=== PATIENT | female | born 1935 | race Caucasian/White ===

== ENCOUNTER 2018-11-08 09:21 | Inpatient (IN) | payer MEDICARE, OTHER, SELFPAY ==
[2018-11-08] VITALS (23 sets, daily range): BP systolic 81–149; BP diastolic 41–109; PULSE 73–115; RESP 11–33; TEMP 36.1–37.3; O2SAT 91–100; BMI 24.5; BMI 24.2
--- NOTE | 2018-11-08 09:40 | ED.DCSUM_ITS ---
History of Present Illness Chief Complaint: Female C/O Informant: Patient Onset: Days - This vaginal area noted a couple days ago, Weeks - Left buttocks pain 2 weeks ago Context: Sudden Onset Timing: Continuous Quality: Pain Location: Left buttocks Current Severity: Mild Maximum Severity: Severe Worsened by: Sitting Relieved by: Nothing Associated Symptoms: Denies fever or chills Narrative: Patient is an elderly woman with history of hypertension hypothyroidism who presents because of left buttocks pain noted a couple weeks ago. She presents now because she believes she has a pelvic infection because of redness noted. She states the redness spread from her backside. She denies fever or chills. She is on no immunosuppressive meds. She denies a history of rheumatic fever, murmur, SBE, or being immune suppressed. She denies dysuria, frequency, urgency or hematuria. She denies vaginal discharge. She denies history of yeast infection. She denies paresthesia, anesthesia motor weakness lower extremity. She denies history of abscess. Prior similar symptoms: No Recent Illness/Hospitalization: No - Past Medical History (1) History of hypertension Status: Acute (2) History of hypothyroidism Status: Acute Past Medical History - Allergies and Home Meds Allergies/Adverse Reactions: Allergies No Known Allergies Allergy (Verified 11/08/18 09:21) Primary Care Physician: Yudy Brennan MD [Primary Care Provider] - Prior records reviewed: Yes Surgical History: noncontributory Lives: Alone Smoking Status: Never smoker Alcohol: None Drugs: None Review of Systems General: Denies: Chills, Fever, Malaise, Subjective, Sweats, Weight loss, - Eyes: Denies: Visual changes - bilaterally, Blurred Vision - bilaterally ENT: Denies: Rhinorrhea, Sore throat Cardiovascular: Denies: Chest pain, Palpitations Respiratory: Denies: Dyspnea, Cough, Dyspnea on exertion Gastrointestinal: Denies: Abdominal pain, Nausea, Vomiting, Diarrhea, Constipation, Melena, Hematochezia Genitourinary: Denies: Dysuria, Hematuria, Frequency Musculoskeletal: Denies: Myalgias, Arthralgias, Neck pain, Back pain, Swelling, Extremity Pain Skin: Reports: Rash Neurological: Denies: Headache, Weakness, Parasthesia, Numbness Endocrine: Denies: Polyuria, Polydipsia Hematologic: Denies: Easy bruising, Easy bleeding Allergy: Denies: Uticaria, Swelling of the mouth Physical Exam Vital Signs/Narrative: Vital Signs Temp Pulse Resp BP Pulse Ox 11/08/18 09:25 96.9 F L 11/08/18 09:22 96.9 F L 115 H 16 149/67 H 97 Diagnostic/Tx/Re-eval Laboratory Results 11/08/18 11/08/18 11/08/18 10:00 10:00 10:00 WBC 12.0 H RBC 3.73 L Hgb 11.5 L Hct 35.4 L MCV 94.9 MCH 30.8 MCHC 32.5 RDW Std Deviation 47.3 H RDW Coeff of Anderson 13.5 Plt Count 248 MPV 9.5 Immature Gran % (Auto) 0.700 Neut % (Auto) 81.2 H Lymph % (Auto) 6.5 L [place] % (Auto) 11.4 H Eos % (Auto) 0.0 Baso % (Auto) 0.2 Absolute Neuts (auto) 9.8 H Absolute Lymphs (auto) 0.78 L Nucleated RBC % 0 Sodium 137 Potassium 3.8 Chloride 104 Carbon Dioxide 25.0 Anion Gap 8 BUN 16 Creatinine 0.90 Estim Creat Clear Calc 45.89 Est GFR (MDRD) Af Amer 78 Est GFR (MDRD) Non-Af 64 BUN/Creatinine Ratio 17.9 Glucose 105 Lactic Acid 1.6 Calcium 9.1 Total Bilirubin 0.90 AST 17 ALT 23 Alkaline Phosphatase 104 Total Protein 7.4 Albumin 3.2 Globulin 4.2 Albumin/Globulin Ratio 0.8 L Patient does not have severe sepsis or septic shock. Lactate is normal at 1.6. White count is elevated. She is tachycardic. She does have sepsis secondary to left buttocks abscess and cellulitis. Since lactate is normal blood cultures are not indicated. She was treated with 4.5 g of Zosyn and 50 mg/kg of vancomycin. - Medical Decision Making Patient presents with left buttocks abscess and cellulitis. The area involvement is extensive. She will require admission. She is tachycardic. Sepsis work-up was undertaken. Lactate was obtained. If lactate is elevated blood cultures will be obtained prior to starting antibiotics. She did receive fluid bolus. The abscess was incised and drained. Very large cavity with multiple areas of loculation. Patient complained of pain after procedure and was medicated with IV morphine and Zofran. Since she has no allergies and location of abscess she was treated with Zosyn and vancomycin. Patient was reassessed at 1055. Blood pressure is 85/61. Since she is hypotensive she will receive a 30 cc/kg bolus. She did receive bolus during procedure. She received 500 cc. Patient require admission. Since she has 2 sirs criteria with a source and systolic pressure less than 90 she has severe sepsis even though her lactate is normal. Page hospitalist for admission. - Critical Care Time Critical care time (excluding procedures): 30-74 minutes, Discussing w/Patient &/or Family/Cage Tender, Discussing w/Consultants, Arranging Admission or Transfer - CC time 33 minutes Procedures Procedure(s): Patient was consented for deep sedation using propofol and I&D of left buttocks abscess. Patient reports no allergy to soy products or egg products. She was given opportunity ask questions. She had none. She was informed of risk benefits of using propofol versus local. Large complex left buttocks abscess with cellulitis. Patient received total of 100 mg of propofol. The area was anesthetized by field block using 1% lidocaine. The area was prepped draped sterile manner. Incision was made. There is minimal purulent material noted. Blunt dissection was undertaken. There is a large cavity and numerous loculated areas were noted. The cavity was irrigated. Was placed using 1 inch iodoform gauze. Culture was obtained. Total time of procedure 10 minutes and 25 seconds. ED Disposition - Plan for ED Patient: Disposition: Acute Care Hospital [facility] Diagnosis: Abscess and cellulitis of gluteal region, Sepsis, Sinus tachycardia by electrocardiogram, Hypotension, Severe sepsis Referrals: Yudy Brennan MD [Primary Care Provider] -
[2018-11-08 10:11] LABS: Absolute Lymphocyte Count 0.78 X10^3/uL (0.83-4.51); Absolute Neutrophil Count 9.8 X10^3/uL (2.0-7.7); Basophil# 0.02 X10^3/uL; Basophil% 0.2 % (0-1); Hematocrit 35.4 % (37-47); Hemoglobin 11.5 g/dL (12.0-15.0); Lymphocyte # 0.78 X10^3/ul (4.0); Lymphocyte % 6.5 % (19-41); Mean Corp Hgb Conc 32.5 g/dL (32-36); Mean Corpuscular Hgb 30.8 pg (27.0-32.0); Mean Corpuscular Volume 94.9 fL (81-99); Mean Platelet Vol. 9.5 fl (6.2-12.0); Monocyte# 1.37 X10^3/uL; Monocyte% 11.4 % (0-10); NRBC Flagged by Analyzer 0 % (0-5); Neutrophil # 9.76 X10^3/uL (2.7-7.7); Neutrophil % 81.2 % (47-70); POSITIVE MORPHOLOGY YES; Platelet Count 248 K/mm3 (150-450); RBC Distribution Width CV 13.5 % (11.6-14.6); RBC Distribution Width SD 47.3 fl (35.1-43.9); Red Blood Count 3.73 M/mm3 (4.2-5.4)
[2018-11-08 10:12] LABS: Differential Indicated SCAN CRITERIA MET
[2018-11-08] MEDS: Propofol 200 MG/20 ML Vial IV BOLUS (10:15)
[2018-11-08 10:26] LABS: ALB/GLOB Ratio 0.8 RATIO (0.9-2.4); AST(SGOT) 17 U/L (15-37); Alanine Aminotransfer ALT/SGPT 23 U/L (13-56); Albumin, Serum 3.2 g/dL (3.2-5.0); Alkaline Phosphatase 104 U/L (45-117); Anion Gap 8 (5-15); BUN 16 mg/dL (7-18); BUN/Creat Ratio 17.9 RATIO (10-20); Calcium,Total 9.1 mg/dL (8.5-10.1); Chloride 104 mmol/L (98-107); EST Glomerular Filtration Rate 64 mL/min (>60); Est Glom Filt Rate - Afr Amer 78 mL/min (>60); Estimated Creatinine Clearance 45.89 ml/min; Globulin 4.2 g/dL (2.2-4.2); Glucose 105 mg/dL (74-106); Potassium 3.8 mmol/L (3.5-5.1); Protein, Total 7.4 g/dL (6.4-8.2); Sodium Level 137 mmol/L (136-145)
[2018-11-08 10:37] LABS: Lactic Acid 1.6 mmol/L (0.4-2.0)
[2018-11-08] MEDS: 0.9% Normal Saline 1,000 ML 150 ML IV (10:38)
[2018-11-08] MEDS: Morphine 4 MG/ML Syringe IV ×2 (10:39→11:31)
[2018-11-08] MEDS: Ondansetron 4 MG/2 ML Vial IV (10:45)
[2018-11-08] MEDS: 0.9% Normal Saline 1,000 ML 1000 ML IV (11:31)
--- NOTE | 2018-11-08 11:37 | CM.ED ---
Social Work Consult: dependent on patient's care. At home, amputee unilateral. Informant: Dr. Cortez Met with patient in room. This social security specialist introduced self as well as social security specialist role. Patient agreeable to speaking with this social security specialist. Patient confirming that patient spouse is home alone and is wheelchair bound. Patient aware that patient is going to be admitted to the hospital. This social security specialist inquiring about support for patient spouse within the home as patient will be in the hospital. Patient stating to have neighbors and friends that are able to check in with patient. Patient also stating that there is plenty of food within the home. Patient is requesting for this social security specialist to contact patient spouse to update patient spouse about patient status. Patient spouse, Lisandro cell phone [phone]. Telephone call to Lisandro Mcmahon updated on patient status. Lisandro voicing understanding and confirming to be able to care for self. Lisandro stating to have a home health nurse coming at 4p today. Lisandro requesting for patient to contact Lisandro after things have calmed down. This social security specialist passing message along to patient. All questions answered. Eloisa CHAPA, MAURICE
--- NOTE | 2018-11-08 13:10 | PCM.CONS.B ---
- Consult Date of Consult: 11/08/18 - Reason for Consult Asked to evaluate patient by Dr. Evans Selene Michael is a 83 year old female who presents with left buttock abscess. Noted this for about two months. Tried to self-treat. But presented to her primary physician's clinic due to increasing size of the area of infection. She was then referred to ED [facility]. She denies trauma to the area. Is taking care of her disabled who has chronic leg infections and has been hospitalized multiple times for this. Does not know if any MRSA infections. ? PAST?MEDICAL?HISTORY ? Allergic rhinitis, cause unspecified 09/28/2007 ? Diverticulosis of colon (without mention of hemorrhage) ? ? Hemorrhage of gastrointestinal tract, unspecified ? ? Internal hemorrhoids without mention of complication ? ? Other chronic allergic conjunctivitis ? ? ALLERGIC CONJUNCTIVITIS ? Personal history of colonic polyps ? ? PMH - PAST MEDICAL HISTORY OF ? ? ganglian left foot ? Pure hypercholesterolemia ? ? Sjogren's disease (HCC) 2009 ? Unspecified essential hypertension ? ? Unspecified hypothyroidism PAST SURGICAL HISTORY: ? BX BREAST PERC VACUUM/ROTN ? 03/28/2008 ? Left Breast ? COLONOSCOP W/ OR W/O [facility] SPEC ? 02/17/05 ? Colonoscopy ? D&C, DIAG AND/OR THERAPEUTIC ? 1989 ? Dilation & curettage ? LIGATE FALLOPIAN TUBE ? ? ? Tubal ligation ? PAST SURGICAL HISTORY OF ? 1996 ? FIBROID REMOVED ? CURRENT?MEDICATIONS losartan (COZAAR) 100 mg tablet Take 1 tablet by mouth once daily. (instead of irbesartan due to irbesartan not being available). Give namebrand amLODIPine (NORVASC) 2.5 mg tablet Take 1 tablet by mouth once daily. atorvastatin (LIPITOR) 10 mg tablet Take 0.5 tablets by mouth once daily. clobetasol (TEMOVATE) 0.05 % ointment Apply pea sized amount to affected area only - 1-2 times weekly levothyroxine (SYNTHROID) 75 mcg tablet Take 1 tablet by mouth once daily. Take on empty stomach. For Thyroid ASPIRIN 81 MG TAB Take one (1) tablet daily . AFLURIA QUAD 4581-3022, PF, 60 mcg/0.5 mL syrg To be injected by Pharmacis ALLERGIES ? Anesthesia [Other] GI Upset? ? VOMITING ? Codeine GI Upset? ? NAUSEA ? Irbesartan Intolerance? ? reports mouth sores with generic irbesartan ? Levothroid [Levothy* ? ? Choking sensation,inability to swallow--only occurred with generic med ? Pravastatin Intolerance? ? Dry mouth lots of dental work ?? PERSONAL HISTORY: She lives with her who is disabled. She reports that she has never smoked. She has never used smokeless tobacco. She reports that she does not drink alcohol or use drugs. ? Review of Systems Constitutional: denies fevers/chills. Respiratory: denies shortness of breath Cardiovascular: denies chest pain, denies history of cardiac problems Hematological: denies spontaneous/prolonged bleeding, is on aspirin Genitourinary: denies burning with urination, concern that infection was spreading to vagina and she therefore sought medical evaluation Musculoskeletal: no myalgias, pain with above Psychological: denies major mood changes ? PHYSICAL EXAMINATION BP 124/68 (BP Site: Right Arm, BP Position: Sitting, BP Cuff Size: Regular Adult) Pulse 72 Resp 16 Wt 67.1 kg (148 lb) BMI 23.53 kg/m? Physical Exam Constitutional: She appears well-developed and well-nourished. No distress. HENT: no infections or trauma noted Head: Normocephalic and atraumatic. Cardiovascular: Normal rate, regular rhythm, normal heart sounds and intact distal pulses. Exam reveals no gallop and no friction rub. No murmur heard. Pulmonary/Chest: Effort normal and breath sounds normal. No stridor. No respiratory distress. She has no wheezes. Neurological: She is alert. Back/buttocks - left buttock about 60% involved with erythema/increased skin temperature/induration/tenderness with central opening a few centimeters - the area of inflammation extending to perineum Vaginal wall palpated - no inflammation involvement with vaginal wall. Rectal examination - stool in vault, no involvement of inflammation with rectal wall. Skin: Skin is warm and dry. She is not diaphoretic. Assessment and Plan ?? Abscess and cellulitis of left buttock. Plan - to OR for exploration - determine if deeper site to infection/etc. May require surgical debridement of devitalized tissue as patient has had this for two months. Antibiotics per hospitalists service. I strongly suspect MRSA infection.
[2018-11-08] MEDS: Lactated Ringers 1,000 ML 100 ML IV (13:37)
--- NOTE | 2018-11-08 14:28 | PCM.OPRPT ---
Report of Operation Date of Procedure: 11/08/18 Pre-Operative Diagnosis: abscess and cellulitis of left buttock Post-Operative Diagnosis: abscess and cellulitis and hematoma of left buttock Surgery/Procedure Performed:: incision and drainage of abscessed cavity of left buttock Description of Surgical Findings:: 16 x 13 cm with depth of 3 cm, cruciate incision made Type of Anesthesia:: General Anesthesiologist: Kal Rose Specimen's removed: cultures of wound obtained Drains: none Estimated Blood Loss (mL): 50 ml, lar Fluids Replaced: 600 ml RL Description of Procedure: After informed consent was given, the patient was brought to the Operating Room. Appropriate time out protocol was followed. She was then intubated in the supine position by the anesthesia provider. She was then placed in the prone position with appropriate padding to all areas. The patient?s lower back/buttock on the left side was then prepped with a surgical skin preparation and sterile surgical drapes were placed. The skin and subcutaneous tissues in and around the lesion were then infiltrated with 1% xylocaine with epinephrine. A skin incision was then made with a 15 blade scalpel at the previous opening. However, it was noted that the cavity extended greatly beyond the previous opening that was made. Therefore a cruciate incision was made to completely open the entire cavity, this was 16 x 15 cm. Also, the cavity had a large amount of clotted blood within it - at least 300 ml was noted. No purulent fluid was noted. The wound was debrided with all clotted blood removed. Also devitalized tissue was debrided. Hemostasis was achieved by electrocautery. The cavity was vigorously irrigated with hydrogen peroxide. The cavity was then packed with diluted betadyne soaked gauze. Sterile dressing was placed over this. Patient was then extubated and brought to the Recovery Room in stable condition. - Complications none noted - Admit VTE Documentation VTE Present on Admission: Yes VTE Mechan Device Prophylaxis: SCD's
[2018-11-08 15:20] LABS: M R Staph aureus DNA By PCR POSITIVE (Negative); Probe Check PASS; Staph aureus DNA By PCR POSITIVE (Negative)
[2018-11-08] MEDS: Vancomycin IV 1,000 MG/200 ML BAG 200 MG IV (18:19)
--- NOTE | 2018-11-08 18:37 | HP.PCM_ITS ---
Problem List (1) Left buttock pain Status: Acute History of Present Illness Date of Admission: 11/08/18 Chief Complaint: Left buttocks pain The patient is a 83 year old F was seen in the emergency room at [facility] with chief complaint of left buttocks pain. Patient told this examiner that she saw her PCP yesterday who then referred her to another physician-she is not sure who that was-and that physician told her that she was to continue on the treatment that her PCP had given her but go to the emergency room today for reevaluation. Patient told this examiner she has had pain in her left buttocks area for approximately a month. Patient denied any fevers, chills, or drainage from her left buttocks. Patient also denied any vaginal drainage. Work-up in the emergency room included labs which revealed a elevated white blood cell count at 12.0, patient's chemistry profile was unremarkable. On examination by the emergency room physician, there is an indurated red area over the patient's mid left buttocks area, the area was incised and small amount of purulent drainage was removed, this was cultured and a PCR for MRSA was obtained. The wound was further probed and the emergency room physician felt that it extended down into the buttocks and he put packing into the wound and call the hospitalist service for admission. I saw the patient after she had been admitted to PCU and I felt that she had extreme redness of the left buttocks extending into the left perivaginal area, I was concerned of a severe infection that was deep in the tissue and had general surgery see the patient who took the patient to surgery and drained a large hematoma from the area. Patient's PCR for MRSA was positive and she will be kept on IV vancomycin and I will continue Zosyn for now. Past Medical History Allergies No Known Allergies Allergy (Verified 11/08/18 09:21) Home Medications: Ambulatory Orders Medication Instructions Recorded Amlodipine Besylate 2.5 mg PO DAILY 11/08/18 Aspirin [Aspirin, Baby] 81 mg PO DAILY@0800 11/08/18 Atorvastatin Calcium 0.5 tab PO DAILY 11/08/18 Irbesartan [Avapro] 150 mg PO DAILY 11/08/18 Levothyroxine Sodium [Synthroid] 75 mcg PO DAILY 11/08/18 Surgical History: noncontributory Psychiatric History: No pertinent psych hx [employer] History: No pertinent [employer] history Lives: Spouse/ Significant Other Smoking Status: Never smoker Tobacco Use: Non-smoker Alcohol: None Drugs: None - *Family History Maternal History Items: No pertinent history Paternal History Items: No pertinent history Review of Systems Constitutional: Denies: Anorexia, Chills, Fever, Night Sweats, Malaise, Weakness, Weight Change, Fatigue Eyes: Denies: Cataracts, Conjunctivae Inflammation, Double vision, Drainage HEENT: Denies: Difficulty Swallowing, Dysphasia, Ear Pain, Eye Pain, Hearing Changes, Nasal bleeding, Nasal Congestion Cardiovascular: Denies: Chest Pain, Claudication, Chest Pressure, Chest Tightness, Edema, Palpitations Respiratory: Denies: Cough, Hemoptysis, Pleuritic Pain, Shortness of Breath, Shortness of breath at rest, Shortness of breath upon exertion Gastrointestinal: Denies: Abdominal Pain, Constipation, Diarrhea, Hematemesis, Hematochezia, Nausea, Melena, Vomiting Genitourinary: Denies: Dysuria, Frequency, Hematuria, Hesitancy, Nocturia, Retention, Urgency Gynecological: Denies: Breast symptoms Musculoskeletal: Denies: Foot Pain, Hand Pain, Joint Pain, Joint stiffness, Joint swelling Skin: Reports: - - c/o pain over left mid buttocks. Denies: Dryness, Pruritis Neurological: Denies: Blurred vision, Double vision, Slurred speech, Difficulty swallowing, Focal weakness, Headaches, Numbness, Tingling Psychiatric: Denies: Anxiety, Depression, Homicidal Ideations, Suicidal Ideations Endocrine: Denies: Change in Body Habitus, Heat/ Cold Intolerance, Polydipsia, Polyuria Hematologic/ Lymphatic: Denies: Adenopathy, Anemia, Easy Bruising, Easy Bleeding, Petechiae, Purpura VTE Information - Inpt Only VTE Present on Admission: No VTE Mechan Device Prophylaxis: None VTE Pharm Prophylaxis ordered?: Yes Patient Problems: Active and Suspected Problems Abscess and cellulitis of gluteal region (Acute) Sepsis (Acute) Sinus tachycardia by electrocardiogram (Acute) Hypotension (Acute) Severe sepsis (Acute) Left buttock pain (Acute) - Physical Exam General: Alert, Oriented x3, Cooperative, No apparent distress, Well developed, Well nourished HEENT: Atraumatic, PERRLA, EOMI, Normocephalic Oral: Moist Mucosa Neck: Supple, No JVD, Trachea Midline, Thyroid Normal Size and Texture Lungs: Clear to auscultation, Normal air movement Cardiovascular: Regular rate, No murmurs Abdomen: Bowel Sounds Present, Soft, Non Tender Extremities: No edema, Capillary Refill Less than 3 Seconds Skin: - - There is an indurated warm area over most of the patient's left buttocks area extending into the perivaginal area on the left side. Neurological: Cranial nerves II-XII grossly intact, Neuro grossly intact, Sensory exam intact to light touch and pain, Coordination normal Psych/Mental Status: Normal Affect, Appropriate, Alert and oriented to time, place, person, mood and affect Vital Signs Temp Pulse Resp BP Pulse Ox 98.9 F 73 16 117/52 L 95 11/08/18 18:05 11/08/18 18:05 11/08/18 18:05 11/08/18 18:05 11/08/18 18:05 Oxygen Flow Rate (L/min) [4] 5 Oxygen Flow Rate (L/min) [2] 2 Oxygen Flow Rate (L/min) [1 ( 2 Initial Baseline)] Oxygen Flow Rate (L/min) 2 Oxygen Delivery Method [4] Nasal Cannula Oxygen Delivery Method [2] Nasal Cannula Oxygen Delivery Method [1 ( Nasal Cannula Initial Baseline)] Oxygen Delivery Method Room Air Weight: 68 kg Body Mass Index (BMI) 24.2 Intake and Output for Last 24 Hours 11/06/18 11/07/18 11/08/18 23:59 23:59 23:59 Intake Total 2492.5 / 2492.5 Balance 2492.5 / 2492.5 Microbiology Past 72 Hours 11/08/18 10:15 Gram Stain - Final Wound Abcess - Buttock Laboratory Tests Past 24 Hrs 11/08/18 11/08/18 11/08/18 10:00 10:00 10:00 WBC 12.0 H RBC 3.73 L Hgb 11.5 L Hct 35.4 L MCV 94.9 MCH 30.8 MCHC 32.5 RDW Std Deviation 47.3 H RDW Coeff of [place] 13.5 Plt Count 248 MPV 9.5 Immature Gran % (Auto) 0.700 Neut % (Auto) 81.2 H Lymph % (Auto) 6.5 L [place] % (Auto) 11.4 H Eos % (Auto) 0.0 Baso % (Auto) 0.2 Absolute Neuts (auto) 9.8 H Absolute Lymphs (auto) 0.78 L Nucleated RBC % 0 Sodium 137 Potassium 3.8 Chloride 104 Carbon Dioxide 25.0 Anion Gap 8 BUN 16 Creatinine 0.90 Estim Creat Clear Calc 45.89 Est GFR (MDRD) Af Amer 78 Est GFR (MDRD) Non-Af 64 BUN/Creatinine Ratio 17.9 Glucose 105 Lactic Acid 1.6 Calcium 9.1 Total Bilirubin 0.90 AST 17 ALT 23 Alkaline Phosphatase 104 Total Protein 7.4 Albumin 3.2 Globulin 4.2 Albumin/Globulin Ratio 0.8 L S.aureus Protein A PCR MRSA (PCR) 11/08/18 13:05 WBC RBC Hgb Hct MCV MCH MCHC RDW Std Deviation RDW Coeff of Anderson Plt Count MPV Immature Gran % (Auto) Neut % (Auto) Lymph % (Auto) [place] % (Auto) Eos % (Auto) Baso % (Auto) Absolute Neuts (auto) Absolute Lymphs (auto) Nucleated RBC % Sodium Potassium Chloride Carbon Dioxide Anion Gap BUN Creatinine Estim Creat Clear Calc Est GFR (MDRD) Af Amer Est GFR (MDRD) Non-Af BUN/Creatinine Ratio Glucose Lactic Acid Calcium Total Bilirubin AST ALT Alkaline Phosphatase Total Protein Albumin Globulin Albumin/Globulin Ratio S.aureus Protein A PCR POSITIVE H MRSA (PCR) POSITIVE H Assessment/Plan All Active Problems History of hypertension (Acute) History of hypothyroidism (Acute) Abscess and cellulitis of gluteal region (Acute) Sepsis (Acute) Sinus tachycardia by electrocardiogram (Acute) Hypotension (Acute) Severe sepsis (Acute) Left buttock pain (Acute) #1 left buttocks cellulitis from MRSA with abscess pocket in left buttocks- again, patient was admitted to PCU and she will be taken to surgery for further treatment by Dr. Berry. Patient will remain on Zosyn and vancomycin. #2 large hematoma of the left buttocks-etiology appears to be her use of aspirin, patient denies any trauma or fall #3 hypertension-patient will remain on her present blood pressure medications #4 sepsis secondary to #1-no evidence of severe sepsis at this time #5 hypothyroidism #6 hyperlipidemia Code Visit Inpatient E&M: 00243 Init Hosp L3
[2018-11-08] MEDS: 0.9% Normal Saline 1,000 ML 75 ML IV (18:47)
[2018-11-08] MEDS: oxyCODONE 5 MG Tablet 10 MG PO (20:23)
--- NOTE | 2018-11-08 20:49 | PCM.RX.CS ---
Consult Pharmacy has been consulted to manage selected antiobiotic: Vancomycin Type of Consult: New start Suspected Infection: Skin/Soft tissue Prior Doses of Antibiotics Received/Current Regimen: None Labs: Sodium 137 mmol/L (136-145) 11/08/18 10:00 Potassium 3.8 mmol/L (3.5-5.1) 11/08/18 10:00 Chloride 104 mmol/L (98-107) 11/08/18 10:00 Carbon Dioxide 25.0 mmol/L (21.0-32.0) 11/08/18 10:00 8 (5-15) 11/08/18 10:00 BUN 16 mg/dL (7-18) 11/08/18 10:00 0.90 mg/dL (0.55-1.02) 11/08/18 10:00 Est GFR (MDRD) Af Amer 78 mL/min (>60) 11/08/18 10:00 Est GFR (MDRD) Non-Af 64 mL/min (>60) 11/08/18 10:00 17.9 RATIO (10-20) 11/08/18 10:00 Glucose 105 mg/dL (74-106) 11/08/18 10:00 Microbiology: Microbiology 11/08/18 10:15 Wound Abcess - Buttock Gram Stain - Final Weight used for dosin kg Estimated Creatinine Clearance: 46ml/min Goal Trough: 15-20 mcg/mL Pharmacy Plan for Drug Dosing: Pt received a 15mg/kg initial loading dose (Vancomycin 1000mg IV x1) on 11/08/18 at 1819. Ordered trough for the pt is high or 15-20. Recommend Vancomycin 750mg IV q24h starting 24 hours after the initial dose or 11/09/18 at 1800. Trough level will be checked on 11/10/18 at 1730. Pharmacy Service will continue to monitor and adjust dosing as required. Follow-Up Labs: Trough Vancomycin - 11/10/18 at 1730
[2018-11-08] MEDS: Atorvastatin Calcium 10 MG Tablet 5 MG PO (22:49)
[2018-11-08] MEDS: 0.9% NaCl IVPB Med Flush (250 mL) 15 ML IV (22:54)
[2018-11-09] VITALS (13 sets, daily range): BP systolic 114–148; BP diastolic 48–68; PULSE 66–97; RESP 16–18; TEMP 36.2–37.3; O2SAT 93–100; BMI 24.5
[2018-11-09] MEDS: Levothyroxine 75 MCG Tablet PO (05:13)
--- NOTE | 2018-11-09 08:22 | NURSING ---
Called and talked with Dr Berry to see of this nurse should change the dressing to the left buttock. Dr Berry would like the dressing left in place. Feels wound will bleed and wants to be present for dressing change. BERNARDO Busch aware.
[2018-11-09] MEDS: 0.9% Normal Saline 1,000 ML 75 ML IV (08:24)
[2018-11-09 08:36] LABS: Absolute Lymphocyte Count 0.82 X10^3/uL (0.83-4.51); Absolute Neutrophil Count 10.7 X10^3/uL (2.0-7.7); Basophil# 0.01 X10^3/uL; Basophil% 0.1 % (0-1); Hematocrit 25.6 % (37-47); Hemoglobin 8.2 g/dL (12.0-15.0); Lymphocyte # 0.82 X10^3/ul (4.0); Lymphocyte % 6.3 % (19-41); Mean Corpuscular Hgb 30.9 pg (27.0-32.0); Mean Corpuscular Volume 96.6 fL (81-99); Mean Platelet Vol. 9.7 fl (6.2-12.0); Monocyte% 10.8 % (0-10); NRBC Flagged by Analyzer 0 % (0-5); Neutrophil # 10.67 X10^3/uL (2.7-7.7); Neutrophil % 82.2 % (47-70); POSITIVE MORPHOLOGY YES; Platelet Count 192 K/mm3 (150-450); RBC Distribution Width CV 13.4 % (11.6-14.6); RBC Distribution Width SD 47.7 fl (35.1-43.9); Red Blood Count 2.65 M/mm3 (4.2-5.4)
[2018-11-09 08:39] LABS: Differential Indicated SCAN CRITERIA MET
[2018-11-09 09:12] LABS: ALB/GLOB Ratio 0.7 RATIO (0.9-2.4); AST(SGOT) 14 U/L (15-37); Alanine Aminotransfer ALT/SGPT 18 U/L (13-56); Albumin, Serum 2.5 g/dL (3.2-5.0); Alkaline Phosphatase 75 U/L (45-117); Anion Gap 7 (5-15); BUN 16 mg/dL (7-18); BUN/Creat Ratio 20.8 RATIO (10-20); Calcium,Total 8.2 mg/dL (8.5-10.1); Chloride 107 mmol/L (98-107); Creatinine, Serum 0.77 mg/dL (0.55-1.02); EST Glomerular Filtration Rate 76 mL/min (>60); Est Glom Filt Rate - Afr Amer 92 mL/min (>60); Globulin 3.6 g/dL (2.2-4.2); Glucose 127 mg/dL (74-106); Potassium 4.1 mmol/L (3.5-5.1); Protein, Total 6.1 g/dL (6.4-8.2); Sodium Level 140 mmol/L (136-145)
[2018-11-09 11:31] LABS: Hematocrit 26.7 % (37-47); Hemoglobin 8.7 g/dL (12.0-15.0)
--- NOTE | 2018-11-09 11:40 | NURSING ---
Dr Berry came and tore down wound drsg but did not take out packing. Re-inforced w/4x4 gauze & abd's. Ordered to leave dressing on until tomorrow when her and Yahaira, wound RN, assess wound.
--- NOTE | 2018-11-09 11:45 | CASEMGMT ---
As per admitting RN, pt has LW but is unable to bring in the document. Pt does not have POA document, declined additional information at this time. SELMA Ledbetter
--- NOTE | 2018-11-09 13:54 | CASEMGMT ---
Addendum entered by Pasquale Mcdonough 11/09/18 14:55: Call received from [facility]-they are able to accept pt for wound vac or dressing change care. Tom GATICA Addendum entered by Pasquale Mcdonough 11/09/18 14:25: List of area Home Health agencies given to patient. Pt would like agency her has which is [facility]. Message left with [facility] to update re: possible referral. Original Note: RN CM Assessment Presentation: abcess on buttock, I/D. Intro role of CM and purpose of RN CM assessment to patient. Demographics, PCP and Pharmacy verified.Pt able to participate in assessment. Pt states she does not remember injuring herself, and denied any falls. 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 Prior to admission pt was independent and no care needs prior to admission. -Per physician, anticipate pt will need wound vac on dc, but oral antibiotics. PCP: Dr. Brennan Specialists: Dr. Berry [facility]: [employer] Prescription Benefit: yes LNOK: Lisandro Michael Living Arrangements: Lives in [facility], one story, no stairs. Was independent prior to admission. using walker to ambulate with PT/OT. Transportation: drives. If pt is unable to drive, may need transportation assistance as does not drive. [facility] Transportation brochure given and explained. Per [facility] Transp. Serv- they will transport to Dr. Brennan' office. DME: shower chair HHC: Would need Home Health if wound vac is needed, or dressing changes are ordered. List of area agencies given to patient. Patient DC goals: home. 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 DC PLAN: undetermined. Anticipate Home with HHS/wound vac. Tom REDDYM
--- NOTE | 2018-11-09 14:45 | PCM.PROGNOTE ---
Patient Problems: Active and Suspected Problems Abscess and cellulitis of gluteal region (Acute) Sepsis (Acute) Sinus tachycardia by electrocardiogram (Acute) Hypotension (Acute) Severe sepsis (Acute) Left buttock pain (Acute) Subjective: Resting comfortably in bed. Ongoing pain in buttocks. No fever/chills. No cough/SOB. C/o sinus congestion and drainage into her throat. - Physical Exam General: Alert, Oriented x3, Cooperative HEENT: Atraumatic, PERRLA, EOMI, Normocephalic Neck: Supple, No JVD, Negative Carotid Bruits Lungs: Clear to auscultation, Normal air movement Cardiovascular: Regular rate, No murmurs Abdomen: Bowel Sounds Present, Soft, Non Tender Extremities: No edema, Capillary Refill Less than 3 Seconds Skin: No rashes, No breakdown Musculoskeletal: No Tenderness to Palpation of Joints or Extremities Neurological: Cranial nerves II-XII grossly intact Psych/Mental Status: Normal Affect, Appropriate, Alert and oriented to time, place, person, mood and affect Vital Signs Temp Pulse Resp BP Pulse Ox 97.3 F L 73 18 125/62 H 99 11/09/18 13:24 11/09/18 13:24 11/09/18 13:24 11/09/18 13:24 11/09/18 13:24 Oxygen Flow Rate (L/min) [4] 5 Oxygen Flow Rate (L/min) [2] 2 Oxygen Flow Rate (L/min) [1 ( 2 Initial Baseline)] Oxygen Flow Rate (L/min) 2 Oxygen Delivery Method [4] Nasal Cannula Oxygen Delivery Method [2] Nasal Cannula Oxygen Delivery Method [1 ( Nasal Cannula Initial Baseline)] Oxygen Delivery Method Room Air Weight: 149 lb 14.629 oz Body Mass Index (BMI) 24.2 Orthostatic Vital Signs Start: 11/09/18 11:02 Freq: q24h Status: Active Protocol: Activity Type Activity Date Activity User E-Sign Co-Sign Detail Recorded Client Recorded Date Recorded By Document 11/09/18 11:02 STEPHANIE [id number] 11/09/18 11:09 STEPHANIE 11/09/18 11:02 Orthostatic Vitals Standing -Blood Pressure (90/60-120/80) 131/68 H -Extremity Use Left Arm -Pulse Rate (60-100) 97 Sitting -Blood Pressure (90/60-120/80) 143/60 H -Extremity Use Left Arm -Pulse Rate (60-100) 93 Lying -Blood Pressure (90/60-120/80) 125/55 H -Extremity Use Left Arm -Pulse Rate (60-100) 83 Intake and Output for Last 24 Hours 11/07/18 11/08/18 11/09/18 23:59 23:59 23:59 Intake Total 2947.54 / 2947.54 2154.46 / 2154.46 Balance 2947.54 / 2947.54 2154.46 / 2154.46 Microbiology Past 72 Hours 11/08/18 Unknown Gram Stain - Final Biopsy - Other Wound Culture - Preliminary Staphylococcus aureus 11/08/18 10:15 Gram Stain - Final Wound Abcess - Buttock Wound Culture - Preliminary Staphylococcus aureus Laboratory Tests Past 24 Hrs 11/08/18 11/09/18 11/09/18 13:05 08:24 08:24 WBC 13.0 H RBC 2.65 L Hgb 8.2 L Hct 25.6 L MCV 96.6 MCH 30.9 MCHC 32.0 RDW Std Deviation 47.7 H RDW Coeff of Anderson 13.4 Plt Count 192 MPV 9.7 Immature Gran % (Auto) 0.600 Neut % (Auto) 82.2 H Lymph % (Auto) 6.3 L [place] % (Auto) 10.8 H Eos % (Auto) 0.0 Baso % (Auto) 0.1 Absolute Neuts (auto) 10.7 H Absolute Lymphs (auto) 0.82 L Nucleated RBC % 0 Sodium 140 Potassium 4.1 Chloride 107 Carbon Dioxide 26.0 Anion Gap 7 BUN 16 Creatinine 0.77 Estim Creat Clear Calc 41.30 Est GFR (MDRD) Af Amer 92 Est GFR (MDRD) Non-Af 76 BUN/Creatinine Ratio 20.8 H Glucose 127 H Calcium 8.2 L Total Bilirubin 0.70 AST 14 L ALT 18 Alkaline Phosphatase 75 Total Protein 6.1 L Albumin 2.5 L Globulin 3.6 Albumin/Globulin Ratio 0.7 L S.aureus Protein A PCR POSITIVE H MRSA (PCR) POSITIVE H Blood Type Antibody Screen 11/09/18 11/09/18 11:20 11:20 WBC RBC Hgb 8.7 L Hct 26.7 L MCV MCH MCHC RDW Std Deviation RDW Coeff of Anderson Plt Count MPV Immature Gran % (Auto) Neut % (Auto) Lymph % (Auto) [place] % (Auto) Eos % (Auto) Baso % (Auto) Absolute Neuts (auto) Absolute Lymphs (auto) Nucleated RBC % Sodium Potassium Chloride Carbon Dioxide Anion Gap BUN Creatinine Estim Creat Clear Calc Est GFR (MDRD) Af Amer Est GFR (MDRD) Non-Af BUN/Creatinine Ratio Glucose Calcium Total Bilirubin AST ALT Alkaline Phosphatase Total Protein Albumin Globulin Albumin/Globulin Ratio S.aureus Protein A PCR MRSA (PCR) Blood Type A POSITIVE Antibody Screen NEGATIVE Medical Necessity - Tobacco Use Smoking Status: Never smoker Assessment/Plan All Active Problems History of hypertension (Acute) History of hypothyroidism (Acute) Abscess and cellulitis of gluteal region (Acute) Sepsis (Acute) Sinus tachycardia by electrocardiogram (Acute) Hypotension (Acute) Severe sepsis (Acute) Left buttock pain (Acute) 1. Acute sepsis 2/2 Infected hematoma of the left buttocks - POD#[address] I[address] Berry. Pt is unsure how she initially developed this wound. PCR + For MRSA. ID following. Continue IV Vanc. Wound cx 2+ Staph aureus. Blood culture pending. WBC not improved. Afebrile. Sepsis on admission as evidenced by infected wound, leukcytosis, tachycardia, no lactic acidosis. Wound care consulted. 2. Normocytic anemia - likely 2/2 hematoma, IV fluids, and some blood loss in surgery - Hgb 11.5-->8.2 overnight Repeat improved to 8.7. Check iron / TIBC / ferritin. 3. HTN - stable 4. Hyopthyroidism - synthroid DVT ppx: heparin DC planning: PTOT. This patient was seen by Robbin Finch PA-C under the supervision of Dr. Evans.
--- NOTE | 2018-11-09 14:46 | CON.PCM_ITS ---
Problem List (1) Abscess and cellulitis of gluteal region Status: Acute Reason for Consult: abscess Consulted by: Dr. Evans History of Present Illness: The patient is a 83 year old F who presented last night with 1-2 weeks of L buttock pain, swelling, discoloration. Does not recall any trauma. Denies any past h/o MRSA infection. No fever or chills. No drainage. Pain was worsening, became severe, spread to L labia. Saw PCP, sent to ED, I&D done, admitted on vanc/zosyn. Taken to OR by Dr. Berry and cruciate incision done. Now feeling better, no n/v/d. Per nursing, wound was clean this AM. Full ROS performed and neg except as noted above. - Medical History Surgical History: reviewed. Poor historian. Allergies/Adverse Reactions: Allergies No Known Allergies Allergy (Verified 11/08/18 09:21) Home Medications: Ambulatory Orders Medication Instructions Recorded Amlodipine Besylate 2.5 mg PO DAILY 11/08/18 Aspirin [Aspirin, Baby] 81 mg PO DAILY@0800 11/08/18 Atorvastatin Calcium 0.5 tab PO DAILY 11/08/18 Irbesartan [Avapro] 150 mg PO DAILY 11/08/18 Levothyroxine Sodium [Synthroid] 75 mcg PO DAILY 11/08/18 - Social History Tobacco Use: non-smoker Vital Signs Temp Pulse Resp BP Pulse Ox 97.3 F L 73 18 125/62 H 99 11/09/18 13:24 11/09/18 13:24 11/09/18 13:24 11/09/18 13:24 11/09/18 13:24 Oxygen Flow Rate (L/min) [4] 5 Oxygen Flow Rate (L/min) [2] 2 Oxygen Flow Rate (L/min) [1 ( 2 Initial Baseline)] Oxygen Flow Rate (L/min) 2 Oxygen Delivery Method [4] Nasal Cannula Oxygen Delivery Method [2] Nasal Cannula Oxygen Delivery Method [1 ( Nasal Cannula Initial Baseline)] Oxygen Delivery Method Room Air Weight: 68 kg Body Mass Index (BMI) 24.2 Orthostatic Vital Signs Start: 11/09/18 11:02 Freq: q24h Status: Active Protocol: Activity Type Activity Date Activity User E-Sign Co-Sign Detail Recorded Client Recorded Date Recorded By Document 11/09/18 11:02 [facility] [id number] 11/09/18 11:09 [facility] 11/09/18 11:02 Orthostatic Vitals Standing -Blood Pressure (90/60-120/80) 131/68 H -Extremity Use Left Arm -Pulse Rate (60-100) 97 Sitting -Blood Pressure (90/60-120/80) 143/60 H -Extremity Use Left Arm -Pulse Rate (60-100) 93 Lying -Blood Pressure (90/60-120/80) 125/55 H -Extremity Use Left Arm -Pulse Rate (60-100) 83 Microbiology Past 72 Hours 11/08/18 Unknown Gram Stain - Final Biopsy - Other Wound Culture - Preliminary Staphylococcus aureus 11/08/18 10:15 Gram Stain - Final Wound Abcess - Buttock Wound Culture - Preliminary Staphylococcus aureus Laboratory Tests Past 24 Hrs 11/08/18 11/09/18 11/09/18 13:05 08:24 08:24 WBC 13.0 H RBC 2.65 L Hgb 8.2 L Hct 25.6 L MCV 96.6 MCH 30.9 MCHC 32.0 RDW Std Deviation 47.7 H RDW Coeff of Anderson 13.4 Plt Count 192 MPV 9.7 Immature Gran % (Auto) 0.600 Neut % (Auto) 82.2 H Lymph % (Auto) 6.3 L [place] % (Auto) 10.8 H Eos % (Auto) 0.0 Baso % (Auto) 0.1 Absolute Neuts (auto) 10.7 H Absolute Lymphs (auto) 0.82 L Nucleated RBC % 0 Sodium 140 Potassium 4.1 Chloride 107 Carbon Dioxide 26.0 Anion Gap 7 BUN 16 Creatinine 0.77 Estim Creat Clear Calc 41.30 Est GFR (MDRD) Af Amer 92 Est GFR (MDRD) Non-Af 76 BUN/Creatinine Ratio 20.8 H Glucose 127 H Calcium 8.2 L Total Bilirubin 0.70 AST 14 L ALT 18 Alkaline Phosphatase 75 Total Protein 6.1 L Albumin 2.5 L Globulin 3.6 Albumin/Globulin Ratio 0.7 L S.aureus Protein A PCR POSITIVE H MRSA (PCR) POSITIVE H Blood Type Antibody Screen 11/09/18 11/09/18 11:20 11:20 WBC RBC Hgb 8.7 L Hct 26.7 L MCV MCH MCHC RDW Std Deviation RDW Coeff of Anderson Plt Count MPV Immature Gran % (Auto) Neut % (Auto) Lymph % (Auto) [place] % (Auto) Eos % (Auto) Baso % (Auto) Absolute Neuts (auto) Absolute Lymphs (auto) Nucleated RBC % Sodium Potassium Chloride Carbon Dioxide Anion Gap BUN Creatinine Estim Creat Clear Calc Est GFR (MDRD) Af Amer Est GFR (MDRD) Non-Af BUN/Creatinine Ratio Glucose Calcium Total Bilirubin AST ALT Alkaline Phosphatase Total Protein Albumin Globulin Albumin/Globulin Ratio S.aureus Protein A PCR MRSA (PCR) Blood Type A POSITIVE Antibody Screen NEGATIVE - Other Studies Radiology: [] reviewed Other Studies: [] Route of nutrition/ use of supplements: [] Nutritional Intake: [] IV Site: [] Kidd Catheter: [] - Physical Exam General: Alert, Cooperative, No apparent distress HEENT: Atraumatic, PERRLA, EOMI Neck: Supple, No Nodes Lungs: Clear to auscultation, Normal air movement Cardiovascular: Regular rate, Regular Rhythm Abdomen: Soft, Non Tender, Non-Distended Extremities: No edema Skin: Ulcer/ Wound - bandaged IV Site: Peripheral, without redness Musculoskeletal: No Tenderness to Palpation of Joints or Extremities Neurological: Cranial nerves II-XII grossly intact - Assessment/Plan Antibiotics: [] Assessment/Plan: [] Active and Suspected Problems Abscess and cellulitis of gluteal region (Acute) Sepsis (Acute) Sinus tachycardia by electrocardiogram (Acute) Hypotension (Acute) Severe sepsis (Acute) Left buttock pain (Acute) MRSA L buttock abscess - s/p I&D by Dr. Berry. Cont vanc/zosyn for now. Check Bcx. Will follow, thank you, d/w primary team.
[2018-11-09] MEDS: oxyCODONE 5 MG Tablet 10 MG PO (15:30)
[2018-11-09] MEDS: Heparin Injection (Vial) 5,000 UNIT/ML VIAL 5000 UNIT SC ×2 (15:31→21:09)
[2018-11-09] MEDS: 0.9% NaCl Peripheral Flush Adult/Peds IV (15:31)
[2018-11-09] MEDS: guaiFENesin Dm 10 ML UDC 5 ML PO (15:32)
[2018-11-09 15:38] LABS: Ferritin 172 ng/mL (8-252); Iron 10 ug/dL (50-170); Iron Binding Capacity,Total 177 ug/dL (250-450); PERCENT IRON SATURATION 5.6 % (15.0-55.0)
--- NOTE | 2018-11-09 19:24 | NURSING ---
Pt very confused this evening, thinks she is having surgery tomorrow. does not remember having surgery last night. explained again to pt that she had surgery last evening and that is why she is having pain in her buttocks. pt stated she called all of her family to pray for her for her surgery tomorrow. she cannot believe she does not remember surgery happening or any doctors coming in today to assess her.
--- NOTE | 2018-11-09 20:19 | PN.SURG_ITS ---
Patient Problems: Active and Suspected Problems Abscess and cellulitis of gluteal region (Acute) Sepsis (Acute) Sinus tachycardia by electrocardiogram (Acute) Hypotension (Acute) Severe sepsis (Acute) Left buttock pain (Acute) Subjective: Patient reports pain in the area. Dressing reinforced due to seepage - Physical Exam General: Alert, Oriented x3 Oral: Moist Mucosa Extremities: - - left buttock wound - surrounding skin to the wound is much less erythematous and indurated, no oozing noted Vital Signs Temp Pulse Resp BP Pulse Ox 99.2 F H 89 18 148/48 H 100 11/09/18 19:59 11/09/18 19:59 11/09/18 19:59 11/09/18 19:59 11/09/18 19:59 Oxygen Flow Rate (L/min) [4] 5 Oxygen Flow Rate (L/min) [2] 2 Oxygen Flow Rate (L/min) [1 ( 2 Initial Baseline)] Oxygen Flow Rate (L/min) 2 Oxygen Delivery Method [4] Nasal Cannula Oxygen Delivery Method [2] Nasal Cannula Oxygen Delivery Method [1 ( Nasal Cannula Initial Baseline)] Oxygen Delivery Method Room Air Weight: 68 kg Body Mass Index (BMI) 24.2 Orthostatic Vital Signs Start: 11/09/18 11:02 Freq: q24h Status: Active Protocol: Activity Type Activity Date Activity User E-Sign Co-Sign Detail Recorded Client Recorded Date Recorded By Document 11/09/18 11:02 [facility] [id number] 11/09/18 11:09 [facility] 11/09/18 11:02 Orthostatic Vitals Standing -Blood Pressure (90/60-120/80) 131/68 H -Extremity Use Left Arm -Pulse Rate (60-100) 97 Sitting -Blood Pressure (90/60-120/80) 143/60 H -Extremity Use Left Arm -Pulse Rate (60-100) 93 Lying -Blood Pressure (90/60-120/80) 125/55 H -Extremity Use Left Arm -Pulse Rate (60-100) 83 Intake and Output for Last 24 Hours 11/07/18 11/08/18 11/09/18 23:59 23:59 23:59 Intake Total 2947.54 / 2947.54 3187.46 / 3187.46 Balance 2947.54 / 2947.54 3187.46 / 3187.46 Microbiology Past 72 Hours 11/08/18 Unknown Gram Stain - Final Biopsy - Other Wound Culture - Preliminary Staphylococcus aureus 11/08/18 10:15 Gram Stain - Final Wound Abcess - Buttock Wound Culture - Preliminary Staphylococcus aureus Laboratory Tests Past 24 Hrs 11/09/18 11/09/18 11/09/18 08:24 08:24 08:24 WBC 13.0 H RBC 2.65 L Hgb 8.2 L Hct 25.6 L MCV 96.6 MCH 30.9 MCHC 32.0 RDW Std Deviation 47.7 H RDW Coeff of Anderson 13.4 Plt Count 192 MPV 9.7 Immature Gran % (Auto) 0.600 Neut % (Auto) 82.2 H Lymph % (Auto) 6.3 L [place] % (Auto) 10.8 H Eos % (Auto) 0.0 Baso % (Auto) 0.1 Absolute Neuts (auto) 10.7 H Absolute Lymphs (auto) 0.82 L Nucleated RBC % 0 Sodium 140 Potassium 4.1 Chloride 107 Carbon Dioxide 26.0 Anion Gap 7 BUN 16 Creatinine 0.77 Estim Creat Clear Calc 41.30 Est GFR (MDRD) Af Amer 92 Est GFR (MDRD) Non-Af 76 BUN/Creatinine Ratio 20.8 H Glucose 127 H Calcium 8.2 L Iron 10 L TIBC 177 L Iron Saturation 5.6 L Ferritin 172 Total Bilirubin 0.70 AST 14 L ALT 18 Alkaline Phosphatase 75 Total Protein 6.1 L Albumin 2.5 L Globulin 3.6 Albumin/Globulin Ratio 0.7 L Blood Type Antibody Screen 11/09/18 11/09/18 11:20 11:20 WBC RBC Hgb 8.7 L Hct 26.7 L MCV MCH MCHC RDW Std Deviation RDW Coeff of Anderson Plt Count MPV Immature Gran % (Auto) Neut % (Auto) Lymph % (Auto) [place] % (Auto) Eos % (Auto) Baso % (Auto) Absolute Neuts (auto) Absolute Lymphs (auto) Nucleated RBC % Sodium Potassium Chloride Carbon Dioxide Anion Gap BUN Creatinine Estim Creat Clear Calc Est GFR (MDRD) Af Amer Est GFR (MDRD) Non-Af BUN/Creatinine Ratio Glucose Calcium Iron TIBC Iron Saturation Ferritin Total Bilirubin AST ALT Alkaline Phosphatase Total Protein Albumin Globulin Albumin/Globulin Ratio Blood Type A POSITIVE Antibody Screen NEGATIVE Medical Necessity - Tobacco Use Smoking Status: Never smoker Tobacco Use: Non-smoker Assessment/Plan All Active Problems History of hypertension (Acute) History of hypothyroidism (Acute) Abscess and cellulitis of gluteal region (Acute) Sepsis (Acute) Sinus tachycardia by electrocardiogram (Acute) Hypotension (Acute) Severe sepsis (Acute) Left buttock pain (Acute) Impresion: status post incision and drainage of left buttock - probable infected hematoma Plan: will do formal dressing change tomorrow, possible wound vac to be placed
[2018-11-09] MEDS: Atorvastatin Calcium 10 MG Tablet 5 MG PO (21:09)
[2018-11-09] MEDS: Ondansetron 4 MG/2 ML Vial IV (21:10)
--- NOTE | 2018-11-09 23:17 | NURSING ---
Time for NS IVF is incorrect d/t dayshift RN not pausing IVF while IV Zosyn infusing
[2018-11-10] VITALS (10 sets, daily range): BP systolic 124–150; BP diastolic 50–58; PULSE 72–97; RESP 16–18; TEMP 36.8–37.2; O2SAT 94–96
[2018-11-10] MEDS: 0.9% Normal Saline 1,000 ML 75 ML IV ×2 (01:03→14:28)
[2018-11-10] MEDS: Levothyroxine 75 MCG Tablet PO (05:42)
[2018-11-10] MEDS: Heparin Injection (Vial) 5,000 UNIT/ML VIAL 5000 UNIT SC ×3 (05:42→22:31)
[2018-11-10 07:13] LABS: Absolute Lymphocyte Count 1.35 X10^3/uL (0.83-4.51); Absolute Neutrophil Count 8.4 X10^3/uL (2.0-7.7); Basophil# 0.02 X10^3/uL; Basophil% 0.2 % (0-1); Eosinophil# 0.01 X10^3/uL; Eosinophils% 0.1 % (0-5); Hematocrit 25.7 % (37-47); Hemoglobin 8.3 g/dL (12.0-15.0); Lymphocyte # 1.35 X10^3/ul (4.0); Lymphocyte % 12.3 % (19-41); Mean Corp Hgb Conc 32.3 g/dL (32-36); Mean Corpuscular Hgb 31.1 pg (27.0-32.0); Mean Corpuscular Volume 96.3 fL (81-99); Mean Platelet Vol. 9.8 fl (6.2-12.0); NRBC Flagged by Analyzer 0 % (0-5); Neutrophil # 8.44 X10^3/uL (2.7-7.7); Neutrophil % 76.6 % (47-70); Platelet Count 209 K/mm3 (150-450); RBC Distribution Width CV 13.2 % (11.6-14.6); Red Blood Count 2.67 M/mm3 (4.2-5.4)
[2018-11-10 07:33] LABS: Anion Gap 6 (5-15); BUN 12 mg/dL (7-18); BUN/Creat Ratio 15.4 RATIO (10-20); Calcium,Total 8.1 mg/dL (8.5-10.1); Chloride 111 mmol/L (98-107); Creatinine, Serum 0.78 mg/dL (0.55-1.02); EST Glomerular Filtration Rate 75 mL/min (>60); Est Glom Filt Rate - Afr Amer 91 mL/min (>60); Glucose 105 mg/dL (74-106); Potassium 3.6 mmol/L (3.5-5.1); Sodium Level 142 mmol/L (136-145)
[2018-11-10] MEDS: oxyCODONE 5 MG Tablet PO ×3 (07:46→18:06)
[2018-11-10] MEDS: Iron Polysaccharide Complex 150 MG CAPSULE PO (07:47)
--- NOTE | 2018-11-10 10:36 | PN.ID_ITS ---
Patient Problems: Active and Suspected Problems Abscess and cellulitis of gluteal region (Acute) Sepsis (Acute) Sinus tachycardia by electrocardiogram (Acute) Hypotension (Acute) Severe sepsis (Acute) Left buttock pain (Acute) Subjective: Pain improved, no fever - Physical Exam General: Cooperative, No apparent distress Lungs: Clear to auscultation, Normal air movement Cardiovascular: Regular rate, Regular Rhythm Abdomen: Soft, Non Tender, Non-Distended Skin: Ulcer/ Wound - bandaged Vital Signs Temp Pulse Resp BP Pulse Ox 98.2 F 97 16 149/51 H 94 11/10/18 05:49 11/10/18 08:00 11/10/18 05:49 11/10/18 05:49 11/10/18 05:49 Oxygen Flow Rate (L/min) [4] 5 Oxygen Flow Rate (L/min) [2] 2 Oxygen Flow Rate (L/min) [1 ( 2 Initial Baseline)] Oxygen Flow Rate (L/min) 2 Oxygen Delivery Method [4] Nasal Cannula Oxygen Delivery Method [2] Nasal Cannula Oxygen Delivery Method [1 ( Nasal Cannula Initial Baseline)] Oxygen Delivery Method Room Air Weight: 68 kg Body Mass Index (BMI) 24.2 Orthostatic Vital Signs Start: 11/09/18 11:02 Freq: q24h Status: Active Protocol: Activity Type Activity Date Activity User E-Sign Co-Sign Detail Recorded Client Recorded Date Recorded By Document 11/09/18 11:02 [facility] [id number] 11/09/18 11:09 STEPHANIE 11/09/18 11:02 Orthostatic Vitals Standing -Blood Pressure (90/60-120/80) 131/68 H -Extremity Use Left Arm -Pulse Rate (60-100) 97 Sitting -Blood Pressure (90/60-120/80) 143/60 H -Extremity Use Left Arm -Pulse Rate (60-100) 93 Lying -Blood Pressure (90/60-120/80) 125/55 H -Extremity Use Left Arm -Pulse Rate (60-100) 83 Intake and Output for Last 24 Hours 11/08/18 11/09/18 11/10/18 23:59 23:59 23:59 Intake Total 2947.54 / 2947.54 3819.34 / 3819.34 135.87 / 135.87 Balance 2947.54 / 2947.54 3819.34 / 3819.34 135.87 / 135.87 Microbiology Past 72 Hours 11/08/18 Unknown Gram Stain - Final Biopsy - Other Wound Culture - Final Meth. resistant Staph. aureus 11/08/18 10:15 Gram Stain - Final Wound Abcess - Buttock Wound Culture - Final Meth. resistant Staph. aureus Laboratory Tests Past 24 Hrs 11/09/18 11/09/18 11/09/18 08:24 11:20 11:20 WBC RBC Hgb 8.7 L Hct 26.7 L MCV MCH MCHC RDW Std Deviation RDW Coeff of Anderson Plt Count MPV Immature Gran % (Auto) Neut % (Auto) Lymph % (Auto) [place] % (Auto) Eos % (Auto) Baso % (Auto) Absolute Neuts (auto) Absolute Lymphs (auto) Nucleated RBC % Sodium Potassium Chloride Carbon Dioxide Anion Gap BUN Creatinine Estim Creat Clear Calc Est GFR (MDRD) Af Amer Est GFR (MDRD) Non-Af BUN/Creatinine Ratio Glucose Calcium Iron 10 L TIBC 177 L Iron Saturation 5.6 L Ferritin 172 Blood Type A POSITIVE Antibody Screen NEGATIVE 11/10/18 11/10/18 07:00 07:00 WBC 11.0 RBC 2.67 L Hgb 8.3 L Hct 25.7 L MCV 96.3 MCH 31.1 MCHC 32.3 RDW Std Deviation 47.0 H RDW Coeff of [place] 13.2 Plt Count 209 MPV 9.8 Immature Gran % (Auto) 0.800 Neut % (Auto) 76.6 H Lymph % (Auto) 12.3 L [place] % (Auto) 10.0 Eos % (Auto) 0.1 Baso % (Auto) 0.2 Absolute Neuts (auto) 8.4 H Absolute Lymphs (auto) 1.35 Nucleated RBC % 0 Sodium 142 Potassium 3.6 Chloride 111 H Carbon Dioxide 25.0 Anion Gap 6 BUN 12 Creatinine 0.78 Estim Creat Clear Calc 41.30 Est GFR (MDRD) Af Amer 91 Est GFR (MDRD) Non-Af 75 BUN/Creatinine Ratio 15.4 Glucose 105 Calcium 8.1 L Iron TIBC Iron Saturation Ferritin Blood Type Antibody Screen Medical Necessity - Tobacco Use Smoking Status: Never smoker Tobacco Use: Non-smoker Route of nutrition/ use of supplements: [] Nutritional Intake: [] IV Site: [] Kidd Catheter: [] - Assessment/Plan Antibiotics: [] Assessment/Plan: [] Active and Suspected Problems Abscess and cellulitis of gluteal region (Acute) Sepsis (Acute) Sinus tachycardia by electrocardiogram (Acute) Hypotension (Acute) Severe sepsis (Acute) Left buttock pain (Acute) MRSA L buttock abscess - s/p I&D by Dr. Berry. Stop juliansyn, continue vanc. Plan on po abx at d/c. Will follow
--- NOTE | 2018-11-10 11:10 | NURSING ---
wound photo: left buttock
--- NOTE | 2018-11-10 11:16 | PN_ITS ---
Patient Problems: Active and Suspected Problems Abscess and cellulitis of gluteal region (Acute) Sepsis (Acute) Sinus tachycardia by electrocardiogram (Acute) Hypotension (Acute) Severe sepsis (Acute) Left buttock pain (Acute) Subjective: Lying in bed. repeats questions frequently. 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 C/O pain but states that it is controlled with the medication. Denies any BM since admission. Vitals/I&O's: Vital Signs Temp Pulse Resp BP Pulse Ox 98.9 F 75 18 124/50 H 96 11/10/18 10:47 11/10/18 10:47 11/10/18 10:47 11/10/18 10:47 11/10/18 10:47 Oxygen Flow Rate (L/min) [4] 5 Oxygen Flow Rate (L/min) [2] 2 Oxygen Flow Rate (L/min) [1 ( 2 Initial Baseline)] Oxygen Flow Rate (L/min) 2 Oxygen Delivery Method [4] Nasal Cannula Oxygen Delivery Method [2] Nasal Cannula Oxygen Delivery Method [1 ( Nasal Cannula Initial Baseline)] Oxygen Delivery Method Room Air Weight: 68 kg Body Mass Index (BMI) 24.2 Orthostatic Vital Signs Start: 11/09/18 11:02 Freq: q24h Status: Active Protocol: Activity Type Activity Date Activity User E-Sign Co-Sign Detail Recorded Client Recorded Date Recorded By Document 11/09/18 11:02 STEPHANIE [id number] 11/09/18 11:09 STEPHANIE 11/09/18 11:02 Orthostatic Vitals Standing -Blood Pressure (90/60-120/80) 131/68 H -Extremity Use Left Arm -Pulse Rate (60-100) 97 Sitting -Blood Pressure (90/60-120/80) 143/60 H -Extremity Use Left Arm -Pulse Rate (60-100) 93 Lying -Blood Pressure (90/60-120/80) 125/55 H -Extremity Use Left Arm -Pulse Rate (60-100) 83 Intake and Output for Last 24 Hours 11/08/18 11/09/18 11/10/18 23:59 23:59 23:59 Intake Total 2947.54 / 2947.54 3819.34 / 3819.34 151.37 / 151.37 Balance 2947.54 / 2947.54 3819.34 / 3819.34 151.37 / 151.37 General: Alert, Oriented x3, Cooperative, No apparent distress, - - repeats herself frequently, asks questions repeatedly Oral: Moist Mucosa, No Gingival or Mucosal Lesions/ Ulcerations, - - no thrush Lungs: Clear to auscultation, Normal air movement, No rhonchi, No wheeze, No rales Cardiovascular: Regular rate, Regular Rhythm, Normal S1, Normal S2, No murmurs, No Ectopic Activity Abdomen: Bowel Sounds Present, Soft, Non Tender, Non-Distended Extremities: No clubbing, No cyanosis Skin: - - wound on buttock dressed Musculoskeletal: No Tenderness to Palpation of Joints or Extremities, No Muscle Wasting Microbiology Past 72 Hours 11/08/18 Unknown Biopsy - Other Gram Stain - Final 11/08/18 Unknown Biopsy - Other Wound Culture - Final Meth. resistant Staph. aureus 11/08/18 10:15 Wound Abcess - Buttock Gram Stain - Final 11/08/18 10:15 Wound Abcess - Buttock Wound Culture - Final Meth. resistant Staph. aureus Laboratory Results 11/09/18 08:24: Iron 10 L, TIBC 177 L, Iron Saturation 5.6 L, Ferritin 172 11/09/18 11:20: Blood Type A POSITIVE, Antibody Screen NEGATIVE 11/09/18 11:20: Hgb 8.7 L, Hct 26.7 L 11/10/18 07:00: WBC 11.0, RBC 2.67 L, Hgb 8.3 L, Hct 25.7 L, MCV 96.3, MCH 31.1, MCHC 32.3, RDW Std Deviation 47.0 H, RDW Coeff of Anderson 13.2, Plt Count 209, MPV 9.8, Immature Gran % (Auto) 0.800, Neut % (Auto) 76.6 H, Lymph % (Auto) 12.3 L, [place] % (Auto) 10.0, Eos % (Auto) 0.1, Baso % (Auto) 0.2, Absolute Neuts (auto) 8.4 H, Absolute Lymphs (auto) 1.35, Nucleated RBC % 0 11/10/18 07:00: Sodium 142, Potassium 3.6, Chloride 111 H, Carbon Dioxide 25.0, Anion Gap 6, BUN 12, Creatinine 0.78, Estim Creat Clear Calc 41.30, Est GFR (MDRD) Af Amer 91, Est GFR (MDRD) Non-Af 75, BUN/Creatinine Ratio 15.4, Glucose 105, Calcium 8.1 L Current Medications Atorvastatin Calcium (Lipitor) 5 mg PO DAILY@2200 [facility] Last Admin: 11/09/18 21:09 Dose: 5 mg Documented by: Guaifenesin (Robitussin Dm) 5 ml PO Q6H PRN PRN PRN Reason: COUGH Last Admin: 11/09/18 15:32 Dose: 5 ml Documented by: Haloperidol Lactate (Haldol) 0.5 mg IV Q4H PRN PRN PRN Reason: SEVERE AGITATION Heparin Sodium (Porcine) (Heparin Na) 5,000 unit SC Q8 [facility] Last Admin: 11/10/18 05:42 Dose: 5,000 unit Documented by: Sodium Chloride () 250 mls @ 15 mls/hr IV .[id number] PRN PRN Reason: SALINE FLUSH Last Infusion: 11/10/18 10:45 Dose: 0 mls/hr Documented by: Vancomycin IV Pharmacy to Dose (1 ea/ Sodium Chloride) 500 mls @ 250 mls/hr IV X1 PRN; Protocol PRN Reason: Rx to Dose Sodium Chloride () 1,000 mls @ 75 mls/hr IV .[id number] [facility] Last Admin: 11/10/18 01:03 Dose: 75 mls/hr Documented by: Vancomycin HCl 750 mg/ Sodium (Chloride) 265 mls @ 250 mls/hr IV Q24H [facility] Last Infusion: 11/09/18 20:45 Dose: Infused Documented by: Iron Sucrose 200 mg/ Sodium (Chloride) 110 mls @ 220 mls/hr IV X1 ONE Stop: 11/10/18 11:29 Last Admin: 11/10/18 10:45 Dose: 220 mls/hr Documented by: Levothyroxine Sodium (Synthroid) 75 mcg PO DAILY@0600 [facility] Last Admin: 11/10/18 05:42 Dose: 75 mcg Documented by: Morphine Sulfate () 4 mg IV Q3H PRN PRN PRN Reason: Severe Pain (7-10/10) Nutritional Formula (Lactose Free) (Ensure Enlive) 120 ml PO 4X/DAY [facility] Last Admin: 11/10/18 10:45 Dose: 120 ml Documented by: Ondansetron HCl (Zofran) 4 mg IV Q8H PRN PRN PRN Reason: NAUSEA/VOMITING Last Admin: 11/09/18 21:10 Dose: 4 mg Documented by: Oxycodone HCl (Oxyir) 5 mg PO Q4H PRN PRN PRN Reason: Moderate Pain (4-6/10) Last Admin: 11/10/18 07:46 Dose: 5 mg Documented by: Polysaccharide Iron Complex (Ferrex 150) 150 mg PO DAILYCM SHREYA Last Admin: 11/10/18 07:47 Dose: 150 mg Documented by: Sodium Chloride () 10 - 40 ml IV UD PRN PRN Reason: SALINE FLUSH Last Admin: 11/09/18 15:31 Dose: 10 ml Documented by: Medical Necessity - Tobacco Use Smoking Status: Never smoker Tobacco Use: Non-smoker Assessment/Plan All Active Problems History of hypertension (Acute) History of hypothyroidism (Acute) Abscess and cellulitis of gluteal region (Acute) Sepsis (Acute) Sinus tachycardia by electrocardiogram (Acute) Hypotension (Acute) Severe sepsis (Acute) Left buttock pain (Acute) Sepsis 2/2 Infected hematoma L Buttocks s/p I&D -MRSA -ID following and on Vanc but planning PO ABX at D/C as long as blood cx neg -Blood cx pending -Vac placement possible but dressing changed this am by surgery -WBC ct resolved Chronic anemia -counts appear stable -no s/o acute blood loss -will trend HTN/HPL -continue statin -restart low dose Amlodipine 2.5 mg as BP is creeping up some -hold avapro for now -restart asa at d/c Hypothyroidism -continue levothyroxine DVT prophylaxis -continue Sub q heparin Plan -?D/C in next 24-48 hrs depending on input from consultants -d/w SW--> may need placement if pt agreeable
--- NOTE | 2018-11-10 11:22 | NURSING ---
Pt very confused about how she got the wound to the left buttock. pt asked this nurse the same questions 10-15 times while changing the VAC. Pt states I probably got the wound because I am a blonde and have thin skin. Discussed plans for discharge with patient and pt states she needs to be home because of her . states she does not remember falling except for one time when she was really young. pt could have issues keeping a seal at home d/t location and patient moving all over in the bed. would recommend NH placement, but at this time patient wants to go home. Home VAC form initiated and is on the chart for Dr Berry to sign. BERNARDO Kirby aware.
--- NOTE | 2018-11-10 11:44 | CASEMGMT ---
FIOR spoke with patient as she is not doing very well with therapy. She is weaker than normal and it is painful to move with her wound on her backside. SW spoke with her about going somewhere for wound care and therapy. She is not sure she could leave her for long. She said she cares for him. FIOR told her that right now she would not be able to care for him. She agreed with this. FIOR asked if SW could call her to see what he thought about the situation. She gave SW permission. FIOR called patient's . Introduced self and role at [facility]. FIOR explained that patient would benefit from going to a SNF at d/c for wound care. SW also told him it took 2 people to help her up today. SW told him she is not going to be able to help him in her current condition. He asked about home health as he knows his is not going to like the idea of going to a group home. FIOR told him SW understands this and that most people don't go to nursing homes because they want to, but it is what is best for them at the time. He said he understands this. He said he will just order out for his food as she is the one that cooks. SW asked him to talk with patient about this and he said he would. His home health nurse arrived at his home to care for his wound. FIOR then went back into patient's room and told her about the conversation with her . SW asked her to call him and talk with him about this plan. Nancy CHAPA
--- NOTE | 2018-11-10 14:11 | CASEMGMT ---
SW checked in with patient to see if she spoke with her about going to a SNF short term. She said they decided to sleep on it. FIOR told her that SW will need an answer tomorrow as it is Wednesday and SW will have to make a referral and get things lined up. She said she understands. SW will check back with patient tomorrow regarding placement. Nancy RICHARDS MSW
--- NOTE | 2018-11-10 16:00 | PCM.PN.SRG ---
Patient Problems: Active and Suspected Problems Abscess and cellulitis of gluteal region (Acute) Sepsis (Acute) Sinus tachycardia by electrocardiogram (Acute) Hypotension (Acute) Severe sepsis (Acute) Left buttock pain (Acute) Subjective: patient very tender in the area - Physical Exam General: Alert, Oriented x3 Oral: Moist Mucosa Skin: - - Wound dressing removed, wound vac placed much decreased surrounding erythema and induration - on residual infection noted Vital Signs Temp Pulse Resp BP Pulse Ox 98.8 F 72 18 131/55 H 96 11/10/18 15:36 11/10/18 15:36 11/10/18 15:36 11/10/18 15:36 11/10/18 15:36 Oxygen Flow Rate (L/min) [4] 5 Oxygen Flow Rate (L/min) [2] 2 Oxygen Flow Rate (L/min) [1 ( 2 Initial Baseline)] Oxygen Flow Rate (L/min) 2 Oxygen Delivery Method [4] Nasal Cannula Oxygen Delivery Method [2] Nasal Cannula Oxygen Delivery Method [1 ( Nasal Cannula Initial Baseline)] Oxygen Delivery Method Room Air Weight: 68 kg Body Mass Index (BMI) 24.2 Orthostatic Vital Signs Start: 11/09/18 11:02 Freq: q24h Status: Active Protocol: Activity Type Activity Date Activity User E-Sign Co-Sign Detail Recorded Client Recorded Date Recorded By Document 11/09/18 11:02 [facility] [id number] 11/09/18 11:09 [facility] 11/09/18 11:02 Orthostatic Vitals Standing -Blood Pressure (90/60-120/80) 131/68 H -Extremity Use Left Arm -Pulse Rate (60-100) 97 Sitting -Blood Pressure (90/60-120/80) 143/60 H -Extremity Use Left Arm -Pulse Rate (60-100) 93 Lying -Blood Pressure (90/60-120/80) 125/55 H -Extremity Use Left Arm -Pulse Rate (60-100) 83 Intake and Output for Last 24 Hours 11/08/18 11/09/18 11/10/18 23:59 23:59 23:59 Intake Total 2947.54 / 2947.54 3819.34 / 3819.34 2061.37 / 2061.37 Balance 2947.54 / 2947.54 3819.34 / 3819.34 2061.37 / 2061.37 Microbiology Past 72 Hours 11/08/18 Unknown Gram Stain - Final Biopsy - Other Wound Culture - Final Meth. resistant Staph. aureus Anaerobic Culture - Preliminary No growth in 48 hours. 11/08/18 10:15 Gram Stain - Final Wound Abcess - Buttock Wound Culture - Final Meth. resistant Staph. aureus Laboratory Tests Past 24 Hrs 11/10/18 11/10/18 07:00 07:00 WBC 11.0 RBC 2.67 L Hgb 8.3 L Hct 25.7 L MCV 96.3 MCH 31.1 MCHC 32.3 RDW Std Deviation 47.0 H RDW Coeff of Anderson 13.2 Plt Count 209 MPV 9.8 Immature Gran % (Auto) 0.800 Neut % (Auto) 76.6 H Lymph % (Auto) 12.3 L [place] % (Auto) 10.0 Eos % (Auto) 0.1 Baso % (Auto) 0.2 Absolute Neuts (auto) 8.4 H Absolute Lymphs (auto) 1.35 Nucleated RBC % 0 Sodium 142 Potassium 3.6 Chloride 111 H Carbon Dioxide 25.0 Anion Gap 6 BUN 12 Creatinine 0.78 Estim Creat Clear Calc 41.30 Est GFR (MDRD) Af Amer 91 Est GFR (MDRD) Non-Af 75 BUN/Creatinine Ratio 15.4 Glucose 105 Calcium 8.1 L Medical Necessity - Tobacco Use Smoking Status: Never smoker Tobacco Use: Non-smoker Assessment/Plan All Active Problems History of hypertension (Acute) History of hypothyroidism (Acute) Abscess and cellulitis of gluteal region (Acute) Sepsis (Acute) Sinus tachycardia by electrocardiogram (Acute) Hypotension (Acute) Severe sepsis (Acute) Left buttock pain (Acute) Impression: s/p incision and drainage of buttock wound Plan: wound vac placed patient can be followed by wound healing clinic or home health nurse From surgical standpoint, patient can be discharged when above care is set up
[2018-11-10] MEDS: Ondansetron 4 MG/2 ML Vial IV (16:58)
[2018-11-10] MEDS: 0.9% NaCl Peripheral Flush Adult/Peds IV (16:58)
[2018-11-10 18:12] LABS: Vancomycin, Trough Level 4.4 ug/mL (5.0-15.0)
--- NOTE | 2018-11-10 19:09 | PCM.RX.CS ---
Consult Pharmacy has been consulted to manage selected antiobiotic: Vancomycin Type of Consult: Follow-up Suspected Infection: Skin/Soft tissue Prior Doses of Antibiotics Received/Current Regimen: Has been on 750mg iv q24h. Labs: Sodium 142 mmol/L (136-145) 11/10/18 07:00 Potassium 3.6 mmol/L (3.5-5.1) 11/10/18 07:00 Chloride 111 mmol/L (98-107) H 11/10/18 07:00 Carbon Dioxide 25.0 mmol/L (21.0-32.0) 11/10/18 07:00 6 (5-15) 11/10/18 07:00 BUN 12 mg/dL (7-18) 11/10/18 07:00 0.78 mg/dL (0.55-1.02) 11/10/18 07:00 Est GFR (MDRD) Af Amer 91 mL/min (>60) 11/10/18 07:00 Est GFR (MDRD) Non-Af 75 mL/min (>60) 11/10/18 07:00 15.4 RATIO (10-20) 11/10/18 07:00 Glucose 105 mg/dL (74-106) 11/10/18 07:00 Vancomycin Trough 4.4 ug/mL (5.0-15.0) L 11/10/18 17:32 Microbiology: Microbiology 11/08/18 Unknown Biopsy - Other Gram Stain - Final 11/08/18 Unknown Biopsy - Other Wound Culture - Final Meth. resistant Staph. aureus 11/08/18 Unknown Biopsy - Other Anaerobic Culture - Preliminary No growth in 48 hours. 11/08/18 10:15 Wound Abcess - Buttock Gram Stain - Final 11/08/18 10:15 Wound Abcess - Buttock Wound Culture - Final Meth. resistant Staph. aureus Weight used for dosin kg Estimated Creatinine Clearance: ~41 ml/hr Goal Trough: 15-20 mcg/mL Pharmacy Plan for Drug Dosing: Trough level 11.10.18 @1732 was 4.4 (goal 15-20 mcg/ml). Will give additional 500mg iv x 1 today to total 1250mg. Dose will be increased to 1250mg iv daily beginning 11.11.18 and new trough level ordered for 11.12.18. Pharmacy Service will continue to monitor and adjust dosing as required. Follow-Up Labs: Trough Vancomycin - 8.31.19 @1730 before 1800 dose
[2018-11-10] MEDS: Vancomycin IV 500 MG/100 ML BAG 100 MG IV (20:06)
[2018-11-10] MEDS: Atorvastatin Calcium 10 MG Tablet 5 MG PO (22:31)
[2018-11-11] VITALS (10 sets, daily range): BP systolic 134–163; BP diastolic 61–79; PULSE 64–93; RESP 16–20; TEMP 36.7–37.3; O2SAT 95–98
[2018-11-11] MEDS: Levothyroxine 75 MCG Tablet PO (05:37)
[2018-11-11] MEDS: Heparin Injection (Vial) 5,000 UNIT/ML VIAL 5000 UNIT SC ×2 (05:37→13:04)
[2018-11-11] MEDS: 0.9% Normal Saline 1,000 ML 75 ML IV (05:37)
[2018-11-11 06:01] LABS: Absolute Lymphocyte Count 1.72 X10^3/uL (0.83-4.51); Absolute Neutrophil Count 5.2 X10^3/uL (2.0-7.7); Basophil# 0.03 X10^3/uL; Basophil% 0.4 % (0-1); Eosinophil# 0.07 X10^3/uL; Eosinophils% 0.9 % (0-5); Hematocrit 22.8 % (37-47); Hemoglobin 7.1 g/dL (12.0-15.0); Lymphocyte # 1.72 X10^3/ul (4.0); Lymphocyte % 21.8 % (19-41); Mean Corp Hgb Conc 31.1 g/dL (32-36); Mean Corpuscular Volume 96.2 fL (81-99); Mean Platelet Vol. 10.4 fl (6.2-12.0); Monocyte# 0.78 X10^3/uL; Monocyte% 9.9 % (0-10); NRBC Flagged by Analyzer 0 % (0-5); Neutrophil # 5.23 X10^3/uL (2.7-7.7); Neutrophil % 66.4 % (47-70); Platelet Count 233 K/mm3 (150-450); RBC Distribution Width CV 13.4 % (11.6-14.6); RBC Distribution Width SD 47.8 fl (35.1-43.9); Red Blood Count 2.37 M/mm3 (4.2-5.4); White Blood Count 7.9 K/mm3 (4.4-11.0)
[2018-11-11 06:27] LABS: Anion Gap 6 (5-15); BUN 7 mg/dL (7-18); BUN/Creat Ratio 11.2 RATIO (10-20); Calcium,Total 8.1 mg/dL (8.5-10.1); Chloride 114 mmol/L (98-107); Creatinine, Serum 0.63 mg/dL (0.55-1.02); EST Glomerular Filtration Rate 97 mL/min (>60); Est Glom Filt Rate - Afr Amer 117 mL/min (>60); Glucose 88 mg/dL (74-106); Potassium 3.5 mmol/L (3.5-5.1); Sodium Level 144 mmol/L (136-145)
[2018-11-11] MEDS: amLODIPine 2.5 MG Tablet PO (08:55)
[2018-11-11] MEDS: Iron Polysaccharide Complex 150 MG CAPSULE PO (08:55)
[2018-11-11] MEDS: Polyethylene Glycol 3350 17 GM PACKET PO (08:55)
--- NOTE | 2018-11-11 10:07 | NURSING ---
Pt is still quite confused this am. repeats the same questions as yesterday. discussed what her plan was at discharge. pt states I have to go home. Lisandro needs my help. stated concern that it took 2 people to get patient up yesterday. pt states Oh, I'm much better today. I went to the bathroom by myself this morning. this is very unlikely since the side rail was up and patient has the wound VAC and IV. when talking about going to a senior living, patient keeps talking like it is a counseling place rather than a senior living and states she feels she is ok right now. very concerned about patient going home with wound VAC. pt will have home health for VAC changes 3 times a week. dressing intact at this time with minimal drainage noted in the canister. pt is currently getting PRBC'c.
--- NOTE | 2018-11-11 10:13 | CASEMGMT ---
FIOR spoke with patient this am and asked if she and her decided on going to a fpc. She said they will think about it and talk more when she gets home. FIOR told her if she goes to a fpc she will go right from the hospital. She then said she couldn't do that she has to go home to care for her . FIOR told her that in her current condition she is not going to be able to take care of him, her home, and/or herself. She asked what this place is like. She was referring to the fpc. FIOR told her that she would get daily therapy to help build her strength back up. They would care for her wound. She that was nice and thanked FIOR for talking with her about it. She said when her was in the hospital they wanted him to go to [facility] and he didn't want to go so he went home with home health. FIOR told her we will see how she does with therapy today and SW will check back. FIOR will also call patient's again as patient is not alert and oriented. Nancy RICHARDS MSW
--- NOTE | 2018-11-11 11:10 | PCM.TXEXTCAR ---
- Diet 11/08/18 14:57 Diet: Regular Diet Is pt able to select menu?: No - Wound(s) LT BUTTOCK Wound Type: open surgical wound s/p I&D infected hematoma Dressing Change: applied KCI wound VAC rt inner buttocks Wound Type: Surgical Incision - Therapies Physical Therapy: Eval and Treat Occupational Therapy: Eval and Treat - Allergies/Procedures Done in Hospital Allergies/Adverse Reactions: Allergies No Known Allergies Allergy (Verified 11/08/18 09:21) - Type of Care/Length of Stay Estimated LOS: Convalescent Care Less Than 30 days Type of Care Needed: Skilled Rehab Potential: Good Prognosis: Good - Additional Orders/Day of Discharge Day of Discharge: 11/11/18 - Dietary and Speech Recommendations Dietitian Recommendations/Changes: Recommend continue regular diet. Will add Ensure Enlive 120 mL 4x/day per pt request and d/t decreased appetite. May benefit from 1 packet Henri BID for wound healing. - Follow Up Care Primary Care Physician: Yudy Brennan MD [Primary Care Provider] - Please follow up with your Primary Care Physician in: in 1-2 weeks Please Follow Up With: Анна Berry MD When: in 1-2 weeks
--- NOTE | 2018-11-11 11:12 | PCM.DC.SUM ---
Discharge Date and Diagnosis - Problem List Patient Problems: Active and Suspected Problems Abscess and cellulitis of gluteal region (Acute) Sepsis (Acute) Sinus tachycardia by electrocardiogram (Acute) Hypotension (Acute) Severe sepsis (Acute) Left buttock pain (Acute) Date of Admission: 11/08/18 Date of Discharge: 11/11/18 - Primary Discharge Diagnosis Active and Suspected Problems Abscess and cellulitis of gluteal region (Acute) Sepsis (Acute) Sinus tachycardia by electrocardiogram (Acute) Hypotension (Acute) Severe sepsis (Acute) Left buttock pain (Acute) Hospital Course and Treatment Consultations 11/09/18 07:29 Consult: Onc/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 Sepsis secondary to an infected left buttock hematoma patient underwent incision and drainage. Cultures sent came back positive for MRSA. Patient was managed with broad-spectrum antibiotic therapy discharged on doxycycline. Patient was seen in consultation by both Dr. Talavera with infectious disease as well as Dr. Ann with general surgery who did perform the procedure. 2. Anemia secondary to anemia of chronic disorder monitoring H&H 3. Dyslipidemia-patient is on statin therapy, continued at home dose 4. Hypertension-blood pressure controlled, home medications continued with dose adjustment as needed 5. Hypothyroidism-patient is on levothyroxine home dose continued Patient Problems: Active and Suspected Problems Abscess and cellulitis of gluteal region (Acute) Sepsis (Acute) Sinus tachycardia by electrocardiogram (Acute) Hypotension (Acute) Severe sepsis (Acute) Left buttock pain (Acute) - Physical Exam General: Well developed HEENT: Atraumatic Neck: Supple Lungs: Normal air movement Extremities: No clubbing Neurological: Neuro grossly intact Psych/Mental Status: Flat Affect Vital Signs Temp Pulse Resp BP Pulse Ox 98.2 F 84 18 134/67 H 97 11/11/18 10:45 11/11/18 10:45 11/11/18 10:45 11/11/18 10:45 11/11/18 10:45 Oxygen Flow Rate (L/min) [4] 5 Oxygen Flow Rate (L/min) [2] 2 Oxygen Flow Rate (L/min) [1 ( 2 Initial Baseline)] Oxygen Flow Rate (L/min) 2 Oxygen Delivery Method [4] Nasal Cannula Oxygen Delivery Method [2] Nasal Cannula Oxygen Delivery Method [1 ( Nasal Cannula Initial Baseline)] Oxygen Delivery Method Room Air Weight: 68 kg Body Mass Index (BMI) 24.2 Orthostatic Vital Signs Start: 11/09/18 11:02 Freq: q24h Status: Active Protocol: Activity Type Activity Date Activity User E-Sign Co-Sign Detail Recorded Client Recorded Date Recorded By Document 11/09/18 11:02 [facility] [id number] 11/09/18 11:09 [facility] 11/09/18 11:02 Orthostatic Vitals Standing -Blood Pressure (90/60-120/80) 131/68 H -Extremity Use Left Arm -Pulse Rate (60-100) 97 Sitting -Blood Pressure (90/60-120/80) 143/60 H -Extremity Use Left Arm -Pulse Rate (60-100) 93 Lying -Blood Pressure (90/60-120/80) 125/55 H -Extremity Use Left Arm -Pulse Rate (60-100) 83 Intake and Output for Last 24 Hours 11/09/18 11/10/18 11/11/18 23:59 23:59 23:59 Intake Total 3819.34 / 3819.34 3186.37 / 3186.37 1017.50 / 1017.50 Output Total 50 / 50 Balance 3819.34 / 3819.34 3186.37 / 3186.37 967.50 / 967.50 Microbiology Past 72 Hours 11/09/18 13:10 Blood Culture - Preliminary Blood Culture (Wb) - Anticubital Right No growth in 48 hours. 11/09/18 13:05 Blood Culture - Preliminary Blood Culture (Wb) - Anticubital Left No growth in 48 hours. 11/08/18 Unknown Gram Stain - Final Biopsy - Other Wound Culture - Final Meth. resistant Staph. aureus Anaerobic Culture - Final No anaerobic bacteria isolated. 11/08/18 10:15 Gram Stain - Final Wound Abcess - Buttock Wound Culture - Final Meth. resistant Staph. aureus Laboratory Tests Past 24 Hrs 11/09/18 11/10/18 11/11/18 11:20 17:32 05:00 WBC 7.9 RBC 2.37 L Hgb 7.1 L Hct 22.8 L MCV 96.2 MCH 30.0 MCHC 31.1 L RDW Std Deviation 47.8 H RDW Coeff of Anderson 13.4 Plt Count 233 MPV 10.4 Immature Gran % (Auto) 0.600 Neut % (Auto) 66.4 Lymph % (Auto) 21.8 [place] % (Auto) 9.9 Eos % (Auto) 0.9 Baso % (Auto) 0.4 Absolute Neuts (auto) 5.2 Absolute Lymphs (auto) 1.72 Nucleated RBC % 0 Sodium Potassium Chloride Carbon Dioxide Anion Gap BUN Creatinine Estim Creat Clear Calc Est GFR (MDRD) Af Amer Est GFR (MDRD) Non-Af BUN/Creatinine Ratio Glucose Calcium Vancomycin Trough 4.4 L Crossmatch See Detail 11/11/18 05:00 WBC RBC Hgb Hct MCV MCH MCHC RDW Std Deviation RDW Coeff of Anderson Plt Count MPV Immature Gran % (Auto) Neut % (Auto) Lymph % (Auto) [place] % (Auto) Eos % (Auto) Baso % (Auto) Absolute Neuts (auto) Absolute Lymphs (auto) Nucleated RBC % Sodium 144 Potassium 3.5 Chloride 114 H Carbon Dioxide 24.0 Anion Gap 6 BUN 7 Creatinine 0.63 Estim Creat Clear Calc 41.30 Est GFR (MDRD) Af Amer 117 Est GFR (MDRD) Non-Af 97 BUN/Creatinine Ratio 11.2 Glucose 88 Calcium 8.1 L Vancomycin Trough Crossmatch Discharge Diet: No Restrictions Home Medications: Medications to take at Discharge Amlodipine Besylate 2.5 mg PO DAILY 11/08/18 Aspirin [Aspirin, Baby] 81 mg PO DAILY@0800 11/08/18 Atorvastatin Calcium 0.5 tab PO DAILY 11/08/18 Irbesartan [Avapro] 150 mg PO DAILY 11/08/18 Levothyroxine Sodium [Synthroid] 75 mcg PO DAILY 11/08/18 Doxycycline 100 mg PO BID #14 cap 11/11/18 Ensure Enlive 120 ml PO 4X/DAY liquid 11/11/18 Iron Polysaccharide Complex [Ferrex 150] 150 mg PO DAILYCM cap 11/11/18 Polyethylene Glycol 3350 [Miralax] 17 gm PO DAILY packet 11/11/18 Following Prescrptions Were Given to Patient: Doxycycline 100 mg PO BID #14 cap Prescription Printed Primary Care Physician: Yudy Brennan MD [Primary Care Provider] - Please follow up with your Primary Care Physician in: in 1-2 weeks Please Follow Up With: Анна Berry MD When: in 1-2 weeks Minutes spent on discharge:: 40 Patient Condition:: Stable Medical Necessity - Tobacco Use Smoking Status: Never smoker Tobacco Use: Non-smoker Meaningful Use Info Meaningful Use Diagnoses (Choose all that apply): None applicable Code Visit Inpatient E&M: 68607 Disch Hosp
--- NOTE | 2018-11-11 11:15 | CASEMGMT ---
SW called patient's and spoke with him letting him know patient is refusing to go to a SNF, however physician does not feel like she is competent to make her own decisions. He said he is afraid for her to come home as she took two people to get her up the other day. He said if she falls he cannot help her. SW went over the nursing homes for the list with him and he would like [facility]. SW did not give patient a list as she is not alert and oriented and her will not be visiting as he is [place] bound and does not drive. SW asked him to call patient and let her know this is what he wants for her. He said he would do this. SW called [facility] and spoke with Sharri regarding referral and also faxed referral. Await response from [facility]. Nancy RICHARDS MSW
--- NOTE | 2018-11-11 12:31 | PCM.PN.ID ---
Patient Problems: Active and Suspected Problems Abscess and cellulitis of gluteal region (Acute) Sepsis (Acute) Sinus tachycardia by electrocardiogram (Acute) Hypotension (Acute) Severe sepsis (Acute) Left buttock pain (Acute) Subjective: Feeling ok, no fever, no nausea - Physical Exam General: Cooperative, No apparent distress, Confused Lungs: Clear to auscultation, Normal air movement Cardiovascular: Regular rate, Regular Rhythm Abdomen: Soft, Non Tender, Non-Distended Skin: Ulcer/ Wound - reviewed photo Vital Signs Temp Pulse Resp BP Pulse Ox 98.1 F 89 18 147/79 H 97 11/11/18 11:00 11/11/18 11:00 11/11/18 11:00 11/11/18 11:00 11/11/18 11:00 Oxygen Flow Rate (L/min) [4] 5 Oxygen Flow Rate (L/min) [2] 2 Oxygen Flow Rate (L/min) [1 ( 2 Initial Baseline)] Oxygen Flow Rate (L/min) 2 Oxygen Delivery Method [4] Nasal Cannula Oxygen Delivery Method [2] Nasal Cannula Oxygen Delivery Method [1 ( Nasal Cannula Initial Baseline)] Oxygen Delivery Method Nasal Cannula Weight: 68 kg Body Mass Index (BMI) 24.2 Orthostatic Vital Signs Start: 11/09/18 11:02 Freq: q24h Status: Active Protocol: Activity Type Activity Date Activity User E-Sign Co-Sign Detail Recorded Client Recorded Date Recorded By Document 11/09/18 11:02 [facility] [id number] 11/09/18 11:09 [facility] 11/09/18 11:02 Orthostatic Vitals Standing -Blood Pressure (90/60-120/80) 131/68 H -Extremity Use Left Arm -Pulse Rate (60-100) 97 Sitting -Blood Pressure (90/60-120/80) 143/60 H -Extremity Use Left Arm -Pulse Rate (60-100) 93 Lying -Blood Pressure (90/60-120/80) 125/55 H -Extremity Use Left Arm -Pulse Rate (60-100) 83 Intake and Output for Last 24 Hours 11/09/18 11/10/18 11/11/18 23:59 23:59 23:59 Intake Total 3819.34 / 3819.34 3186.37 / 3186.37 1017.50 / 1017.50 Output Total 50 / 50 Balance 3819.34 / 3819.34 3186.37 / 3186.37 967.50 / 967.50 Microbiology Past 72 Hours 11/09/18 13:10 Blood Culture - Preliminary Blood Culture (Wb) - Anticubital Right No growth in 48 hours. 11/09/18 13:05 Blood Culture - Preliminary Blood Culture (Wb) - Anticubital Left No growth in 48 hours. 11/08/18 Unknown Gram Stain - Final Biopsy - Other Wound Culture - Final Meth. resistant Staph. aureus Anaerobic Culture - Final No anaerobic bacteria isolated. 11/08/18 10:15 Gram Stain - Final Wound Abcess - Buttock Wound Culture - Final Meth. resistant Staph. aureus Laboratory Tests Past 24 Hrs 11/09/18 11/10/18 11/11/18 11:20 17:32 05:00 WBC 7.9 RBC 2.37 L Hgb 7.1 L Hct 22.8 L MCV 96.2 MCH 30.0 MCHC 31.1 L RDW Std Deviation 47.8 H RDW Coeff of Anderson 13.4 Plt Count 233 MPV 10.4 Immature Gran % (Auto) 0.600 Neut % (Auto) 66.4 Lymph % (Auto) 21.8 [place] % (Auto) 9.9 Eos % (Auto) 0.9 Baso % (Auto) 0.4 Absolute Neuts (auto) 5.2 Absolute Lymphs (auto) 1.72 Nucleated RBC % 0 Sodium Potassium Chloride Carbon Dioxide Anion Gap BUN Creatinine Estim Creat Clear Calc Est GFR (MDRD) Af Amer Est GFR (MDRD) Non-Af BUN/Creatinine Ratio Glucose Calcium Vancomycin Trough 4.4 L Crossmatch See Detail 11/11/18 05:00 WBC RBC Hgb Hct MCV MCH MCHC RDW Std Deviation RDW Coeff of Anderson Plt Count MPV Immature Gran % (Auto) Neut % (Auto) Lymph % (Auto) [place] % (Auto) Eos % (Auto) Baso % (Auto) Absolute Neuts (auto) Absolute Lymphs (auto) Nucleated RBC % Sodium 144 Potassium 3.5 Chloride 114 H Carbon Dioxide 24.0 Anion Gap 6 BUN 7 Creatinine 0.63 Estim Creat Clear Calc 41.30 Est GFR (MDRD) Af Amer 117 Est GFR (MDRD) Non-Af 97 BUN/Creatinine Ratio 11.2 Glucose 88 Calcium 8.1 L Vancomycin Trough Crossmatch Medical Necessity - Tobacco Use Smoking Status: Never smoker Tobacco Use: Non-smoker Route of nutrition/ use of supplements: [] Nutritional Intake: [] IV Site: [] Kidd Catheter: [] - Assessment/Plan Antibiotics: [] Assessment/Plan: [] Active and Suspected Problems Abscess and cellulitis of gluteal region (Acute) Sepsis (Acute) Sinus tachycardia by electrocardiogram (Acute) Hypotension (Acute) Severe sepsis (Acute) Left buttock pain (Acute) MRSA L buttock abscess - s/p I&D by Dr. Berry. Ok for d/c on 7 days of po doxy. Will follow
[2018-11-11] MEDS: Doxycycline 100 MG CAPSULE PO (13:02)
--- NOTE | 2018-11-11 13:09 | CASEMGMT ---
Addendum entered by Nancy Oneal 11/11/18 14:14: Sharri called SW back and said they assumed since it was on the orders patient would come with a wound vac. FIOR told her that [facility] never sends patient's with a wound vac. The care home gets a wound vac for the patient. She said she will let her infection control practitioner know and get back with FIOR. FIOR hasn't heard back from Sharri for awhile so FIOR called and left her a voice mail. Nancy CHAPA Original Note: FIOR received a call from Sharri at [facility] and they can accept patient. FIOR asked if they have a wound vac or if they will need to order one. She will find out and call FIOR back. FIOR faxed orders to [facility]. Completed convalescent on HENS. Nancy CHAPA
--- NOTE | 2018-11-11 15:23 | CASEMGMT ---
FIOR called [facility] and she said they will have patient's wound vac this afternoon. FIOR called [facility] and arranged for patient to get picked up at 5p via cot. FIOR completed convalescent on HENS. Orders were already faxed. FIOR notified patient, her , RN, corporate secretary, and Sharri at [facility]. Plan: d/c to [facility] under skilled level of care on a convalescent stay. [facility] transported her via cot due to her confusion. Nancy RICHARDS TEMPORARY DATA ENTRY CLERK
== END 2018-11-11 17:40 | disposition skilled nursing facility (03) | DRG 872 ==
LOC: ED 10:54 → PCU 11:47
PROVIDERS: Internal Medicine; Physician Assistant; Surgery; Admitting Provider Internal Medicine; Emergency Provider Emergency Medicine; Family Provider Internal Medicine; PCP Internal Medicine; Referring Provider Internal Medicine; Visit Provider Internal Medicine
DX: A41.9 Sepsis, unspecified organism (principal); L02.31 Cutaneous abscess of buttock; L03.317 Cellulitis of buttock; S30.0XXA Contusion of lower back and pelvis, initial encounter; R65.20 Severe sepsis without septic shock; B95.62 Methicillin resistant Staphylococcus aureus infection as the cause of diseases classified elsewhere; E78.5 Hyperlipidemia, unspecified; I10 Essential (primary) hypertension; E03.9 Hypothyroidism, unspecified; D63.8 Anemia in other chronic diseases classified elsewhere; D50.9 Iron deficiency anemia, unspecified
CPT/HCPCS: 10060; 36415; 80048; 80053; 80202; 82728; 83540; 83550; 83605; 85014; 85018; 85025; 86850; 86900; 86901; 86920; 87040; 87070; 87075; 87077; 87186; 87205; 87640; 97162; 97166; 97530; 99285; J1756; J7030; J7050; J7120; P9016; A4216; J2405

== ENCOUNTER 2021-03-14 16:55 | Emergency (ER) | payer MEDICARE, OTHER, SELFPAY ==
[2021-03-14 16:55] VITALS: BP 125/61; PULSE 72; RESP 20; TEMP 36; O2SAT 98
[2021-03-14 16:56] VITALS: BP 125/61; PULSE 72; RESP 20; TEMP 36; O2SAT 98; BMI 24.9
[2021-03-14 17:00] VITALS: BP 125/61; PULSE 72; RESP 20; TEMP 36; O2SAT 98
--- NOTE | 2021-03-14 18:20 | RAD_ITS ---
STUDY: X-RAY CHEST REASON FOR EXAM: Female, 86 years old. CHEST PAIN chest pain TECHNIQUE: XR Chest 1 View COMPARISON: None FINDINGS: There is no demonstrated pleural abnormality. Normal size heart. Normal mediastinum and jamila. Normal visualized pulmonary arteries. There is atherosclerotic calcification of the aortic arch with tortuosity. There are diffuse degenerative changes of the visualized thoracic spine. There is degenerative osteoarthritis of the bilateral shoulders. There is no demonstrated abnormality of the visualized soft tissue structures of the upper abdomen. RAD/Chest 1 View (Portable) IMPRESSION: There are no acute findings. Electronically Signed: Carlos Patrick MD at 19:12 EST , Service support ,
--- NOTE | 2021-03-14 18:20 | EKG12_ITS ---
Test Reason : SYNCOPE Blood Pressure : / mmHG Vent. Rate : 086 BPM Atrial Rate : 086 BPM P-R Int : 156 ms QRS Dur : 072 ms QT Int : 392 ms P-R-T Axes : 057 031 029 degrees QTc Int : 469 ms NORMAL SINUS RHYTHM Confirmed by RAGINI HASKINS, DEISY ([id number]), medical editor MARY MAYO ([id number]) on 03/19/2021 9:56:12 AM Referred By: JOSH Confirmed By:DEISY EID MD
[2021-03-14 18:22] VITALS: BP 186/108; PULSE 80; RESP 11; TEMP 36.2; O2SAT 97
--- NOTE | 2021-03-14 18:22 | EDS_ITS ---
HPI History of Present Illness Chief Complaint: Nausea/Vomiting/Diarrhea Informant: patient Narrative Narrative: Patient comes in with a syncopal episode and nausea. She states she is felt fine all day today. However she really did not eat much. She had a little bite of something for breakfast. She had part of a peanut butter sandwich for lunch. But she was feeling fine. She had gotten up and walked in to talk to her . She was standing in the door when she got the onset of nausea. She had no chest pain pressure palpitations. No headache. No back or abdominal pain. She states she just did not feel well so she laid herself down. She did not fall and did not have an impact. Her called 911. They came and brought her here. She feels back to normal now. This is not something that happens routinely. However she does state that sometimes she does not eat enough and will get mildly lightheaded or nausea but never been to this point. She is back to normal. [facility] Medical History High cholesterol Hypertension Hypothyroid Home Medications amlodipine 2.5 mg PO DAILY 11/08/18 [History Last Taken Unknown] aspirin 81 mg PO DAILY@0800 11/08/18 [History Last Taken Unknown] atorvastatin 0.5 tab PO DAILY 11/08/18 [History Last Taken Unknown] irbesartan 150 mg PO DAILY 11/08/18 [History Last Taken Unknown] levothyroxine 75 mcg PO DAILY 11/08/18 [History Last Taken Unknown] doxycycline monohydrate 100 mg PO BID #14 cap 11/11/18 [Rx Last Taken Unknown] food supplemt, lactose-reduced 120 ml PO 4X/DAY liquid 11/11/18 [Rx Last Taken Unknown] polyethylene glycol 3350 17 gm PO DAILY packet 11/11/18 [Rx Last Taken Unknown] polysaccharide iron complex 150 mg PO DAILYCM cap 11/11/18 [Rx Last Taken Unknown] Allergy/AdvReac Type Severity Reaction Status Date / Time No Known Allergies Allergy Verified 03/14/21 17:00 Social History Smoking Status: Never smoker ROS ROS ED Constitutional Constitutional ED: Denies chills or fever(s) Eyes Eyes: Denies blurry vision, change in vision or diplopia ENT ENT ED: Denies rhinorrhea or sore throat Cardiovascular Cardiovascular: Denies chest pain, palpitations or racing heartbeat Respiratory/Chest Respiratory/Chest: Denies cough, dyspnea or sputum Gastrointestinal Gastrointestinal: Reports nausea; Denies abdominal pain, constipation, diarrhea, melena or vomiting Genitourinary Genitourinary ED: Reports urinary frequency; Denies dysuria or hematuria Musculoskeletal Musculoskeletal: Denies myalgias Integumentary Denies rash Neurologic Neurologic: Denies headache(s), paresthesias or weakness Psychiatric Psychiatric: Denies anxiety or depression Endocrine Endocrinology: Denies polydipsia or polyuria Allergic/Immunologic Allergic/Immunologic ED: Denies mouth swelling or urticaria EXAM Physical Exam Const Vital Signs: 03/14/21 16:55 03/14/21 16:56 03/14/21 17:00 Temperature 96.8 F L 96.8 F L 96.8 F L Temperature Source Temporal Temporal Temporal Pulse Rate 72 72 72 Respiratory Rate 20 H 20 H 20 H Blood Pressure 125/61 H 125/61 H 125/61 H Blood Pressure Mean 82 82 82 Pulse Ox 98 98 98 Oxygen Delivery Method Room Air Room Air Room Air 03/14/21 18:22 03/14/21 19:11 Temperature 97.1 F L 98 F Temperature Source Temporal Temporal Pulse Rate 80 89 Respiratory Rate 11 L 13 Blood Pressure 186/108 H 168/80 H Blood Pressure Mean 134 109 Pulse Ox 97 96 Oxygen Delivery Method Room Air Room Air Positive well nourished and well developed General Appearance ED: well developed and NAD; Negative for cyanotic or diaphoretic HEENT Reports dry mucous membranes HEENT Narrative: Mildly dry mucous membranes. Negative for trauma or tenderness Mouth ED: Yes dry mucous membranes Mouth: dry mucous membranes Eyes General Eye ED: Negative for pale conjunctiva or scleral icterus Neck No no JVD Chest Wall inspection of chest normal Resp normal respiratory effort and clear to auscultation bilaterally Effort and Inspection: Negative for pain with movement Auscultation: Negative for rales, rhonchi or wheezes Cardio regular rate, regular rhythm and no murmurs GI normal to inspection, nondistended, normoactive bowel sounds and non-tender GI Narrative: No mass or bruit. Palpation: soft Back/Spine no CVA tenderness Extremity normal to inspection Extremity Narrative: No pain with range of motion or palpation General Extremety ED: Negative for edema or tenderness General Extremity: Negative for edema Neuro oriented x3 Sensorium / Orientation: alert Psych mental status grossly normal Skin no rashes or lesions noted and no wounds MDM MDM MDM Narrative Medical decision making narrative: Patient's blood work showed no acute process. CBC was normal. Electrolytes showed no marked abnormalities. Troponin was negative. We did recheck a troponin. It was negative. We also checked magnesium initially it was normal. Chest x-ray was negative. EKG showed no acute process. Patient's remained asymptomatic here. She is gotten up to the bathroom. Plan will be to get her home. Lab Data Attestation: I reviewed the patient's lab results. Labs: Laboratory Results - last 24 hr 03/14/21 03/14/21 03/14/21 17:10 17:10 21:36 WBC 8.6 RBC 4.31 Hgb 12.9 Hct 39.8 MCV 92.3 MCH 29.9 MCHC 32.4 RDW Std Deviation 45.9 H RDW Coeff of Anderson 13.5 Plt Count 343 MPV 9.5 Immature Gran % (Auto) 0.400 Neut % (Auto) 82.6 H Lymph % (Auto) 12.6 L [place] % (Auto) 3.9 Eos % (Auto) 0.1 Baso % (Auto) 0.4 Absolute Neuts (auto) 7.1 Absolute Lymphs (auto) 1.08 Nucleated RBC % 0 Sodium 139 Potassium 3.6 Chloride 108 H Carbon Dioxide 23.0 Anion Gap 8 BUN 15 Creatinine 0.83 Estim Creat Clear Calc 47.23 Est GFR (MDRD) Af Amer 84 Est GFR (MDRD) Non-Af 70 BUN/Creatinine Ratio 18.1 Glucose 113 H Calcium 10.1 Magnesium 2.5 Troponin I High Sens 4 5 Radiography Diagnostic Testing: Clinical Impression(s) from Imaging Studies Chest X-Ray 03/14/21 18:20 IMPRESSION: There are no acute findings. Electronically Signed: Carlos Patrick MD at 19:12 EST , Service support , EKG Initial EKG: Comments: EKG done for near syncope read by me shows sinus rhythm with ashish e baseline variation and motion artifact. Overall rate of 86. No ventricular ectopy. No acute ST elevation or depression. OR interval, QRS duration and QTc are normal. Discharge Plan Triage Chief Complaint: Nausea/Vomiting/Diarrhea ED Provider: Dwain Angeles Dx/Rx/DC Orders Clinical Impression: Near syncope, Nausea alone Instructions: ED Near-Fainting, Uncertain Cause Prescriptions: No Action atorvastatin 10 MG tablet 0.5 tab PO DAILY RF: 0 amlodipine 2.5 MG tablet 2.5 mg PO DAILY RF: 0 levothyroxine 75 MCG tablet 75 mcg PO DAILY RF: 0 aspirin 81 MG tablet,chewable 81 mg PO DAILY@0800 RF: 0 irbesartan 300 MG tablet 150 mg PO DAILY RF: 0 polyethylene glycol 3350 17 GM packet 17 gm PO DAILY RF: 0 polysaccharide iron complex 150 MG capsule 150 mg PO DAILYCM RF: 0 doxycycline monohydrate 100 MG capsule 100 mg PO BID Qty: 14 RF: 0 food supplemt, lactose-reduced 120 ML liquid 120 ml PO 4X/DAY RF: 0 Primary Care Provider: Yudy Brennan Referrals: Yudy Brennan MD [Primary Care Provider] - 3-5 Days Disposition Disposition: Home, Self Care
[2021-03-14 18:31] LABS: Absolute Lymphocyte Count 1.08 X10^3/uL (0.83-4.51); Absolute Neutrophil Count 7.1 X10^3/uL (2.0-7.7); Basophil# 0.03 X10^3/uL; Basophil% 0.4 % (0-1); Eosinophil# 0.01 X10^3/uL; Eosinophils% 0.1 % (0-5); Hematocrit 39.8 % (37-47); Hemoglobin 12.9 g/dL (12.0-15.0); Lymphocyte # 1.08 X10^3/ul (0.83-4.51); Lymphocyte % 12.6 % (19-41); Mean Corp Hgb Conc 32.4 g/dL (32-36); Mean Corpuscular Hgb 29.9 pg (27.0-32.0); Mean Corpuscular Volume 92.3 fL (81-99); Mean Platelet Vol. 9.5 fl (6.2-12.0); Monocyte# 0.33 X10^3/uL; Monocyte% 3.9 % (0-10); NRBC Flagged by Analyzer 0 % (0-5); Neutrophil # 7.07 X10^3/uL (2.7-7.7); Neutrophil % 82.6 % (47-70); Platelet Count 343 K/mm3 (150-450); RBC Distribution Width CV 13.5 % (11.6-14.6); RBC Distribution Width SD 45.9 fl (35.1-43.9); Red Blood Count 4.31 M/mm3 (4.2-5.4); White Blood Count 8.6 K/mm3 (4.4-11.0)
--- NOTE | 2021-03-14 18:32 | ED.RN ---
Patients came to nurses station requesting that uses the bathroom. While placing bedpan, patients legs began to cramp and pulled bedpan out. Patient states she no longer has to go. Patient wants to get up and walk around. RN stated patient needs to stay in bed since she had passed out at home [employer]. patient given warm blanket under legs for leg cramps.
[2021-03-14 18:47] LABS: Anion Gap 8 (5-15); BUN 15 mg/dL (7-18); BUN/Creat Ratio 18.1 RATIO (10-20); Calcium,Total 10.1 mg/dL (8.5-10.1); Chloride 108 mmol/L (98-107); Creatinine, Serum 0.83 mg/dL (0.55-1.02); EST Glomerular Filtration Rate 70 mL/min (>60); Est Glom Filt Rate - Afr Amer 84 mL/min (>60); Estimated Creatinine Clearance 47.23 ml/min; Glucose 113 mg/dL (74-106); Magnesium 2.5 mg/dL (1.6-2.6); Potassium 3.6 mmol/L (3.5-5.1); Sodium Level 139 mmol/L (136-145); Troponin-I HS 4 pg/mL (3.0-54.0)
[2021-03-14 19:11] VITALS: BP 168/80; PULSE 89; RESP 13; TEMP 36.6; O2SAT 96
--- NOTE | 2021-03-14 19:51 | ED.RN ---
Patient and patient upset with this RN bc the doctor has not been in to reevaluate and update patient on plan of care. RN has explained her chart is up for reevaluation and doctor will be in when he does. Patients upset even more and asking for RN to give him a time frame on how long this will take. RN states she cannot give a time frame and he will be in as soon as he can.
[2021-03-14 22:05] LABS: Troponin-I HS 5 pg/mL (3.0-54.0)
--- NOTE | 2021-03-14 22:41 | ED.RN ---
Patient has been given paper scrubs and socks. patient states her purse and shoes are missing. Patients room has been checked by this RN and BERNARDO Westfall for patients belongings and none of her belongings were found in her room. Patient pulled out IV. Patient is sitting in waiting room waiting for ride because she refusing to sit in room. BERNARDO Escoto on the phone with patients informing him that she is ready to be picked up. patients refusing to come pick her up. BERNARDO Escoto on phone with 12 minutes
== END 2021-03-14 23:02 | disposition home or self-care (01) ==
PROVIDERS: Emergency Provider Emergency Medicine; PCP Internal Medicine
DX: R55 Syncope and collapse (principal); R11.0 Nausea; I10 Essential (primary) hypertension; E03.9 Hypothyroidism, unspecified; E78.00 Pure hypercholesterolemia, unspecified; Z79.82 Long term (current) use of aspirin; Z79.899 Other long term (current) drug therapy
CPT/HCPCS: 71045; 80048; 83735; 84484; 85025; 93005; 96360; 99285; J7040; A4216

== ENCOUNTER → 2021-07-18 | Outpatient (CLI) | payer MEDICARE, OTHER, SELFPAY ==
[2021-07-18 12:30] LABS: Absolute Lymphocyte Count 1.13 X10^3/uL (0.83-4.51); Absolute Neutrophil Count 3.3 X10^3/uL (2.0-7.7); Basophil# 0.02 X10^3/uL; Basophil% 0.4 % (0-1); Eosinophil# 0.05 X10^3/uL; Hematocrit 39.7 % (37-47); Hemoglobin 12.6 g/dL (12.0-15.0); Lymphocyte # 1.13 X10^3/ul (0.83-4.51); Lymphocyte % 22.8 % (19-41); Mean Corp Hgb Conc 31.7 g/dL (32-36); Mean Corpuscular Hgb 30.7 pg (27.0-32.0); Mean Corpuscular Volume 96.8 fL (81-99); Mean Platelet Vol. 9.8 fl (6.2-12.0); Monocyte# 0.42 X10^3/uL; Monocyte% 8.5 % (0-10); NRBC Flagged by Analyzer 0 % (0-5); Neutrophil # 3.31 X10^3/uL (2.7-7.7); Neutrophil % 66.9 % (47-70); Platelet Count 308 K/mm3 (150-450); RBC Distribution Width CV 13.1 % (11.6-14.6); RBC Distribution Width SD 46.7 fl (35.1-43.9)
[2021-07-18 12:37] LABS: Vitamin D,25 Hydroxy 29.2 ng/mL
[2021-07-18 12:58] LABS: ALB/GLOB Ratio 0.9 RATIO (0.9-2.4); AST(SGOT) 17 U/L (15-37); Alanine Aminotransfer ALT/SGPT 23 U/L (13-56); Albumin, Serum 3.7 g/dL (3.2-5.0); Alkaline Phosphatase 109 U/L (45-117); Anion Gap 5 (5-15); BUN 15 mg/dL (7-18); BUN/Creat Ratio 16.7 RATIO (10-20); Calcium,Total 9.6 mg/dL (8.5-10.1); Chloride 107 mmol/L (98-107); Cholesterol 221 mg/dL (200); EST Glomerular Filtration Rate 63 mL/min (>60); Est Glom Filt Rate - Afr Amer 77 mL/min (>60); Free T3 2.5 pg/mL (2.18-3.98); Glucose 95 mg/dL (74-106); High Density Lipoprotein 82 mg/dL; Potassium 3.9 mmol/L (3.5-5.1); Protein, Total 7.7 g/dL (6.4-8.2); Sodium Level 139 mmol/L (136-145); T4 Free Direct 1.33 ng/dL (0.76-1.46); Thyroid Stim Hormone (TSH) 0.72 uIU/mL (0.358-3.74); Triglycerides 66 mg/dL; Very Low Density Lipoprotein 13 mg/dL (5-40)
== END | disposition home or self-care (01) ==
PROVIDERS: PCP Internal Medicine; Referring Provider Internal Medicine; Visit Provider Internal Medicine
DX: E78.5 Hyperlipidemia, unspecified (principal); E55.9 Vitamin D deficiency, unspecified; Z86.79 Personal history of other diseases of the circulatory system; Z86.39 Personal history of other endocrine, nutritional and metabolic disease
CPT/HCPCS: 36415; 80053; 80061; 82306; 84439; 84443; 84481; 85025

== ENCOUNTER → 2021-12-22 | Outpatient (REF) | payer MEDICARE, OTHER, SELFPAY ==
[2021-12-22 09:13] LABS: Hematocrit 38.5 % (37-47); Hemoglobin 12.4 g/dL (12.0-15.0); Mean Corp Hgb Conc 32.2 g/dL (32-36); Mean Corpuscular Hgb 30.4 pg (27.0-32.0); Mean Corpuscular Volume 94.4 fL (81-99); Mean Platelet Vol. 10.1 fl (6.2-12.0); Platelet Count 279 K/mm3 (150-450); RBC Distribution Width SD 45.1 fl (35.1-43.9); Red Blood Count 4.08 M/mm3 (4.2-5.4); White Blood Count 3.9 K/mm3 (4.4-11.0)
[2021-12-22 09:31] LABS: ALB/GLOB Ratio 0.9 RATIO (0.9-2.4); AST(SGOT) 16 U/L (15-37); Alanine Aminotransfer ALT/SGPT 20 U/L (13-56); Albumin, Serum 3.4 g/dL (3.2-5.0); Alkaline Phosphatase 109 U/L (45-117); Anion Gap 7 (5-15); BUN 12 mg/dL (7-18); BUN/Creat Ratio 13.9 RATIO (10-20); Calcium,Total 9.3 mg/dL (8.5-10.1); Chloride 108 mmol/L (98-107); Creatinine, Serum 0.86 mg/dL (0.55-1.02); EST Glomerular Filtration Rate 66 mL/min (>60); Est Glom Filt Rate - Afr Amer 80 mL/min (>60); Globulin 3.9 g/dL (2.2-4.2); Glucose 111 mg/dL (74-106); Potassium 4.1 mmol/L (3.5-5.1); Protein, Total 7.3 g/dL (6.4-8.2); Sodium Level 141 mmol/L (136-145)
== END ==
PROVIDERS: PCP Internal Medicine
DX: E78.00 Pure hypercholesterolemia, unspecified (principal); D64.9 Anemia, unspecified; I10 Essential (primary) hypertension; E03.9 Hypothyroidism, unspecified
CPT/HCPCS: 36415; 80053; 85027

== ENCOUNTER → 2023-02-24 | Outpatient (CLI) | payer MEDICARE, OTHER, SELFPAY ==
[2023-02-24 12:00] LABS: Absolute Lymphocyte Count 1.38 X10^3/uL (0.83-4.51); Absolute Neutrophil Count 3.9 X10^3/uL (2.0-7.7); Basophil# 0.06 X10^3/uL; Eosinophil# 0.08 X10^3/uL; Eosinophils% 1.3 % (0-5); Hematocrit 37.6 % (37-47); Hemoglobin 11.7 g/dL (12.0-15.0); Lymphocyte # 1.38 X10^3/ul (0.83-4.51); Lymphocyte % 23.1 % (19-41); Mean Corp Hgb Conc 31.1 g/dL (32-36); Mean Corpuscular Hgb 30.4 pg (27.0-32.0); Mean Corpuscular Volume 97.7 fL (81-99); Mean Platelet Vol. 9.3 fl (6.2-12.0); Monocyte# 0.53 X10^3/uL; Monocyte% 8.9 % (0-10); NRBC Flagged by Analyzer 0 % (0-5); Neutrophil # 3.91 X10^3/uL (2.7-7.7); Neutrophil % 65.4 % (47-70); Platelet Count 291 K/mm3 (150-450); RBC Distribution Width CV 13.7 % (11.6-14.6); RBC Distribution Width SD 49.5 fl (35.1-43.9); Red Blood Count 3.85 M/mm3 (4.2-5.4)
[2023-02-24 13:40] LABS: AST(SGOT) 16 U/L (15-37); Alanine Aminotransfer ALT/SGPT 17 U/L (13-56); Albumin, Serum 3.7 g/dL (3.2-5.0); Alkaline Phosphatase 95 U/L (45-117); Anion Gap 5 (5-15); BUN 11 mg/dL (7-18); BUN/Creat Ratio 11.9 RATIO (10-20); Calcium,Total 9.1 mg/dL (8.5-10.1); Chloride 110 mmol/L (98-107); Cholesterol 208 mg/dL (200); Creatinine, Serum 0.92 mg/dL (0.55-1.02); EST Glomerular Filtration Rate 61 mL/min (>60); Est Glom Filt Rate - Afr Amer 74 mL/min (>60); Globulin 3.8 g/dL (2.2-4.2); Glucose 90 mg/dL (74-106); High Density Lipoprotein 76 mg/dL; Potassium 3.8 mmol/L (3.5-5.1); Protein, Total 7.5 g/dL (6.4-8.2); Sodium Level 140 mmol/L (136-145); T4 Free Direct 1.21 ng/dL (0.76-1.46); Thyroid Stim Hormone (TSH) 3.37 uIU/mL (0.358-3.74); Triglycerides 93 mg/dL; Very Low Density Lipoprotein 19 mg/dL (5-40)
== END | disposition home or self-care (01) ==
LOC: LAB 11:33
PROVIDERS: PCP Internal Medicine; Referring Provider Internal Medicine; Visit Provider Internal Medicine
DX: E78.00 Pure hypercholesterolemia, unspecified (principal); Z86.79 Personal history of other diseases of the circulatory system; Z86.39 Personal history of other endocrine, nutritional and metabolic disease
CPT/HCPCS: 36415; 80053; 80061; 84439; 84443; 84481; 85025

== ENCOUNTER → 2023-04-01 | Outpatient (CLI) | payer MEDICARE, SELFPAY ==
[2023-04-01 13:36] LABS: Mucous, Urine 0 SEEN /hpf (<or=2+); Red Blood Cells-Urine 0 SEEN /hpf (0-5)
--- OUTSIDE RECORDS SUMMARY | 2023-04-01 13:58 | XMS RPT_ITS | CCD ---
Author Name Unknown Address [address] [place] [address] Organization [facility] Care Team Providers Care Special Library Librarian Name Role Phone Bozena HASKINS, Trupti Nelson Primary Care Provider [phone] Allergies Allergy Classification Reported Allergen(s) Allergy Type Date of Onset Reaction(s) Facility (2 sources) atorvastatin Drug Allergy 0 Intolerance [facility] Work Phone: (2 sources) Codeine Drug Allergy 5 GI Upset [facility] Work Phone: (2 sources) irbesartan Drug Allergy 9 Intolerance [facility] Work Phone: (2 sources) levothyroxine Drug Allergy 7 [facility] Work Phone: (2 sources) Pravastatin Drug Allergy 8 Intolerance [facility] (2 sources) ANESTHESIA [Other] Propensity to adverse reactions 5 GI Upset [facility] Work Phone: Medications Completed/Discontinued Medications Medication Drug Class(es) Dates Sig (Normalized) Sig (Original) aspirin 81 mg oral tablet (2 sources) Platelet Aggregation Inhibitor, Nonsteroidal Anti-inflammatory Drug Start: 12-29-2004 ASPIRIN 81 MG TAB Take one (1) tablet daily . 0 12/29/2004 Active Problems Active Problems Problem Classification Problem Date Documented Da te Episodic/Chronic Disorders of lipid metabolism (2 sources) Pure hypercholesterolemia; Translations: [Pure hypercholesterolemia, unspecified] 01-22-2005 Chronic Diverticulosis and diverticulitis (2 sources) Diverticulosis of colon; Translations: [Diverticulosis of large intestine without perforation or abscess without bleeding] 02-17-2005 Chronic Esophageal disorders (2 sources) Gastroesophageal reflux disease; Translations: [Gastro-esophageal reflux disease without esophagitis] Onset: 9 10-25-2008 Chronic Essential hypertension (2 sources) Essential hypertension; Translations: [Essential (primary) hypertension] 05-10-2015 Chronic Gastrointestinal hemorrhage (2 sources) Gastrointestinal hemorrhage; Translations: [Gastrointestinal hemorrhage, unspecified] 02-17-2005 Episodic Genitourinary symptoms and ill-defined conditions (2 sources) Urge incontinence of urine; Translations: [Urge incontinence] Onset: 8 03-13-2008 Chronic Hemorrhoids (2 sources) Internal hemorrhoids; Translations: [Other hemorrhoids] 02-17-2005 Episodic Menopausal disorders (2 sources) Atrophic vaginitis; Translations: [Postmenopausal atrophic vaginitis] Onset: 8 03-13-2008 Chronic Other and unspecified benign neoplasm (2 sources) History of polyp of colon; Translations: [Personal history of colonic polyps] 02-17-2005 Episodic Other inflammatory condition of skin (2 sources) Psoriasis; Translations: [Other psoriasis] Onset: 0 01-16-2010 Chronic Other upper respiratory disease (2 sources) Allergic rhinitis; Translations: [Allergic rhinitis, unspecified] Onset: 8 09-28-2007 Chronic Systemic lupus erythematosus and connective tissue disorders (2 sources) Sjogren's syndrome; Translations: [Sicca syndrome, unspecified] Onset: 8 10-18-2017 Chronic Thyroid disorders (2 sources) Hypothyroidism; Translations: [Hypothyroidism, unspecified] 05-10-2015 Chronic Past or Other Problems Problem Classification Problem Date Documented Date Episodic/Chronic Allergic reactions (2 sources) Contact dermatitis; Translations: [Unspecified contact dermatitis, unspecified cause] Onset: 0 01-16-2010 Episodic Diseases of mouth; excluding dental (4 sources) Xerostomia; Translations: [Disturbances of salivary secretion] Onset: 0 01-16-2010 Episodic Genitourinary symptoms and ill-defined conditions (2 sources) Urgent desire to urinate; Translations: [Urgency of urination] Onset: 8 03-13-2008 Episodic Nonmalignant breast conditions (2 sources) Microcalcifications of the breast; Translations: [Mammographic microcalcification found on diagnostic imaging of breast] Onset: 4 08-21-2013 Episodic Other and unspecified benign neoplasm (2 sources) Benign neoplasm of oral cavity; Translations: [Benign neoplasm of unspecified part of mouth] Onset: 0 01-17-2010 Episodic Other bone disease and musculoskeletal deformities (2 sources) Disorder of skeletal system; Translations: [Disorder of bone, unspecified] Onset: 8 03-13-2008 Episodic Other inflammatory condition of skin (2 sources) Pruritus of skin; Translations: [Pruritus, unspecified] Onset: 0 01-16-2010 Episodic Other injuries and conditions due to external causes (2 sources) Excoriation of skin; Translations: [Other injury of unspecified body region, initial encounter] Onset: 0 01-16-2010 Episodic Other screening for suspected conditions (not mental disorders or infectious disease) (4 sources) Cancer cervix screening status; Translations: [Encounter for screening for malignant neoplasm of cervix] Onset: 8 03-13-2008 Episodic Other skin disorders (2 sources) Eruption; Translations: [Rash and other nonspecific skin eruption] Onset: 0 01-16-2010 Episodic Other skin disorders (2 sources) Asteatosis cutis; Translations: [Xerosis cutis] Onset: 0 01-16-2010 Episodic Results Test Name Value Interpretation Reference Range Facil ity Encounters Encounter Date Encounter Type Care Provider Facility Start: 10-07-2021 ambulatory [facility] Plan of Treatment Date Care Activity Detail Author Start: 08-20-2023 DIABETES SCREEN DIABETES SCREEN [facility] Start: 11-13-2021 Influenza vaccination INFLUENZA (#1) [facility] Start: 08-19-2021 Urine microalbumin profile DTAP,TDAP ,TD (1 - Tdap) [facility] Immunizations Immunization Date Immunization Notes Care Provider Ananth sevilla 01-18-2021 influenza, high-dose , quadrivalent vaccine (FLUZONE HIGH DOSE QUADRIVALENT) Yudy Brennan MD Work Phone: [facility] 10-21-2020 COVID-19 vaccine, ag e 12+ yr ([email or web address] - PURPLE TOP) Yudy Brennan MD Work Phone: [facility] 08-20-2020 COVID-19 vaccine, ag e 12+ yr ([employer] - PURPLE TOP) Yudy Brennan MD Work Phone: [facility] 01-23-2020 zoster vaccine recombinant Yudy Brennan MD Work Phone: [facility] 01-19-2020 influenza, high dose seasonal, preservative-free Yudy Brennan MD Work Phone: [facility] Work Phone: 01-18-2020 influenza, high-dose , quadrivalent vaccine (FLUZONE HIGH DOSE QUADRIVALENT) Yudy Brennan MD Work Phone: [facility] Work Phone: 01-28-2019 influenza, high dose seasonal, preservative-free Yudy Brennan MD Work Phone: [facility] 01-06-2018 influenza, seasonal, injectable Yudy Brennan MD Work Phone: [facility] 11-01-2015 pneumococcal polysaccharide vaccine, 23 valent Yudy Brennan MD Work Phone: [facility] 11-06-2014 pneumococcal conjuga te vaccine, 13 valent Yudy Brennan MD Work Phone: [facility] 12-17-2012 influenza virus vacc ine, unspecified formulation Yudy Brennan MD Work Phone: [facility] Work Phone: 01-02-2012 influenza virus vacc ine, unspecified formulation Yudy Brennan MD Work Phone: [facility] 01-24-2011 influenza virus vacc ine, unspecified formulation Yudy Brennan MD Work Phone: [facility] Work Phone: 01-18-2010 influenza virus vacc ine, unspecified formulation Yudy Brennan MD Work Phone: [facility] Work Phone: 01-26-2008 influenza virus vacc ine, unspecified formulation Yudy Brennan MD Work Phone: [facility] Work Phone: 09-28-2007 tetanus and diphther ia toxoids, adsorbed, preservative free, for adult use (2 Lf of tetanus toxoid and 2 Lf of diphtheria toxoid) Yudy Brennan MD Work Phone: [facility] 01-18-2007 influenza virus vacc ine, unspecified formulation Yudy Brennan MD Work Phone: [facility] Work Phone: 01-20-2006 influenza virus vacc ine, unspecified formulation Yudy Brennan MD Work Phone: [facility] 01-22-2005 influenza virus vacc ine, unspecified formulation Yudy Brennan MD Work Phone: [facility] Work Phone: 02-21-2001 pneumococcal polysaccharide vaccine, 23 valent Lesly Rm [facility] Payers Date Payer Category Payer Unknown MMO MMO [employer] [id number] 2012-Present [phone] [address] [place] [address] Indemnity [id number] 2002 Medicare MEDICARE MEDICAR E A AND B [id number] 2002-Present [phone] [address] [address] [place] [address] Medicare [id number] Social History Date Type Detail Facility Tobacco smoking stat us NHIS Never smoked tobacco [facility] Start: 11-27-2020 Alcohol intake Current non-dr clinic licensed practical nurse of alcohol (finding) [facility] Start: 1935 Sex Assigned At Not on file [facility] Progress note 10-07-2021 Note Date & Type Note Facility 10-07-2021 Note HNO ID: [id number] Author: Population Health Navigator Lesly Rm Service: ? Author Type: ? Type: Progress Notes Filed: 10/07/2021 1:56 PM Note Text: POPULATION HEALTH NAVIGATION OUTREACH Action/FYI HCC Gaps Outcome: Called and spoke with patient and he states she see a pcp outside [facility]. Patient decline to schedule any appointments at this time. Patient is on HCC list for below gaps and needs appt to address : M35.00 - Sjogren's syndrome (HCC) - [id number] Last Billed 06/04/2018 Annual Wellness/PCP visit/ BP CONTROLLED ? last visit 09/20/2020 Pt identified by name and : YES, via phone Outreach Outcome/Action Spoke to patient or caregiver: Patient declined Did you use a PCP flex slot to schedule this appointment? N/A Reason for Outreach HCC or suspected condition Payer: Payor: MEDICARE / Plan: MEDICARE A AND B / Product Type: Medicare / Care Gap Reviewed:: Annual Wellness visit Reminder: Reminder note to check Health Maintenance for items below Health Maintenance items due: DTAP,TDAP,TD(1 - Tdap) due on 09/29/2007 SHINGRIX VACCINE(2 of 2) due on 03/19/2020 ADVANCE DIRECTIVE DISCUSSION Never done COVID-19 VACCINE(3 - Booster for Pfizer series) due on 03/23/2021 Message Sent to Practice: No Navigation Signature: Population Health Navigator Lesly Rm October 07, 2021 1:53 PM [facility] Clinical Note 10-07-2021 Note Date & Type Note Facility 10-07-2021 Note Patient Outreach (NE TNAV) ABDIAZIZ MICHAEL ([id number]) 1935 F Date Time Provider Department 10/07/21 LESLY RM During your visit today, we recorded the following information about you: Population Health Navigator Lesly Rm 10/07/2021 1:56 PM Signed POPULATION HEALTH NAVIGATION OUTREACH Action/FYI HCC Gaps Outcome: Called and spoke with patient and he states she see a pcp outside [facility]. Patient decline to schedule any appointments at this time. Patient is on [facility] list for below gaps and needs appt to address : M35.00 - Sjogren's syndrome (HCC) - [id number] Last Billed 06/04/2018 Annual Wellness/PCP visit/ BP CONTROLLED ? last visit 09/20/2020 Pt identified by name and : YES, via phone Outreach Outcome/Action Spoke to patient or caregiver: Patient declined Did you use a PCP flex slot to schedule this appointment? N/A Reason for Outreach HCC or suspected condition Payer: Payor: MEDICARE / Plan: MEDICARE A AND B / Product Type: Medicare / Care Gap Reviewed:: Annual Wellness visit Reminder: Reminder note to check Health Maintenance for items below Health Maintenance items due: DTAP,TDAP,TD(1 - Tdap) due on 09/29/2007 SHINGRIX VACCINE(2 of 2) due on 03/19/2020 ADVANCE DIRECTIVE DISCUSSION Never done COVID-19 VACCINE(3 - Booster for Pfizer series) due on 03/23/2021 Message Sent to Practice: No Navigation Signature: Population Health Navigator Lesly Rm October 07, 2021 1:53 PM Allergies As of Date: 10/07/2021 Noted Allergy Reaction ANESTHESIA [Other] 12/26/2004 8 - GI Upset Comments: VOMITING ATORVASTATIN 02/06/2020 5 - Intolerance Comments: nausea(pt cannot take generic-requires Brand Lipitor CODEINE 12/26/2004 8 - GI Upset Comments: NAUSEA IRBESARTAN 06/20/2018 5 - Intolerance Comments: reports mouth sores with generic irbesartan LEVOTHROID (LEVOTHYROXINE SODIUM) 07/07/2006 Comments: Choking sensation,inability to swallow--only occurred with generic med PRAVASTATIN 03/30/2007 5 - Intolerance Comments: Dry mouth lots of dental work Date Reviewed: 11/27/2020 Reviewed by: Antonia Whitaker MA - Fully Assessed Reason for Visit: Population Health Navigation Outreach [3910] Cmt: [facility] Prescriptions as of 10/07/2021 - atorvastatin (LIPITOR) 10 mg tablet Take 0.5 tablets by mouth once daily. - AVAPRO 300 mg tablet Take 1 tablet by mouth once daily. - levothyroxine (SYNTHROID) 75 mcg tablet Take 1 tablet by mouth once daily. Take on empty stomach. For Thyroid - mometasone (ELOCON) 0.1 % cream Apply to affected areas of rash to open general body areas (eg. around waistline abdomen, arms, legs BID-TID (twice to three times per day) until clear PRN need, and then can taper off as able. AVOID face, eyes//eyelids, and deep fold areas (underarms, groin). - clobetasol (TEMOVATE) 0.05 % ointment Apply pea sized amount to affected area only - 1-2 times weekly - Cholecalciferol, Vitamin D3, 25 mcg (1,000 unit) cap Take 1 capsule by mouth once daily. - levothyroxine (SYNTHROID) 50 mcg tablet Take 1 tablet by mouth every Wednesday. Or as directed. 75 mcg daily the rest of the week - folic acid 800 mcg tablet Take 1 tablet by mouth once daily. - nystatin (MYCOSTATIN) cream Apply to affected area twice daily. - ceramides 1,3,6-11 (CERAVE) Apply to affected area as needed (apply daily to dry intact skin). - gzyvgcsu-uqwmsrlywc-emvyvyzpi-hydrocortis one (CHANCE-POLYCIN HC) 3.5-400-10,000 mg-unit/g-1% ophthalmic ointment Use in both eyes twice daily. - ASPIRIN 81 MG TAB Take one (1) tablet daily . Meds Comments as of 08/31/2013: Norvasc currently on hold by patient. Holding ASA 3 days prior per MD Problem List As Of Date 10/07/2021 Noted Resolved Hypothyroidism [E03.9] PURE HYPERCHOLESTEROLEM [E78.00] Essential hypertension [I10] GASTROINTEST HEMORR NOS [K92.2] INT HEMORRHOID W/O COMPL [K64.8] DIVERTICULOSIS OF COLON W/O BLEED [K57.30] PERS HX COLONIC POLYPS [Z86.010] ALLERGIC RHINITIS NOS [J30.9] 09/28/2007 ATROPHIC VAGINITIS [N95.2] 03/13/2008 URGENCY OF URINATION [R39.15] 03/13/2008 URGE INCONTINENCE [N39.41] 03/13/2008 SCREENING MAL NEOP-CERVIX [Z12.4] 03/13/2008 BONE AND CARTILAGE DIS NOS [M89.9, M94.9] 03/13/2008 UNSP ABNORMAL MAMMOGRAM [R92.8] 03/22/2008 ESOPHAGEAL REFLUX [K21.9] 10/25/2008 Contact dermatitis and other eczema, due to uns*01/16/2010 Other psoriasis [L40.8] 01/16/2010 Rash and other nonspecific skin eruption [R21] 01/16/2010 Unspecified pruritic disorder [L29.9] 01/16/2010 Xerosis cutis [L85.3] 01/16/2010 Excoriation [T14.8XXA] 01/16/2010 Xerostomia [K11.7] 01/16/2010 Glossitis [K14.0] 01/16/2010 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 [facility] History of Present illness Narrative 10-07-2021 Population Health Navigator Lesly Rm - 10/07/2021 1:53 PM EDT Note Date & Type Note Facility 10-07-2021 History of Presen t illness Narrative POPULATION HEALTH NAVIGATION OUTREACH Action/ HCC Gaps Outcome: Called and spoke with patient and he states she see a pcp outside [facility]. Patient decline to schedule any appointments at this time. Patient is on [facility] list for below gaps and needs appt to address : M35.00 - Sjogren's syndrome (HCC) - [id number] Last Billed 06/04/2018
Annual Wellness/PCP visit/ BP CONTROLLED last visit 09/20/2020 Pt identified by name and : YES, via phone Outreach Outcome/Action Spoke to patient or caregiver: Patient declined Did you use a PCP flex slot to schedule this appointment? N/A Reason for Outreach HCC or suspected condition Payer: Payor: MEDICARE / Plan: MEDICARE A AND B / Product Type: Medicare / Care Gap Reviewed:: Annual Wellness visit Reminder: Reminder note to check Health Maintenance for items below Health Maintenance items due: DTAP,TDAP,TD(1 - Tdap) due on 09/29/2007 SHINGRIX VACCINE(2 of 2) due on 03/19/2020 ADVANCE DIRECTIVE DISCUSSION Never done COVID-19 VACCINE(3 - Booster for Pfizer series) due on 03/23/2021 Message Sent to Practice: No Navigation Signature: Population Health Navigator Lesly Rm October 07, 2021 1:53 PM documented in this encounter [facility] Note 07-17-2021 Telephone Encounter - Lena Manriquez LPN - 07/17/2021 3:29 PM EDTTelephone Encounter - Lola Simpson APRN.CNS - 07/17/2021 3:11 PM EDTTelephone Encounter - Lena Manriquez LPN - 07/17/2021 1:46 PM EDT Note Date & Type Note Facility 07-17-2021 Miscellaneous Notes Spoke with patient. Patient seemed a little confused about what I was telling her. Patient was given [facility] phone number so can call the lab and schedule a time to come in to do labs. Patient was also informed that she needs to schedule 6 month f/u with Dr. Seals as instructed. Patient did states she likes both doctor but has decided to have Dr. Seals as her primary. Appointment in September with Dr. Brennan cancelled and Dr. Brennan was taken off as PCP Noted, should complete any ordered labs in specified time frame and continue with medications as ordered. Dr Seals note reviewed.She indicated she was establishing care with him. He ordered lab work and notes he did not change any medications. She does have September appointment with Yudy Brennan MD. Check to see if she plans on coming in September or if we should cancel appointment and remove PCP in [facility]. Dr. Seals's office note was obtained and at nurse's desk for review. Dr. Seals states that patient and her have transferred care from Dr. Brennan to himself. States that TSH was stable and was not making any medication changes until labs he had ordered have been completed. It doesn't look that those have been completed yet. Is she seeing both Dr Seals and Yudy Brennan MD for thyroid? We have no recent labs in [facility], should repeat if concerns, no recent labwork noted; last checked 08/2020. follow up lbas not completed in Nov as ordered. Note in med list indicates she was not taking levothyroxine Pt called in and reports she had gone to see Dr Seals and he had told her she didn't need to take her Synthroid any more. She reports she has been taking it for years. Looked at her last labs and TSH had been low. Pt reports she will keep taking, but wanted PCPs input. Please call and advise. documented in this encounter [facility] Progress note 11-27-2020 Note Date & Type Note Facility 11-27-2020 Note HNO ID: [id number] Author: Cristal oWods, DO Service: ? Author Type: Physician Type: Progress Notes Filed: 11/27/2020 11:21 AM Note Text: [facility] SUBJECTIVE: Abdiaziz Michael is a 85 year old female with a pertinent PMH of hypertension, hyperlipidemia, prediabetes, osteopenia, hypothyroidism, and Sjogren's syndrome who presents for consultation for possible participation in the [facility]. Consultation requested by Yudy Brennan MD for an opinion regarding Abdiaziz Michael. My final recommendations will be communicated back to the referring provider by way of shared medical record. Accompanied by her , Lisandro. CC: memory HPI: Abdiaziz states her memory is not that bad. Some days are worse than others. Her states she is forgetful and forgot this appointment. If I need to remember it, I remember it. She repeated this sentiment several times in the visit. She states her short-term memory is fine. Lisandro states, She feels her condition is very similar to a lot of elderly people. But she will be forgetful and I have to help her. They lived in a large home in [place] and moved to [facility]. She used to walk when they lived in [place] but hasn't been walking much now. There are no sidewalks around the condo. She got lost on two occasions while shopping in a familiar area. He believes her memory has been declining over the past 3-4 years. She is independent with ADLs. No brain imaging available. Forgetting words? No Forgetting names? No Forgetting appointments? Yes (writes them down) Forgetting to take medications? No Misplacing things more than usual? No Do you drive? Yes Have you gotten lost in a familiar place? Yes Personality change? No Head injuries? No FHx AD or dementia? No Olman Cognitive Assessment version 7.1 (MOCA) Total score: 1530 Visuospatial/executive: 2/5 Namin/3 Attention: 6 Language: 2/3 Abstraction: 1/2 Delayed recall: 0/5 Orientation: 26 Education: graduate degree in education and counseling Assessment scores: - PSS-4: 4 - PHQ-4: 0 - Nutrition: 23 - AUDIT-C: 0 - PSQI: 1 Sleep quality in the past month: very good Medications/supplements for sleep: none PAP therapy? n/a Exercise: - How many times per week did you do aerobic exercise in the past month? once - How many minutes did you spend doing aerobic exercise per week in the past month? 30-60 - How many times per week did you do strength training exercises in the past month? none - How many times per week did you do stretching and flexibility exercises in the past month? none - How many steps on average do you get on a week day? Weekend day? 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 No PAST MEDICAL HISTORY Diagnosis Date - Abscess and cellulitis of gluteal region 10/2018 with hematoma also - Allergic rhinitis, cause unspecified 09/28/2007 - Diverticulosis of colon (without mention of hemorrhage) - Hemorrhage of gastrointestinal tract, unspecified - Internal hemorrhoids without mention of complication - Other chronic allergic conjunctivitis ALLERGIC CONJUNCTIVITIS - Personal history of colonic polyps - PMH - PAST MEDICAL HISTORY OF ganglian left foot - Pure hypercholesterolemia - Sjogren's disease (HCC) 2009 - Unspecified essential hypertension - Unspecified hypothyroidism PAST SURGICAL HISTORY Procedure Laterality Date - BX BREAST PERC VACUUM/ROTN 03/28/2008 Left Breast - COLONOSCOP W/ OR W/O BRSH SPEC 02/17/05 Colonoscopy - DANDC, DIAG AND/OR THERAPEUTIC 1989 Dilation AND curettage - I AND D, ABCESS COMPLEX MULTIP 10/2018 buttock - LIGATE FALLOPIAN TUBE Tubal ligation - PAST SURGICAL HISTORY OF 1996 FIBROID REMOVED ALLERGIES Allergen Reactions - Anesthesia [Other] GI Upset VOMITING - Atorvastatin Intolerance nausea(pt cannot take generic-requires Brand Lipitor - Codeine GI Upset NAUSEA - Irbesartan Intolerance reports mouth sores with generic irbesartan - Levothroid [Levothy* Choking sensation,inability to swallow--only occurred with generic med - Pravastatin Intolerance Dry mouth lots of dental work Current Outpatient Medications Medication Sig - mometasone (ELOCON) 0.1 % cream Apply to affected areas of rash to open general body areas (eg. around waistline abdomen, arms, legs BID-TID (twice to three times per day) until clear PRN need, and then can taper off as able. AVOID face, eyes//eyelids, and deep fold areas (underarms, groin). - clobetasol (TE (more content not included)... [facility] Summary Purpose Family History No Family History Records Found Advance Directives No Advanced Directives Records Found Additional Source Comments Source Comments (unrecognize d section and content) In the event this informatio n is protected by the Federal Confidentiality of Alcohol and Drug Abuse Patient Records regulations: The Federal rules restrict any use of the information to criminally investigate or prosecute any alcohol or drug abuse patient.[facility] Hospital[facility] the event this information is protected by the Federal Confidentiality of Alcohol and Drug Abuse Patient Records regulations: The Federal rules restrict any use of the information to criminally investigate or prosecute any alcohol or drug abuse patient.[facility] Reason for Visit (unrecogniz ed section and content) Reason Onset Date Comments Population Health Navigation Outreach 10/07/2021 [facility] Care Teams (unrecognized sec tion and content) Special Library Librarian Relationship Specialty Start Date End Date Trupti Seals MD [address] [facility] [address] [place] [address] PCP - General Internal Medicine 07/17/21 INFORMATION SOURCE (unrecogn ized section and content) FOR RECORDS PERTAINING TO PATIENTS WHO ARE OR HAVE BEEN ENROLLED IN A CHEMICAL DEPENDENCY/SUBSTANCEABUSE PROGRAM, SOME INFORMATION MAY BE OMITTED. This clinical summary was aggregated from multiple sources. Caution should be exercised in using it in the provision of clinical care. This summary normalizes information from multiple sources, and as a consequence, information in this document may materially change the coding, format and clinical context of patient data. In addition, data may be omitted in some cases. CLINICAL DECISIONS SHOULD BE BASED ON THE PRIMARY CLINICAL RECORDS. [employer] provides no warranty or guarantee of the accuracy or completeness of information in this document.
[2023-04-01 15:11] LABS: Color, Urine Yellow (Yellow); Glucose, Dipstick Normal (Normal); Ketone-Dipstick Negative (Negative); Leukocyte Esterase-Dipstick 500 /ul (Negative); Nitrite-Dipstick Positive (Negative); Occult Blood-Urine 25 /ul (Negative); Protein-Dipstick 15 mg/dl (Negative); Urine Bilirubin Dipstick Negative (Negative); Urine Clarity Sl. Cloudy (Clear); Urine Urobilinogen Normal (Normal); Urine pH 6.5 (5.0 - 8.0)
[2023-04-01 15:20] LABS: Bacteria 2+ /hpf (None Seen); White Blood Cells >100 SEEN /hpf (0-5)
[2023-04-01 15:21] LABS: Squamous Epithelial Cells - UA 0-5 SEEN /hpf (5-10)
== END | disposition home or self-care (01) ==
LOC: LAB 13:30
PROVIDERS: PCP Internal Medicine; Referring Provider Internal Medicine; Visit Provider Internal Medicine
DX: N39.0 Urinary tract infection, site not specified (principal)
CPT/HCPCS: 81001; 87086; 87088; 87186

== ENCOUNTER → 2023-11-09 | Outpatient (CLI) | payer MEDICARE, SELFPAY ==
--- NOTE | 2023-11-09 14:47 | ART_ITS ---
Reason For Study: PVD Procedure A bilateral lower extremity continuous wave Doppler with analog waveform analysis,segmental pressures,and ankle brachial indexes without exercise. Left Segmental Pressures Left brachial= 141mmHg. Left posterior tibial artery = 166mmHg. Left dorsalis pedis artery = 152mmHg. Left digit = 81 mmHg. The left posterior tibial artery waveforms are triphasic. The left dorsalis pedis waveforms are triphasic. Right Segmental Pressures Right brachial= 139mmHg. Right posterior tibial artery = 145mmHg. Right dorsalis pedis artery = 146mmHg. Right digit = 89 mmHg. The right posterior tibial artery waveforms are biphasic. The right dorsalis pedis waveforms are triphasic. Indices The right ankle brachial index by the posterior tibial artery is 1.03. The right ankle brachial index by the dorsalis pedis is 1.04. The right digital-brachial index is 0.63. The left ankle brachial index by the posterior tibial artery is 1.18. The left ankle brachial index by the dorsalis pedis is 1.08. The left digital-brachial index is 0.57. VL/Lower Ext Art Exam w/o Exercis Interpretation Summary Biphasic and triphasic Doppler waveforms are noted at ankle level on the right. Triphasic Doppler waveforms are noted at ankle level on the left. Pulse-volume recordings appear satisfactory all levels bilaterally. Resting ankle-brachial indices are normal bilaterally. Digi roverto-brachial indices are mildly diminished bilaterally. Arterial flow appears normal at ankle level bilaterally. There is evidence of m ild arterial occlusive disease at digital level bilaterally. Ordering Physician: Pipe Ralph Referring Physician: Trupti Seals M.D. Performed By: Onofre Joseph RVT
== END | disposition home or self-care (01) ==
LOC: CVS 14:37
PROVIDERS: PCP Internal Medicine; Referring Provider Student in an Organized Health Care Education/Training Program; Visit Provider Student in an Organized Health Care Education/Training Program
DX: I73.9 Peripheral vascular disease, unspecified (principal); M79.674 Pain in right toe(s); M79.675 Pain in left toe(s)
CPT/HCPCS: 93923

== ENCOUNTER → 2024-05-17 | Outpatient (CLI) | payer MEDICARE, SELFPAY ==
[2024-05-17 16:02] LABS: Absolute Lymphocyte Count 1.56 X10^3/uL (0.83-4.51); Absolute Neutrophil Count 4.8 X10^3/uL (2.0-7.7); Basophil# 0.06 X10^3/uL; Basophil% 0.8 % (0-1); Eosinophils% 1.4 % (0-5); Hematocrit 37.3 % (37-47); Hemoglobin 12.2 g/dL (12.0-15.0); Lymphocyte # 1.56 X10^3/ul (0.83-4.51); Lymphocyte % 21.8 % (19-41); Mean Corp Hgb Conc 32.7 g/dL (32-36); Mean Corpuscular Hgb 30.3 pg (27.0-32.0); Mean Corpuscular Volume 92.8 fL (81-99); Mean Platelet Vol. 9.1 fl (6.2-12.0); Monocyte% 8.4 % (0-10); NRBC Flagged by Analyzer 0 % (0-5); Neutrophil % 67.2 % (47-70); Platelet Count 295 K/mm3 (150-450); RBC Distribution Width CV 13.4 % (11.6-14.6); RBC Distribution Width SD 45.9 fl (35.1-43.9); Red Blood Count 4.02 M/mm3 (4.2-5.4); White Blood Count 7.2 K/mm3 (4.4-11.0)
[2024-05-17 17:25] LABS: ALB/GLOB Ratio 1.3 RATIO (0.9-2.4); AST(SGOT) 18 U/L (<=31); Alanine Aminotransfer ALT/SGPT 13 U/L (<=34); Albumin, Serum 4.4 g/dL (3.4-4.8); Alkaline Phosphatase 120 U/L (35-104); Anion Gap 12 (5-15); BUN 12 mg/dL (4-19); BUN/Creat Ratio 14.8 RATIO (10-20); Calcium,Total 9.8 mg/dL (7.6-11.0); Carbon Dioxide 22.4 mmol/L (21.0-32.0); Chloride 102 mmol/L (98-108); Creatinine, Serum 0.83 mg/dL (0.70-1.20); EST Glomerular Filtration Rate 68 (>60); Globulin 3.3 g/dL (2.2-4.2); Glucose 97 mg/dL (70-99); Hepatitis C Antibody Nonreactive (Nonreactive); Protein, Total 7.6 g/dL (5.9-8.4); Sodium Level 137 mmol/L (133-145); Syphilis Antibodies Nonreactive (Nonreactive); Total Bilirubin 0.34 mg/dL (0.00-1.30); Vitamin B12 616 pg/mL (180-914); Vitamin D,25 Hydroxy 25.3 ng/mL (30-100)
[2024-05-17 17:26] LABS: FOLATES,SERUM (FOLIC ACID) 5.27 ng/mL (4.60-34.80)
== END | disposition home or self-care (01) ==
LOC: POLAB3 15:13
PROVIDERS: PCP Family Medicine Geriatric Medicine; Visit Provider Family Medicine Geriatric Medicine
DX: G30.9 Alzheimer's disease, unspecified (principal); I10 Essential (primary) hypertension; E03.9 Hypothyroidism, unspecified; Z13.89 Encounter for screening for other disorder; E55.9 Vitamin D deficiency, unspecified
CPT/HCPCS: 36415; 80053; 82306; 82607; 82746; 84443; 85025; 86780; 86803

== ENCOUNTER → 2024-06-19 | Outpatient (CLI) | payer MEDICARE, SELFPAY ==
--- NOTE | 2024-06-19 13:30 | MRI_ITS ---
PROCEDURE: BRAIN WITHOUT CONTRAST 06/19/2024 REASON FOR EXAM: ALZHEIMER'S DISEASE TECHNIQUE: Brain MRI without intravenous contrast with additional dedicated imaging of the IACs. COMPARISON: None FINDINGS: TECHNIQUE: Multiplanar, multi-sequence MRI of brain was performed without and with IV contrast. FINDINGS: BRAIN/PARENCHYMA: No evidence of acute infarction or acute intracranial hemorrhage. There are subcortical and periventricular white matter FLAIR hyperintensities, likely related to chronic microvascular ischemic disease. No abnormal post-contrast enhancement. EXTRA-AXIAL SPACES: No abnormal extra-axial fluid collections. Patent basal cisterns and foramen magnum. MIDLINE SHIFT: None. VENTRICLES: No hydrocephalus. SCALP SOFT TISSUES & CALVARIUM: No significant abnormality. VISUALIZED SINUSES & MASTOIDS: No air-fluid levels in the paranasal sinuses. The mastoid air cells are clear. ARTERIAL FLOW VOIDS: Preserved major arterial flow voids indicating gross patency. MRI/Brain without Contrast IMPRESSION: No acute intracranial abnormality; no acute infarct, intracranial hemorrhage or extra-axial collection. Chronic microvascular ischemia and involutional changes. Reading Location: [facility]
== END | disposition home or self-care (01) ==
PROVIDERS: PCP Family Medicine Geriatric Medicine; Referring Provider Family Medicine Geriatric Medicine; Visit Provider Family Medicine Geriatric Medicine
DX: G30.9 Alzheimer's disease, unspecified (principal)
CPT/HCPCS: 70551

== ENCOUNTER → 2024-08-17 | Outpatient (CLI) | payer MEDICARE, SELFPAY ==
[2024-08-17 16:07] LABS: Absolute Lymphocyte Count 1.62 X10^3/uL (0.83-4.51); Absolute Neutrophil Count 3.6 X10^3/uL (2.0-7.7); Basophil# 0.08 X10^3/uL; Basophil% 1.4 % (0-1); Eosinophil# 0.09 X10^3/uL; Eosinophils% 1.5 % (0-5); Hematocrit 35.7 % (37-47); Hemoglobin 11.4 g/dL (12.0-15.0); Lymphocyte # 1.62 X10^3/ul (0.83-4.51); Lymphocyte % 27.5 % (19-41); Mean Corp Hgb Conc 31.9 g/dL (32-36); Mean Corpuscular Hgb 29.5 pg (27.0-32.0); Mean Corpuscular Volume 92.5 fL (81-99); Mean Platelet Vol. 9.1 fl (6.2-12.0); Monocyte# 0.55 X10^3/uL; Monocyte% 9.3 % (0-10); NRBC Flagged by Analyzer 0 % (0-5); Neutrophil # 3.55 X10^3/uL (2.7-7.7); Neutrophil % 60.1 % (47-70); Platelet Count 327 K/mm3 (150-450); RBC Distribution Width CV 13.4 % (11.6-14.6); RBC Distribution Width SD 45.7 fl (35.1-43.9); Red Blood Count 3.86 M/mm3 (4.2-5.4); White Blood Count 5.9 K/mm3 (4.4-11.0)
[2024-08-17 16:45] LABS: ALB/GLOB Ratio 1.4 RATIO (0.9-2.4); AST(SGOT) 17 U/L (<=31); Alanine Aminotransfer ALT/SGPT 11 U/L (<=34); Albumin, Serum 4.3 g/dL (3.4-4.8); Alkaline Phosphatase 120 U/L (35-104); Anion Gap 11 (5-15); BUN 11 mg/dL (4-19); BUN/Creat Ratio 13.5 RATIO (10-20); Calcium,Total 9.5 mg/dL (7.6-11.0); Carbon Dioxide 24.1 mmol/L (21.0-32.0); Chloride 102 mmol/L (98-108); Creatinine, Serum 0.84 mg/dL (0.70-1.20); EST Glomerular Filtration Rate 67 (>60); Globulin 3.1 g/dL (2.2-4.2); Glucose 90 mg/dL (70-99); Potassium 4.1 mmol/L (3.3-5.1); Protein, Total 7.4 g/dL (5.9-8.4); Sodium Level 137 mmol/L (133-145); Total Bilirubin 0.38 mg/dL (0.00-1.30); Vitamin D,25 Hydroxy 23.2 ng/mL (30-100)
== END | disposition home or self-care (01) ==
PROVIDERS: PCP Family Medicine Geriatric Medicine; Referring Provider Family Medicine Geriatric Medicine; Visit Provider Family Medicine Geriatric Medicine
DX: I10 Essential (primary) hypertension (principal); E55.9 Vitamin D deficiency, unspecified
CPT/HCPCS: 36415; 80053; 82306; 84443; 85025

== ENCOUNTER → 2024-11-15 | Outpatient (CLI) | payer MEDICARE, SELFPAY ==
[2024-11-15 14:05] LABS: Hematocrit 36.7 % (37-47); Hemoglobin 11.8 g/dL (12.0-15.0); Immature Granulocytes Count 0.020 X10^3/uL (0.0-0.0); Mean Corp Hgb Conc 32.2 g/dL (32-36); Mean Corpuscular Volume 91.8 fL (81-99); Mean Platelet Vol. 8.9 fl (6.2-12.0); NRBC Flagged by Analyzer 0 % (0-5); Platelet Count 312 K/mm3 (150-450); RBC Distribution Width CV 13.5 % (11.6-14.6); RBC Distribution Width SD 46.2 fl (35.1-43.9); Red Blood Count 4.00 M/mm3 (4.2-5.4); White Blood Count 5.5 K/mm3 (4.4-11.0)
[2024-11-15 15:00] LABS: Vitamin D,25 Hydroxy 18.9 ng/mL (30-100)
[2024-11-15 15:06] LABS: AST(SGOT) 19 U/L (<=31); Alanine Aminotransfer ALT/SGPT 12 U/L (<=34); Albumin, Serum 4.1 g/dL (3.4-4.8); Alkaline Phosphatase 119 U/L (35-104); Anion Gap 11 (5-15); BUN 11 mg/dL (4-19); BUN/Creat Ratio 13.1 RATIO (10-20); Calcium,Total 9.8 mg/dL (7.6-11.0); Carbon Dioxide 22.8 mmol/L (21.0-32.0); Chloride 104 mmol/L (98-108); Globulin 3.3 g/dL (2.2-4.2); Glucose 100 mg/dL (70-99); Potassium 4.4 mmol/L (3.3-5.1)
[2024-11-15 21:53] LABS: Xtra Tube Kwok EXTRA TUBE
== END | disposition home or self-care (01) ==
LOC: POLAB3 13:53
PROVIDERS: PCP Family Medicine Geriatric Medicine; Visit Provider Family Medicine Geriatric Medicine
DX: I10 Essential (primary) hypertension (principal); E55.9 Vitamin D deficiency, unspecified; E03.9 Hypothyroidism, unspecified
CPT/HCPCS: 36415; 80053; 82306; 84443; 85025

== ENCOUNTER 2025-02-06 10:10 | Observation (INO) | payer MEDICARE, SELFPAY ==
[2025-02-06] VITALS (8 sets, daily range): BP systolic 109–174; BP diastolic 65–82; PULSE 64–79; RESP 14–18; TEMP 36.3–37.1; O2SAT 95–100; BMI 21.6; BMI 20.8
--- NOTE | 2025-02-06 10:20 | EDS_ITS ---
HPI History of Present Illness HPI Narrative: 89-year-old female history of hypertension. Was walking through her house today said her right knee buckled and since that time she has had pain and swelling. No prior knee history or surgery. Said her knees felt fine. She did not fall to the ground. Denies any hip or ankle pain. Chief Complaint: Lower Extremity Injury Informant: patient Occured/Mechanism Mechanism/Context: No injury and No blunt trauma Onset/Context/Timing Onset: Today Context: Sudden Onset Timing: Continuous Quality of Pain: Sharp Current Severity: Moderate Maximum Severity: Moderate Associated Symptoms Associated Symptoms: Negative for Parasthesia, Weakness or Loss of Funtion Narrative Narrative: 89-year-old female walking through her house her right knee buckled since that time she has had pain and swelling. Did not fall to the ground. No prior knee history or knee surgery. No recent knee injury. No fever or chills. This occurred today. Prior similar symptoms: No Recent Illness/Hospitalization: No PFSH PFSH Medical History Hypertension High cholesterol Hypothyroid Home Medications ?Medication ?Instructions ?Recorded ?Last Taken ?Type atorvastatin 10 mg tablet 5 mg (1/2 x 10 mg) PO DAILY 11/02/23 Unknown Rx cholestrol #45 tabs levothyroxine 50 mcg tablet 50 mcg PO .COMPLEX #12 tab s 11/02/23 Unknown Rx levothyroxine 75 mcg tablet 75 mcg PO .COMPLEX synthro id #[id number] 11/02/23 Unknown Rx tabs irbesartan 300 mg tablet 150 mg (1/2 x 300 mg) PO JERICA LY 05/08/24 Unknown Rx blood pressure #90 tabs Allergy/AdvReac Type Severity Reaction Status Date / Time No Known Allergies Allergy Verified 02/06/25 10:15 Family History Other Cancer Hypertension Myocardial infarction Social History Smoking Status: Never smoker alcohol intake: never substance use type: does not use what type of physical activity do you participate in: walking frequency: 3-4 times per week ROS ROS ED ROS Narrative Denies recent illness. Constitutional Constitutional ED: Denies fever(s) Eyes Eyes: Denies blurry vision ENT ENT ED: Denies ear pain Cardiovascular Cardiovascular: Denies chest pain Respiratory/Chest Respiratory/Chest: Denies cough Gastrointestinal Gastrointestinal: Denies abdominal pain Genitourinary Genitourinary ED: Denies dysuria Musculoskeletal Musculoskeletal: Denies arthralgias Integumentary Denies abscess Psychiatric Psychiatric: Denies anxiety Endocrine Endocrinology: Denies polydipsia Hematologic/Lymphatic Hematologic/Lymphatic: Denies easy bleeding Allergic/Immunologic Allergic/Immunologic ED: Denies mouth swelling EXAM Physical Exam Narrative Exam Narrative: 89 female sitting upright in bed vital signs stable afebrile. No acute distress. H EENT exam pupils round react light. Moist mucous membranes. Neck nontender. Back nontender. Lungs clear to auscultation. Heart regular rhythm rate about 65 no murmur. Chest wall and ribs nontender. Abdomen soft nontender. Pelvic girdle intact. Moving all 4 extremities. Right knee tender. Swollen. Moderate effusion. She is able to flex and extend it. She cannot lift it off the bed due to discomfort. Right hip is nontender. The knee itself the ACL PCL are intact MCL and LCL appear to be intact. She does have tenderness. There is no cellulitis or septic joint. Right hip and ankle are nontender. Normal dorsi plantarflexion. Normal touch sensation. Normal DP pulse. Neurologically she is awake alert. Answer questions following commands. Const Vital Signs: 02/06/25 10:12 02/06/25 12:18 Temperature 98.8 F Temperature Source Oral Pulse Rate 64 79 Respiratory Rate 16 14 Blood Pressure 116/76 112/81 H Blood Pressure Mean 89 91 Pulse Ox 100 98 Oxygen Delivery Method Room Air Room Air MDM MDM MDM Narrative Medical decision making narrative: 89-year-old female right knee buckled mild tender and swollen. With effusion. X-ray will be obtained. No signs of infection. No prior history of surgery. She will be given Tylenol for pain. Repeat exam patient doing well. Has an effusion on her knee. No redness no signs of septic joint. I think this is from arthritis. Should be discharged home. Ice. Tylenol Motrin if not improving follow-up with orthopedics to consider a joint injection. She and her are comfortable to plan. I went over the x-ray results with them. Radiography Diagnostic Testing: Clinical Impression(s) from Imaging Studies Knee X-Ray 02/06/25 10:45 IMPRESSION: Mild arterial calcification is noted. No right knee joint effusion is seen. Mild tricompartmental right knee degenerative changes are seen, with questionable mild medial joint narrowing. At least mild patellofemoral joint narrowing is also noted. No acute fracture or dislocation is seen. Reading Location: [address] Right knee x-ray multiple views interpreted both by myself and the radiologist. Shows degenerative joint disease. No fracture. No dislocation. There is a knee effusion. Discharge Plan Triage Chief Complaint: Lower Extremity Injury ED Provider: Gigi Rudd Dx/Rx/DC Orders Clinical Impression: Acute knee pain, Osteoarthritis, Effusion of knee joint Instructions: ED Fluid on the Knee Prescriptions: No Action atorvastatin 10 mg tablet 5 mg PO DAILY Qty: 45 3RF levothyroxine 50 mcg tablet 50 mcg PO .COMPLEX Qty: 12 3RF Rx Instructions: 50 mcg orally sundays; levothyroxine 75 mcg tablet 75 mcg PO .COMPLEX Qty: 72 3RF Rx Instructions: 75 mcg orally Wednesday Thru Wednesday; irbesartan 300 mg tablet 150 mg PO DAILY Qty: 90 3RF Primary Care Provider: Anil Corley Chi Referrals: Javier Bacon MD [Med Staff - Active Staff, Orthopedics] - 1 Week if not improving Anil Corley Chi, MD [Primary Care Provider, Geriatrics] - 1 Week if not improving Activity Restrictions/Additional Instructions: You have arthritis in your right knee. When it gave out today you have inflammation: The effusion. Fluid on your knee. Ice to your knee. Elevate. To decrease the pain and swelling. If this gets better you do not need to do anything. If is not getting better follow-up with the orthopedic doctor Dr. Javier Bacon to have it further evaluated and consider knee joint injection. Motrin for pain and swelling Tylenol for pain. Print Language: Citizen Of [place] Disposition Disposition: Home, Self Care
--- NOTE | 2025-02-06 10:45 | RAD_ITS ---
PROCEDURE: KNEE 4 OR MORE VIEWS 02/06/2025 REASON FOR EXAM: ATRAUMATIC RIGHT KNEE PAIN AND SWELLING TECHNIQUE: Procedure Code: RADKN Modality: DX Procedure: KNEE 4 OR MORE VIEWS Laterality: Right COMPARISON: None. RAD/Knee 4 or More Views IMPRESSION: Mild arterial calcification is noted. No right knee joint effusion is seen. Mild tricompartmental right knee degenerative changes are seen, with questionab le mild medial joint narrowing. At least mild patellofemoral joint narrowing is also noted. No acute fracture or dislocation is seen. Reading Location: [id number]
--- NOTE | 2025-02-06 13:59 | ED.RN ---
1359: THIS NURSE ATTEMPTED TO PROVIDE DISCHARGE INSTRUCTIONS TO AND PATIENT. STATED SHE CAN'T WALK. SHE NEEDS AND AMBULANCE TO A CARE FACILITY. WE ARE CHECKING IN FOR THE REST OF OUR LIVES. THIS NURSE DISCUSSED PLAN OF CARE WITH PRIMARY NURSE.
--- NOTE | 2025-02-06 14:41 | CM.ED ---
Social Work SW contacted [facility] admission director to determine if patient has been accepted as patients states they are both to be admitted to SNF. Admission director states that patient and toured facility several months ago, that there has been no discussion since regarding admission. Admission director states they have no referral information and patient has not been accepted. Ashley Strickland, TIE BINDER, BATTERY HAND
--- NOTE | 2025-02-06 15:28 | HP.PCM.HOS_ITS ---
HPI - General General Date of Admission: 02/06/25 Date of Service: 02/06/25 Chief Complaint: R knee intractable pain, debility, swelling. HPI Narrative The patient is an 89 y/o F w/ PMHx: Chronic normocytic anemia, CKD stage II per GFR trending, HTN, HLD, Hypothyroidism, Cognitive impairment of unclear extent who presents to the [facility] ED on 02/06/2025 with history of walking in her home today unfortunately her right knee buckled and since that time she has had significant swelling and pain to the knee with no previous surgery and no specific fall or recent injury but in the ED despite no marked findings on plain film imaging she is unable to appropriately ambulate. In the ED she notes 10 out of 10 severe pain although it intermittently will improve but she gets spasms and feels as though her muscle is stretching and straining causing it to be more severe. Workup in the ED included T98.8, heart 64, BP 116/76, respiratory rate 16, 100% on room air with most recent repeat vitals heart rate 71, BP 130/74, respiratory rate 16, 98% room air, CBC with WC 6.8, hemoglobin 11.2, MCV 90.1, platelet 290 Marked shift, BMP with BUN/creatinine 14/0.85, GFR 66, glucose 116, Plain film of the knee with mild arterial calcification, no right knee effusion demonstrated, mild tricompartmental right knee degenerative changes with questionable mild medial joint narrowing, at least mild patellofemoral joint narrowing noted, no acute fracture or dislocation. In the ED patient ministered [place] 1 tablet p.o. x 1 as well as Tylenol 1000 mg p.o. x 1. Patient significantly debilitated and unable to even ambulate with concerns for her ability to care for self thus patient and spouse requested admission for pain control and possibly skilled transition if needed. [facility] Medical History Normocytic anemia CKD (chronic kidney disease), stage II Hypertension High cholesterol Hypothyroid Home Medications ?Medication ?Instructions ?Recorded ?Last Taken ?Type atorvastatin 10 mg tablet 5 mg (1/2 x 10 mg) PO DAILY 11/02/23 Unknown Rx cholestrol #45 tabs levothyroxine 50 mcg tablet 50 mcg PO .COMPLEX #12 tab s 08/20/24 Unknown Rx levothyroxine 75 mcg tablet 75 mcg PO .COMPLEX synthro id #72 11/02/23 Unknown Rx tabs irbesartan 300 mg tablet 150 mg (1/2 x 300 mg) PO JERICA LY 05/08/24 Unknown Rx blood pressure #90 tabs Allergy/AdvReac Type Severity Reaction Status Date / Time No Known Allergies Allergy Verified 02/06/25 10:15 Family History Mother Hypertension Myocardial infarction Father Hypertension Myocardial infarction Other Cancer Surgical History History of tonsillectomy and adenoidectomy Social History household members: spouse Smoking Status: Never smoker alcohol intake: never substance use type: does not use what type of physical activity do you participate in: walking frequency: 3-4 times per week ROS ROS Narrative Admission Review of Systems: CONSTITUTIONAL: No weight loss, fever, chills, + weakness or fatigue. HEENT: Eyes: No visual loss, blurred vision, double vision or yellow sclerae. Ears, Nose, Throat: No hearing loss, sneezing, congestion, runny nose or sore throat. SKIN: No rash or itching, lesions, wounds except + occasional stage ecchymoses, abrasion. CARDIOVASCULAR: No chest pain, chest pressure or chest discomfort, palpitations, edema, orthopnea, syncopal events. RESPIRATORY: No shortness of breath, cough or sputum, wheezing, hemoptysis. GASTROINTESTINAL: No anorexia, nausea, vomiting or diarrhea, abdominal pain, melena, BRBPR. GENITOURINARY: No dysuria, frequency, urgency or retention. NEUROLOGICAL: No headache, dizziness, syncope, paralysis, ataxia, numbness or tingling in the extremities, focal weakness, change in bowel or bladder control, seizure. MUSCULOSKELETAL: + muscle, back pain, joint pain or stiffness. HEMATOLOGIC: + Chronic anemia, no specific easy history of bleeding or bruising. LYMPHATICS: No enlarged nodes. No history of splenectomy. PSYCHIATRIC: No history of depression or anxiety. ENDOCRINOLOGIC: No reports of sweating, cold or heat intolerance. No polyuria or polydipsia. ALLERGIES: No history of asthma, hives, eczema or rhinitis. Vital Signs Vital Signs Vital Signs: 02/06/25 10:12 02/06/25 12:18 02/06/25 14:00 Temperature 98.8 F Temperature Source Oral Pulse Rate 64 79 78 Respiratory Rate 16 14 14 Blood Pressure 116/76 112/81 H 174/82 H Blood Pressure Mean 89 91 112 Pulse Ox 100 98 98 Oxygen Delivery Method Room Air Room Air Room Air 02/06/25 14:50 Temperature 97.9 F Temperature Source Pulse Rate 79 Respiratory Rate 14 Blood Pressure 109/72 Blood Pressure Mean 84 Pulse Ox 95 Oxygen Delivery Method Weight Weight: 134 lb 0.657 oz Body Mass Index (BMI) 21.6 Physical Exam Narrative Physical Examination: General: Awake, alert, oriented x 3 and cooperative, seated upright in the ED bed, complaining of severe 10 out of 10 right knee pain and muscle spasms. Skin: Normal color, normal turgor, no icterus, no cyanosis. Except occasional stage ecchymoses, abrasion. HEENT: AT/NC, EOMI, PERRLA, mildly dry MM, no carotid bruits or JVD noted. Lungs: Diminished, greater bilateral bases, appropriate effort, no rales, ronchi or wheezing. Heart: Mildly tachycardic with regular rhythm suspect likely because of agitation and pain; no gallop, rub audible. Abdomen: Soft, NTTP, ND, mildly hyperactive BS, no markedly appreciated HSM. Extremities: No cyanosis, no clubbing, significant right knee swelling/effusion but no erythema or abrasions to the knee and no increased warmth to touch but significantly tender to any palpation and unable to move well. Neurological: Patient awake, alert, oriented as noted, cognitive function intact; pupils equally reactive to light and accommodation, cranial nerves grossly normal, moving all 4 extremities, except extremely limited right lower extremity movement given severity of pain and muscle spasms, strength accordingly severely globally decreased. Psychiatric: Affect appears uncomfortable, no acute evidence of depressive or anxiety feelings. Results Lab / Micro Data 02/06/25 15:24 02/06/25 15:24 Imaging Radiology Impression Knee X-Ray 02/06/25 10:45 IMPRESSION: Mild arterial calcification is noted. No right knee joint effusion is seen. Mild tricompartmental right knee degenerative changes are seen, with questionable mild medial joint narrowing. At least mild patellofemoral joint narrowing is also noted. No acute fracture or dislocation is seen. Reading Location: [address] Assessment & Plan Assessment/Plan (1) Acute knee pain: PLAN: Plan The patient is an 89 y/o F w/ PMHx: Chronic normocytic anemia, CKD stage II per GFR trending, HTN, HLD, Hypothyroidism, Cognitive impairment of unclear extent who presents to the [facility] ED on 02/06/2025 with history of walking in her home today unfortunately her right knee buckled and since that time she has had significant swelling and pain to the knee with no previous surgery and no specific fall or recent injury but in the ED despite no marked findings on plain film imaging she is unable to appropriately ambulate. #1. Severe intractable right knee pain with effusion, unclear specific etiology with no reported trauma or injury with unfortunately associated adult failure to thrive: Will admit to medical surgical floor, maintain on fall precautions, will initiate on scheduled low-dose IV Toradol x 5 doses, will administer scheduled dose x 1 tizanidine and half as needed as needed given severity of spasms, will add low-dose 3 times daily gabapentin, will also place topical pain compound cream, will have oral and IV narcotic for breakthrough pain, will maintain on fall precautions, PT/OT/case management consulted for discharge planning, if not clinically improving may need to consider further imaging or orthopedic surgery involvement in AM. #2. Hypertension: Continue home regimen including irbesartan with hold parameters as needed, PRN hydralazine. #3. Hyperlipidemia: Will continue patient statin therapy. #4. Hypothyroidism: Will continue patient home levothyroxine regimen. #5. Chronic Kidney Disease Stage II per GFR trending: Admission BUN/Cr 14/0.5, GFR 66, baseline renal function primarily 0.6-0.9 repeat BMP in AM. #6. Chronic normocytic anemia: Admission hemoglobin 11.2, MCV 90.1, hemoglobin stable compared to baseline, continue to trend. #7. DVT prophylaxis: Lovenox. #8. CODE status: Patient does not have healthcare part returning or living will in place but notes her would be her medical decision-maker if necessary. Discussed CODE status at length including difference between FULL code, DNR-CCA and DNR-CC status. Following discussions about the differences in these status, requested Full Code status. Charges/Coding Visit Charges Inpatient E&M: 66700 Init Hosp L2
[2025-02-06] MEDS: HYDROcodone Bitartrate/Apap 5/325 Tablet PO (15:29)
[2025-02-06 15:46] LABS: Hematocrit 34.5 % (37-47); Hemoglobin 11.2 g/dL (12.0-15.0); Immature Granulocytes Count 0.010 X10^3/uL (0.0-0.0); Mean Corp Hgb Conc 32.5 g/dL (32-36); Mean Corpuscular Volume 90.1 fL (81-99); Mean Platelet Vol. 9.6 fl (6.2-12.0); NRBC Flagged by Analyzer 0 % (0-5); Platelet Count 290 K/mm3 (150-450); RBC Distribution Width CV 13.8 % (11.6-14.6); RBC Distribution Width SD 45.9 fl (35.1-43.9); Red Blood Count 3.83 M/mm3 (4.2-5.4); White Blood Count 6.6 K/mm3 (4.4-11.0)
[2025-02-06 16:14] LABS: Anion Gap 10 (5-15); BUN 14 mg/dL (4-19); BUN/Creat Ratio 15.8 RATIO (10-20); Calcium,Total 9.5 mg/dL (7.6-11.0); Carbon Dioxide 22.4 mmol/L (21.0-32.0); Chloride 103 mmol/L (98-108); Estimated Creatinine Clearance 43.65 ml/min (50-250); Glucose 116 mg/dL (70-99); Potassium 3.7 mmol/L (3.3-5.1)
[2025-02-06] MEDS: 0.9% Normal Saline (1000mL) 1,000 ML 100 ML IV (17:59)
[2025-02-06] MEDS: 0.9% Saline Lock 10 ML Syringe IV (18:00)
[2025-02-06] MEDS: Arthritis Pain Compound 60 CLICK TUBE TOPICAL ×2 (18:15→20:06)
[2025-02-06] MEDS: MELATONIN 3 MG TABLET PO (20:07)
[2025-02-07 03:36] VITALS: BMI 20.7
[2025-02-07 05:59] VITALS: BP 127/63; PULSE 67; RESP 16; TEMP 36.7; O2SAT 97
[2025-02-07 06:17] LABS: Hematocrit 30.9 % (37-47); Hemoglobin 10.1 g/dL (12.0-15.0); Immature Granulocytes Count 0.010 X10^3/uL (0.0-0.0); Mean Corp Hgb Conc 32.7 g/dL (32-36); Mean Corpuscular Volume 90.9 fL (81-99); Mean Platelet Vol. 9.6 fl (6.2-12.0); NRBC Flagged by Analyzer 0 % (0-5); Platelet Count 270 K/mm3 (150-450); RBC Distribution Width CV 14.0 % (11.6-14.6); RBC Distribution Width SD 46.1 fl (35.1-43.9); Red Blood Count 3.40 M/mm3 (4.2-5.4); White Blood Count 4.4 K/mm3 (4.4-11.0)
[2025-02-07 06:43] LABS: AST(SGOT) 14 U/L (<=31); Alanine Aminotransfer ALT/SGPT 7 U/L (<=34); Albumin, Serum 3.4 g/dL (3.4-4.8); Alkaline Phosphatase 89 U/L (35-104); Anion Gap 9 (5-15); BUN 15 mg/dL (4-19); BUN/Creat Ratio 17.1 RATIO (10-20); Calcium,Total 9.0 mg/dL (7.6-11.0); Carbon Dioxide 22.0 mmol/L (21.0-32.0); Chloride 108 mmol/L (98-108); Estimated Creatinine Clearance 42.99 ml/min (50-250); Globulin 2.5 g/dL (2.2-4.2); Glucose 92 mg/dL (70-99); Potassium 3.9 mmol/L (3.3-5.1)
--- NOTE | 2025-02-07 07:14 | PN.HOSP_ITS ---
Reason for Visit Chief Complaint: R knee intractable pain, debility, swelling. Subjective Subjective Patient is an 89-year-old lady who presented to the emergency department with right knee pain and swelling Objective Data Objective Data Vital Signs: Vital Signs Temp Pulse Resp BP Pulse Ox O2 Del Method 98.1 F 67 16 127/63 H 97 Room Air 02/07/25 05:59 02/07/25 05:59 02/07/25 05:59 02/07/25 05:59 02/07/25 05:59 02/07/25 05:59 Oxygen Delivery Method Room Air Weight: 58.4 kg Body Mass Index (BMI) 20.7 Intake & Output: Intake and Output for Last 24 Hours 02/05/25 02/06/25 02/07/25 23:59 23:59 23:59 Intake Total 180 / 480 500 / 500 Balance 180 / 480 500 / 500 Lab / Micro Data 02/07/25 05:43 02/07/25 05:43 Labs: Laboratory Results - last 24 hr 02/06/25 15:24: WBC 6.6, RBC 3.83 L, Hgb 11.2 L, Hct 34.5 L, MCV 90.1, MCH 29.2, MCHC 32.5, RDW Std Deviation 45.9 H, RDW Coeff of Anderson 13.8, Plt Count 290, MPV 9.6, Immature Gran % (Auto) 0.200, Neut % (Auto) 69.5, Lymph % (Auto) 22.6, [place] % (Auto) 6.9, Eos % (Auto) 0.3, Baso % (Auto) 0.5, Absolute Neuts (auto) 4.6, Absolute Lymphs (auto) 1.50, Nucleated RBC % 0, Sodium 136, Potassium 3.7, Chloride 103, Carbon Dioxide 22.4, Anion Gap 10, BUN 14, Creatinine 0.85, Estim Creat Clear Calc 43.65 L, Est GFR (MDRD) Non-Af 66, BUN/Creatinine Ratio 15.8, G lucose 116 H, Calcium 9.5 02/07/25 05:43: WBC 4.4, RBC 3.40 L, Hgb 10.1 L, Hct 30.9 L, MCV 90.9, MCH 29.7, MCHC 32.7, RDW Std Deviation 46.1 H, RDW Coeff of Anderson 14.0, Plt Count 270, MPV 9.6, Immature Gran % (Auto) 0.200, Neut % (Auto) 55.9, Lymph % (Auto) 32.1, [place] % (Auto) 9.9, Eos % (Auto) 1.4, Baso % (Auto) 0.5, Absolute Neuts (auto) 2.5, Absolute Lymphs (auto) 1.42, Nucleated RBC % 0, Sodium 138, Potassium 3.9, Chloride 108, Carbon Dioxide 22.0, Anion Gap 9, BUN 15, Creatinine 0.85, Estim Creat Clear Calc 42.99 L, Est GFR (MDRD) Non-Af 66, BUN/Creatinine Ratio 17.1, Glucose 92, Calcium 9.0, Total Bilirubin 0.34, AST 14, ALT 7, Alkaline Phosphatase 89, Total Protein 5.9, Albumin 3.4, Globulin 2.5, Albumin/Globulin Ratio 1.4 Radiography Diagnostic Testing: Radiology Impression Knee X-Ray 02/06/25 10:45 IMPRESSION: Mild arterial calcification is noted. No right knee joint effusion is seen. Mild tricompartmental right knee degenerative changes are seen, with questionable mild medial joint narrowing. At least mild patellofemoral joint narrowing is also noted. No acute fracture or dislocation is seen. Reading Location: [address] Physical Exam Narrative GENERAL: cooperative HEENT: Atraumatic; normocephalic EYES; Anicteric, Normal Conjunctiva NECK; supple, normal thyroid, RESPIRATORY: Diminished to auscultation CARDIOVASCULAR: Regular S1 S2, GI: soft, normoactive bowel sounds, : No Renal angle tenderness; EXTREMITIES: No edema, no clubbing, MUSCULOSKELETAL: Bilateral knee swelling right greater than left NEURO: Awake; no lateralizing signs. SKIN: No Rash PSYCH; Flat affect Assessment & Plan Assessment/Plan (1) Acute knee pain: PLAN: Plan Patient is an 89-year-old lady who presented to the emergency department with right knee pain and swelling 1. Intractable right knee pain with effusion ? Patient has been admitted to regular nursing floor for symptom management. Plan is to repeat imaging study if symptoms do not improve with consultation placed orthopedic surgery 2. Hypertension ? Blood pressure controlled, home medications continued with dose adjustment as needed 3. Hypothyroidism ? Patient is on levothyroxine home dose continued 4. Dyslipidemia ?Patient is on statin therapy, continued at home dose 5. Anemia ? Secondary to chronic disorder monitoring H&H and transfuse if patient becomes symptomatic or hemoglobin falls below 7 6. Suspected dementia ? Will continue supportive care 7. Physical deconditioning ? Requested for PT OT eval and social organization professor to assist with discharge planning 8. DVT prophylaxis ? Subcu Lovenox Time spent in the patient's overall evaluation,decision-making process, review of diagnostic data, adjustment of management, discussion with other providers, nursing nursing and ancillary staff involved in patient's care documentation, 38 Minutes Charges/Coding Visit Charges Inpatient E&M: 89073 Subs Hosp L2
[2025-02-07 08:12] VITALS: BP 149/98; PULSE 78; RESP 16; TEMP 36.6; O2SAT 96
[2025-02-07] MEDS: Arthritis Pain Compound 60 CLICK TUBE TOPICAL ×2 (08:26→21:52)
--- NOTE | 2025-02-07 11:07 | CASEMGMT ---
Addendum entered by Luzmaria Ward 02/07/25 15:32: FIOR spoke with Lisandro who gave permission to add Brooke as a contact and share information openly with her. Lisandro reports that he is anxiously awaiting being reunited with pt at [facility]. Pt shared his background and some history of his life with pt. FIOR remains available to follow. FRANKO Shields Original Note: Social Work- FIOR received a call from pt neighbor and caregiver for the past year, Brooke Cortez [phone] who reports that she has been cooking, assisting in getting pt home sold, connecting with medical care, and with SNF for LTC. Brooke reports that she is a retired nurse and has beenjust trying to keep them safe. Brooke reports there is a congregation member from [facility], Tony Myers, who has also been assisting. Brooke reports that pt and spouse moved to their home two years ago. There is a dtr Ariana [phone] that Brooke has been keeping informed on happenings, but who had no contact with her parents until one year ago. Brooke reports that pt spouse is POA over pt. Pt spouse is a bilateral amputee and is currently at [facility] on a respite stay with plan to transition to long-term. Brooke reports that the plan is for pt to d/c to [facility] with . Brooke reports their house is on the market currently and reports that pt and pt spouse have discussed applying for [facility]. FIOR called and left a voicemail for Lisandro, pt spouse, to confirm that SW can share information with Brooke. FIOR updated DCA of plans at discharge. FIOR remains available to follow. FRANKO Shields
--- NOTE | 2025-02-07 11:20 | CASEMGMT ---
Addendum entered by Marilu Edwards 02/07/25 11:47: [facility] has accepted. SW updated. Original Note: Discharge Planning Referral sent via [facility] to [facility]. Marilu Edwards DC Planning Asst.
--- NOTE | 2025-02-07 14:22 | CASEMGMT ---
ASIF Multiple calls have been placed to pts to review ASIF. Pts has not answered and unable to leave a vm. Marilu Edwards DC Planning Asst.
--- NOTE | 2025-02-07 14:31 | CASEMGMT ---
LAYA Spoke with pts , Lisandro, via phone to review ASIF form. ASIF form and its content were verbally explained and questions were answered to the best of my ability.? Lisandro voiced understanding.? Patient provided a copy of signed ASIF form and original placed in patient's chart.? Marilu Edwards, Discharge Planning A
[2025-02-07 17:00] VITALS: BP 134/56; PULSE 66; RESP 17; TEMP 36.4; O2SAT 99
[2025-02-07] MEDS: MELATONIN 3 MG TABLET PO (21:50)
[2025-02-07 22:00] VITALS: BP 165/67; PULSE 72; RESP 16; TEMP 36.6; O2SAT 99
[2025-02-08 04:10] VITALS: BP 128/57; PULSE 55; RESP 16; TEMP 36.9; O2SAT 97
[2025-02-08 05:56] VITALS: BMI 21.0
--- NOTE | 2025-02-08 07:29 | PN.HOSP_ITS ---
Reason for Visit Chief Complaint: R knee intractable pain, debility, swelling. Subjective Subjective Patient seen admits improvement in her pain level. Objective Data Objective Data Vital Signs: Vital Signs Temp Pulse Resp BP Pulse Ox O2 Del Method 98.4 F 55 L 16 128/57 H 97 Room Air 02/08/25 04:10 02/08/25 04:10 02/08/25 04:10 02/08/25 04:10 02/08/25 04:10 02/08/25 04:10 Oxygen Delivery Method Room Air Weight: 59.4 kg Body Mass Index (BMI) 21.0 Intake & Output: Intake and Output for Last 24 Hours 02/06/25 02/07/25 02/08/25 23:59 23:59 23:59 Intake Total 180 / 480 1400 / 1400 Balance 180 / 480 1400 / 1400 Lab / Micro Data 02/07/25 05:43 02/07/25 05:43 Physical Exam Narrative GENERAL: cooperative HEENT: Atraumatic; normocephalic EYES; Anicteric, Normal Conjunctiva NECK; supple, normal thyroid, RESPIRATORY: Diminished to auscultation CARDIOVASCULAR: Regular S1 S2, GI: soft, normoactive bowel sounds, : No Renal angle tenderness; EXTREMITIES: No edema, no clubbing, MUSCULOSKELETAL: Swelling involving both knees appear to be NEURO: Awake; no lateralizing signs. SKIN: No Rash PSYCH; Flat affect Assessment & Plan Assessment/Plan (1) Acute knee pain: PLAN: Plan Patient is an 89-year-old lady who presented to the emergency department with right knee pain and swelling 1. Intractable right knee pain with effusion ? Patient has been admitted to regular nursing floor for symptom management. Plan is to repeat imaging study if symptoms do not improve with consultation placed orthopedic surgery ? 02/08/2025; patient pain improving. Will continue with current management 2. Hypertension ? Blood pressure controlled, home medications continued with dose adjustment as needed 3. Hypothyroidism ? Patient is on levothyroxine home dose continued 4. Dyslipidemia ?Patient is on statin therapy, continued at home dose 5. Anemia ? Secondary to chronic disorder monitoring H&H and transfuse if patient becomes symptomatic or hemoglobin falls below 7 6. Suspected dementia ? Will continue supportive care 7. Physical deconditioning ? Requested for PT OT eval and outreach and education social worker to assist with discharge planning 8. DVT prophylaxis ? Subcu Lovenox Time spent in the patient's overall evaluation,decision-making process, review of diagnostic data, adjustment of management, discussion with other providers, nursing nursing and ancillary staff involved in patient's care documentation, 35 Minutes Charges/Coding Visit Charges Inpatient E&M: 91418 Subs Hosp L2
[2025-02-08 07:51] LABS: Hematocrit 30.6 % (37-47); Hemoglobin 10.0 g/dL (12.0-15.0); Immature Granulocytes Count 0.010 X10^3/uL (0.0-0.0); Mean Corp Hgb Conc 32.7 g/dL (32-36); Mean Corpuscular Volume 91.1 fL (81-99); Mean Platelet Vol. 9.4 fl (6.2-12.0); NRBC Flagged by Analyzer 0 % (0-5); Platelet Count 254 K/mm3 (150-450); RBC Distribution Width CV 13.9 % (11.6-14.6); RBC Distribution Width SD 46.3 fl (35.1-43.9); Red Blood Count 3.36 M/mm3 (4.2-5.4); White Blood Count 3.8 K/mm3 (4.4-11.0)
[2025-02-08 08:24] LABS: Magnesium 2.5 mg/dL (1.5-2.2)
[2025-02-08 08:25] LABS: Anion Gap 7 (5-15); BUN 19 mg/dL (4-19); BUN/Creat Ratio 21.0 RATIO (10-20); Calcium,Total 9.0 mg/dL (7.6-11.0); Carbon Dioxide 23.0 mmol/L (21.0-32.0); Chloride 105 mmol/L (98-108); Estimated Creatinine Clearance 40.77 ml/min (50-250); Glucose 91 mg/dL (70-99); Potassium 4.2 mmol/L (3.3-5.1)
[2025-02-08 08:31] VITALS: BP 150/60; PULSE 57; RESP 18; TEMP 36.4; O2SAT 98
[2025-02-08] MEDS: Arthritis Pain Compound 60 CLICK TUBE TOPICAL ×2 (08:42→19:53)
[2025-02-08 15:11] VITALS: BP 127/67; PULSE 67; RESP 18; TEMP 36.2; O2SAT 97
--- NOTE | 2025-02-08 18:31 | PN.HOSP_ITS ---
Hospitalist Note Pt sitting at nrsg station, restless, pleasant, but insistent that she needs her purse and keys to go home to care for her spouse[facility] has been perseverating steadily all day, not just increasing this evening. Risperidone 0.25mg x1 PO now and QAM; 0.5mg PO QHS.
--- NOTE | 2025-02-08 18:56 | NURSING ---
Backline message sent to LYNN Nicholas to clarify new order for Respirdal 0.5mg Qhs and respirdal 0.25 q day @ 1000.
[2025-02-08] MEDS: MELATONIN 3 MG TABLET PO (19:59)
[2025-02-08 20:15] VITALS: BP 162/89; PULSE 68; RESP 18; TEMP 36.6; O2SAT 95
[2025-02-09 05:44] LABS: Hematocrit 29.1 % (37-47); Hemoglobin 9.6 g/dL (12.0-15.0); Immature Granulocytes Count 0.000 X10^3/uL (0.0-0.0); Mean Corp Hgb Conc 33.0 g/dL (32-36); Mean Corpuscular Volume 90.7 fL (81-99); Mean Platelet Vol. 9.2 fl (6.2-12.0); NRBC Flagged by Analyzer 0 % (0-5); Platelet Count 235 K/mm3 (150-450); RBC Distribution Width CV 14.0 % (11.6-14.6); RBC Distribution Width SD 46.2 fl (35.1-43.9); Red Blood Count 3.21 M/mm3 (4.2-5.4); White Blood Count 3.8 K/mm3 (4.4-11.0)
[2025-02-09 05:49] VITALS: BMI 21.3
[2025-02-09 06:00] VITALS: BP 121/63; PULSE 54; RESP 14; TEMP 36.7; O2SAT 96
[2025-02-09 06:12] LABS: Anion Gap 9 (5-15); BUN 15 mg/dL (4-19); BUN/Creat Ratio 19.9 RATIO (10-20); Calcium,Total 8.8 mg/dL (7.6-11.0); Carbon Dioxide 20.7 mmol/L (21.0-32.0); Chloride 107 mmol/L (98-108); Estimated Creatinine Clearance 46.38 ml/min (50-250); Glucose 102 mg/dL (70-99); Potassium 4.0 mmol/L (3.3-5.1)
--- NOTE | 2025-02-09 07:23 | PCM.PN.HOSP ---
Reason for Visit Chief Complaint: R knee intractable pain, debility, swelling. Subjective Subjective Patient was placed on Risperdal Objective Data Objective Data Vital Signs: Vital Signs Temp Pulse Resp BP Pulse Ox O2 Del Method 98.0 F 54 L 14 121/63 H 96 Room Air 02/09/25 06:00 02/09/25 06:00 02/09/25 06:00 02/09/25 06:00 02/09/25 06:00 02/09/25 06:00 Oxygen Delivery Method Room Air Weight: 60.3 kg Body Mass Index (BMI) 21.3 Intake & Output: Intake and Output for Last 24 Hours 02/07/25 02/08/25 02/09/25 23:59 23:59 23:59 Intake Total 1400 / 1400 800 / 900 100 / 100 Balance 1400 / 1400 800 / 900 100 / 100 Lab / Micro Data 02/09/25 05:21 02/09/25 05:21 Labs: Laboratory Results - last 24 hr 02/08/25 07:10: WBC 3.8 L, RBC 3.36 L, Hgb 10.0 L, Hct 30.6 L, MCV 91.1, MCH 29.8, MCHC 32.7, RDW Std Deviation 46.3 H, RDW Coeff of Anderson 13.9, Plt Count 254, MPV 9.4, Immature Gran % (Auto) 0.300, Neut % (Auto) 55.2, Lymph % (Auto) 31.0, [place] % (Auto) 10.3 H, Eos % (Auto) 2.4, Baso % (Auto) 0.8, Absolute Neuts (auto) 2.1, Absolute Lymphs (auto) 1.17, Nucleated RBC % 0, Sodium 136, Potassium 4.2, Chloride 105, Carbon Dioxide 23.0, Anion Gap 7, BUN 19, Creatinine 0.91, Estim Creat Clear Calc 40.77 L, Est GFR (MDRD) Non-Af 61, BUN/Creatinine Ratio 21.0 H, Glucose 91, Calcium 9.0, Phosphorus 3.9, Magnesium 2.5 H 02/09/25 05:21: WBC 3.8 L, RBC 3.21 L, Hgb 9.6 L, Hct 29.1 L, MCV 90.7, MCH 29.9, MCHC 33.0, RDW Std Deviation 46.2 H, RDW Coeff of Anderson 14.0, Plt Count 235, MPV 9.2, Immature Gran % (Auto) 0.000, Neut % (Auto) 53.7, Lymph % (Auto) 33.6, [place] % (Auto) 10.4 H, Eos % (Auto) 1.8, Baso % (Auto) 0.5, Absolute Neuts (auto) 2.1, Absolute Lymphs (auto) 1.29, Nucleated RBC % 0, Sodium 136, Potassium 4.0, Chloride 107, Carbon Dioxide 20.7 L, Anion Gap 9, BUN 15, Creatinine 0.76, Estim Creat Clear Calc 46.38 L, Est GFR (MDRD) Non-Af 76, BUN/Creatinine Ratio 19.9, Glucose 102 H, Calcium 8.8 Physical Exam Narrative GENERAL: cooperative HEENT: Atraumatic; normocephalic EYES; Anicteric, Normal Conjunctiva NECK; supple, normal thyroid, RESPIRATORY: Diminished to auscultation CARDIOVASCULAR: Regular S1 S2, GI: soft, normoactive bowel sounds, : No Renal angle tenderness; EXTREMITIES: No edema, no clubbing, MUSCULOSKELETAL: Swelling subsided NEURO: Awake; no lateralizing signs. SKIN: No Rash PSYCH; Flat affect Assessment & Plan Assessment/Plan (1) Acute knee pain: PLAN: Plan Patient is an 89-year-old lady who presented to the emergency department with right knee pain and swelling 1. Intractable right knee pain with effusion ? Patient has been admitted to regular nursing floor for symptom management. Plan is to repeat imaging study if symptoms do not improve with consultation placed orthopedic surgery ? 02/08/2025; patient pain improving. Will continue with current management -02/09/2025; symptons improved 2. Hypertension ? Blood pressure controlled, home medications continued with dose adjustment as needed 3. Hypothyroidism ? Patient is on levothyroxine home dose continued 4. Dyslipidemia ?Patient is on statin therapy, continued at home dose 5. Anemia ? Secondary to chronic disorder monitoring H&H and transfuse if patient becomes symptomatic or hemoglobin falls below 7 6. Suspected dementia ? Will continue supportive care - 02/09/2025; Patient was placed on Risperdal 7. Physical deconditioning ? Requested for PT OT eval and clinical social worker to assist with discharge planning 8. DVT prophylaxis ? Subcu Lovenox Time spent in the patient's overall evaluation,decision-making process, review of diagnostic data, adjustment of management, discussion with other providers, nursing nursing and ancillary staff involved in patient's care documentation, 35 Minutes Charges/Coding Visit Charges Inpatient E&M: 80074 Subs Hosp L2
[2025-02-09 07:37] VITALS: BP 128/68; PULSE 60; RESP 17; TEMP 36.5; O2SAT 96
[2025-02-09] MEDS: Arthritis Pain Compound 60 CLICK TUBE TOPICAL (07:44)
--- NOTE | 2025-02-09 08:53 | CASEMGMT ---
[facility] has obtained auth to admit. Auth is good through 02/14/25. SW updated. Marilu Edwards DC Planning Asst.
--- NOTE | 2025-02-09 10:13 | PCM.TXEXTCAR ---
Diet Diet Order/Speech Therapy: INPATIENT Hospital Diet / Speech Therapy Order(s) 02/07/25 12:49 Diet: Sodium Restricted (MOD) Food consistency:: Regular Liquid Consistency:: Regular/Thin Routine Orders/Code Status Code Status: Full Code DC O2, CPAP, BIPAP needs Home O2 Discharge instructions: No Therapies Physical Therapy: Eval and Treat Occupational Therapy: Eval and Treat Problem/Diagnosis (1) Acute knee pain: Status: Acute Code(s): M25.569 - Pain in unspecified knee Plan Patient is an 89-year-old lady who presented to the emergency department with right knee pain and swelling 1. Intractable right knee pain with effusion ? Patient has been admitted to regular nursing floor for symptom management. Plan is to repeat imaging study if symptoms do not improve with consultation placed orthopedic surgery ? 02/08/2025; patient pain improving. Will continue with current management -02/09/2025; symptons improved 2. Hypertension ? Blood pressure controlled, home medications continued with dose adjustment as needed 3. Hypothyroidism ? Patient is on levothyroxine home dose continued 4. Dyslipidemia ?Patient is on statin therapy, continued at home dose 5. Anemia ? Secondary to chronic disorder monitoring H&H and transfuse if patient becomes symptomatic or hemoglobin falls below 7 6. Suspected dementia ? Will continue supportive care - 02/09/2025; Patient was placed on Risperdal 7. Physical deconditioning ? Requested for PT OT eval and director social welfare to assist with discharge planning 8. DVT prophylaxis ? Subcu Lovenox Time spent in the patient's overall evaluation,decision-making process, review of diagnostic data, adjustment of management, discussion with other providers, nursing nursing and ancillary staff involved in patient's care documentation, 35 Minutes Allergies/Procedures Done in Hospital Allergies No Known Allergies Allergy (Verified 02/06/25 10:15) Type of Care/Length of Stay Estimated LOS: Convalescent Care Less Than 30 days Type of Care Needed: Skilled Rehab Potential: Good Prognosis: Good Additional Orders/Day of Discharge Day of Discharge: 02/09/25 Dietary and Speech Recommendations Dietitian Recommendations/Changes: Adjust to sodium restricted diet. Will monitor weight trends. PO needs to be established. 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 When it gave out today you have inflammation: The effusion. Fluid on your knee. Ice to your knee. Elevate. To decrease the pain and swelling. If this gets better you do not need to do anything. If is not getting better follow-up with the orthopedic doctor Dr. Javier Bacon to have it further evaluated and consider knee joint injection. Motrin for pain and swelling Tylenol for pain. Discharge Orders/Prescriptions Prescriptions: New Arthritis Pain Compound 2 click topical BID Qty: 0 0RF acetaminophen 325 mg Tablet 650 mg PO Q4H PRN PRN (Reason: Fever, pain 1-12/22) Qty: 0 0RF sennosides-docusate sodium [Stimulant Laxative Plus] 8.6-50 mg Tablet 2 tab PO BID PRN PRN (Reason: Constipation) Qty: 0 0RF risperidone 0.25 mg Tablet 0.25 mg PO DAILY Qty: 0 0RF gabapentin 100 mg Capsule 100 mg PO TIDCM Qty: 0 0RF risperidone 0.5 mg Tablet 0.5 mg PO QHS Qty: 0 0RF alum-mag hydroxide-simeth [Mag-Al Plus Extra Strength] 400-400-40 mg/5 mL Suspension 30 ml PO Q6H PRN PRN (Reason: Gastric Burning) Qty: 0 0RF Continued atorvastatin 10 mg tablet 5 mg PO DAILY Qty: 45 3RF levothyroxine 50 mcg tablet 50 mcg PO .COMPLEX Qty: 12 3RF Rx Instructions: 50 mcg orally sundays; levothyroxine 75 mcg tablet 75 mcg PO .COMPLEX Qty: 72 3RF Rx Instructions: 75 mcg orally Wednesday Thru Wednesday; irbesartan 300 mg tablet 150 mg PO DAILY Qty: 90 3RF Referrals / Follow Up: Javier Bacon MD [Med Staff - Active Staff, Orthopedics] - 1 Week if not improving Anil Corley Chi, MD [Primary Care Provider, Geriatrics] - 1 Week if not improving Disposition Disposition (needs filled in before D/C Order can be placed): Longterm Facility
--- NOTE | 2025-02-09 10:38 | PCM.DC.SUM ---
Providers Date of Admission: 02/06/25 Date of Discharge: 02/09/25 Primary Care Physician: Dr. Anil Corley MD Reason For Visit: INTRACTABLE KNEE PAIN, ADULT FTT Diagnosis Discharge Diagnosis (1) Acute knee pain: Status: Acute Code(s): M25.569 - Pain in unspecified knee Plan Patient is an 89-year-old lady who presented to the emergency department with right knee pain and swelling 1. Intractable right knee pain with effusion ? Patient has been admitted to regular nursing floor for symptom management. Plan is to repeat imaging study if symptoms do not improve with consultation placed orthopedic surgery ? 02/08/2025; patient pain improving. Will continue with current management -02/09/2025; symptons improved 2. Hypertension ? Blood pressure controlled, home medications continued with dose adjustment as needed 3. Hypothyroidism ? Patient is on levothyroxine home dose continued 4. Dyslipidemia ?Patient is on statin therapy, continued at home dose 5. Anemia ? Secondary to chronic disorder monitoring H&H and transfuse if patient becomes symptomatic or hemoglobin falls below 7 6. Suspected dementia ? Will continue supportive care - 02/09/2025; Patient was placed on Risperdal 7. Physical deconditioning ? Requested for PT OT eval and social problems specialist to assist with discharge planning 8. DVT prophylaxis ? Subcu Lovenox Time spent in the patient's overall evaluation,decision-making process, review of diagnostic data, adjustment of management, discussion with other providers, nursing nursing and ancillary staff involved in patient's care documentation, 35 Minutes Medications at Discharge Home Medications atorvastatin 10 mg tablet 5 mg (1/2 x 10 mg) PO DAILY cholestrol #45 tabs 11/02/23 levothyroxine 50 mcg tablet 50 mcg PO .COMPLEX #12 tabs 11/02/23 levothyroxine 75 mcg tablet 75 mcg PO .COMPLEX synthroid #72 tabs 11/02/23 irbesartan 300 mg tablet 150 mg (1/2 x 300 mg) PO DAILY blood pressure #90 tabs 05/08/24 Arthritis Pain Compound 2 click topical BID ##0 02/09/25 acetaminophen 325 mg tablet 650 mg (2 x 325 mg) PO Q4H PRN PRN Fever, pain 1-12/22 #0 tabs 02/09/25 aluminum-mag hydroxide-simethicone 400 mg-400 mg-40 mg/5 mL oral susp (Mag-Al Plus Extra Strength) 30 ml PO Q6H PRN PRN Gastric Burning #0 mL 02/09/25 gabapentin 100 mg capsule 100 mg PO TIDCM #0 caps 02/09/25 risperidone 0.25 mg tablet 0.25 mg PO DAILY #0 tabs 02/09/25 risperidone 0.5 mg tablet 0.5 mg PO QHS #0 tabs 02/09/25 sennosides 8.6 mg-docusate sodium 50 mg tablet (Stimulant Laxative Plus) 2 tab PO BID PRN PRN Constipation #0 tabs 02/09/25 Physical Exam Narrative GENERAL: cooperative HEENT: Atraumatic; normocephalic EYES; Anicteric, Normal Conjunctiva NECK; supple, normal thyroid, RESPIRATORY: Diminished to auscultation CARDIOVASCULAR: Regular S1 S2, GI: soft, normoactive bowel sounds, : No Renal angle tenderness; EXTREMITIES: No edema, no clubbing, MUSCULOSKELETAL: Swelling subsided NEURO: Awake; no lateralizing signs. SKIN: No Rash PSYCH; Flat affect Weight / BMI Weight Weight: 60.3 kg Body Mass Index (BMI) 21.3 ABG / Lab / Microbiology Data 02/09/25 05:21 02/09/25 05:21 Laboratory: Laboratory Results - last 24 hr 02/09/25 05:21: WBC 3.8 L, RBC 3.21 L, Hgb 9.6 L, Hct 29.1 L, MCV 90.7, MCH 29.9, MCHC 33.0, RDW Std Deviation 46.2 H, RDW Coeff of Anderson 14.0, Plt Count 235, MPV 9.2, Immature Gran % (Auto) 0.000, Neut % (Auto) 53.7, Lymph % (Auto) 33.6, [place] % (Auto) 10.4 H, Eos % (Auto) 1.8, Baso % (Auto) 0.5, Absolute Neuts (auto) 2.1, Absolute Lymphs (auto) 1.29, Nucleated RBC % 0, Sodium 136, Potassium 4.0, Chloride 107, Carbon Dioxide 20.7 L, Anion Gap 9, BUN 15, Creatinine 0.76, Estim Creat Clear Calc 46.38 L, Est GFR (MDRD) Non-Af 76, BUN/Creatinine Ratio 19.9, Glucose 102 H, Calcium 8.8 D/C Instructions Discharge Activity: Return to Normal Activity Call your doctor if you observe: Fever of 101 or Higher, Shortness of breath, Fainting spells and Chest pain DC O2, CPAP, BIPAP Needs Home O2 Discharge instructions: No Meaningful Use Info Meaningful Use Meaningful Use Diagnoses (Choose all that apply): None applicable Discharge Plan Admission Admit Date/Time: 02/06/25 16:05 Attending Provider: Lisandro Baez Primary Care Provider: Anil Corley Chi Consulting Providers: Fernanda Tuttle Instructions Patient Instructions: ED Fluid on the Knee Additional Instructions / Restrictions: You have arthritis in your right knee. When it gave out today you have inflammation: The effusion. Fluid on your knee. Ice to your knee. Elevate. To decrease the pain and swelling. If this gets better you do not need to do anything. If is not getting better follow-up with the orthopedic doctor Dr. Javier Bacon to have it further evaluated and consider knee joint injection. Motrin for pain and swelling Tylenol for pain. Discharge Orders/Prescriptions Prescriptions: New Arthritis Pain Compound 2 click topical BID Qty: 0 0RF acetaminophen 325 mg Tablet 650 mg PO Q4H PRN PRN (Reason: Fever, pain 1-12/22) Qty: 0 0RF sennosides-docusate sodium [Stimulant Laxative Plus] 8.6-50 mg Tablet 2 tab PO BID PRN PRN (Reason: Constipation) Qty: 0 0RF risperidone 0.25 mg Tablet 0.25 mg PO DAILY Qty: 0 0RF gabapentin 100 mg Capsule 100 mg PO TIDCM Qty: 0 0RF risperidone 0.5 mg Tablet 0.5 mg PO QHS Qty: 0 0RF alum-mag hydroxide-simeth [Mag-Al Plus Extra Strength] 400-400-40 mg/5 mL Suspension 30 ml PO Q6H PRN PRN (Reason: Gastric Burning) Qty: 0 0RF Continued atorvastatin 10 mg tablet 5 mg PO DAILY Qty: 45 3RF levothyroxine 50 mcg tablet 50 mcg PO .COMPLEX Qty: 12 3RF Rx Instructions: 50 mcg orally sundays; levothyroxine 75 mcg tablet 75 mcg PO .COMPLEX Qty: 72 3RF Rx Instructions: 75 mcg orally Wednesday Thru Wednesday; irbesartan 300 mg tablet 150 mg PO DAILY Qty: 90 3RF Referrals / Follow Up: Javier Bacon MD [Med Staff - Active Staff, Orthopedics] - 1 Week if not improving Anil Corley Chi, MD [Primary Care Provider, Geriatrics] - 1 Week if not improving Disposition Disposition (needs filled in before D/C Order can be placed): [facility] Facility Charges/Coding Visit Charges Inpatient E&M: 04785 Disch Hosp >30min
--- NOTE | 2025-02-09 11:16 | CASEMGMT ---
Social Work Precert has been obtained.? Physician updated and pt is ready for discharge today.? [id number] convalescent form completed in [facility]. DCA and bedside nurse notified of discharge time. DCA to complete all final arrangements and notifications. Disposition:[facility], skilled level of care under convalescent stay. FRANKO Shields
--- NOTE | 2025-02-09 11:37 | CASEMGMT ---
Discharge Planning Discharge orders, signed med list, and transport time sent via [facility] to [facility]. Physicians will transport pt by cot at 12p. Nursing and SW updated. Unable to contact pt so msg sent to [facility] requesting they update him (he is pt there). Marilu Edwards DC Planning Asst.
== END 2025-02-09 12:04 ==
LOC: ED 16:28 → MS3 16:31
PROVIDERS: Admitting Provider Family Medicine; Emergency Provider Emergency Medicine; PCP Family Medicine Geriatric Medicine; Visit Provider Internal Medicine
DX: M25.461 Effusion, right knee (principal); M25.561 Pain in right knee; R45.1 Restlessness and agitation; I12.9 Hypertensive chronic kidney disease with stage 1 through stage 4 chronic kidney disease, or unspecified chronic kidney disease; E78.00 Pure hypercholesterolemia, unspecified; R53.81 Other malaise; N18.2 Chronic kidney disease, stage 2 (mild); Z79.890 Hormone replacement therapy; E03.9 Hypothyroidism, unspecified; D63.8 Anemia in other chronic diseases classified elsewhere; Z79.899 Other long term (current) drug therapy
CPT/HCPCS: 36415; 73564; 80048; 80053; 83735; 84100; 85025; 96360; 96372; 97110; 97162; 97167; 97530; 97535; 99221; 99285; A4216; G0378

== ENCOUNTER 2025-02-11 22:40 | Emergency (ER) | payer MEDICARE, SELFPAY ==
[2025-02-11 22:40] VITALS: BP 148/119; PULSE 75; RESP 20; TEMP 36.5; O2SAT 92; BMI 22.8
--- NOTE | 2025-02-11 22:54 | ED.VIS.GI ---
HPI HPI - GI History of Present Illness Chief Complaint: Nausea/Vomiting Informant: patient Nausea/Vomiting/Emesis GI Symptom: Positive for Nausea and Vomiting Onset: Today Severity: Mild Diarrhea/Melena/Hematochezia GI Symptom: Negative for Diarrhea, Melena or Hematochezia Associated Symptoms Associated Symptoms: Negative for Dysuria, Frequency, Hematuria or Urgency Narrative Narrative: 89-year-old female from [facility]. Was seen here several days ago for right knee effusion diagnosed as osteoarthritis. States she was doing well and tonight started having nausea and vomiting. Send occurring the last few hours. She denies diarrhea. She denies constipation. She denies abdominal pain. She denies dysuria. Prior similar symptoms: Yes Recent Illness/Hospitalization: No PFSH [facility] Medical History Normocytic anemia CKD (chronic kidney disease), stage II Hypertension High cholesterol Hypothyroid Home Medications ?Medication ?Instructions ?Recorded ?Last Taken ?Type atorvastatin 10 mg tablet 5 mg (1/2 x 10 mg) PO DAILY 11/02/23 Unknown Rx cholestrol #45 tabs levothyroxine 50 mcg tablet 50 mcg PO .COMPLEX #12 tabs 11/02/23 Unknown Rx levothyroxine 75 mcg tablet 75 mcg PO .COMPLEX synthroid #72 11/02/23 Unknown Rx tabs irbesartan 300 mg tablet 150 mg (1/2 x 300 mg) PO DAILY 05/08/24 Unknown Rx blood pressure #90 tabs Arthritis Pain Compound 2 click topical BID ##0 02/09/25 Unknown Rx acetaminophen 325 mg tablet 650 mg (2 x 325 mg) PO Q4H PRN PRN 02/09/25 Unknown Rx Fever, pain 1-12/22 #0 tabs aluminum-mag hydroxide-simethicone 30 ml PO Q6H PRN PRN Gastric 02/09/25 Unknown Rx 400 mg-400 mg-40 mg/5 mL oral susp Burning #0 mL (Mag-Al Plus Extra Strength) gabapentin 100 mg capsule 100 mg PO TIDCM #0 caps 02/09/25 Unknown Rx risperidone 0.25 mg tablet 0.25 mg PO DAILY #0 tabs 02/09/25 Unknown Rx risperidone 0.5 mg tablet 0.5 mg PO QHS #0 tabs 02/09/25 Unknown Rx sennosides 8.6 mg-docusate sodium 2 tab PO BID PRN PRN Constipation 02/09/25 Unknown Rx 50 mg tablet (Stimulant Laxative #0 tabs Plus) losartan 50 mg tablet 50 mg PO DAILY 02/11/25 Unknown History Allergy/AdvReac Type Severity Reaction Status Date / Time No Known Allergies Allergy Verified 02/11/25 22:48 Family History Mother Hypertension Myocardial infarction Father Hypertension Myocardial infarction Other Cancer Surgical History History of tonsillectomy and adenoidectomy Social History household members: spouse Smoking Status: Never smoker alcohol intake: never substance use type: does not use what type of physical activity do you participate in: walking frequency: 3-4 times per week ROS ROS ED ROS Narrative Nausea and vomiting. Denies abdominal pain. Denies dysuria. Denies fever. Constitutional Constitutional ED: Denies fever(s) ENT ENT ED: Denies ear pain Cardiovascular Cardiovascular: Denies chest pain Respiratory/Chest Respiratory/Chest: Denies cough or dyspnea Gastrointestinal Gastrointestinal: Reports nausea and vomiting; Denies abdominal pain Genitourinary Genitourinary ED: Denies dysuria or hematuria Musculoskeletal Musculoskeletal: Denies arthralgias Integumentary Denies abscess or Abrasions Neurologic Neurologic: Denies headache(s) Psychiatric Psychiatric: Denies anxiety or depression Endocrine Endocrinology: Denies polydipsia Hematologic/Lymphatic Hematologic/Lymphatic: Denies easy bleeding Allergic/Immunologic Allergic/Immunologic ED: Denies mouth swelling or tongue swelling EXAM Physical Exam Narrative Exam Narrative: 89-year-old female sitting upright in bed vital signs stable afebrile. Blood pressure elevated we rechecked. H&H EENT exam pupils round react light. Moist mucosa. Neck nontender no JVD. Lungs clear to auscultation. Heart regular rhythm rate about 75 no murmur. Chest wall ribs nontender. Abdomen soft, nontender, nondistended, normal bowel sounds without peritoneal signs. No hernia or mass. No obstruction. Right upper right lower quadrant unremarkable. Moving all 4 extremities. She has a small effusion to her right knee I actually saw this patient 5 days ago the knee looks improved. There is no cellulitis. No redness no signs of septic joint. Neurologically she is awake alert. Answering questions and following commands. Const Vital Signs: 02/11/25 22:40 02/12/25 00:19 Temperature 97.7 F L 98.8 F Temperature Source Axillary Pulse Rate 75 88 Respiratory Rate 20 H 16 Blood Pressure 148/119 H 116/78 Blood Pressure Mean 128 90 Pulse Ox 92 98 Oxygen Delivery Method Room Air MDM MDM MDM Narrative Medical decision making narrative: 89-year-old female with nausea vomiting. Exam benign. This could be a viral illness. Clinically she has no abdominal pain or abdominal tenderness clinically this does not look like an obstruction. I do not think it is pancreatitis, nor her gallbladder or appendix. She will be given IV fluids and Zofran. Screening labs to be obtained I do not think she needs any imaging at this time. Repeat exam around 12:15 AM patient doing well. Abdomen is nontender. She clinically looks well. She had a large bowel movement here. States she is feeling better. Her labs unremarkable. She will be discharged to home. This may be from a viral syndrome. Again her abdomen is benign and she does not need any imaging. Nontender. I also spoke to the the nurse at [facility] prior to discharge. History & Record Review Discussion w/independent historian: Patient Additional record(s) reviewed:: Prior outpatient record, Prior ED visit and Prior labs Lab Data Attestation: I reviewed the patient's lab results. Lab results narrative: CBC shows a white count 9.1 H&H 10.4 and 31.7. Platelets 239. History of anemia. Chemistries show a gap of 10. BUN and creatinine of 20 and 0.8. Glucose 134. Liver enzymes show an AST of 42 and ALT of 39. Lipase is normal at 30. Labs: Laboratory Results - last 24 hr 02/11/25 22:58 WBC 9.1 RBC 3.48 L Hgb 10.4 L Hct 31.7 L MCV 91.1 MCH 29.9 MCHC 32.8 RDW Std Deviation 47.6 H RDW Coeff of [place] 14.2 Plt Count 239 MPV 9.5 Immature Gran % (Auto) 0.300 Neut % (Auto) 73.7 H Lymph % (Auto) 16.8 [place] % (Auto) 8.1 Eos % (Auto) 0.7 Baso % (Auto) 0.4 Absolute Neuts (auto) 6.7 Absolute Lymphs (auto) 1.53 Nucleated RBC % 0 Sodium 137 Potassium 4.4 Chloride 104 Carbon Dioxide 22.9 Anion Gap 10 BUN 20 H Creatinine 0.88 Estim Creat Clear Calc 42.16 L Est GFR (MDRD) Non-Af 64 BUN/Creatinine Ratio 22.4 H Glucose 134 H Calcium 9.6 Total Bilirubin 0.34 AST 42 H ALT 39 H Alkaline Phosphatase 88 Total Protein 6.3 Albumin 3.6 Globulin 2.7 Albumin/Globulin Ratio 1.3 Lipase 30 Discharge Plan Triage Chief Complaint: Nausea/Vomiting ED Provider: Gigi Rudd Dx/Rx/DC Orders Clinical Impression: Nausea & vomiting, Viral syndrome Instructions: ED Viral Syndrome (Adult), ED Vomiting (Adult) Prescriptions: No Action Arthritis Pain Compound 2 click topical BID Qty: 0 0RF acetaminophen 325 mg Tablet 650 mg PO Q4H PRN PRN (Reason: Fever, pain 1-10/10) Qty: 0 0RF sennosides-docusate sodium [Stimulant Laxative Plus] 8.6-50 mg Tablet 2 tab PO BID PRN PRN (Reason: Constipation) Qty: 0 0RF risperidone 0.25 mg Tablet 0.25 mg PO DAILY Qty: 0 0RF gabapentin 100 mg Capsule 100 mg PO TIDCM Qty: 0 0RF risperidone 0.5 mg Tablet 0.5 mg PO QHS Qty: 0 0RF alum-mag hydroxide-simeth [Mag-Al Plus Extra Strength] 400-400-40 mg/5 mL Suspension 30 ml PO Q6H PRN PRN (Reason: Gastric Burning) Qty: 0 0RF losartan 50 mg tablet 50 mg PO DAILY atorvastatin 10 mg tablet 5 mg PO DAILY Qty: 45 3RF levothyroxine 50 mcg tablet 50 mcg PO .COMPLEX Qty: 12 3RF Rx Instructions: 50 mcg orally sundays; levothyroxine 75 mcg tablet 75 mcg PO .COMPLEX Qty: 72 3RF Rx Instructions: 75 mcg orally Wednesday Thru Wednesday; irbesartan 300 mg tablet 150 mg PO DAILY Qty: 90 3RF Primary Care Provider: Lobo Tavares Referrals: Anil Corley Chi, MD [Med Staff - Active Staff, Geriatrics] Activity Restrictions/Additional Instructions: Plenty of fluids and rest Have your biomedical electronics technician give the patient Zofran as needed for nausea. Follow-up if not improving return to emergency department if worse. Her lab work tonight was unremarkable. Print Language: [place] Disposition Disposition: Home, Self Care
[2025-02-11] MEDS: 0.9% Normal Saline (1000mL) 1,000 ML 999 ML IV (23:01)
--- OUTSIDE RECORDS SUMMARY | 2025-02-11 23:05 | XMS RPT_ITS | CCD ---
Author Organization [facility] CliniSym[facility] Care Team Providers Care Merchandising Representative Name Role Phone Ricardo Holliday MD Primary Care Provider Dr. Yudy Brennan Primary Care Provider Cristina Griffin Attending Provider Unavailable Dr. Yudy Brennan Referring Provider Dr. Ricardo Holliday Attending Provider Dr. Ricardo Holliday Primary Care Provider Alexandra Zapata Attending Provider Unavailable Dr. Ricardo Holliday Primary Care Provider Dr. Ricardo Holliday Attending Provider [phone] Ricardo Holliday MD Primary Care Provider Miguelina Combs MD Primary Care Provider Podlogar COMMUNITY WORKER.Rox BLACK Unavailable Dr. Anil Corley MD, Chi Primary Care Provider Dr. Anil Corley MD, Chi Attending Provider Podlogar COMMUNITY WORKER.Rox BLACK Unavailable Leyda COMMUNITY WORKER.Mirtha BLACK Unavailable Dr. Anil Corley MD, Chi Referring Provider Barney, Anil Chi Primary Care Unavailable Barney, Anil Chi Attending Unavailable Barney, Anil Chi Attending Unavailable Barney, Anil Chi Referring Unavailable Barney, Anil Chi Primary Care Unavailable Barney, Anil Chi Attending Unavailable Barney, Anil Chi Referring Unavailable Barney, Anil Chi Primary Care Unavailable Barney, Anil Chi Attending Unavailable Barney, Anil Chi Primary Care Unavailable PODLOGAR, ROX Attending Unavailable MIGUELINA COMBS Primary Care Unavailab terence Corley MD, Dr. Anil Tompkins Primary Care Physician Barney HASKINS, Dr. Anil Tompkins Attending Physician Barney HASKINS, Dr. Anil Tompkins Referring Provider Allergies Allergy Classification Reported Allergen(s) Allergy Type Date of Onset Reaction(s) Facility (8 sources) atorvastatin; Translations: [ATORVASTATIN] Drug Allergy 0 Intolerance [facility] Work Phone: (8 sources) Codeine; Translations: [CODEINE] Drug Allergy 5 GI Upset [facility] Work Phone: (8 sources) irbesartan; Translations: [IRBESARTAN] Drug Allergy 9 Intolerance [facility] Work Phone: (8 sources) levothyroxine; Translations: [LEVOTHYROXINE SODIUM] Drug Allergy 7 [facility] Work Phone: (8 sources) Pravastatin; Translations: [PRAVASTATIN] Drug Allergy 8 Intolerance [facility] (7 sources) ANESTHESIA [Other] Propensity to adverse reactions 5 GI Upset [facility] Work Phone: (1 source) OTHER; Translations: [OTHER] Propensity to adverse reactions (disorder) 5 [facility] Medications Completed/Discontinued Medications Medication Drug Class(es) Dates Sig (Normalized) Sig (Original) amLODIPine 2.5 mg oral tablet (20 sources) Dihydropyridine Calcium Channel Jorge Start: 06-25-2023 End: 08-25-2023 take 1 tablet by mouth once daily Amlodipine 2.5 mg tablet Discontinued 2.5 mg PO DAILY June 25, 2023 12:00am August 25, 2023 10:38am Start: 11-08-2018 End: 02-24-2023 take 1 tablet by mouth once daily Amlodipine 2.5 mg tablet Discontinued 2.5 mg PO DAILY 90 3 January 22, 2023 7:13pm February 24, 2023 11:44am blood pressure aspirin 81 mg chewable tablet (15 sources) Platelet Aggregation Inhibitor, Nonsteroidal Anti-inflammatory Drug Start: 11-08-2018 End: 08-25-2023 take 1 tablet by mouth once daily Aspirin 81 MG tablet,chewable Discontinued 81 mg PO DAILY@0800 November 08, 2018 12:00am August 25, 2023 10:39am [employer] [facility] Start: 12-29-2004 ASPIRIN 81 MG TAB Take one (1) tablet daily . 0 12/29/2004 Active Comment on above: Take one (1) tablet daily . atorvastatin 10 mg oral tablet (20 sources) HMG-CoA Reductase Inhibitor Start: 2 End: take 5 mg by mouth once daily Atorvastatin 10 mg tablet Discontinued 5 mg PO DAILY 45 January 22, 2023 7:13pm November 02, 2023 8:59pm cholestrol Start: 11-08-2018 End: 07-16-2021 Atorvastatin 10 MG tablet Discontinued 0.5 {tbl} PO DAILY November 08, 2018 12:00am July 16, 2021 1:47pm cholestrol Start: 11-08-2018 End: 04-18-2024 take 0.5 tablet by mouth once daily atorvastatin (LIPITOR) 10 mg tablet Take 0.5 tablets by mouth once daily. 45 tablet 3 04/18/2024 Active Start: 11-08-2018 End: 01-22-2023 take 5 mg by mouth once daily Atorvastatin Discontinue d 5 MG PO DAILY 45 October 07, 2022 7:06am January 22, 2023 6:14pm Comment on above: Take 0.5 tablets by mouth once daily. bacitracin zinc 0.4 unt/mg / hydrocortisone acetate 0.01 mg/mg / neomycin sulfate 0.0035 mg/mg / polymyxin b sulfate 10 unt/mg ophthalmic ointment (4 sources) Aminoglycoside Antibacterial, Polymyxin-class Antibacterial, Corticosteroid End: 04-11-2024 niakigjw-klxwwccxyv-io lymyxin-hydrocortisone (CHANCE-POLYCIN HC) 3.5-400-10,000 mg-unit/g-1% ophthalmic ointment Use in both eyes twice daily. 04/11/2024 Discontinued (Course of therapy completed) neomycin-bacitra mzj-ifpllylrx-kjzmrrktfnyyuu (CHANCE-POLYCIN HC) 3.5-400-10,000 mg-unit/g-1% ophthalmic ointment Use in both eyes twice daily. 0 Active Comment on above: Use in both eyes twi ce daily. ceramides 1,3,6-11 (CERAVE) (4 sources) Start: 06-05-2019 End: 04-11-2024 ceramides 1,3,6-11 (CERAVE) Indications: Rash and other nonspecific skin eruption Apply to affected area as needed (apply daily to dry intact skin). 340 g 1 06/05/2019 04/11/2024 Discontinued (Course of therapy completed) Start: 06-05-2019 ceramides 1,3, 6-11 (CERAVE) Indications: Rash and other nonspecific skin eruption Apply to affected area as needed (apply daily to dry intact skin). 340 g 1 06/05/2019 Active Comment on above: Apply to affected ar ea as needed (apply daily to dry intact skin). cholecalciferol 0.025 mg oral capsule (4 sources) Vitamin D Start: End: take 1 capsule by mouth once daily Cholecalciferol, Vitamin D3, 25 mcg (1,000 unit) cap Take 1 capsule by mouth once daily. 09/20/2020 04/11/2024 Discontinued (Course of therapy completed) Comment on above: Take 1 capsule by [facility] once daily. ciprofloxacin 250 mg oral tablet (5 sources) Quinolone Antimicrobial Start: End: take 1 tablet by mouth twice daily Ciprofloxacin Hcl 250 mg tablet Discontinued 250 mg PO TWICE A DAY 10 5 0 March 31, 2023 1:00am April 04, 2023 1:00am April 05, 2023 1:04am clobetasol propionate 0.0005 mg/mg topical ointment (18 sources) Corticosteroid Start: 023 End: Clobetasol 0.05 % ointment Discontinued 1 NMA TOPICAL TWICE A DAY 30 1 January 22, 2023 7:13pm August 25, 2023 10:39am Start: 07-16-2021 End: 01-22-2023 Clobetasol 0.05 % ointment D iscontinued 1 NMA TOPICAL TWICE A DAY July 16, 2021 12:00am January 22, 2023 7:14pm Start: 09-30-2020 End: 04-11-2024 clobetasol (TEMOVATE) 0.05 % ointment Apply pea sized amount to affected area only - 1-2 times weekly 60 g 3 09/30/2020 04/11/2024 Discontinued (Course of therapy completed) Comment on above: Apply pea sized amou nt to affected area only - 1-2 times weekly doxycycline monohydrate 100 mg oral capsule (8 sources) Tetracycline-class Drug Start: 9 End: 2 take 1 capsule by mouth twice daily Doxycycline Monohydrate 100 MG capsule Discontinued 100 mg PO TWICE A DAY 14 0 November 11, 2018 12:00am July 04, 2021 4:42pm folic acid 0.8 mg oral tablet (4 sources) Start: 1 End: 5 take 1 tablet by mouth once daily folic acid 800 mcg tablet Indications: Folate deficiency Take 1 tablet by mouth once daily. 90 tablet 3 09/20/2020 04/11/2024 Discontinued (Course of therapy completed) Comment on above: Take 1 tablet by [facility] once daily. Food Supplemt, Lactose-Reduced (4 sources) Start: 9 End: 2 take 1 mL by mouth four times daily Food Supplemt, Lactose-Reduced Discontinued 120 ML PO 4 TIMES DAILY November 11, 2018 11:06am July 04, 2021 4:42pm Start: 11-11-2018 End: 07-04-2021 take 1 mL by mouth four times daily Food Supplemt, Lactose-Reduced Discontinued 120 ML PO 4 TIMES DAILY November 10, 2018 11:00pm July 04, 2021 3:42pm Start: 11-11-2018 End: 07-04-2021 take 1 mL by mouth four times daily Food Supplemt, Lactose-Reduced Discontinued 120 ML PO 4 TIMES DAILY November 11, 2018 12:00am July 04, 2021 4:42pm Food Supplemt, Lactose-Reduced 120 ML liquid (4 sources) Start: 11-11-2018 End: 07-04-2021 take 1 mL by mouth four times daily Food Supplemt, Lactose-Reduced 120 ML liquid Discontinued 120 mL PO 4 TIMES DAILY 0 November 11, 2018 12:00am July 04, 2021 4:42pm Start: 11-11-2018 End: 07-04-2021 take 1 mL by mouth four times daily Food Supplemt, Lactose-Reduced 120 ML liquid Discontinued 120 mL PO 4 TIMES DAILY November 11, 2018 12:00am July 04, 2021 4:42pm irbesartan 300 mg oral tablet (20 sources) Angiotensin 2 Receptor Jorge Start: 11-08-2018 End: 05-08-2024 take 1 tablet by mouth once daily Irbesartan 300 mg tablet Discontinued 150 mg PO DAILY June 22, 2023 10:34am May 08, 2024 10:15am blood pressure Start: 11-08-2018 End: 01-22-2023 take 150 mg by mouth once daily Irbesartan Discontinued 150 MG PO DAILY September 01, 2022 7:35pm January 22, 2023 6:14pm Comment on above: Take 1 tablet by cheri th once daily. levothyroxine sodium 0.075 mg oral tablet (20 sources) l-Thyroxine Start: 02-04-2022 End: 11-02-2023 Levothyroxine 50 mcg tablet Discontinued 50 ug PO .COMPLEX 12 January 22, 2023 7:13pm November 02, 2023 8:59pm 50 mcg orally sundays; Start: 11-04-2021 End: 02-04-2022 Levothyroxine 50 mcg capsule Discontinued 50 ug PO .WednesdayJanuary 27, 2022 3:20pm February 04, 2022 8:47am Start: 07-04-2021 End: 07-16-2021 Levothyroxine 50 mcg tablet Discontinued 50 ug PO .SundaysJuly 04, 2021 12:00am July 16, 2021 1:10pm Start: 09-22-2020 take 1 tablet by mouth once le vothyroxine (SYNTHROID) 50 mcg tablet Take 1 tablet by mouth every Wednesday. Or as directed. 75 mcg daily the rest of the week 30 tablet 1 09/22/2020 Active Start: 11-08-2018 End: 04-18-2024 Levothyroxine 75 mcg tablet Discontinued 75 ug PO .COMPLEX 72 January 22, 2023 7:14pm November 02, 2023 8:59pm synthroid 75 mcg orally Wednesday Thru Wednesday; Comment on above: Take 1 tablet by cheri th every Wednesday. Or as directed. 75 mcg daily the rest of the week Take 1 tablet by cheri th once daily. Take on empty stomach. For Thyroid mometasone furoate 1 mg/ml topical cream (4 sources) Corticosteroid Start: End: mometasone (ELOCON) 0.1 % cream Indications: Other psoriasis , Rash and other nonspecific skin eruption Apply to affected areas of rash to open general body areas (eg. around waistline abdomen, arms, legs BID-TID (twice to three times per day) until clear PRN need, and then can taper off as able. AVOID face, eyes//eyelids, and deep fold areas (underarms, groin). 60 g 3 10/14/2020 04/11/2024 Discontinued (Course of therapy completed) Comment on above: Apply to affected ar eas of rash to open general body areas (eg. around waistline abdomen, arms, legs BID-TID (twice to three times per day) until clear PRN need, and then can taper off as able. AVOID face, eyes//eyelids, and deep fold areas (underarms, groin). nystatin [id number] unt/ml topical cream (4 sources) Polyene Antifungal Start: End: nystatin (MYCOSTATIN) cream Apply to affected area twice daily. 30 g 08/20/2020 04/11/2024 Discontinued (Course of therapy completed) Comment on above: Apply to affected ar ea twice daily. polyethylene glycol 3350 05178 mg powder for oral solution (8 sources) Osmotic Laxative Start: End: take 17 g by mouth once daily Polyethylene Glycol 3350 17 GM packet Discontinued 17 g PO DAILY 0 November 11, 2018 12:00am July 16, 2021 1:11pm polysaccharide iron complex 150 mg oral capsule (8 sources) Start: End: take 1 capsule by mouth once daily at mealtime Polysaccharide Iron Complex 150 MG capsule Discontinued 150 mg PO DAILY WITH MEALS 0 November 11, 2018 12:00am July 16, 2021 1:11pm Problems Active Problems Problem Classification Problem Date Documented Da te Episodic/Chronic Cardiac dysrhythmias (8 sources) ECG: sinus tachycardia; Translations: [Tachycardia, unspecified] 11-08-2018 Episodic Delirium, dementia, and amnestic and other cognitive disorders (1 source) Alzheimer's disease, unspecified; Translations: [Alzheimer's disease, unspecified] Onset: Chronic Disorders of lipid metabolism (20 sources) Pure hypercholesterolemia; Translations: [Pure hypercholesterolemia, unspecified] Onset: 5 01-22-2005 Chronic Diverticulosis and diverticulitis (7 sources) Diverticulosis of colon; Translations: [Diverticulosis of large intestine without perforation or abscess without bleeding] 02-17-2005 Chronic Esophageal disorders (7 sources) Gastroesophageal reflux disease; Translations: [Gastro-esophageal reflux disease without esophagitis] Onset: 9 10-25-2008 Chronic Essential hypertension (10 sources) Essential hypertension; Translations: [Essential (primary) hypertension] Onset: 6 05-10-2015 Chronic Gastrointestinal hemorrhage (7 sources) Gastrointestinal hemorrhage; Translations: [Gastrointestinal hemorrhage, unspecified] 02-17-2005 Episodic Genitourinary symptoms and ill-defined conditions (7 sources) Urge incontinence of urine; Translations: [Urge incontinence] Onset: 8 03-13-2008 Chronic Hemorrhoids (7 sources) Internal hemorrhoids; Translations: [Other hemorrhoids] 02-17-2005 Episodic Malaise and fatigue (5 sources) Asthenia; Translations: [Other malaise] 04-01-2023 Episodic Menopausal disorders (7 sources) Atrophic vaginitis; Translations: [Postmenopausal atrophic vaginitis] Onset: 8 03-13-2008 Chronic Mycoses (6 sources) Onychomycosis; Translations: [Tinea unguium] 07-27-2022 Episodic Nausea and vomiting (8 sources) Nausea; Translations: [Nausea] 03-22-2021 Episodic Other and unspecified benign neoplasm (7 sources) History of polyp of colon; Translations: [Personal history of colonic polyps] 02-17-2005 Episodic Other circulatory disease (8 sources) H/O: hypertension; Translations: [Personal history of other diseases of the circulatory system] 11-08-2018 Episodic Other circulatory disease (8 sources) Low blood pressure; Translations: [Hypotension, unspecified] 11-08-2018 Episodic Other circulatory disease (3 sources) Personal history of other diseases of the circulatory system; Translations: [Personal history of other diseases of circulatory system] Episodic Other connective tissue disease (8 sources) Pain in buttock; Translations: [Myalgia, other site] 11-08-2018 Episodic Other inflammatory condition of skin (7 sources) Psoriasis; Translations: [Other psoriasis] Onset: 0 01-16-2010 Chronic Other nervous system disorders (6 sources) Impaired cognition; Translations: [Other symptoms and signs involving cognitive functions and awareness] 04-01-2023 Episodic Other nutritional; endocrine; and metabolic disorders (8 sources) H/O: hypothyroidism; Translations: [Personal history of other endocrine, nutritional and metabolic disease] 11-08-2018 Episodic Other nutritional; endocrine; and metabolic disorders (3 sources) Personal history of other endocrine, nutritional and metabolic disease; Translations: [Personal history of other endocrine, metabolic, and immunity disorders] Episodic Other skin disorders (13 sources) Eruption; Translations: [Rash and other nonspecific skin eruption] Onset: 0 01-16-2010 Episodic Other upper respiratory disease (7 sources) Allergic rhinitis; Translations: [Allergic rhinitis, unspecified] Onset: 8 09-28-2007 Chronic Septicemia (except in labor) (16 sources) Sepsis; Translations: [Sepsis, unspecified organism] 11-08-2018 Episodic Skin and subcutaneous tissue infections (8 sources) Cellulitis and abscess of buttock; Translations: [Cutaneous abscess of buttock] 11-08-2018 Episodic Syncope (8 sources) Near syncope; Translations: [Syncope and collapse] 03-22-2021 Episodic Systemic lupus erythematosus and connective tissue disorders (7 sources) Sjogren's syndrome; Translations: [Sicca syndrome, unspecified] Onset: 8 10-18-2017 Chronic Thyroid disorders (9 sources) Hypothyroidism; Translations: [Hypothyroidism, unspecified] Onset: 6 05-10-2015 Chronic Urinary tract infections (5 sources) Urinary tract infectious disease; Translations: [Urinary tract infection, site not specified] 03-31-2023 Episodic Past or Other Problems Problem Classification Problem Date Documented Date Episodic/Chronic Administrative/socia l admission (2 sources) First encounter by subject; Translations: [Persons encountering health services in other specified circumstances] Onset: 5 04-11-2024 Episodic Allergic reactions (7 sources) Contact dermatitis; Translations: [Unspecified contact dermatitis, unspecified cause] Onset: 0 01-16-2010 Episodic Diseases of mouth; excluding dental (14 sources) Xerostomia; Translations: [Disturbances of salivary secretion] Onset: 0 01-16-2010 Episodic Genitourinary symptoms and ill-defined conditions (7 sources) Urgent desire to urinate; Translations: [Urgency of urination] Onset: 8 03-13-2008 Episodic Nonmalignant breast conditions (7 sources) Microcalcifications of the breast; Translations: [Mammographic microcalcification found on diagnostic imaging of breast] Onset: 4 08-21-2013 Episodic Other and unspecified benign neoplasm (7 sources) Benign neoplasm of oral cavity; Translations: [Benign neoplasm of unspecified part of mouth] Onset: 0 01-17-2010 Episodic Other bone disease and musculoskeletal deformities (7 sources) Disorder of skeletal system; Translations: [Disorder of bone, unspecified] Onset: 8 03-13-2008 Episodic Other inflammatory condition of skin (7 sources) Pruritus of skin; Translations: [Pruritus, unspecified] Onset: 0 01-16-2010 Episodic Other injuries and conditions due to external causes (7 sources) Excoriation of skin; Translations: [Other injury of unspecified body region, initial encounter] Onset: 0 01-16-2010 Episodic Other nervous system disorders (1 source) Other symptoms and signs involving cognitive functions and awareness; Translations: [Cognitive impairment] Onset: Episodic Other screening for suspected conditions (not mental disorders or infectious disease) (14 sources) Cancer cervix screening status; Translations: [Encounter for screening for malignant neoplasm of cervix] Onset: 8 03-13-2008 Episodic Other skin disorders (7 sources) Asteatosis cutis; Translations: [Xerosis cutis] Onset: 0 01-16-2010 Episodic Results Test Name Value Interpretation Reference Range Facility Absolute lymphocyte countOrd ered By: Anil Corley on 11-15-2024 Lymphocytes Auto (Unsp spec) [#/Vol] 1.55 10*3/uL 0.83-4.51 [facility] Absolute neutrophil countOrd ered By: Anil Corley on 11-15-2024 Neutrophils (Bld) [#/Vol] 3.3 10*3/uL 2.0-7.7 [facility] Anion gap in Serum or Plasma Ordered By: Anil Corley on 11-15-2024 Anion gap [Moles/Vol] 11 mmol/L 5-15 [facility] Automated lymphocyte count a s percentage of total leukocytesOrdered By: Anil Corley on 11-15-2024 Lymphocytes/100 WBC Auto (Unsp spec) 28.4 % 19-41 [facility] BUN/creatinine ratioOrdered By: [facility]24 Urea nitrogen/Creatinine [Mass ratio] 13.1 mg/mg 10- [facility] Basophil percentageOrdered B y: Anil Corley on 11-15-2024 Basophils/100 WBC (Bld) 0.7 % 0-1 [facility] Bilirubin, totalOrdered By: Anil Corley on 11-15-2024 Bilirubin [Mass/Vol] 0.28 mg/dL 0.00-1.30 [facility] CBC W/Diff, Automatedon Absolute Lymph 1.55 X10 3/uL Normal 0.83-4.51 [facility] Comment on above: Performed By: #### L 506.1001, L509.8002, L501.9520, L3890.6301, L506.0200, L500.4050, L100.0100, L503.0106 #### [facility] [address] [place], [address] Absolute Neut 3.3 X10 3/uL Normal 2.0-7.7 [facility] Comment on above: Performed By: #### L 506.1001, L509.8002, L501.9520, L3890.6301, L506.0200, L500.4050, L100.0100, L503.0106 #### [facility] [address] [place], [address] Basophils/100 WBC (Bld) 0.7 % Normal 0-1 [facility] Comment on above: Performed By: #### L 506.1001, L509.8002, L501.9520, L3890.6301, L506.0200, L500.4050, L100.0100, L503.0106 #### [facility] [address] [place], [address] Eosinophils/100 WBC (Bld) 1.8 % Normal 0-5 [facility] Comment on above: Performed By: #### L 506.1001, L509.8002, L501.9520, L3890.6301, L506.0200, L500.4050, L100.0100, L503.0106 #### [facility] [address] [place], [address] Erythrocyte distribution width (RBC) [Ratio] 13.5 % Normal 11.6-14.6 [facility] Comment on above: Performed By: #### L 506.1001, L509.8002, L501.9520, L3890.6301, L506.0200, L500.4050, L100.0100, L503.0106 #### [facility] [address] [place], [address] Hematocrit (Bld) [Volume fraction] 36.7 % Low 37-47 [facility] Comment on above: Performed By: #### L 506.1001, L509.8002, L501.9520, L3890.6301, L506.0200, L500.4050, L100.0100, L503.0106 #### [facility] [address] [place], [address] Hemoglobin (Bld) [Mass/Vol] 11.8 g/dL Low 12.0-15.0 [facility] Comment on above: Performed By: #### L 506.1001, L509.8002, L501.9520, L3890.6301, L506.0200, L500.4050, L100.0100, L503.0106 #### [facility] [address] [place], [address] IG% 0.400 Normal 0.0-0.9 [facility] Comment on above: Result Comment: IG% - Immature Granulocytes (promyelocytes, myelocytes and metamyelocytes) > 1% indicates that a LEFT SHIFT is Present. Performed By: #### L 506.1001, L509.8002, L501.9520, L3890.6301, L506.0200, L500.4050, L100.0100, L503.0106 #### [facility] [address] [place], [address] Lymphocytes/100 WBC (Bld) 28.4 % Normal 19-41 [facility] Comment on above: Performed By: #### L 506.1001, L509.8002, L501.9520, L3890.6301, L506.0200, L500.4050, L100.0100, L503.0106 #### [facility] [address] [place], [address] MCH (RBC) [Entitic mass] 29.5 pg Normal 27.0-32.0 [facility] Comment on above: Performed By: #### L 506.1001, L509.8002, L501.9520, L3890.6301, L506.0200, L500.4050, L100.0100, L503.0106 #### [facility] [address] [place], [address] MCHC (RBC) [Mass/Vol] 32.2 g/dL Normal 32-36 [facility] Comment on above: Performed By: #### L 506.1001, L509.8002, L501.9520, L3890.6301, L506.0200, L500.4050, L100.0100, L503.0106 #### [facility] [address] [place], [address] MCV (RBC) [Entitic vol] 91.8 fL Normal 81-99 [facility] Comment on above: Performed By: #### L 506.1001, L509.8002, L501.9520, L3890.6301, L506.0200, L500.4050, L100.0100, L503.0106 #### [facility] [address] [place], [address] Monocytes/100 WBC (Bld) 8.4 % Normal 0-10 [facility] Comment on above: Performed By: #### L 506.1001, L509.8002, L501.9520, L3890.6301, L506.0200, L500.4050, L100.0100, L503.0106 #### [facility] [address] [place], [address] Neutrophils/100 WBC (Bld) 60.3 % Normal 47-70 [facility] Comment on above: Performed By: #### L 506.1001, L509.8002, L501.9520, L3890.6301, L506.0200, L500.4050, L100.0100, L503.0106 #### [facility] [address] [place], [address] Nucleated RBC (Bld) [#/Vol] 0 10*3/uL Normal 0-5 [facility] Comment on above: Performed By: #### L 506.1001, L509.8002, L501.9520, L3890.6301, L506.0200, L500.4050, L100.0100, L503.0106 #### [facility] [address] [place], [address] Platelet mean volume (Bld) [Entitic vol] 8.9 fL Normal 6.2-12.0 [facility] Comment on above: Performed By: #### L 506.1001, L509.8002, L501.9520, L3890.6301, L506.0200, L500.4050, L100.0100, L503.0106 #### [facility] [address] [place], [address] Platelets (Bld) [#/Vol] 312 10*3/uL Normal 150-450 [facility] Comment on above: Performed By: #### L 506.1001, L509.8002, L501.9520, L3890.6301, L506.0200, L500.4050, L100.0100, L503.0106 #### [facility] [address] [place], [address] RBC (Bld) [#/Vol] 4.00 10*6/uL Low 4.2-5.4 [facility] Comment on above: Performed By: #### L 506.1001, L509.8002, L501.9520, L3890.6301, L506.0200, L500.4050, L100.0100, L503.0106 #### [facility] [address] [place], [address] RDW SD 46.2 fl High 35.1-43.9 [facility] Comment on above: Performed By: #### L 506.1001, L509.8002, L501.9520, L3890.6301, L506.0200, L500.4050, L100.0100, L503.0106 #### [facility] [address] [place], [address] WBC (Bld) [#/Vol] 5.5 10*3/uL Normal 4.4-11.0 [facility] Comment on above: Performed By: #### L 506.1001, L509.8002, L501.9520, L3890.6301, L506.0200, L500.4050, L100.0100, L503.0106 #### [facility] [address] [place], [address] Carbon dioxide, total [Moles /volume] in Central venous bloodOrdered By: Anil Corley on 11-15-2024 CO2 [Moles/Vol] 22.8 mmol/L 21.0-32.0 [facility] Chloride assayOrdered By: Maikel Corley on 11-15-2024 Chloride [Moles/Vol] 104 mmol/L 98-108 [facility] Comprehensive Metabolic Prof ilon 11-15-2024 Albumin [Mass/Vol] 4.1 g/dL Normal 3.4-4.8 [facility] Comment on above: Performed By: #### L 506.1001, L509.8002, L501.9520, L3890.6301, L506.0200, L500.4050, L100.0100, L503.0106 #### [facility] [address] [place], [address] Albumin/Globulin [Mass ratio] 1.2 {ratio} Normal 0.9-2.4 [facility] Comment on above: Performed By: #### L 506.1001, L509.8002, L501.9520, L3890.6301, L506.0200, L500.4050, L100.0100, L503.0106 #### [facility] [address] [place], [address] ALK PHOS 119 U/L High 35-104 [facility] Comment on above: Performed By: #### L 506.1001, L509.8002, L501.9520, L3890.6301, L506.0200, L500.4050, L100.0100, L503.0106 #### [facility] [address] [place], [address] ALT [Catalytic activity/Vol] 12 U/L Normal <=34 [facility] Comment on above: Performed By: #### L 506.1001, L509.8002, L501.9520, L3890.6301, L506.0200, L500.4050, L100.0100, L503.0106 #### [facility] [address] [place], [address] AST [Catalytic activity/Vol] 19 U/L Normal <=31 [facility] Comment on above: Result Comment: Hemo lysis present, Results??could be affected. ?? Performed By: #### L 506.1001, L509.8002, L501.9520, L3890.6301, L506.0200, L500.4050, L100.0100, L503.0106 #### [facility] [address] [place], [address] Bilirubin [Mass/Vol] 0.28 mg/dL Normal 0.00-1.30 [facility] Comment on above: Performed By: #### L 506.1001, L509.8002, L501.9520, L3890.6301, L506.0200, L500.4050, L100.0100, L503.0106 #### [facility] [address] [place], [address] BUN/CRE 13.1 RATIO Normal 10-20 [facility] Comment on above: Performed By: #### L 506.1001, L509.8002, L501.9520, L3890.6301, L506.0200, L500.4050, L100.0100, L503.0106 #### [facility] [address] [place], [address] Calcium [Mass/Vol] 9.8 mg/dL Normal 7.6-11.0 [facility] Comment on above: Performed By: #### L 506.1001, L509.8002, L501.9520, L3890.6301, L506.0200, L500.4050, L100.0100, L503.0106 #### [facility] [address] [place], [address] Chloride [Moles/Vol] 104 mmol/L Normal 98-108 [facility] Comment on above: Performed By: #### L 506.1001, L509.8002, L501.9520, L3890.6301, L506.0200, L500.4050, L100.0100, L503.0106 #### [facility] [address] [place], [address] CO2 [Moles/Vol] 22.8 mmol/L Normal 21.0-32.0 [facility] Comment on above: Performed By: #### L 506.1001, L509.8002, L501.9520, L3890.6301, L506.0200, L500.4050, L100.0100, L503.0106 #### [facility] [address] [place], [address] Creatinine [Mass/Vol] 0.83 mg/dL Normal 0.70-1.20 [facility] Comment on above: Performed By: #### L 506.1001, L509.8002, L501.9520, L3890.6301, L506.0200, L500.4050, L100.0100, L503.0106 #### [facility] [address] [place], [address] GAP 11 Normal 5-15 [facility] Comment on above: Performed By: #### L 506.1001, L509.8002, L501.9520, L3890.6301, L506.0200, L500.4050, L100.0100, L503.0106 #### [facility] [address] [place], [address] GFR/1.73 sq M.predicted among non-blacks MDRD (S/P/Bld) [Vol rate/Area] 68 mL/min/{1.73_m2} Normal >60 [facility] Comment on above: Result Comment: mL/m in/1.73m2 CKD-EPI Creatinine Equation (2020) Performed By: #### L 506.1001, L509.8002, L501.9520, L3890.6301, L506.0200, L500.4050, L100.0100, L503.0106 #### [facility] [address] [place], [address] Globulin (S) [Mass/Vol] 3.3 g/dL Normal 2.2-4.2 [facility] Comment on above: Performed By: #### L 506.1001, L509.8002, L501.9520, L3890.6301, L506.0200, L500.4050, L100.0100, L503.0106 #### [facility] [address] [place], [address] Glucose [Mass/Vol] 100 mg/dL High 70-99 [facility] Comment on above: Performed By: #### L 506.1001, L509.8002, L501.9520, L3890.6301, L506.0200, L500.4050, L100.0100, L503.0106 #### [facility] [address] [place], [address] Potassium [Moles/Vol] 4.4 mmol/L Normal 3.3-5.1 [facility] Comment on above: Result Comment: Hemo lysis present, Results??could be affected. ?? Performed By: #### L 506.1001, L509.8002, L501.9520, L3890.6301, L506.0200, L500.4050, L100.0100, L503.0106 #### [facility] [address] [place], [address] Sodium [Moles/Vol] 138 mmol/L Normal 133-145 [facility] Comment on above: Performed By: #### L 506.1001, L509.8002, L501.9520, L3890.6301, L506.0200, L500.4050, L100.0100, L503.0106 #### [facility] [address] [place], [address] T PROT 7.4 g/dL Normal 5.9-8.4 [facility] Comment on above: Performed By: #### L 506.1001, L509.8002, L501.9520, L3890.6301, L506.0200, L500.4050, L100.0100, L503.0106 #### [facility] [address] [place], [address] Urea nitrogen [Mass/Vol] 11 mg/dL Normal 4-19 [facility] Comment on above: Performed By: #### L 506.1001, L509.8002, L501.9520, L3890.6301, L506.0200, L500.4050, L100.0100, L503.0106 #### [facility] [address] [place], [place], [id number] Eosinophil percentageOrdered By: Anil Corley on 11-15-2024 Eosinophils/100 WBC (Bld) 1.8 % 0-5 [facility] Erythrocyte distribution wid th ratioOrdered By: Anil Barney on 11-15-2024 Erythrocyte distribution width (RBC) [Ratio] 13.5 % 11.6-14.6 [facility] Erythrocyte distribution wid th standard deviationOrdered By: Anil Barney on 11-15-2024 Erythrocyte distribution width (RBC) [Ratio] 46.2 fl High 35.1-43.9 [facility] Glomerular filtration rate ( GFR) estimation/1.73 sq m using serum, plasma, or whole bOrdered By: Anil Corley on 11-15-2024 GFR/1.73 sq M.predicted among non-blacks MDRD (S/P/Bld) [Vol rate/Area] 68 mL/min/{1.73_m2} >60 [facility] Comment on above: mL/min/1.73m2 CKD-EP I Creatinine Equation (2020) Hematocrit Auto (Bld) [Volum e fraction]Ordered By: Anil Corley on 11-15-2024 Hematocrit (Bld) [Volume fraction] 36.7 % Low 37-47 [facility] Hemoglobin measurementOrdere d By: Anil Corley 11-15-2024 Hemoglobin (Bld) [Mass/Vol] 11.8 g/dL Low 12.0-15.0 [facility] Immature granulocytes/100 WB C Auto (Bld)Ordered By: Anil Corley 11-15-2024 Immature granulocytes/100 WBC (Bld) 0.400 % 0.0-0.9 [facility] Comment on above: IG% - Immature Granu locytes (promyelocytes, myelocytes and metamyelocytes) > 1% indicates that a LEFT SHIFT is Present. Laboratory - Chemistry and C hemistry - challengeOrdered By: Anil Barney 11-15-2024 AST [Catalytic activity/Vol] 19 U/L <32 [facility] Comment on above: Hemolysis present, R esults could be affected. MCV (mean corpuscular volume ) determinationOrdered By: Anil Corley 11-15-2024 MCV (RBC) [Entitic vol] 91.8 fL 81-99 [facility] Mean corpuscular hemoglobin (MCH) determinationOrdered By: Anil Corley 11-15-2024 MCH (RBC) [Entitic mass] 29.5 pg 27.0-32.0 [facility] Mean corpuscular hemoglobin concentration (MCHC) determinationOrdered By: Anil Barney 11-15-2024 MCHC (RBC) [Mass/Vol] 32.2 g/dL 32-36 [facility] Mean platelet volume determi nationOrdered By: Anil Corley 11-15-2024 Platelet mean volume (Bld) [Entitic vol] 8.9 fL 6.2-12.0 [facility] Monocyte percentageOrdered B y: Anil Corley on 11-15-2024 Monocytes/100 WBC (Bld) 8.4 % 0-10 [facility] Neutrophil percentageOrdered By: Anil Corley on 11-15-2024 Neutrophils/100 WBC (Bld) 60.3 % 47-70 [facility] Nucleated red blood cell per centageOrdered By: Anil Corley on 11-15-2024 Nucleated RBC/100 WBC (Bld) [Ratio] 0 % 0-5 [facility] Platelet countOrdered By: Maikel Corley on 11-15-2024 Platelets (Bld) [#/Vol] 312 10*3/uL 150-450 [facility] Potassium measurement (mass/ volume)Ordered By: Anil Corley on 11-15-2024 Potassium (Unsp spec) [Mass/Vol] 4.4 mmol/L 3.3-5.1 [facility] Comment on above: Hemolysis present, R esults could be affected. RBC Auto (Bld) [#/Vol]Ordere d By: Anil Corley on 11-15-2024 RBC (Bld) [#/Vol] 4.00 10*6/uL Low 4.2-5.4 [facility] Serum creatinine measurement (mass/volume)Ordered By: Anil Corley on 11-15-2024 Creatinine [Mass/Vol] 0.83 mg/dL 0.70-1.20 [facility] Serum globulin measurementOr dered By: Anil Corley 11-15-2024 Globulin (S) [Mass/Vol] 3.3 g/dL 2.2-4.2 [facility] Serum glucose measurement (m ass/volume)Ordered By: Anil Corley on 11-15-2024 Glucose [Mass/Vol] 100 mg/dL High 70-99 [facility] Serum or plasma alanine roy otransferase (ALT) measurementOrdered By: Anil Corley 11-15-2024 ALT [Catalytic activity/Vol] 12 U/L <35 [facility] Serum or plasma albumin tacos urement (mass/volume)Ordered By: Anil Corley 11-15-2024 Albumin [Mass/Vol] 4.1 g/dL 3.4-4.8 [facility] Serum or plasma albumin/glob ulin mass ratioOrdered By: Anil Corley on 11-15-2024 Albumin/Globulin [Mass ratio] 1.2 {ratio} 0.9-2.4 [facility] Serum or plasma alkaline arthur sphatase measurementOrdered By: Anil Corley on 11-15-2024 ALP [Catalytic activity/Vol] 119 U/L High 35-104 [facility] Serum or plasma calcium tacos urement (mass/volume)Ordered By: Anil Corley on 11-15-2024 Calcium [Mass/Vol] 9.8 mg/dL 7.6-11.0 [facility] Serum or plasma urea nitroge n measurement (mass/volume)Ordered By: Anil Corley on 11-15-2024 Urea nitrogen [Mass/Vol] 11 mg/dL 4-19 [facility] Sodium levelOrdered By: Anil Corley 11-15-2024 Sodium [Moles/Vol] 138 mmol/L 133-145 [facility] TSH DL <= 0.005 mIU/L QnOrde red By: Anil Corley on 11-15-2024 TSH Qn 3.860 uIU/mL 0.300-4.200 [facility] Thyroid Stim Hormone (TSH)on 11-15-2024 TSH 3.860 uIU/mL Normal 0.300-4.200 [facility] Comment on above: Performed By: #### L 506.1001, L509.8002, L501.9520, L3890.6301, L506.0200, L500.4050, L100.0100, L503.0106 #### [facility] [address] [place], [address] Total proteinOrdered By: Anil Corley on 11-15-2024 Protein [Mass/Vol] 7.4 g/dL 5.9-8.4 [facility] Vitamin D,25 Hydroxyon 11-15 Vitamin D 25-OH 18.9 ng/mL Low 30-100 [facility] Comment on above: Result Comment: Bertha min D Status Deficiency: <20 ng/mL (50nmol/L) Insufficiency: 20-30 ng/mL (50-75 nmol/L) Sufficiency: 30-100 ng/mL (75-250 nmol/L) Toxicity: >100 ng/mL (>250 nmol/L) Performed By: #### L 506.1001, L509.8002, L501.9520, L3890.6301, L506.0200, L500.4050, L100.0100, L503.0106 #### [facility] [place], [address] White blood cell (WBC) count Ordered By: Anil Corley on 11-15-2024 WBC (Bld) [#/Vol] 5.5 10*3/uL 4.4-11.0 [facility] Absolute lymphocyte countOrd ered By: Anil Corley on 08-17-2024 Lymphocytes Auto (Unsp spec) [#/Vol] 1.62 10*3/uL 0.83-4.51 [facility] Absolute neutrophil countOrd ered By: Anil Corley on 08-17-2024 Neutrophils (Bld) [#/Vol] 3.6 10*3/uL 2.0-7.7 [facility] Anion gap in Serum or Plasma Ordered By: Anil Corley on 08-17-2024 Anion gap [Moles/Vol] 11 mmol/L 5- [facility] Automated lymphocyte count a s percentage of total leukocytesOrdered By: Anil Corley on 08-17-2024 Lymphocytes/100 WBC Auto (Unsp spec) 27.5 % 19-41 [facility] BUN/creatinine ratioOrdered By: Anil Corley on 08-17-2024 Urea nitrogen/Creatinine [Mass ratio] 13.5 mg/mg 10-20 [facility] Basophil percentageOrdered B y: Anil Corley on 08-17-2024 Basophils/100 WBC (Bld) 1.4 % High 0-1 [facility] Bilirubin, totalOrdered By: Anil Corley on 08-17-2024 Bilirubin [Mass/Vol] 0.38 mg/dL 0.00-1.30 [facility] CBC W/Diff, Automatedon Absolute Lymph 1.62 X10 3/uL Normal 0.83-4.51 [facility] Comment on above: Performed By: #### L 500.4050, L501.9520, L100.0100, L506.1001 #### [facility] [address] [place], [address] Absolute Neut 3.6 X10 3/uL Normal 2.0-7.7 [facility] Comment on above: Performed By: #### L 500.4050, L501.9520, L100.0100, L506.1001 #### [facility] [address] [place], [address] Basophils/100 WBC (Bld) 1.4 % High 0-1 [facility] Comment on above: Performed By: #### L 500.4050, L501.9520, L100.0100, L506.1001 #### [facility] [address] [place], [address] Eosinophils/100 WBC (Bld) 1.5 % Normal 0-5 [facility] Comment on above: Performed By: #### L 500.4050, L501.9520, L100.0100, L506.1001 #### [facility] [address] [place], [address] Erythrocyte distribution width (RBC) [Ratio] 13.4 % Normal 11.6-14.6 [facility] Comment on above: Performed By: #### L 500.4050, L501.9520, L100.0100, L506.1001 #### [facility] [address] [place], [address] Hematocrit (Bld) [Volume fraction] 35.7 % Low 37-47 [facility] Comment on above: Performed By: #### L 500.4050, L501.9520, L100.0100, L506.1001 #### [facility] [address] [place], [address] Hemoglobin (Bld) [Mass/Vol] 11.4 g/dL Low 12.0-15.0 [facility] Comment on above: Performed By: #### L 500.4050, L501.9520, L100.0100, L506.1001 #### [facility] [address] [place], [address] IG% 0.200 Normal 0.0-0.9 [facility] Comment on above: Result Comment: IG% - Immature Granulocytes (promyelocytes, myelocytes and metamyelocytes) > 1% indicates that a LEFT SHIFT is Present. Performed By: #### L 500.4050, L501.9520, L100.0100, L506.1001 #### [facility] [address] [place], [address] Lymphocytes/100 WBC (Bld) 27.5 % Normal 19-41 [facility] Comment on above: Performed By: #### L 500.4050, L501.9520, L100.0100, L506.1001 #### [facility] [address] [place], [address] MCH (RBC) [Entitic mass] 29.5 pg Normal 27.0-32.0 [facility] Comment on above: Performed By: #### L 500.4050, L501.9520, L100.0100, L506.1001 #### [facility] [address] [place], [address] MCHC (RBC) [Mass/Vol] 31.9 g/dL Low 32-36 [facility] Comment on above: Performed By: #### L 500.4050, L501.9520, L100.0100, L506.1001 #### [facility] [address] [place], [address] MCV (RBC) [Entitic vol] 92.5 fL Normal 81-99 [facility] Comment on above: Performed By: #### L 500.4050, L501.9520, L100.0100, L506.1001 #### [facility] [address] [place], [address] Monocytes/100 WBC (Bld) 9.3 % Normal 0-10 [facility] Comment on above: Performed By: #### L 500.4050, L501.9520, L100.0100, L506.1001 #### [facility] [address] [place], [address] Neutrophils/100 WBC (Bld) 60.1 % Normal 47-70 [facility] Comment on above: Performed By: #### L 500.4050, L501.9520, L100.0100, L506.1001 #### [facility] [address] [place], [address] Nucleated RBC (Bld) [#/Vol] 0 10*3/uL Normal 0-5 [facility] Comment on above: Performed By: #### L 500.4050, L501.9520, L100.0100, L506.1001 #### [facility] [address] [place], [address] Platelet mean volume (Bld) [Entitic vol] 9.1 fL Normal 6.2-12.0 [facility] Comment on above: Performed By: #### L 500.4050, L501.9520, L100.0100, L506.1001 #### [facility] [address] [place], [address] Platelets (Bld) [#/Vol] 327 10*3/uL Normal 150-450 [facility] Comment on above: Performed By: #### L 500.4050, L501.9520, L100.0100, L506.1001 #### [facility] [address] [place], [address] RBC (Bld) [#/Vol] 3.86 10*6/uL Low 4.2-5.4 [facility] Comment on above: Performed By: #### L 500.4050, L501.9520, L100.0100, L506.1001 #### [facility] [address] [place], [address] RDW SD 45.7 fl High 35.1-43.9 [facility] Comment on above: Performed By: #### L 500.4050, L501.9520, L100.0100, L506.1001 #### [facility] [address] [place], [address] WBC (Bld) [#/Vol] 5.9 10*3/uL Normal 4.4-11.0 [facility] Comment on above: Performed By: #### L 500.4050, L501.9520, L100.0100, L506.1001 #### [facility] [address] [place], [address] Carbon dioxide, total [Moles /volume] in Central venous bloodOrdered By: Anil Corley on 08-17-2024 CO2 [Moles/Vol] 24.1 mmol/L 21.0-32.0 [facility] Chloride assayOrdered By: Maikel Corley on 08-17-2024 Chloride [Moles/Vol] 102 mmol/L 98-108 [facility] Comprehensive Metabolic Prof ilon 08-17-2024 Albumin [Mass/Vol] 4.3 g/dL Normal 3.4-4.8 [facility] Comment on above: Performed By: #### L 506.1001, L509.8002, L501.9520, L3890.6301, L506.0200, L500.4050, L100.0100, L503.0106 #### [facility] [address] [place], [address] Albumin/Globulin [Mass ratio] 1.4 {ratio} Normal 0.9-2.4 [facility] Comment on above: Performed By: #### L 506.1001, L509.8002, L501.9520, L3890.6301, L506.0200, L500.4050, L100.0100, L503.0106 #### [facility] [address] [place], [address] ALK PHOS 120 U/L High 35-104 [facility] Comment on above: Performed By: #### L 506.1001, L509.8002, L501.9520, L3890.6301, L506.0200, L500.4050, L100.0100, L503.0106 #### [facility] [address] [place], [address] ALT [Catalytic activity/Vol] 11 U/L Normal <=34 [facility] Comment on above: Performed By: #### L 506.1001, L509.8002, L501.9520, L3890.6301, L506.0200, L500.4050, L100.0100, L503.0106 #### [facility] [address] [place], [address] AST [Catalytic activity/Vol] 17 U/L Normal <=31 [facility] Comment on above: Performed By: #### L 506.1001, L509.8002, L501.9520, L3890.6301, L506.0200, L500.4050, L100.0100, L503.0106 #### [facility] [address] [place], [address] Bilirubin [Mass/Vol] 0.38 mg/dL Normal 0.00-1.30 [facility] Comment on above: Performed By: #### L 506.1001, L509.8002, L501.9520, L3890.6301, L506.0200, L500.4050, L100.0100, L503.0106 #### [facility] [address] [place], [address] BUN/CRE 13.5 RATIO Normal 10-20 [facility] Comment on above: Performed By: #### L 506.1001, L509.8002, L501.9520, L3890.6301, L506.0200, L500.4050, L100.0100, L503.0106 #### [facility] [address] [place], [address] Calcium [Mass/Vol] 9.5 mg/dL Normal 7.6-11.0 [facility] Comment on above: Performed By: #### L 506.1001, L509.8002, L501.9520, L3890.6301, L506.0200, L500.4050, L100.0100, L503.0106 #### [facility] [address] [place], [address] Chloride [Moles/Vol] 102 mmol/L Normal 98-108 [facility] Comment on above: Performed By: #### L 506.1001, L509.8002, L501.9520, L3890.6301, L506.0200, L500.4050, L100.0100, L503.0106 #### [facility] [address] [place], [address] CO2 [Moles/Vol] 24.1 mmol/L Normal 21.0-32.0 [facility] Comment on above: Performed By: #### L 506.1001, L509.8002, L501.9520, L3890.6301, L506.0200, L500.4050, L100.0100, L503.0106 #### [facility] [address] [place], [address] Creatinine [Mass/Vol] 0.84 mg/dL Normal 0.70-1.20 [facility] Comment on above: Performed By: #### L 506.1001, L509.8002, L501.9520, L3890.6301, L506.0200, L500.4050, L100.0100, L503.0106 #### [facility] [address] [place], [address] GAP 11 Normal 5-15 [facility] Comment on above: Performed By: #### L 506.1001, L509.8002, L501.9520, L3890.6301, L506.0200, L500.4050, L100.0100, L503.0106 #### [facility] [address] [place], [place], [id number] (780) GFR/1.73 sq M.predicted among non-blacks MDRD (S/P/Bld) [Vol rate/Area] 67 mL/min/{1.73_m2} Normal >60 [facility] Comment on above: Result Comment: mL/m in/1.73m2 CKD-EPI Creatinine Equation (2020) Performed By: #### L 506.1001, L509.8002, L501.9520, L3890.6301, L506.0200, L500.4050, L100.0100, L503.0106 #### [facility] [address] [place], [place], [id number] (455) Globulin (S) [Mass/Vol] 3.1 g/dL Normal 2.2-4.2 [facility] Comment on above: Performed By: #### L 506.1001, L509.8002, L501.9520, L3890.6301, L506.0200, L500.4050, L100.0100, L503.0106 #### [facility] [address] [place], [place], [id number] (238) Glucose [Mass/Vol] 90 mg/dL Normal 70-99 [facility] Comment on above: Performed By: #### L 506.1001, L509.8002, L501.9520, L3890.6301, L506.0200, L500.4050, L100.0100, L503.0106 #### [facility] [address] [place], [address] Potassium [Moles/Vol] 4.1 mmol/L Normal 3.3-5.1 [facility] Comment on above: Performed By: #### L 506.1001, L509.8002, L501.9520, L3890.6301, L506.0200, L500.4050, L100.0100, L503.0106 #### [facility] [address] [place], [address] Sodium [Moles/Vol] 137 mmol/L Normal 133-145 [facility] Comment on above: Performed By: #### L 506.1001, L509.8002, L501.9520, L3890.6301, L506.0200, L500.4050, L100.0100, L503.0106 #### [facility] [address] [place], [address] T PROT 7.4 g/dL Normal 5.9-8.4 [facility] Comment on above: Performed By: #### L 506.1001, L509.8002, L501.9520, L3890.6301, L506.0200, L500.4050, L100.0100, L503.0106 #### [facility] [address] [place], [address] Urea nitrogen [Mass/Vol] 11 mg/dL Normal 4-19 [facility] Comment on above: Performed By: #### L 506.1001, L509.8002, L501.9520, L3890.6301, L506.0200, L500.4050, L100.0100, L503.0106 #### [facility] [place], [address] Eosinophil percentageOrdered By: Anil Corley on 08-17-2024 Eosinophils/100 WBC (Bld) 1.5 % 0-5 [facility] Erythrocyte distribution wid th ratioOrdered By: Anil Barney on 08-17-2024 Erythrocyte distribution width (RBC) [Ratio] 13.4 % 11.6-14.6 [facility] Erythrocyte distribution wid th standard deviationOrdered By: Anil Barney on 08-17-2024 Erythrocyte distribution width (RBC) [Ratio] 45.7 fl High 35.1-43.9 [facility] Glomerular filtration rate ( GFR) estimation/1.73 sq m using serum, plasma, or whole bOrdered By: [facility] 08-17-2024 GFR/1.73 sq M.predicted among non-blacks MDRD (S/P/Bld) [Vol rate/Area] 67 mL/min/{1.73_m2} >60 [facility] Comment on above: mL/min/1.73m2 CKD-EP I Creatinine Equation (2020) Hematocrit Auto (Bld) [Volum e fraction]Ordered By: Anil Corley 08-17-2024 Hematocrit (Bld) [Volume fraction] 35.7 % Low 37-47 [facility] Hemoglobin measurementOrdere d By: Anil Corley 08-17-2024 Hemoglobin (Bld) [Mass/Vol] 11.4 g/dL Low 12.0-15.0 [facility] Immature granulocytes/100 WB C Auto (Bld)Ordered By: Anil Corley 08-17-2024 Immature granulocytes/100 WBC (Bld) 0.200 % 0.0-0.9 [facility] Comment on above: IG% - Immature Granu locytes (promyelocytes, myelocytes and metamyelocytes) > 1% indicates that a LEFT SHIFT is Present. Laboratory - Chemistry and C hemistry - challengeOrdered By: Anil Barney 08-17-2024 AST [Catalytic activity/Vol] 17 U/L <32 [facility] MCV (mean corpuscular volume ) determinationOrdered By: Anil Corley 08-17-2024 MCV (RBC) [Entitic vol] 92.5 fL 81-99 [facility] Mean corpuscular hemoglobin (MCH) determinationOrdered By: Anil Corley on 08-17-2024 MCH (RBC) [Entitic mass] 29.5 pg 27.0-32.0 [facility] Mean corpuscular hemoglobin concentration (MCHC) determinationOrdered By: Anil Corley on 08-17-2024 MCHC (RBC) [Mass/Vol] 31.9 g/dL Low 32-36 [facility] Mean platelet volume determi nationOrdered By: Anil Corley on 08-17-2024 Platelet mean volume (Bld) [Entitic vol] 9.1 fL 6.2-12.0 [facility] Monocyte percentageOrdered B y: Anil Corley on 08-17-2024 Monocytes/100 WBC (Bld) 9.3 % 0-10 [facility] Neutrophil percentageOrdered By: Anil Corley on 08-17-2024 Neutrophils/100 WBC (Bld) 60.1 % 47-70 [facility] Nucleated red blood cell per centageOrdered By: Anil Corley on 08-17-2024 Nucleated RBC/100 WBC (Bld) [Ratio] 0 % 0-5 [facility] Platelet countOrdered By: Maikel Corley on 08-17-2024 Platelets (Bld) [#/Vol] 327 10*3/uL 150-450 [facility] Potassium measurement (mass/ volume)Ordered By: Anil Corley on 08-17-2024 Potassium (Unsp spec) [Mass/Vol] 4.1 mmol/L 3.3-5.1 [facility] RBC Auto (Bld) [#/Vol]Ordere d By: Anil Corley on 08-17-2024 RBC (Bld) [#/Vol] 3.86 10*6/uL Low 4.2-5.4 [facility] Serum creatinine measurement (mass/volume)Ordered By: Anil Corley on 08-17-2024 Creatinine [Mass/Vol] 0.84 mg/dL 0.70-1.20 [facility] Serum globulin measurementOr dered By: Anil Corley 08-17-2024 Globulin (S) [Mass/Vol] 3.1 g/dL 2.2-4.2 [facility] Serum glucose measurement (m ass/volume)Ordered By: Anil Corley on 08-17-2024 Glucose [Mass/Vol] 90 mg/dL 70-99 [facility] Serum or plasma alanine roy otransferase (ALT) measurementOrdered By: Anil Corley on 08-17-2024 ALT [Catalytic activity/Vol] 11 U/L <35 [facility] Serum or plasma albumin tacos urement (mass/volume)Ordered By: Anil Corley on 08-17-2024 Albumin [Mass/Vol] 4.3 g/dL 3.4-4.8 [facility] Serum or plasma albumin/glob ulin mass ratioOrdered By: Anil Corley on 08-17-2024 Albumin/Globulin [Mass ratio] 1.4 {ratio} 0.9-2.4 [facility] Serum or plasma alkaline arthur sphatase measurementOrdered By: Anil Corley on 08-17-2024 ALP [Catalytic activity/Vol] 120 U/L High 35-104 [facility] Serum or plasma calcium tacos urement (mass/volume)Ordered By: Anil Corley on 08-17-2024 Calcium [Mass/Vol] 9.5 mg/dL 7.6-11.0 [facility] Serum or plasma urea nitroge n measurement (mass/volume)Ordered By: Anil Corley on 08-17-2024 Urea nitrogen [Mass/Vol] 11 mg/dL 4-19 [facility] Sodium levelOrdered By: Anil Corley on 08-17-2024 Sodium [Moles/Vol] 137 mmol/L 133-145 [facility] TSH DL <= 0.005 mIU/L QnOrde red By: Anil Corley on 08-17-2024 TSH Qn 3.130 uIU/mL 0.300-4.200 [facility] Thyroid Stim Hormone (TSH)on 08-17-2024 TSH 3.130 uIU/mL Normal 0.300-4.200 [facility] Comment on above: Performed By: #### L 506.1001, L509.8002, L501.9520, L3890.6301, L506.0200, L500.4050, L100.0100, L503.0106 #### [facility] [address] [facility] [place], [place], [id number] Total proteinOrdered By: Anil Corley on 08-17-2024 Protein [Mass/Vol] 7.4 g/dL 5.9-8.4 [facility] Vitamin D,25 Hydroxyon 08-17 Vitamin D 25-OH 23.2 ng/mL Low 30-100 [facility] Comment on above: Result Comment: Bertha min D Status Deficiency: <20 ng/mL (50nmol/L) Insufficiency: 20-30 ng/mL (50-75 nmol/L) Sufficiency: 30-100 ng/mL (75-250 nmol/L) Toxicity: >100 ng/mL (>250 nmol/L) Performed By: #### L 506.1001, L509.8002, L501.9520, L3890.6301, L506.0200, L500.4050, L100.0100, L503.0106 #### [facility] [address] [place], [address] White blood cell (WBC) count Ordered By: Anil Corley on 08-17-2024 WBC (Bld) [#/Vol] 5.9 10*3/uL 4.4-11.0 [facility] 07-06-2024 [facility] Telephone (NIQ) ABDIAZIZ HERNANDEZ ([id number]) 1935 F Date Time Provider Department 07/06/24 NEUROLOGY PROVIDER [facility] During your visit today, we recorded the following information about you: Paulette Maldonado 07/06/2024 1:41 PM Signed LVM for patient / to call back to schedule brain health visit. Called 's cell [phone]. Allergies As of Date: 07/06/2024 Noted Allergy Reaction ANESTHESIA [Other] 12/26/2004 8 [...] mouth lots of dental work Date Reviewed: 04/11/2024 Reviewed by: PodlogRox wiggins APRN.MAKING MACHINE OPERATOR - Fully Assessed Reason for Visit: Appointment [186] Cmt: LVM for patient / to call back to schedule brain health visit. Called 's cell [phone]. Prescriptions as of 07/06/2024 - atorvastatin (LIPITOR) 10 mg tablet Take 0.5 tablets by mouth once daily. - levothyroxine (SYNTHROID) 75 mcg tablet Take 1 tablet by mouth once daily. Take on empty stomach. For Thyroid - AVAPRO 300 mg tablet Take 1 tablet by mouth once daily. - levothyroxine (SYNTHROID) 50 mcg tablet Take 1 tablet by mouth every Wednesday. Or as directed. 75 mcg daily the rest of the week - ASPIRIN 81 MG TAB Take one (1) tablet daily . Meds Comments as of 08/31/2013: Norvasc currently on hold by patient. 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] DIVERTICULOSIS OF COLON W/O BLEED [K57.30] PERS HX COLONIC POLYPS [Z86.0100] ALLERGIC RHINITIS NOS [J30.9] 09/28/2007 ATROPHIC VAGINITIS [...] syndrome (HCC) [M35.00] 10/18/2017 Encounter Status:Closed by PAULETTE MALDONADO on 07/06/24 Normal [facility] Magnetic resonance imaging r eportOrdered By: Misael Pastor on 06-20-2024 Study report [facility] Imaging Services [address] [place] [id number] Brain without Contrast MR#: [id number] Acct: [id number] Name: ABDIAIZZ HERNANDEZ Rep #: [id number] : 1935 F 89 From: Diana Pastor MD PCP: Dr. Anil Corley MD Status: JESSICA ABREU Study:Brain without Contrast Date of Exam: 06/19/24 Exam# [id number] Ordering Dr: Anil Corley MD PROCEDURE: BRAIN WITHOUT CONTRAST 06/19/2024 REASON FOR EXAM: ALZHEIMER'S DISEASE TECHNIQUE: Brain MRI without intravenous contrast with additional dedicated imaging of the IACs. COMPARISON: None FINDINGS: TECHNIQUE: Multiplanar, multi-sequence MRI of brain was performed without and with IV contrast. FINDINGS: BRAIN/PARENCHYMA: No evidence of acute infarction or acute intracranial hemorrhage. There are subcortical and periventricular white matter FLAIR hyperintensities, likely related to chronic microvascular ischemic disease. No abnormal post-contrast enhancement. EXTRA-AXIAL SPACES: No abnormal extra-axial fluid collections. Patent basal cisterns and foramen magnum. MIDLINE SHIFT: None. VENTRICLES: No hydrocephalus. SCALP SOFT TISSUES & CALVARIUM: No significant abnormality. VISUALIZED SINUSES & MASTOIDS: No air-fluid levels in the paranasal sinuses. Themastoid air cells are clear. ARTERIAL FLOW VOIDS: Preserved major arterial flow voids indicating gross patency. MRI/Brain without Contrast IMPRESSION: No acute intracranial abnormality; no acute infarct, intracranial hemorrhage or extra-axial collection. Chronic microvascular ischemia and involutional changes. Reading Location: [facility] CC: Dr. Anil Corley MD ~ Stapling Machine Operator: Signed [facility] Brain without Contraston Brain without Contrast [facility] Imaging Services [address] [place] [id number] Brain without Contrast MR#: [id number] Acct: [id number] Name: ABDIAZIZ HERNANDEZ Rep #: [id number] : 1935 F 89 From: Misael jackman MD PCP: Dr. Anil Corley MD Status: REG CLI Study: Brain without Contrast Date of Exam: 06/19/24 Exam# [id number] Ordering Dr: Anil Corley MD PROCEDURE: BRAIN WITHOUT CONTRAST 06/19/2024 REASON FOR EXAM: ALZHEIMER'S DISEASE TECHNIQUE: Brain MRI without intravenous contrast with additional dedicated imaging of the IACs. COMPARISON: None FINDINGS: TECHNIQUE: Multiplanar, multi-sequence MRI of brain was performed without and with IV contrast. FINDINGS: BRAIN/PARENCHYMA: No evidence of acute infarction or acute intracranial hemorrhage. There are subcortical and periventricular white matter FLAIR hyperintensities, likely related to chronic microvascular ischemic disease. No abnormal post-contrast enhancement. EXTRA-AXIAL SPACES: No abnormal extra-axial fluid collections. Patent basal cisterns and foramen magnum. MIDLINE SHIFT: None. VENTRICLES: No hydrocephalus. SCALP SOFT TISSUES CALVARIUM: No significant abnormality. VISUALIZED SINUSES MASTOIDS: No air-fluid levels in the paranasal sinuses. The mastoid air cells are clear. ARTERIAL FLOW VOIDS: Preserved major arterial flow voids indicating gross patency. MRI/Brain without Contrast IMPRESSION: No acute intracranial abnormality; no acute infarct, intracranial hemorrhage or extra-axial collection. Chronic microvascular ischemia and involutional changes. Reading Location: [facility] CC: Dr. Anil Corley MD Stapling Machine Operator: Signed Normal [facility] ABDIAZIZ HERNANDEZ ([id number]) 1935 F Date Time Provider Department 06/14/24 [facility] During your visit today, we recorded the following information about you: ArnolyesiXenia 06/14/2024 11:41 AM Signed left for patient about scheduling center for brain health consult per referral. called [phone] Allergies As of Date: 06/14/2024 Noted Allergy Reaction ANESTHESIA [Other] 12/26/2004 8 [...] mouth lots of dental work Date Reviewed: 04/11/2024 Reviewed by: Rox Baird APRN.MAKING MACHINE OPERATOR - Fully Assessed Reason for Visit: Appointment [186] Cmt: left vm for patient about scheduling center for brain health consult per referral. called [phone] Prescriptions as of 06/14/2024 - atorvastatin (LIPITOR) 10 mg tablet Take 0.5 tablets by mouth once daily. - levothyroxine (SYNTHROID) 75 mcg tablet Take 1 tablet by mouth once daily. Take on empty stomach. For Thyroid - AVAPRO 300 mg tablet Take 1 tablet by mouth once daily. - levothyroxine (SYNTHROID) 50 mcg tablet Take 1 tablet by mouth every Wednesday. Or as directed. 75 mcg daily the rest of the week - ASPIRIN 81 MG TAB Take one (1) tablet daily . Meds Comments as of 08/31/2013: Norvasc currently on hold by patient. 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 COMMENT Normal . [facility] Comment on above: Order Comment: [id number] 0PLASMA FROZEN Result Comment: Test Ordered: [id number] Test(s) [id number] was developed and its performance characteristics determined by [facility]. It has not been cleared or approved by the Food and Drug Administration. p-seu967 0.87 [H ] pg/mL L9 Reference Range: 0.00-0.18 Clinical cutoff value was established using samples from a patient cohort characterized with amyloid PET data. A p-had507 value of >0.18 is a reported surrogate marker for beta amyloid pathology, and can be used to facilitate biological identification of Alzheimer's disease (1). p-sbp790 has also been used in clinical trials to monitor patients on anti-amyloid therapy (2,3). Test performed by [employer] chemiluminescent enzyme immunoassay (CLEIA). Values obtained with different methods cannot be used interchangeably. The validated limit of quantification is 0.06 pg/mL. Assay detection limit is 0.03 pg/mL. Footnotes Comment L9 Reference Range: . 1. Star Mena, et al. Diagnostic Accuracy of a Plasma Phosphorylated Tau 217 Immunoassay for Alzheimer Disease Pathology. FERNANDO neurology (2023). 2. Star Mena, et al. Differential roles of A42/40, p-ane148 and p-vus523 for Alzheimer's trial selection and disease monitoring. Nature medicine 28.12 (2021): 3392-1892. 3. Santos MJ, Destiny M, Kalpesh SC, et al. Association of Donanemab Treatment With Exploratory Plasma Biomarkers in Early Symptomatic Alzheimer Disease: A Secondary Analysis of the TRAILBLAZER-ALZ Randomized Clinical Trial. FERNANDO Neurol. 2021;79(12):4422-1743. Performed at: - [facility] [address] [place] [address], [place] [id number] Timber Repairer: Carin Garcia MD, Phone: [phone] Performed at: - [facility] [id number] [place], [place] [id number] Timber Repairer: Brandon Looney PhD, Phone: [phone] Performed By: #### L 506.1001, L509.7882, L501.9220, L3890.6301, L506.0200, L500.4050, L100.0100, L503.0106 #### [facility] [place], [address] L3410.9998on 05-23-2024 [facility]. COMMENT Normal . [facility] Comment on above: Order Comment: [id number] 0EDTA WHOLE BLOOD ROOM TEMP Result Comment: Test Ordered: [id number] APOE Alzheimer's Risk Methodology: Comment UY Reference Range: . Patient DNA is assayed for the APOE genotype by PCR amplification of a specific region in exon 4 of the APOE gene followed by digestion with restriction enzyme Brick Extruder Operator I and separation of fragments by polyacrylamide gel electrophoresis. This approach allows the APOE E2, E3, and E4 alleles to be distinguished. Analytical sensitivity and specificity are >99.5%. Individuals are interpreted as having one of the following genotypes: E2/E2, E3/E3, E4/E4, E2/E3, E2/E4, E3/E4. APO E Genotyping Result: E3/E3 UY Reference Range: . Interpretation: Comment UY Reference Range: . Negative for the APOE4 variant that is associated with increased risk for late onset Alzheimer's disease (AD). E3/E3 is the most common APOE genotype and is not associated with increased risk for AD. RECOMMENDATIONS Genetic counseling is recommended. Due to the lack of measures to prevent the development of AD, the ACMG/NSGC guidelines do not recommend presymptomatic testing, but if it is performed, guidelines are provided (Umberto BRENNAN et al. 2011). The APOE Genotyping: Alzheimer's Risk test is not recommended for children. NOTE: This is not a diagnostic test. Results should be interpreted along with clinical findings and other data. This test evaluates only for the APOE genotype and cannot detect genetic abnormalities elsewhere in the genome. It should be realized that there are possible sources of error including sample misidentification, rare technical errors, trace contamination of PCR reactions, and rare genetic variants that may interfere with analysis. For inquiries or genetic consultation, please call Ramona at . Comment: Comment UY Reference Range: . INFORMATION ABOUT THE APOE GENOTYPE AND ALZHEIMER'S DISEASE Alzheimer's disease (AD) is the most common form of dementia in the elderly and currently affects more than 5 million Americans. It is a progressive neurodegenerative disorder with brain findings of plaques and neurofibrillary tangles containing beta-amyloid and tau protein respectively. The predominant form of AD is late onset (age > 60-65), which can be familial (15-20%) or sporadic. The APOE4 variant increases the risk for late onset AD and may contribute to the pathology of the disease. This risk is increased by approximately 2 to 3-fold for individuals with one copy of the APOE4 variant and by approximately 10 ab71-vpuv for individuals with two copies of this variant (E4/E4 genotype). The APOE2 variant has some protective effect against development of late onset AD. The lifetime risk for late onset AD is approximately 10-12% in the general population, though it is higher in women than men and doubles when there is a first degree relative with this disorder. The lifetime risk is approximately 9% for individuals negative for APOE4, and for individuals with E4/E4 may be as high as 25% for males and 45% for females. Among patients with late onset AD, the presence of APOE4 may lead to earlier development of symptoms. However, APOE4 is neither necessary nor sufficient for the development of AD. Approximately 30-50% of patients with late onset AD do not have an APOE4 allele. APOE4 is common, with 25% of the general population having one copy and 1% having two copies of this variant. Among patients with late onset AD, 50-70% are positive for APOE4. The development of late onset AD is influenced by many factors other than APOE4 including age, gender, family history, level of education and history of head trauma. Midlife cardiovascular risk factors in individuals with APOE4 also increase risk for cognitive decline. A number of genetic influences in addition to APOE4 have also been reported and are under investigation. This test was developed and its performance characteristics determined by [employer]. It has not been cleared or approved by the Food and Drug Administration. The FDA has determined that such clearance or approval is not necessary. REFERENCES Jay Martinez et al. Sex modifies the APOE-related risk of developing Alzheimer disease. Annal Neurol 2014;75(4):563-573 Chris HERNANDEZ. Alzheimer Disease Overview. [employer] (Dotour.com). Rhonda WILKERSON et al., editors. [place]: [facility], [place], [place]. Last revised 2014. Umberto JS et al. Genetic counseling and testing for Alzheimer disease: Joint practice guidelines of the [place] [employer] and the National Society of Genetic Counselors. Lay in Med 2011;13(6)597-605. Marlon FERREIRA. Apolipoprotein E: Implications for AD neurobiology, epidemiology and risk assessment. Neurobiology of Aging 2011;32:778-790 Performed at: [facility] [address] [id number] Timber Repairer: Ronaldo Love MD, Phone: [phone] Performed at: [facility] (more content not included)... Performed By: #### L 506.1001, L509.8002, L501.9520, L3890.6301, L506.0200, L500.4050, L100.0100, L503.0106 #### [facility] [address] [place], [address] L3410.9998on 05-22-2024 [facility]. COMMENT Normal . [facility] Comment on above: Order Comment: [id number] 5 PLASMA FROZEN Result Comment: Test Ordered: [id number] Beta Amyloid 42/40 Ratio Test(s) 550844-Uibq-jwgmwib 42/40 Ratio; 079413- Beta-amyloid 42; 365500-Yagr-skdvaxu 40 was developed and its performance characteristics determined by [employer]. It has not been cleared or approved by the Food and Drug Administration. Beta-amyloid 42/40 Ratio 0.072 [L ] BN Reference Range: >0.102 Beta-amyloid 42 10.22 pg/mL BN Reference Range: . Beta-amyloid 40 142.71 pg/mL BN Reference Range: . Plasma beta-amyloid 1-42/1-40 ratios less than or equal to 0.102 suggest a higher probability of a patient being clinically diagnosed with Alzheimer's Disease (AD), while values above 0.102 suggest a lower probability of AD diagnosis. Precise plasma testing of Beta Amyloid 42 and Beta Amyloid 40 has demonstrated comparable effectiveness to traditional cerebrospinal fluid testing and amyloid positron emission tomography (PET) scans. When assessing the risk of AD pathology as the underlying cause for mild cognitive impairment (MCI) or dementia, it is important to consider various factors such as medical and family history, nutritional deficiency biomarkers, neuroimaging, and physical, neurological, and neuropsychological examinations. Methodology: [employer]ex Chemiluminescence Enzyme Immunoassay (CLEIA). Values obtained with different methods cannot be used interchangeably. Performed at: [facility] [address] [id number] Timber Repairer: Julia Berumen MD, Phone: [phone] Performed at: [facility] [address] [id number] Timber Repairer: Brandon Looney PhD, Phone: [phone] Performed By: #### L 3410.9998 #### [facility] [address] [place] [address], [id number] Absolute lymphocyte countOrd ered By: Anil Corley on 05-17-2024 Lymphocytes Auto (Unsp spec) [#/Vol] 1.56 10*3/uL 0.83-4.51 [facility] Absolute neutrophil countOrd ered By: Anil Corley on 05-17-2024 Neutrophils (Bld) [#/Vol] 4.8 10*3/uL 2.0-7.7 [facility] Anion gap in Serum or Plasma Ordered By: Anil Corley on 05-17-2024 Anion gap [Moles/Vol] 12 mmol/L 5-15 [facility] Automated lymphocyte count a s percentage of total leukocytesOrdered By: Anil Corley on 05-17-2024 Lymphocytes/100 WBC Auto (Unsp spec) 21.8 % 19-41 [facility] BUN/creatinine ratioOrdered By: Anil Corley 05-17-2024 Urea nitrogen/Creatinine [Mass ratio] 14.8 mg/mg 10-20 [facility] Basophil percentageOrdered B y: Anil Corley on 05-17-2024 Basophils/100 WBC (Bld) 0.8 % 0-1 [facility] Bilirubin, totalOrdered By: Anil Corley on 05-17-2024 Bilirubin [Mass/Vol] 0.34 mg/dL 0.00-1.30 [facility] CBC W/Diff, Automatedon 03-0 5-202 Absolute Lymph 1.56 X10 3/uL Normal 0.83-4.51 [facility] Comment on above: Performed By: #### L 506.1001, L509.8002, L501.9520, L3890.6301, L506.0200, L500.4050, L100.0100, L503.0106 #### [facility] [address] [place], [address] Absolute Neut 4.8 X10 3/uL Normal 2.0-7.7 [facility] Comment on above: Performed By: #### L 506.1001, L509.8002, L501.9520, L3890.6301, L506.0200, L500.4050, L100.0100, L503.0106 #### [facility] [address] [place], [address] Basophils/100 WBC (Bld) 0.8 % Normal 0-1 [facility] Comment on above: Performed By: #### L 506.1001, L509.8002, L501.9520, L3890.6301, L506.0200, L500.4050, L100.0100, L503.0106 #### [facility] [address] [place], [address] Eosinophils/100 WBC (Bld) 1.4 % Normal 0-5 [facility] Comment on above: Performed By: #### L 506.1001, L509.8002, L501.9520, L3890.6301, L506.0200, L500.4050, L100.0100, L503.0106 #### [facility] [address] [place], [address] Erythrocyte distribution width (RBC) [Ratio] 13.4 % Normal 11.6-14.6 [facility] Comment on above: Performed By: #### L 506.1001, L509.8002, L501.9520, L3890.6301, L506.0200, L500.4050, L100.0100, L503.0106 #### [facility] [address] [place], [address] Hematocrit (Bld) [Volume fraction] 37.3 % Normal 37-47 [facility] Comment on above: Performed By: #### L 506.1001, L509.8002, L501.9520, L3890.6301, L506.0200, L500.4050, L100.0100, L503.0106 #### [facility] [address] [facility] [place], [address] Hemoglobin (Bld) [Mass/Vol] 12.2 g/dL Normal 12.0-15.0 [facility] Comment on above: Performed By: #### L 506.1001, L509.8002, L501.9520, L3890.6301, L506.0200, L500.4050, L100.0100, L503.0106 #### [facility] [address] [facility] [place] [place], [address] IG% 0.400 Normal 0.0-0.9 [facility] Comment on above: Result Comment: IG% - Immature Granulocytes (promyelocytes, myelocytes and metamyelocytes) > 1% indicates that a LEFT SHIFT is Present. Performed By: #### L 506.1001, L509.8002, L501.9520, L3890.6301, L506.0200, L500.4050, L100.0100, L503.0106 #### [facility] [address] [place], [address] Lymphocytes/100 WBC (Bld) 21.8 % Normal 19-41 [facility] Comment on above: Performed By: #### L 506.1001, L509.8002, L501.9520, L3890.6301, L506.0200, L500.4050, L100.0100, L503.0106 #### [facility] [address] [place], [address] MCH (RBC) [Entitic mass] 30.3 pg Normal 27.0-32.0 [facility] Comment on above: Performed By: #### L 506.1001, L509.8002, L501.9520, L3890.6301, L506.0200, L500.4050, L100.0100, L503.0106 #### [facility] [address] [place], [address] MCHC (RBC) [Mass/Vol] 32.7 g/dL Normal 32-36 [facility] Comment on above: Performed By: #### L 506.1001, L509.8002, L501.9520, L3890.6301, L506.0200, L500.4050, L100.0100, L503.0106 #### [facility] [address] [place], [address] MCV (RBC) [Entitic vol] 92.8 fL Normal 81-99 [facility] Comment on above: Performed By: #### L 506.1001, L509.8002, L501.9520, L3890.6301, L506.0200, L500.4050, L100.0100, L503.0106 #### [facility] [address] [place], [address] Monocytes/100 WBC (Bld) 8.4 % Normal 0-10 [facility] Comment on above: Performed By: #### L 506.1001, L509.8002, L501.9520, L3890.6301, L506.0200, L500.4050, L100.0100, L503.0106 #### [facility] [address] [place], [address] Neutrophils/100 WBC (Bld) 67.2 % Normal 47-70 [facility] Comment on above: Performed By: #### L 506.1001, L509.8002, L501.9520, L3890.6301, L506.0200, L500.4050, L100.0100, L503.0106 #### [facility] [address] [place], [address] Nucleated RBC (Bld) [#/Vol] 0 10*3/uL Normal 0-5 [facility] Comment on above: Performed By: #### L 506.1001, L509.8002, L501.9520, L3890.6301, L506.0200, L500.4050, L100.0100, L503.0106 #### [facility] [address] [place], [address] Platelet mean volume (Bld) [Entitic vol] 9.1 fL Normal 6.2-12.0 [facility] Comment on above: Performed By: #### L 506.1001, L509.8002, L501.9520, L3890.6301, L506.0200, L500.4050, L100.0100, L503.0106 #### [facility] [address] [place], [address] Platelets (Bld) [#/Vol] 295 10*3/uL Normal 150-450 [facility] Comment on above: Performed By: #### L 506.1001, L509.8002, L501.9520, L3890.6301, L506.0200, L500.4050, L100.0100, L503.0106 #### [facility] [address] [place], [address] RBC (Bld) [#/Vol] 4.02 10*6/uL Low 4.2-5.4 [facility] Comment on above: Performed By: #### L 506.1001, L509.8002, L501.9520, L3890.6301, L506.0200, L500.4050, L100.0100, L503.0106 #### [facility] [address] [place], [address] RDW SD 45.9 fl High 35.1-43.9 [facility] Comment on above: Performed By: #### L 506.1001, L509.8002, L501.9520, L3890.6301, L506.0200, L500.4050, L100.0100, L503.0106 #### [facility] [address] [place], [address] WBC (Bld) [#/Vol] 7.2 10*3/uL Normal 4.4-11.0 [facility] Comment on above: Performed By: #### L 506.1001, L509.8002, L501.9520, L3890.6301, L506.0200, L500.4050, L100.0100, L503.0106 #### [facility] [address] [place], [place], [address] [facility] Telephone (INTMWS) ABDIAZIZ HERNANDEZ ([id number]) 1935 F Date Time Provider Department 05/17/24 MIGUELINA COMBS INTWS During your visit today, we recorded the following information about you: Ann Simms LPN 05/17/2024 4:29 PM Signed Fax rec'd from [facility]. The are asking for completed medical records. This was faxed to [facility] medical records release. Allergies As of Date: 05/17/2024 Noted Allergy Reaction ANESTHESIA [Other] 12/26/2004 8 [...] mouth lots of dental work Date Reviewed: 04/11/2024 Reviewed by: PodlogRox wiggins APRN.MAKING MACHINE OPERATOR - Fully Assessed Reason for Visit: Release Of Medical Records [2017] Prescriptions as of 05/17/2024 - atorvastatin (LIPITOR) 10 mg tablet Take 0.5 tablets by mouth once daily. - levothyroxine (SYNTHROID) 75 mcg tablet Take 1 tablet by mouth once daily. Take on empty stomach. For Thyroid - AVAPRO 300 mg tablet Take 1 tablet by mouth once daily. - levothyroxine (SYNTHROID) 50 mcg tablet Take 1 tablet by mouth every Wednesday. Or as directed. 75 mcg daily the rest of the week - ASPIRIN 81 MG TAB Take one (1) tablet daily . Meds Comments as of 08/31/2013: Norvasc currently on hold by patient. Holding ASA 3 days prior per MD Problem List As Of Date 05/17/2024 Noted Resolved Hypothyroidism [E03.9] PURE HYPERCHOLESTEROLEM [E78.00] Essential hypertension [I10] GASTROINTEST HEMORR NOS [K92.2] INT HEMORRHOID W/O COMPL [K64.8] DIVERTICULOSIS OF COLON W/O BLEED [K57.30] PERS HX COLONIC POLYPS [Z86.0100] ALLERGIC RHINITIS NOS [J30.9] 09/28/2007 ATROPHIC VAGINITIS [...] syndrome (HCC) [M35.00] 10/18/2017 Encounter Status:Closed by ANN SIMMS on 05/17/24 Normal [facility] Carbon dioxide, total [Moles /volume] in Central venous bloodOrdered By: Anil Corley on 05-17-2024 CO2 [Moles/Vol] 22.4 mmol/L 21.0-32.0 [facility] Chloride assayOrdered By: Maikel Corley on 05-17-2024 Chloride [Moles/Vol] 102 mmol/L 98-108 [facility] Comprehensive Metabolic Prof ilon 05-17-2024 Albumin [Mass/Vol] 4.4 g/dL Normal 3.4-4.8 [facility] Comment on above: Performed By: #### L 506.1001, L509.8002, L501.9520, L3890.6301, L506.0200, L500.4050, L100.0100, L503.0106 #### [facility] [address] [place], [place], [id number] Albumin/Globulin [Mass ratio] 1.3 {ratio} Normal 0.9-2.4 [facility] Comment on above: Performed By: #### L 506.1001, L509.8002, L501.9520, L3890.6301, L506.0200, L500.4050, L100.0100, L503.0106 #### [facility] [address] [place], [address] ALK PHOS 120 U/L High 35-104 [facility] Comment on above: Performed By: #### L 506.1001, L509.8002, L501.9520, L3890.6301, L506.0200, L500.4050, L100.0100, L503.0106 #### [facility] [address] [place], [address] ALT [Catalytic activity/Vol] 13 U/L Normal <=34 [facility] Comment on above: Performed By: #### L 506.1001, L509.8002, L501.9520, L3890.6301, L506.0200, L500.4050, L100.0100, L503.0106 #### [facility] [address] [place], [address] AST [Catalytic activity/Vol] 18 U/L Normal <=31 [facility] Comment on above: Performed By: #### L 506.1001, L509.8002, L501.9520, L3890.6301, L506.0200, L500.4050, L100.0100, L503.0106 #### [facility] [address] [place], [address] Bilirubin [Mass/Vol] 0.34 mg/dL Normal 0.00-1.30 [facility] Comment on above: Performed By: #### L 506.1001, L509.8002, L501.9520, L3890.6301, L506.0200, L500.4050, L100.0100, L503.0106 #### [facility] [address] [place], [address] BUN/CRE 14.8 RATIO Normal 10-20 [facility] Comment on above: Performed By: #### L 506.1001, L509.8002, L501.9520, L3890.6301, L506.0200, L500.4050, L100.0100, L503.0106 #### [facility] [address] [place], [address] Calcium [Mass/Vol] 9.8 mg/dL Normal 7.6-11.0 [facility] Comment on above: Performed By: #### L 506.1001, L509.8002, L501.9520, L3890.6301, L506.0200, L500.4050, L100.0100, L503.0106 #### [facility] [address] [place], [address] Chloride [Moles/Vol] 102 mmol/L Normal 98-108 [facility] Comment on above: Performed By: #### L 506.1001, L509.8002, L501.9520, L3890.6301, L506.0200, L500.4050, L100.0100, L503.0106 #### [facility] [address] [place], [address] CO2 [Moles/Vol] 22.4 mmol/L Normal 21.0-32.0 [facility] Comment on above: Performed By: #### L 506.1001, L509.8002, L501.9520, L3890.6301, L506.0200, L500.4050, L100.0100, L503.0106 #### [facility] [address] [place], [address] Creatinine [Mass/Vol] 0.83 mg/dL Normal 0.70-1.20 [facility] Comment on above: Performed By: #### L 506.1001, L509.8002, L501.9520, L3890.6301, L506.0200, L500.4050, L100.0100, L503.0106 #### [facility] [address] [place], [address] GAP 12 Normal 5-15 [facility] Comment on above: Performed By: #### L 506.1001, L509.8002, L501.9520, L3890.6301, L506.0200, L500.4050, L100.0100, L503.0106 #### [facility] [address] [place], [address] GFR/1.73 sq M.predicted among non-blacks MDRD (S/P/Bld) [Vol rate/Area] 68 mL/min/{1.73_m2} Normal >60 [facility] Comment on above: Result Comment: mL/m in/1.73m2 CKD-EPI Creatinine Equation (2020) Performed By: #### L 506.1001, L509.8002, L501.9520, L3890.6301, L506.0200, L500.4050, L100.0100, L503.0106 #### [facility] [address] [place], [address] Globulin (S) [Mass/Vol] 3.3 g/dL Normal 2.2-4.2 [facility] Comment on above: Performed By: #### L 506.1001, L509.8002, L501.9520, L3890.6301, L506.0200, L500.4050, L100.0100, L503.0106 #### [facility] [address] [place], [address] Glucose [Mass/Vol] 97 mg/dL Normal 70-99 [facility] Comment on above: Performed By: #### L 506.1001, L509.8002, L501.9520, L3890.6301, L506.0200, L500.4050, L100.0100, L503.0106 #### [facility] [address] [place], [address] Potassium [Moles/Vol] 4.0 mmol/L Normal 3.3-5.1 [facility] Comment on above: Performed By: #### L 506.1001, L509.8002, L501.9520, L3890.6301, L506.0200, L500.4050, L100.0100, L503.0106 #### [facility] [address] [place], [address] Sodium [Moles/Vol] 137 mmol/L Normal 133-145 [facility] Comment on above: Performed By: #### L 506.1001, L509.8002, L501.9520, L3890.6301, L506.0200, L500.4050, L100.0100, L503.0106 #### [facility] [address] [place], [address] T PROT 7.6 g/dL Normal 5.9-8.4 [facility] Comment on above: Performed By: #### L 506.1001, L509.8002, L501.9520, L3890.6301, L506.0200, L500.4050, L100.0100, L503.0106 #### [facility] [address] [place], [address] Urea nitrogen [Mass/Vol] 12 mg/dL Normal 4-19 [facility] Comment on above: Performed By: #### L 506.1001, L509.8002, L501.9520, L3890.6301, L506.0200, L500.4050, L100.0100, L503.0106 #### [facility] [address] [place], [place], [address] Eosinophil percentageOrdered By: Anil Barnettok on 05-17-2024 Eosinophils/100 WBC (Bld) 1.4 % 0-5 [facility] Erythrocyte distribution wid th ratioOrdered By: [facility] 05-17-2024 Erythrocyte distribution width (RBC) [Ratio] 13.4 % 11.6-14.6 [facility] Erythrocyte distribution wid th standard deviationOrdered By: Anil Barney on 05-17-2024 Erythrocyte distribution width (RBC) [Entitic vol] 45.9 fL High 35.1-43.9 [facility] Erythrocyte distribution width (RBC) [Ratio] 45.9 fl High 35.1-43.9 [facility] FOLATES,SERUM (FOLIC ACID)on 05-17-2024 FOLATES,SERUM 5.27 ng/mL Normal 4.60-34.80 [facility] Comment on above: Order Comment: N Performed By: #### L 506.1001, L509.8002, L501.9520, L3890.6301, L506.0200, L500.4050, L100.0100, L503.0106 #### [facility] [address] [place], [place], [address] Folate [Mass/Vol]Ordered By: Anil Corley on 05-17-2024 Folate 5.27 ng/mL 4.60-34.80 [facility] Folate [Mass/volume] in Seru m or PlasmaOrdered By: Anil Corley 05-17-2024 Folate [Mass/Vol] 5.27 ng/mL 4.60-34.80 [facility] GFR/1.73 sq M.predicted satish g non-blacks MDRD (S/P/Bld) [Vol rate/Area]Ordered By: Anil Corley on 05-17-2024 Estimated GFR (MDRD) Non-Af Amer 68 >60 [facility] Comment on above: mL/min/1.73m2 CKD-EP I Creatinine Equation (2020) Glomerular filtration rate ( GFR) estimation/1.73 sq m using serum, plasma, or whole bOrdered By: Anil Corley on 03-05-2025 GFR/1.73 sq M.predicted among non-blacks MDRD (S/P/Bld) [Vol rate/Area] 68 mL/min/{1.73_m2} >60 [facility] Comment on above: mL/min/1.73m2 CKD-EP I Creatinine Equation (2020) Hematocrit Auto (Bld) [Volum e fraction]Ordered By: Anil Corley on 05-17-2024 Hematocrit (Bld) [Volume fraction] 37.3 % 37-47 [facility] Hemoglobin measurementOrdere d By: Anil Corley on 05-17-2024 Hemoglobin (Bld) [Mass/Vol] 12.2 g/dL 12.0-15.0 [facility] Hepatitis C antibodyOrdered By: Anil Corley on 05-17-2024 Hepatitis C Antibody Non-Reactive Nonreactive [facility] Comment on above: Reactive: Presumptiv e evidence of antibodies to HCV. Follow CDC recommendations for supplemental testing.Non-Reactive: Antibodies to HCV were not detected; does not exclude the possibility of exposure to HCVReactive Results are presumptive evidence of antibodies to HCV. Follow CDC recommendations for supplemental testing.Order confirmation testing: HCV Quant by PCR testing - HCVPCR lc#[id number] Non Reactive: < 0.8 Equivocal: >/= 0.8 to < 1.0 Reactive: >/= 1.0The CDC requires that a reactive/equivocal HCV antibody result be sent out for confirmation. HCV Quant by PCR testing. Immature granulocytes/100 WB C Auto (Bld)Ordered By: Anil Corley on 05-17-2024 Immature granulocytes/100 WBC (Bld) 0.400 % 0.0-0.9 [facility] Comment on above: IG% - Immature Granu locytes (promyelocytes, myelocytes and metamyelocytes) > 1% indicates that a LEFT SHIFT is Present. L3890.6301on 05-17-2024 Hepatitis C Ab Non-Reactive Normal Nonreactive [facility] Comment on above: Result Comment: Reac tive: Presumptive evidence of antibodies to HCV. Follow CDC recommendations for supplemental testing. Non-Reactive: Antibodies to HCV were not detected; does not exclude the possibility of exposure to HCV Reactive Results are presumptive evidence of antibodies to HCV. Follow CDC recommendations for supplemental testing. Order confirmation testing: HCV Quant by PCR testing - HCVPCR lc#[id number] Non Reactive: < 0.8 Equivocal: >/= 0.8 to < 1.0 Reactive: >/= 1.0 The CDC requires that a reactive/equivocal HCV antibody result be sent out for confirmation. HCV Quant by PCR testing. Performed By: #### L 506.1001, L509.8002, L501.9520, L3890.6301, L506.0200, L500.4050, L100.0100, L503.0106 #### [facility] [address] [facility] [place] [place], [address] L503.0106on 05-17-2024 Cobalamin (Vitamin B12) [Mass/Vol] 616 pg/mL Normal 180-914 [facility] Comment on above: Performed By: #### L 506.1001, L509.8002, L501.9520, L3890.6301, L506.0200, L500.4050, L100.0100, L503.0106 #### [facility] [address] [place], [address] L506.1001on 05-17-2024 Vitamin D 25-OH 25.3 ng/mL Low 30-100 [facility] Comment on above: Result Comment: Bertha min D Status Deficiency: <20 ng/mL (50nmol/L) Insufficiency: 20-30 ng/mL (50-75 nmol/L) Sufficiency: 30-100 ng/mL (75-250 nmol/L) Toxicity: >100 ng/mL (>250 nmol/L) Performed By: #### L 506.1001, L509.8002, L501.9520, L3890.6301, L506.0200, L500.4050, L100.0100, L503.0106 #### [facility] [address] [place], [address] L509.8002on 05-17-2024 Syphilis Abs Non-Reactive Normal Nonreactive [facility] Comment on above: Performed By: #### L 506.1001, L509.8002, L501.9520, L3890.6301, L506.0200, L500.4050, L100.0100, L503.0106 #### [facility] [address] [place], [address] Laboratory - Chemistry and C hemistry - challengeOrdered By: Anil Corley on 05-17-2024 AST [Catalytic activity/Vol] 18 U/L <32 [facility] Lymphocytes Auto (Unsp spec) [#/Vol]Ordered By: [facility] on 05-17-2024 Lymphocytes (Bld) [#/Vol] 1.56 10*3/uL 0.83-4.51 [facility] Lymphocytes/100 WBC Auto (Un sp spec)Ordered By: Anil Barney on 05-17-2024 Lymphocytes/100 WBC (Bld) 21.8 % 19-41 [facility] MCV (mean corpuscular volume ) determinationOrdered By: Anil Corley on 05-17-2024 MCV (RBC) [Entitic vol] 92.8 fL 81-99 [facility] Mean corpuscular hemoglobin (MCH) determinationOrdered By: [facility] on 05-17-2024 MCH (RBC) [Entitic mass] 30.3 pg 27.0-32.0 [facility] Mean corpuscular hemoglobin concentration (MCHC) determinationOrdered By: [facility] 05-17-2024 MCHC (RBC) [Mass/Vol] 32.7 g/dL 32-36 [facility] Mean platelet volume determi nationOrdered By: Anil Corley on 05-17-2024 Platelet mean volume (Bld) [Entitic vol] 9.1 fL 6.2-12.0 [facility] Monocyte percentageOrdered B y: Anil Corley on 05-17-2024 Monocytes/100 WBC (Bld) 8.4 % 0-10 [facility] Neutrophil percentageOrdered By: Anil Barney on 05-17-2024 Neutrophils/100 WBC (Bld) 67.2 % 47-70 [facility] Nucleated red blood cell per centageOrdered By: Anil Corley on 05-17-2024 Nucleated RBC/100 WBC (Bld) [Ratio] 0 % 0-5 [facility] Platelet countOrdered By: Maikel Corley on 05-17-2024 Platelets (Bld) [#/Vol] 295 10*3/uL 150-450 [facility] Potassium (Unsp spec) [Mass/ Vol]Ordered By: Anil Corley on 05-17-2024 Potassium [Moles/Vol] 4.0 mmol/L 3.3-5.1 [facility] Potassium measurement (mass/ volume)Ordered By: Anil Corley on 05-17-2024 Potassium (Unsp spec) [Mass/Vol] 4.0 mmol/L 3.3-5.1 [facility] RBC Auto (Bld) [#/Vol]Ordere d By: Anil Corley on 05-17-2024 RBC (Bld) [#/Vol] 4.02 10*6/uL Low 4.2-5.4 [facility] Serum creatinine measurement (mass/volume)Ordered By: Anil Corley on 05-17-2024 Creatinine [Mass/Vol] 0.83 mg/dL 0.70-1.20 [facility] Serum globulin measurementOr dered By: Anil Corley on 05-17-2024 Globulin (S) [Mass/Vol] 3.3 g/dL 2.2-4.2 [facility] Serum glucose measurement (m ass/volume)Ordered By: Anil Corley on 05-17-2024 Glucose [Mass/Vol] 97 mg/dL 70-99 [facility] Serum or plasma alanine roy otransferase (ALT) measurementOrdered By: Anil Corley 05-17-2024 ALT [Catalytic activity/Vol] 13 U/L <35 [facility] Serum or plasma albumin tacos urement (mass/volume)Ordered By: Anil Corley 05-17-2024 Albumin [Mass/Vol] 4.4 g/dL 3.4-4.8 [facility] Serum or plasma albumin/glob ulin mass ratioOrdered By: Anil Corley 05-17-2024 Albumin/Globulin [Mass ratio] 1.3 {ratio} 0.9-2.4 [facility] Serum or plasma alkaline arthur sphatase measurementOrdered By: Anil Corley on 03-05-2025 ALP [Catalytic activity/Vol] 120 U/L High 35-104 [facility] Serum or plasma calcium tacos urement (mass/volume)Ordered By: Anli Corley on 05-17-2024 Calcium [Mass/Vol] 9.8 mg/dL 7.6-11.0 [facility] Serum or plasma urea nitroge n measurement (mass/volume)Ordered By: Anil Corley on 05-17-2024 Urea nitrogen [Mass/Vol] 12 mg/dL 4-19 [facility] Sodium levelOrdered By: Anil Corley on 05-17-2024 Sodium [Moles/Vol] 137 mmol/L 133-145 [facility] T. pallidum abOrdered By: Maikel Corley on 05-17-2024 Syphilis Total Antibody Non-Reactive Nonreactiv e [facility] TSH DL <= 0.005 mIU/L QnOrde red By: Anil Corley on 05-17-2024 Thyroid Stimulating Hormone (TSH) 2.940 uIU/mL 0.300-4.200 [facility] TSH Qn 2.940 uIU/mL 0.300-4.200 [facility] Thyroid Stim Hormone (TSH)on 05-17-2024 TSH 2.940 uIU/mL Normal 0.300-4.200 [facility] Comment on above: Performed By: #### L 506.1001, L509.8002, L501.9520, L3890.6301, L506.0200, L500.4050, L100.0100, L503.0106 #### [facility] [place], [address] Total proteinOrdered By: Anil Corley on 05-17-2024 Protein [Mass/Vol] 7.6 g/dL 5.9-8.4 [facility] Vitamin B12 ser/plasOrdered By: Anil Corley on 05-17-2024 Cobalamin (Vitamin B12) [Mass/Vol] 616 pg/mL 180-914 [facility] Vitamin D, 25-hydroxyOrdered By: Anil Corley on 05-17-2024 Vitamin D 25-Hydroxy 25.3 ng/mL Low 30-100 [facility] Comment on above: Vitamin D StatusDefi ciency: <20 ng/mL (50nmol/L)Insufficiency: 20-30 ng/mL (50-75 nmol/L)Sufficiency: 30-100 ng/mL (75-250 nmol/L)Toxicity: >100 ng/mL (>250 nmol/L) White blood cell (WBC) count Ordered By: Anil Corley on 05-17-2024 WBC (Bld) [#/Vol] 7.2 10*3/uL 4.4-11.0 [facility] Nga 05-01-2024 WAYNEN Telephone ([employer]) ABDIAZIZ HERNANDEZ ([id number]) 1935 F Date Time Provider Department 05/01/24 CARA HUITRON During your visit today, we recorded the following information about you: Allergies As of Date: 05/01/2024 Noted Allergy Reaction ANESTHESIA [Other] 12/26/2004 8 [...] mouth lots of dental work Date Reviewed: 04/11/2024 Reviewed by: Rox Baird APRN.MAKING MACHINE OPERATOR - Fully Assessed Prescriptions as of 12/07/2024 - atorvastatin (LIPITOR) 10 mg tablet Take 0.5 tablets by mouth once daily. - levothyroxine (SYNTHROID) 75 mcg tablet Take 1 tablet by mouth once daily. Take on empty stomach. For Thyroid - AVAPRO 300 mg tablet Take 1 tablet by mouth once daily. - levothyroxine (SYNTHROID) 50 mcg tablet Take 1 tablet by mouth every Wednesday. Or as directed. 75 mcg daily the rest of the week - ASPIRIN 81 MG TAB Take one (1) tablet daily . Meds Comments as of 08/31/2013: Norvasc currently on hold by patient. 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] 10/18/2017 Encounter Status:Closed by EDILIA BUCK on 12/07/24 Normal [facility] CNOVon 04-11-2024 CNOV Office Visit (FAMPWS ) ABDIAZIZ HERNANDEZ ([id number]) 1935 F Date Time Provider Department 04/11/24 2:00 PM ROX BAIRD During your visit today, we recorded the following information about you: Pulse Respiration Blood pressure Weight 68/minute 18/minute 138/70 64.2 kg Height 1.635 m Rox Baird APRN.MAKING MACHINE OPERATOR 04/12/2024 7:39 AM Signed 04/11/2024 Patient presents with: Establish Care SUBJECTIVE: This is a 89 year old, accompanied by , that is here today for Above Complaints. HTN: Patient is compliant with meds Yes Monitors bp at home: No. Denies side effects: Yes. Chest pain: No. Dyspnea: No. Edema: No. Palpitations: No. Syncope: No. Headache: No. Dizziness: No. HYPERLIPIDEMIA: Patient is taking medications: Yes. Patient is watching diet: Yes. Patient denies myalgias: Yes. Patient denies gi upset: Yes HYPOTHYROIDISM: taking levothyroxine as prescribed without side effects wanting paper work completed stating patient is incompetent so he can get power of personal injury attorney. Patient with hx of cognitive impairment. Was supposed to follow-up with [facility] in 2020 but never did. Patient not wanting to discuss today. Past medical, surgical, family, social hx ,medications, allergies and health maintenance reviewed and updated PAST MEDICAL HISTORY Diagnosis Date Abscess and cellulitis of gluteal region 10/2018 with hematoma also Allergic rhinitis, cause unspecified 09/28/2007 Diverticulosis of colon (without mention of hemorrhage) Hemorrhage of gastrointestinal tract, unspecified Internal hemorrhoids without mention of complication Other chronic allergic conjunctivitis ALLERGIC CONJUNCTIVITIS Personal history of colonic polyps PMH - PAST MEDICAL HISTORY OF ganglian left foot Pure hypercholesterolemia Sjogren's disease (HCC) 2009 Unspecified essential hypertension Unspecified hypothyroidism ALLERGIES Anesthesia [Other], Atorvastatin, Codeine, Irbesartan, Levothroid [Levothyroxine Sodium], and Pravastatin MEDICATIONS Current Outpatient Medications Medication Sig atorvastatin (LIPITOR) 10 mg tablet Take 0.5 tablets by mouth once daily. AVAPRO 300 mg tablet Take 1 tablet by mouth once daily. levothyroxine (SYNTHROID) 75 mcg tablet Take 1 tablet by mouth once daily. Take on empty stomach. For Thyroid levothyroxine (SYNTHROID) 50 mcg tablet Take 1 tablet by mouth every Wednesday. Or as directed. 75 mcg daily the rest of the week ASPIRIN 81 MG TAB Take one (1) tablet daily . No current facility-administered medications for this visit. Medications and allergies reviewed by this provider. SOCIAL HISTORY Social History Tobacco Use Smoking status: Never Smokeless tobacco: Never Substance Use Topics Alcohol use: No Drug use: No REVIEW OF SYSTEMS GENERAL: No weight loss, malaise or fevers RESPIRATORY: Negative for cough, hemoptysis, wheezing, COPD, dyspnea or shortness of breath CARDIOVASCULAR: Negative for chest pain, leg swelling, hypertension, CHF or palpitations GI: No nausea, vomiting, or diarrhea All other reviewed and negative other than HPI. OBJECTIVE: BP 138/70 Pulse 68 Resp 18 Ht 163.5 cm (5' 4.37) Wt 64.2 kg (141 lb 8.6 oz) SpO2 98% BMI 24.02 kg/m? . Vital signs reviewed by this provider. APPEARANCE Well appearing, alert, in no acute distress, well-hydrated, well nourished. EYES conjunctiva and sclera normal. HEART RRR with normal S1 and S2, no murmurs, no gallops, no JVD appreciated LUNG clear to auscultation. No wheezes, rhonchi or rales EXTREMITIES Extremities normal, No deformities, No skin discoloration, and No edema SKIN Skin color, texture, turgor normal, no suspicious rashes or lesions to exposed skin Depression Screening Never done Anxiety Screening Never done DTaP,Tdap,Td Vaccine(1 - Tdap) due on 09/29/2007 RSV Vaccine(1 - 1-dose 75+ series) Never done Shingrix Vaccine(2 of 2) due on 03/19/2020 Diabetes Screening due on 08/20/2023 Advance Directive Discussion Never done Covid-19 Vaccine( season) due on 04/11/2025 Bone Density Screening Completed Influenza Vaccine Completed Pneumococcal Vaccine: 50+ Completed ASSESSMENT/PLAN: 1. Encounter to establish care - ICD9: V65.8, ICD10: Z76.89 (primary diagnosis) - plan as below - will need to get records from previous provider - follow-up in 6 months for routine visit 2. Essential hypertension - ICD9: 401.9, ICD10: I10 - Controlled - Continue current medications - Recommend home blood pressure monitoring, to bring results to next visit - Encouraged sodium restriction, DASH or Mediterranean diet - Recommend regular aerobic exercise - Follow up in 6 months for hypertension visit - COMPREHENSIVE METABOLIC PANEL - COMPLETE BLOOD COUNT AND DIFFERENTIAL 3. Pure hypercholesterolemia - ICD9: 272.0, ICD10: (more content not included)... Normal [facility] CNPNon 03-28-2024 CNPN Telephone (FAMWS) ABDIAZIZ HERNANDEZ ([id number]) 1935 F Date Time Provider Department 03/28/24 RICARDO HOLLIDAY [facility] During your visit today, we recorded the following information about you: Evita Thomas RN 03/28/2024 10:32 AM Signed Patient's Lisandro calling in with an appointment related question regarding patient. Informed Lisandro that this nurse would get further information for him and call him back. BERNARDO Islas Sherrie, RN 03/28/2024 11:54 AM Signed Patient's spouse Lisandro contacted and Establish Care appointment made for patient as requested. Evita Thomas RN Allergies As of Date: 03/28/2024 Noted Allergy Reaction ANESTHESIA [Other] 12/26/2004 8 [...] MA - Fully Assessed Reason for Visit: Patient Request [1906] Prescriptions as of 03/28/2024 - atorvastatin (LIPITOR) 10 mg tablet Take [...] (apply daily to dry intact skin). - dekhqpve-silthapndh-uto ymyxin-hydrocortisone (CHANCE-POLYCIN HC) 3.5-400-10,000 mg-unit/g-1% ophthalmic ointment Use in both eyes twice daily. - ASPIRIN 81 MG TAB Take one (1) tablet daily . Meds Comments as of 08/31/2013: Norvasc currently on hold by patient. Holding ASA 3 days prior per MD Problem List As Of Date 03/28/2024 Noted Resolved Hypothyroidism [E03.9] PURE HYPERCHOLESTEROLEM [E78.00] Essential hypertension [I10] GASTROINTEST HEMORR NOS [K92.2] INT HEMORRHOID W/O COMPL [K64.8] DIVERTICULOSIS OF COLON W/O BLEED [K57.30] PERS HX COLONIC POLYPS [Z86.0100] ALLERGIC RHINITIS NOS [J30.9] 09/28/2007 ATROPHIC VAGINITIS [...] syndrome (HCC) [M35.00] 10/18/2017 Encounter Status:Closed by EVITA THOMAS on 03/28/24 Normal [facility] Basophil percentageOrdered B y: Ricardo Holliday on 04-01-2023 Basophil percentage >100 [facility] Test strip Ql (U)O rdered By: Ricardo Holliday on 04-01-2023 Bilirubin Ql (U) Negative Negative [facility] Culture, urineOrdered By: Yvonne Holliday on 04-01-2023 Bacteria identified Cx Nom (U) Presumptive E. coli [facility] Ketones Test strip Ql (U)Ord ered By: Ricardo Holliday on 04-01-2023 Ketones Ql (U) Negative Negative [facility] Mucus LM Ql (Urine sed)Order ed By: Ricardo Holliday on 04-01-2023 Mucus Ql (Urine sed) 0 SEEN /hpf [facility] Nitrite Test strip Ql (U)Ord ered By: Ricardo Holliday on 04-01-2023 Nitrite Ql (U) Positive Negative [facility] No Panel InformationOrdered By: Ricardo Holliday on 04-01-2023 Urine RBC 0 SEEN /hpf 0-5 [facility] Protein Test strip Ql (U)Ord ered By: Ricardo Holliday on 04-01-2023 Protein Ql (U) 15 mg/dl Negative [facility] Squamous epithelial cells de tection in urine sediment by light microscopyOrdered By: Ricardo Holliday on 04-01-2023 Epithelial cells.squamous LM Ql (Urine sed) 0-5 SEEN /hpf 5-10 [facility] Urine blood detectionOrdered By: Ricardo Holliday on 04-01-2023 RBC Ql (U) 25 /ul Negative [facility] Urine clarityOrdered By: Edith Holliday on 04-01-2023 Clarity (U) Sl. Cloudy Clear [facility] Urine color determinationOrd ered By: Ricardo Holliday on 04-01-2023 Color (U) Yellow Yellow [facility] Urine glucose detectionOrder ed By: Ricardo Holliday on 04-01-2023 Glucose Ql (U) Normal mg/dl Normal [facility] Urine leukocyte esterase det ection by dipstickOrdered By: Ricardo Holliday on 04-01-2023 Leukocyte esterase Test strip Ql (U) 500 /ul Negative [facility] Urine pHOrdered By: Ricardo rhodes on 04-01-2023 pH (U) 6.5 [pH] 5.0 - 8.0 [facility] Urine sediment bacteria coun t by microscopy (number/high power field)Ordered By: Ricardo Holliday on 04-01-2023 Bacteria LM.HPF (Urine sed) [#/Area] 2 /[HPF] None Seen [facility] Urine specific gravity measu rementOrdered By: Ricardo Holliday on 04-01-2023 Specific gravity (U) [Rel density] 1.010 1.002-1.030 [facility] Urine urobilinogen measureme ntOrdered By: Ricardo Holliday on 04-01-2023 Urobilinogen Ql (U) Normal mg/dl Normal [facility] Absolute lymphocyte countOrd ered By: Ricardo Holliday on 02-24-2023 Lymphocytes Auto (Unsp spec) [#/Vol] 1.38 10*3/uL 0.83-4.51 [facility] Basophil percentageOrdered B y: Ricardo Holliday on 02-24-2023 Basophils/100 WBC (Bld) 1.0 % 0-1 [facility] Bilirubin [Mass/Vol] 0.70 mg/dL 0.20-1.00 [facility] Comment on above: For patients on eltr ombopag therapy, use of Dimension [place] TBIL is not recommended. Chloride [Moles/Vol] 110 mmol/L 98-107 [facility] Cholesterol [Mass/Vol] 208 mg/dL <200 [facility] Comment on above: <200 mg/dL Desirable 200-240 mg/dL Borderline >240 mg/dL High Risk Eosinophils/100 WBC (Bld) 1.3 % 0-5 [facility] Glucose [Mass/Vol] 90 mg/dL 74-106 [facility] Neutrophils (Bld) [#/Vol] 3.9 10*3/uL 2.0-7.7 [facility] Neutrophils/100 WBC (Bld) 65.4 % 47-70 [facility] Potassium [Moles/Vol] 3.8 mmol/L 3.5-5.1 [facility] Protein [Mass/Vol] 7.5 g/dL 6.4-8.2 [facility] Sodium [Moles/Vol] 140 mmol/L 136-145 [facility] Triglyceride [Mass/Vol] 93 mg/dL <199 [facility] Comment on above: The drugs N-Acetylcy steine and Metamizole may falsely depress this assay.Serum Triglycerides Reference Interval Normal <150 mg/dL Borderline high 150 - 199 mg/dL High 200 - 499 mg/dL Very High > or = 500 mg/dL WBC (Bld) [#/Vol] 6.0 10*3/uL 4.4-11.0 [facility] Blood erythrocytes count (nu mber/volume)Ordered By: Ricardo Holliday on 02-24-2023 RBC (Bld) [#/Vol] 3.85 10*6/uL 4.2-5.4 [facility] Blood hemoglobin measurement (mass/volume)Ordered By: Ricardo Holliday on 02-24-2023 Hemoglobin (Bld) [Mass/Vol] 11.7 g/dL 12.0-15.0 [facility] Blood lymphocytes/100 leukoc ytesOrdered By: Ricardo Holliday on 02-24-2023 Lymphocytes/100 WBC (Bld) 23.1 % 19-41 [facility] Blood monocytes/100 leukocyt esOrdered By: Ricardo Holliday on 02-24-2023 Monocytes/100 WBC (Bld) 8.9 % 0-10 [facility] Blood platelet mean volumeOr dered By: Ricardo Holliday on 02-24-2023 Platelet mean volume (Bld) [Entitic vol] 9.3 fL 6.2-12.0 [facility] Determination of erythrocyte mean corpuscular volume (MCV)Ordered By: Ricardo Holliday on 02-24-2023 MCV (RBC) [Entitic vol] 97.7 fL 81-99 [facility] Hematocrit Auto (Bld) [Volum e fraction]Ordered By: Ricardo Holliday on 02-24-2023 Hematocrit (Bld) [Volume fraction] 37.6 % 37-47 [facility] Laboratory - Chemistry and C hemistry - challengeOrdered By: Ricardo Holliday on 02-24-2023 ALP [Catalytic activity/Vol] 95 U/L 45-117 [facility] ALT [Catalytic activity/Vol] 17 U/L 13-56 [facility] CO2 [Moles/Vol] 25.0 mmol/L 21.0-32.0 [facility] Free T4 [Mass/Vol] 1.21 ng/dL 0.76-1.46 [facility] Globulin (S) [Mass/Vol] 3.8 g/dL 2.2-4.2 [facility] Urea nitrogen/Creatinine [Mass ratio] 11.9 mg/mg 10-20 [facility] Laboratory - Hematology and Cell countsOrdered By: Ricardo Holliday on 02-24-2023 Erythrocyte distribution width (RBC) [Entitic vol] 49.5 fL 35.1-43.9 [facility] Erythrocyte distribution width (RBC) [Ratio] 13.7 % 11.6-14.6 [facility] Immature granulocytes/100 WBC (Bld) 0.300 % 0.0-0.9 [facility] Comment on above: IG% - Immature Granu locytes (promyelocytes, myelocytes and metamyelocytes) > 1% indicates that a LEFT SHIFT is Present. MCH (RBC) [Entitic mass] 30.4 pg 27.0-32.0 [facility] Nucleated RBC/100 WBC (Bld) [Ratio] 0 % 0-5 [facility] MCHC Auto (RBC) [Mass/Vol]Or dered By: Ricardo Holliday on 02-24-2023 MCHC (RBC) [Mass/Vol] 31.1 g/dL 32-36 [facility] No Panel InformationOrdered By: Ricardo Holliday on 02-24-2023 Estimated GFR (MDRD) Amer 74 mL/min >60 [facility] Comment on above: GFR Calc Estimated GFR (MDRD) Non-Af Amer 61 mL/min >60 [facility] Comment on above: Non- GFR Calc Free Triiodothyronine (T3) pg/dL 2.0 pg/mL 2.18-3.98 [facility] Thyroid Stimulating Hormone (TSH) 3.37 uIU/mL 0.358-3.74 [facility] Platelets bldOrdered By: Edith Holliday on 02-24-2023 Platelets (Bld) [#/Vol] 291 10*3/uL 150-450 [facility] Serum or plasma albumin tacos urement (mass/volume)Ordered By: Ricardo Holliday on 02-24-2023 Albumin [Mass/Vol] 3.7 g/dL 3.2-5.0 [facility] Serum or plasma albumin/glob ulin mass ratioOrdered By: Ricardo Holliday on 02-24-2023 Albumin/Globulin [Mass ratio] 1.0 {ratio} 0.9-2.4 [facility] Serum or plasma calcium tacos urement (mass/volume)Ordered By: Ricardo Holliday on 02-24-2023 Calcium [Mass/Vol] 9.1 mg/dL 8.5-10.1 [facility] Serum or plasma cholesterol in HDL measurement (mass/volume)Ordered By: Ricardo Holliday on 02-24-2023 Cholesterol in HDL [Mass/Vol] 76 mg/dL >40 [facility] Comment on above: The drugs N-Acetylcy steine and Metamizole may falsely depress this assay. Reference Range HDL <40 mg/dL Low HDL Cholesterol HDL >or= 60 mg/dL High HDL Cholesterol Serum or plasma cholesterol in VLDL measurement (mass/volume)Ordered By: Ricardo Holliday on 02-24-2023 Cholesterol in VLDL [Mass/Vol] 19 mg/dL 5-40 [facility] Serum or plasma creatinine m easurement (mass/volume)Ordered By: Ricardo Holliday on 02-24-2023 Creatinine [Mass/Vol] 0.92 mg/dL 0.55-1.02 [facility] Comment on above: The validity of the calculated GFR & GFRAA in patients over 70 years has not been determined. Clinical correlation is essential. Serum or plasma low density lipoprotein (LDL) cholesterol measurement (mass/volume)Ordered By: Ricardo Holliday on 02-24-2023 Cholesterol in LDL [Mass/Vol] 113 mg/dL 0-130 [facility] Serum or plasma urea nitroge n measurement (mass/volume)Ordered By: Ricardo Holliday on 02-24-2023 Urea nitrogen [Mass/Vol] 11 mg/dL 7-18 [facility] Thin prep Papanicolaou smear with manual screeningOrdered By: Ricardo Holliday on 02-24-2023 Thin prep Papanicolaou smear with manual screening 16 U/L 15-37 [facility] Thin prep Papanicolaou smear with manual screening 5 5-15 [facility] Basophil percentageon 2021 Bilirubin [Mass/Vol] 0.60 mg/dL 0.20-1.00 [facility] Work Phone: Comment on above: For patients on eltr ombopag therapy, use of Dimension [place] TBIL is not recommended. Chloride [Moles/Vol] 108 mmol/L 98-107 [facility]: Glucose [Mass/Vol] 111 mg/dL 74-106 [facility] Work Phone: Comment on above: Fasting Glucose resu lt from 100 to 125 mg/dL suggests IMPAIRED HOMEOSTASIS per A.D.A. criteria. Potassium [Moles/Vol] 4.1 mmol/L 3.5-5.1 [facility] Work Phone: Protein [Mass/Vol] 7.3 g/dL 6.4-8.2 [facility]: Sodium [Moles/Vol] 141 mmol/L 136-145 [facility] Work Phone: WBC (Bld) [#/Vol] 3.9 10*3/uL 4.4-11.0 [facility] Work Phone: Blood erythrocytes count (nu mber/volume)on 12-22-2021 RBC (Bld) [#/Vol] 4.08 10*6/uL 4.2-5.4 [facility]: Blood hemoglobin measurement (mass/volume)on 12-22-2021 Hemoglobin (Bld) [Mass/Vol] 12.4 g/dL 12.0-15.0 [facility] Work Phone: Blood platelet mean volumeon 12-22-2021 Platelet mean volume (Bld) [Entitic vol] 10.1 fL 6.2-12.0 [facility] Work Phone: Determination of erythrocyte mean corpuscular volume (MCV)on 12-22-2021 MCV (RBC) [Entitic vol] 94.4 fL 81-99 [facility] Work Phone: Hematocrit Auto (Bld) [Volum e fraction]on 12-22-2021 Hematocrit (Bld) [Volume fraction] 38.5 % 37-47 [facility] Work Phone: Laboratory - Chemistry and C hemistry - challengeon 12-22-2021 ALP [Catalytic activity/Vol] 109 U/L 45-117 [facility] Work Phone: ALT [Catalytic activity/Vol] 20 U/L 13-56 [facility] Work Phone: CO2 [Moles/Vol] 26.0 mmol/L 21.0-32.0 [facility] Work Phone: Globulin (S) [Mass/Vol] 3.9 g/dL 2.2-4.2 [facility] Work Phone: Urea nitrogen/Creatinine [Mass ratio] 13.9 mg/mg 10-20 [facility] Work Phone: Laboratory - Hematology and Cell countson 12-22-2021 Erythrocyte distribution width (RBC) [Entitic vol] 45.1 fL 35.1-43.9 [facility] Work Phone: Erythrocyte distribution width (RBC) [Ratio] 13.0 % 11.6-14.6 [facility] Work Phone: MCH (RBC) [Entitic mass] 30.4 pg 27.0-32.0 [facility] Work Phone: MCHC Auto (RBC) [Mass/Vol]on 12-22-2021 MCHC (RBC) [Mass/Vol] 32.2 g/dL 32-36 [facility] Work Phone: No Panel Informationon 12-22 Estimated GFR (MDRD) Amer 80 mL/min >60 [facility] Work Phone: Comment on above: GFR Calc Estimated GFR (MDRD) Non-Af Amer 66 mL/min >60 [facility] Work Phone: Comment on above: Non- GFR Calc Platelets bldon 12-22-2021 Platelets (Bld) [#/Vol] 279 10*3/uL 150-450 [facility] Work Phone: Serum or plasma albumin tacos urement (mass/volume)on 12-22-2021 Albumin [Mass/Vol] 3.4 g/dL 3.2-5.0 [facility] Work Phone: Serum or plasma albumin/glob ulin mass ratioon 12-22-2021 Albumin/Globulin [Mass ratio] 0.9 {ratio} 0.9-2.4 [facility] Work Phone: Serum or plasma calcium tacos urement (mass/volume)on 12-22-2021 Calcium [Mass/Vol] 9.3 mg/dL 8.5-10.1 [facility] Work Phone: Serum or plasma creatinine m easurement (mass/volume)on 12-22-2021 Creatinine [Mass/Vol] 0.86 mg/dL 0.55-1.02 [facility] Work Phone: Comment on above: The validity of the calculated GFR & GFRAA in patients over 70 years has not been determined. Clinical correlation is essential. Serum or plasma urea nitroge n measurement (mass/volume)on 12-22-2021 Urea nitrogen [Mass/Vol] 12 mg/dL 7-18 [facility] Work Phone: Thin prep Papanicolaou smear with manual screeningon 12-22-2021 Thin prep Papanicolaou smear with manual screening 16 U/L 15-37 [facility] Work Phone: Thin prep Papanicolaou smear with manual screening 7 5-15 [facility] Work Phone: Absolute lymphocyte counton 07-18-2021 Lymphocytes Auto (Unsp spec) [#/Vol] 1.13 10*3/uL 0.83-4.51 [facility] Work Phone: Basophil percentageon 2021 Basophils/100 WBC (Bld) 0.4 % 0-1 [facility] Work Phone: Bilirubin [Mass/Vol] 0.70 mg/dL 0.20-1.00 [facility] Work Phone: Comment on above: For patients on eltr ombopag therapy, use of Dimension [place] TBIL is not recommended. Chloride [Moles/Vol] 107 mmol/L 98-107 [facility] Work Phone: Cholesterol [Mass/Vol] 221 mg/dL <200 [facility] Work Phone: Comment on above: <200 mg/dL Desirable 200-240 mg/dL Borderline >240 mg/dL High Risk Eosinophils/100 WBC (Bld) 1.0 % 0-5 [facility] Work Phone: Glucose [Mass/Vol] 95 mg/dL 74-106 [facility] Work Phone: Neutrophils (Bld) [#/Vol] 3.3 10*3/uL 2.0-7.7 [facility] Work Phone: Neutrophils/100 WBC (Bld) 66.9 % 47-70 [facility] Work Phone: Potassium [Moles/Vol] 3.9 mmol/L 3.5-5.1 [facility]: Protein [Mass/Vol] 7.7 g/dL 6.4-8.2 [facility] Work Phone: Sodium [Moles/Vol] 139 mmol/L 136-145 [facility] Work Phone: Triglyceride [Mass/Vol] 66 mg/dL [facility] Work Phone: Comment on above: The drugs N-Acetylcy steine and Metamizole may falsely depress this assay.Serum Triglycerides Reference Interval Normal <150 mg/dL Borderline high 150 - 199 mg/dL High 200 - 499 mg/dL Very High > or = 500 mg/dL WBC (Bld) [#/Vol] 5.0 10*3/uL 4.4-11.0 [facility] Work Phone: Blood erythrocytes count (nu mber/volume)on 07-18-2021 RBC (Bld) [#/Vol] 4.10 10*6/uL 4.2-5.4 [facility] Work Phone: Blood hemoglobin measurement (mass/volume)on 07-18-2021 Hemoglobin (Bld) [Mass/Vol] 12.6 g/dL 12.0-15.0 [facility] Work Phone: Blood lymphocytes/100 leukoc yteson 07-18-2021 Lymphocytes/100 WBC (Bld) 22.8 % 19-41 [facility] Work Phone: Blood monocytes/100 leukocyt eson 07-18-2021 Monocytes/100 WBC (Bld) 8.5 % 0-10 [facility] Work Phone: Blood platelet mean volumeon 07-18-2021 Platelet mean volume (Bld) [Entitic vol] 9.8 fL 6.2-12.0 [facility] Work Phone: Determination of erythrocyte mean corpuscular volume (MCV)on 07-18-2021 MCV (RBC) [Entitic vol] 96.8 fL 81-99 [facility] Work Phone: Hematocrit Auto (Bld) [Volum e fraction]on 07-18-2021 Hematocrit (Bld) [Volume fraction] 39.7 % 37-47 [facility] Work Phone: Laboratory - Chemistry and C hemistry - challengeon 07-18-2021 ALP [Catalytic activity/Vol] 109 U/L 45-117 [facility] Work Phone: ALT [Catalytic activity/Vol] 23 U/L 13-56 [facility] Work Phone: CO2 [Moles/Vol] 27.0 mmol/L 21.0-32.0 [facility] Work Phone: Free T4 [Mass/Vol] 1.33 ng/dL 0.76-1.46 [facility] Work Phone: Globulin (S) [Mass/Vol] 4.0 g/dL 2.2-4.2 [facility] Work Phone: Urea nitrogen/Creatinine [Mass ratio] 16.7 mg/mg 10-20 [facility] Work Phone: Laboratory - Hematology and Cell countson 07-18-2021 Erythrocyte distribution width (RBC) [Entitic vol] 46.7 fL 35.1-43.9 [facility] Work Phone: Erythrocyte distribution width (RBC) [Ratio] 13.1 % 11.6-14.6 [facility] Work Phone: Immature granulocytes/100 WBC (Bld) 0.400 % 0.0-0.9 [facility] Work Phone: Comment on above: IG% - Immature Granu locytes (promyelocytes, myelocytes and metamyelocytes) > 1% indicates that a LEFT SHIFT is Present. MCH (RBC) [Entitic mass] 30.7 pg 27.0-32.0 [facility] Work Phone: Nucleated RBC/100 WBC (Bld) [Ratio] 0 % 0-5 [facility] Work Phone: MCHC Auto (RBC) [Mass/Vol]on 07-18-2021 MCHC (RBC) [Mass/Vol] 31.7 g/dL 32-36 [facility] Work Phone: No Panel Informationon 07-18 Estimated GFR (MDRD) Amer 77 mL/min >60 [facility] Work Phone: Comment on above: GFR Calc Estimated GFR (MDRD) Non-Af Amer 63 mL/min >60 [facility] Work Phone: Comment on above: Non- GFR Calc Free Triiodothyronine (T3) pg/dL 2.5 pg/mL 2.18-3.98 [facility] Work Phone: Thyroid Stimulating Hormone (TSH) 0.72 uIU/mL 0.358-3.74 [facility] Work Phone: Vitamin D 25-Hydroxy 29.2 ng/mL [facility] Work Phone: Comment on above: Vitamin D 25(OH) Sta tus Range Deficiency <20 ng/mL (50nmol/L) Insufficiency 20 - 30 ng/mL (50 - 75 nmol/L) Sufficiency 30 - 100 ng/mL (75 - 250 nmol/L) Toxicity >100 ng/mL (>250 nmol/L) Platelets bldon 07-18-2021 Platelets (Bld) [#/Vol] 308 10*3/uL 150-450 [facility] Work Phone: Serum or plasma albumin tacos urement (mass/volume)on 07-18-2021 Albumin [Mass/Vol] 3.7 g/dL 3.2-5.0 [facility] Work Phone: Serum or plasma albumin/glob ulin mass ratioon 07-18-2021 Albumin/Globulin [Mass ratio] 0.9 {ratio} 0.9-2.4 [facility] Work Phone: Serum or plasma calcium tacos urement (mass/volume)on 07-18-2021 Calcium [Mass/Vol] 9.6 mg/dL 8.5-10.1 [facility] Work Phone: Serum or plasma cholesterol in HDL measurement (mass/volume)on 07-18-2021 Cholesterol in HDL [Mass/Vol] 82 mg/dL [facility] Work Phone: Comment on above: The drugs N-Acetylcy steine and Metamizole may falsely depress this assay. Reference Range HDL <40 mg/dL Low HDL Cholesterol HDL >or= 60 mg/dL High HDL Cholesterol Serum or plasma cholesterol in VLDL measurement (mass/volume)on 07-18-2021 Cholesterol in VLDL [Mass/Vol] 13 mg/dL 5-40 [facility] Work Phone: Serum or plasma creatinine m easurement (mass/volume)on 07-18-2021 Creatinine [Mass/Vol] 0.90 mg/dL 0.55-1.02 [facility] Work Phone: Comment on above: The validity of the calculated GFR & GFRAA in patients over 70 years has not been determined. Clinical correlation is essential. Serum or plasma low density lipoprotein (LDL) cholesterol measurement (mass/volume)on 07-18-2021 Cholesterol in LDL [Mass/Vol] 126 mg/dL 0-130 [facility] Work Phone: Serum or plasma urea nitroge n measurement (mass/volume)on 07-18-2021 Urea nitrogen [Mass/Vol] 15 mg/dL 7-18 [facility] Work Phone: Thin prep Papanicolaou smear with manual screeningon 07-18-2021 Thin prep Papanicolaou smear with manual screening 17 U/L 15-37 [facility] Work Phone: Thin prep Papanicolaou smear with manual screening 5 5-15 [facility] Work Phone: Vital Signs Date Time Vital Sign Value Performing Clinician Arlene weathers 04-11-2024 14:05-0500 Body height 163.5 cm Rox Podlogar COMMUNITY WORKER.MAKING MACHINE OPERATOR Work Phone: [facility] 04-11-2024 14:05-0500 Body mass index (BMI) [Ratio] 24.02 kg/m2 Rox [employer]logar COMMUNITY WORKER.MAKING MACHINE OPERATOR Work Phone: [facility] 04-11-2024 14:05-0500 Body weight 64.2 kg Rox Podlogar COMMUNITY WORKER.MAKING MACHINE OPERATOR Work Phone: [facility] 04-11-2024 14:05-0500 Diastolic blood pressure 70 mm[Hg] Rox Podlogar COMMUNITY WORKER.MAKING MACHINE OPERATOR Work Phone: [facility] 04-11-2024 14:05-0500 Heart rate 68 /min Rox Podlogar COMMUNITY WORKER.MAKING MACHINE OPERATOR Work Phone: [facility] 04-11-2024 14:05-0500 Respiratory rate 18 /min Rox Podlogar COMMUNITY WORKER.MAKING MACHINE OPERATOR Work Phone: [facility] 04-11-2024 14:05-0500 SaO2% (BldA) [Mass fraction] 98 % Rox Podlogar COMMUNITY WORKER.MAKING MACHINE OPERATOR Work Phone: [facility] [facility] 04-[facility]-2024 14:05-0500 Systolic blood pressure 138 mm[Hg] Rox Podlogar COMMUNITY WORKER.MAKING MACHINE OPERATOR Work Phone: [facility] 02-24-2023 10:22-0500 Body height 167.[address] Ricardo Holliday Work Phone: [facility] 02-24-2023 10:22-0500 Body mass index (BMI) [Ratio] 23.3 kg/m2 Dr. Ricardo Holliday Work Phone: [facility] 02-24-2023 10:22-0500 Body temperature 98.3 [degF] Dr. Ricardo Holliday Work Phone: [facility] 02-24-2023 10:22-0500 Body weight 65.[address] Ricardo Holliday Work Phone: [facility] 02-24-2023 10:22-0500 Diastolic blood pressure 69 mm[Hg] Dr. Ricardo Holliday Work Phone: [facility] 02-24-2023 10:22-0500 Heart rate 92 /min Dr. Ricardo Holliday Work Phone: [facility] 02-24-2023 10:22-0500 SaO2% (BldA) [Mass fraction] 93 % Dr. Ricardo Holliday Work Phone: [facility] 02-24-2023 10:22-0500 Systolic blood pressure 138 mm[Hg] Dr. Ricardo Holliday Work Phone: [facility] 07-16-2021 13:15-0400 Body height 167.[address] Yudy Brennan Work Phone: [facility] Work Phone: 07-16-2021 13:15-0400 Body mass index (BMI) [Ratio] 23.7 kg/m2 Dr. Yudy Brennan Work Phone: [facility] Work Phone: 07-16-2021 13:15-0400 Body temperature 98.1 [degF] Dr. Yudy Brennan Work Phone: [facility] Work Phone: 07-16-2021 13:15-0400 Body weight 66.[address] Yudy Brennan Work Phone: [facility] Work Phone: 07-16-2021 13:15-0400 Diastolic blood pressure 66 mm[Hg] Dr. Yudy Brennan Work Phone: [facility] Work Phone: 07-16-2021 13:15-0400 Heart rate 82 /min Dr. Yudy Brennan Work Phone: [facility] Work Phone: 07-16-2021 13:15-0400 Respiratory rate 14 /min Dr. Yudy Brennan Work Phone: [facility] Work Phone: 07-16-2021 13:15-0400 SaO2% (BldA) [Mass fraction] 97 % Dr. Yudy Brennan Work Phone: [facility] Work Phone: 07-16-2021 13:15-0400 Systolic blood pressure 122 mm[Hg] Dr. Yudy Brennan Work Phone: [facility] Work Phone: Encounters Encounter Date Encounter Type Care Provider Facility Start: 11-15-2024 End: 11-15-[address] Anil Corley MD Work Phone: -Laboratory Phy Office 3rd Flr Start: 11-15-2024 End: 11-15-[address] Anil Corley MD -Laboratory Phy Office 3rd Flr Start: 11-15-2024 End: 11-15-2024 ambulatory Anil Corley Facility:[facility] Start: 08-17-2024 End: 08-17-[address] Anil Corley MD Work Phone: [facility] Work Phone: Start: 08-17-2024 End: 08-17-[address] Anil Corley MD -Laboratory Work Phone: Start: 08-17-2024 End: 08-17-2024 ambulatory [facility] Facility:[facility] Start: 06-19-2024 End: 06-19-[address] Anil Corley MD Work Phone: [facility] Work Phone: Start: 06-19-2024 End: 06-19-[address] Anil Corley MD -MRI - [facility] Work Phone: Start: 06-19-2024 End: 06-19-2024 [facility] Facility[facility] Start: 06-14-2024 End: 06-14-2024 Telephone encounter Neur Christa Access Work Phone: Neurology Comment on above: Appointment (left vm for patient about scheduling center for brain health consult per referral. called [phone]) Start: 05-17-2024 End: 05-17-[address] Anil Corley MD Work Phone: [facility] Work Phone: Start: 05-17-2024 End: 05-17-[address] Anil Corley MD -Laboratory, Phy Office 3rd Flr Start: 05-17-2024 End: 05-17-2024 Telephone encounter Miguelina Combs MD Work Phone: [facility] [place] Comment on above: Release Of Medical R ecords Start: 05-17-2024 End: 05-17-2024 ambulatory [facility] Facility:[facility] Start: 04-18-2024 End: 04-18-2024 Refill Miguelina Combs MD Work Phone: [facility] Comment on above: Refill Request; Arianne ent Update Start: 04-11-2024 End: 04-11-2024 Patient encounter procedure Rox Baird APRN.CNP Work Phone: [facility] Comment on above: Encounter to [facility] (Primary Dx); Essential hypertension; Pure hypercholesterolemia; Acquired hypothyroidism; Cognitive impairment Start: 04-11-2024 End: 04-11-2024 ambulatory ROX SPENCERLOGMIKAYLA Facility:[facility] Start: 03-28-2024 End: 03-28-2024 Telephone encounter Ricardo Holliday MD Work Phone: [facility] Comment on above: Patient Request Start: 04-01-2023 Non-patient / Non-visit Dr. Yvonne Holliday Work Phone: [facility] Start: 04-01-2023 End: 04-01-[address] Ricardo Holliday Work Phone: [facility] Work Phone: Start: 04-01-2023 End: 04-01-[address] [facility]: Start: 02-24-2023 End: 02-24-[address] Ricardo Holliday Work Phone: [facility] Work Phone: Start: 02-24-2023 End: 02-24-[address] Ricardo Holliday Work Phone: [facility] Work Phone: Start: 02-24-2023 End: 02-24-[address] Ricardo Holliday Work Phone: [facility] [place] Work Phone: Start: 12-22-2021 End: 12-22-[address] Ricardo Holliday Work Phone: [facility] Work Phone: Start: 12-22-2021 End: 12-22-[address] Ricardo Holliday Work Phone: [facility] Start: 11-04-2021 Non-patient / Non-visit Dr. Yvonne Holliday Work Phone: [facility] Internal Medicine Start: 10-07-2021 ambulatory Brigette Rm [facility] Comment on above: Population Health Na vigation Outreach ([facility]) Start: 07-18-2021 End: 07-18-[address] Yudy Brennan Work Phone: [facility], [facility] Start: 07-17-2021 Telephone encounter Yudy saucedo MD Work Phone: [facility] [place] Comment on above: Patient Question; Me dication Problem Start: 07-16-2021 End: 07-16-[address] Yudy Brennan Work Phone: [facility] Internal Medicine Start: 07-04-2021 Non-patient / Non-visit Dr. Katie Brennan Work Phone: [facility] Internal Medicine Procedures Date Procedure Procedure Detail Performing Clinician Start: 11-15-2024 Vitamin D, 25-hydrox y measurement Dr. Anil Corley MD Work Phone: Comment on above: Vitamin D StatusDefi ciency: <20 ng/mL (50nmol/L)Insufficiency: 20-30 ng/mL (50-75 nmol/L)Sufficiency: 30-100 ng/mL (75-250 nmol/L)Toxicity: >100 ng/mL (>250 nmol/L) Start: 08-17-2024 Vitamin D, 25-hydrox y measurement Dr. Anil Corley MD Work Phone: Comment on above: Vitamin D StatusDefi ciency: <20 ng/mL (50nmol/L)Insufficiency: 20-30 ng/mL (50-75 nmol/L)Sufficiency: 30-100 ng/mL (75-250 nmol/L)Toxicity: >100 ng/mL (>250 nmol/L) Start: 06-19-2024 MRI of brain without contrast Dr. Anil Corley MD Work Phone: Start: 05-17-2024 Hepatitis C antibody measurement Dr. Anil Corley MD Work Phone: Comment on above: Reactive: Presumptiv e evidence of antibodies to HCV. Follow CDC recommendations for supplemental testing.Non-Reactive: Antibodies to HCV were not detected; does not exclude the possibility of exposure to HCVReactive Results are presumptive evidence of antibodies to HCV. Follow CDC recommendations for supplemental testing.Order confirmation testing: HCV Quant by PCR testing - HCVPCR #[id number] Non Reactive: < 0.8 Equivocal: >/= 0.8 to < 1.0 Reactive: >/= 1.0The CDC requires that a reactive/equivocal HCV antibody result be sent out for confirmation. HCV Quant by PCR testing. Start: 05-17-2024 Serologic test for syphilis Dr. Anil Corley MD Work Phone: Start: 05-17-2024 Vitamin D, 25-hydrox y measurement Dr. Anil Corley MD Work Phone: Comment on above: Vitamin D StatusDefi ciency: <20 ng/mL (50nmol/L)Insufficiency: 20-30 ng/mL (50-75 nmol/L)Sufficiency: 30-100 ng/mL (75-250 nmol/L)Toxicity: >100 ng/mL (>250 nmol/L) Start: 04-01-[address] Ricardo Holliday Work Phone: Plan of Treatment Date Care Activity Detail Author Start: 04-11-2025 Covid-19 Vaccine () Covid-19 Vaccine () [facility] Comment on above: Postponed from 11/14/2023 (Declined at t his time) Start: 10-09-2024 End: 10-09-2024 Patient encounter procedure 10/09/2024 12:20 PM EDT Office Visit [facility] Misty Carbajal [address] [place] [address] Miguelina Combs MD [address] [place] [id number] 6 month follow up [facility] Misty Carbajal Comment on above: 6 month follow up Start: 04-11-2024 End: 07-11-2024 CBC W Auto Differential panel - Blood COMPLETE BLOOD COUNT AND DIFFERENTIAL Lab Routine Essential hypertension Expected: 04/11/2024, Expires: 07/11/2024 [facility] Comment on above: Expected: 04/11/2024, Expires: Start: 04-11-2024 End: 07-11-2024 Comprehensive metabolic 2000 panel - Serum or Plasma COMPREHENSIVE METABOLIC PANEL Lab Routine Essential hypertension Expected: 04/11/2024, Expires: 07/11/2024 [facility] Comment on above: Expected: 04/11/2024, Expires: Start: 04-11-2024 End: 07-11-2024 Lipid 1996 panel - Serum or Plasma LIPID PANEL BASIC Lab Routine Pure hypercholesterolemia Expected: 04/11/2024, Expires: 07/11/2024 [facility] Work Phone: Comment on above: Expected: 04/11/2024, Expires: Start: 04-11-2024 End: 04-11-2024 Patient encounter procedure 04/11/2024 2:00 PM EST Office Visit [facility] [address] [place], [place] [id number] Podlogar, MONI Gramajo.MAKING MACHINE OPERATOR [address] [place], [place] [id number] est care with Dr. Combs, will see Rox [facility] [place] Comment on above: est care with Dr. Combs, will see Estela jackman Start: 04-11-2024 End: 07-11-2024 Thyrotropin [Units/volume] in Serum or Plasma THYROID STIMULATING HORMONE Lab Routine Acquired hypothyroidism Expected: 04/11/2024, Expires: 07/11/2024 [facility] Comment on above: Expected: 04/11/2024, Expires: Start: 03-15-2024 Advance Directive Discussion Advance Directive Discussion [facility] Start: 11-14-2023 Covid-19 Vaccine () Covid-19 Vaccine () [facility] Start: 11-14-2023 Influenza vaccination Influenza Vaccine (#1) [facility] Start: 08-20-2023 DIABETES SCREEN DIABETES SCREEN [facility] Start: 08-20-2023 Diabetes Screening Diabetes Screening [facility] Start: 04-01-2023 Patient referral [facility] Work Phone: Start: 11-13-2021 Influenza vaccination INFLUENZA (#1) [facility] Start: 08-19-2021 Urine microalbumin profile DTAP,TDAP,TD (1 - Tdap) [facility] Comment on above: Postponed from 09/29/2007 (Declined at t his time) Start: 03-23-2021 COVID-19 VACCINE (3 - Booster for Pfizer series) COVID-19 VACCINE (3 - Booster for Pfizer series) [facility] Start: 03-15-2021 ADVANCE DIRECTIVE DISCUSSION ADVANCE DIRECTIVE DISCUSSION [facility] Start: 03-19-2020 SHINGRIX VACCINE (2 of 2) SHINGRIX VACCINE (2 of 2) [facility] Start: 02-19-2012 RSV Vaccine (1 - 1-dose 75+ series) RSV Vaccine (1 - 1-dose 75+ series) [facility] Start: 09-29-2007 Urine microalbumin profile [facility] Start: 1953 Anxiety Screening Anxiety Screening [facility] Start: 1953 Depression Screening Depression Screening [facility] CBC W Auto Differential panel - Blood [facility] Patient referral [facility] Work Phone: T4 free measurement [facility] Thyroid stimulating hormone measurement [facility] Triiodothyronine, fr ee measurement [facility] Vitamin D, 25-hydrox y measurement [facility] Immunizations Immunization Date Immunization Notes Care Provider Fa cility 01-18-2021 influenza, high-dose , quadrivalent vaccine (FLUZONE HIGH DOSE QUADRIVALENT) Yudy Brennan MD Work Phone: [facility] 01-18-2021 influenza virus vacc ine, unspecified formulation Ricardo Holliday MD Work Phone: [facility] 10-21-2020 COVID-19 vaccine, ag e 12+ yr ([employer] - PURPLE TOP) Yudy Brennan MD Work Phone: [facility] 08-20-2020 COVID-19 vaccine, ag e 12+ yr ([employer] - PURPLE TOP) Yudy Brennan MD Work Phone: [facility] 01-23-2020 zoster vaccine recombinant Yudy Brennan MD Work Phone: [facility] 01-19-2020 influenza, high dose seasonal, preservative-free Yudy Brennan MD Work Phone: [facility] Work Phone: 01-18-2020 influenza, high-dose , quadrivalent vaccine (FLUZONE HIGH DOSE QUADRIVALENT) Yudy Brennan MD Work Phone: [facility] Work Phone: 01-28-2019 influenza, high dose seasonal, preservative-free Yudy Brennan MD Work Phone: [facility] 01-06-2018 influenza, seasonal, injectable Yudy Brennan MD Work Phone: [facility] 11-01-2015 pneumococcal polysaccharide vaccine, 23 valent Yudy Brennan MD Work Phone: [facility] 11-06-2014 pneumococcal conjuga te vaccine, 13 valent Yudy Brennan MD Work Phone: [facility] 12-17-2012 influenza virus vacc ine, unspecified formulation Yudy Brennan MD Work Phone: [facility] Work Phone: 01-02-2012 influenza virus vacc ine, unspecified formulation Yudy Brennan MD Work Phone: [facility] 01-24-2011 influenza virus vacc ine, unspecified formulation Yudy Brennan MD Work Phone: [facility] Work Phone: 01-18-2010 influenza virus vacc ine, unspecified formulation Yudy Brennan MD Work Phone: [facility] Work Phone: 01-26-2008 influenza virus vacc ine, unspecified formulation Yudy Brennan MD Work Phone: [facility] Work Phone: 09-28-2007 tetanus and diphther ia toxoids, adsorbed, preservative free, for adult use (2 Lf of tetanus toxoid and 2 Lf of diphtheria toxoid) Yudy Brennan MD Work Phone: [facility] 01-18-2007 influenza virus vacc ine, unspecified formulation Yudy Brennan MD Work Phone: [facility] Work Phone: 01-20-2006 influenza virus vacc ine, unspecified formulation Yudy Brennan MD Work Phone: [facility] 01-22-2005 influenza virus vacc ine, unspecified formulation Yudy Brennan MD Work Phone: [facility] Work Phone: 02-21-2001 pneumococcal polysaccharide vaccine, 23 valent Brigette Rm [facility] Payers Date Payer Category Payer Self-pay [id number] 2023 Medicare [employer]ET[employer] MEDICARE A ETNA MEDICARE PPO [id number] 2023- [phone] [id number] [place] [address] [facility] [id number] 2023 Medicare (Managed Care) [employer] AR SARAH [id number] 2023 Private Health Insurance [id number] 2012 Unknown MMO MMO TRADITIO NAL [id number] 2012-Present [phone] [address] [place] [address] Indemnity [id number] 2002 Medicare MEDICARE MEDICAR E A AND B [id number] 2002-Present [phone] [address] [address] [place] [address] Medicare [id number] Medicare [id number] Unknown [id number] Unknown [id number] Unknown [id number] Unknown [id number] Social History Date Type Detail Facility Start: 06-29-2023 Tobacco smoking stat us NHIS Never smoked tobacco [facility] Start: 11-27-2020 End: 04-11-2024 Alcohol intake Current non-drinker of alcohol (finding) [facility] Start: 1935 Sex Assigned At Not on file C [facility] Start: 07-16-2021 End: 02-24-2023 Tobacco smoking status NHIS Unknown if ever smoked [facility] Start: 11-08-2018 None [facility] Start: 11-09-2018 Spouse/ Signif icant Other [facility] Start: 11-09-2018 Non-smoker [facility] Start: 1935 Sex Assigned At Female [facility] Start: 10-28-2021 End: 04-09-2022 History of Social function [facility] Start: 10-28-2021 End: 04-09-2022 Tobacco use panel [facility] Adult Depression Screening Assessment 0 [facility] Start: 05-29-2024 End: 06-22-2024 Sex Female (finding) [facility] Functional Status Date Assessment Result Facility 05-09-2014 Are you deaf, or do you have serious difficulty hearing No 05/09/2014 9:35 AM Nita Menendez LPN No [facility] 05-09-2014 Are you blind, or do you have serious difficulty seeing, even when wearing glasses No 05/09/2014 9:35 AM Nita Menendez LPN No [facility] 05-09-2014 Do you have serious difficulty walking or climbing stairs No 05/09/2014 9:35 AM Nita Menendez LPN No [facility] 05-09-2014 Do you have difficul ty dressing or bathing No 05/09/2014 9:35 AM Nita Menendez LPN No [facility] 05-09-2014 Because of a physica l, mental, or emotional condition, do you have difficulty doing errands alone such as visiting a physician's office or shopping No 05/09/2014 9:35 AM Nita Menendez LPN No [facility] Mental Status Date Assessment Result Facility 05-09-2014 Because of a physica l, mental, or emotional condition, do you have serious difficulty concentrating, remembering, or making decisions No 05/09/2014 9:35 AM Nita Menendez LPN No [facility] Clinical Notes 07-17-2021 to 06-14-2024 Telephone Encounter - Xenia Llamas - 06/14/2024 11:41 AM EDTTelephone Encounter - Xenia Llamas - 06/14/2024 11:41 AM EDTTelephone Encounter - Ann Simms LPN - 05/17/2024 4:26 PM EST Note Date & Type Note Facility 06-14-2024 Telephone encounter Note left vm for patient about scheduling center for brain health consult per referral. called [phone] [facility] 06-14-2024 Miscellaneous Notes left vm for patient about scheduling center for brain health consult per referral. called [phone] documented in this encounter [facility] 05-17-2024 Telephone encounter Note Fax rec'd from [facility]. The are asking for completed medical records. This was faxed to [facility] medical records release. [facility] 05-17-2024 Miscellaneous Notes Fax rec'd from [facility]. The are asking for completed medical records. This was faxed to [facility] medical records release. documented in this encounter [facility] 04-18-2024 Telephone encounter Note Tried to schedule consult for dementia and spouse refused to travel and he will not use [facility]. Please advised spouse Lisandro. [facility] 04-18-2024 Miscellaneous Notes Tried to schedule consult for dementia and spouse refused to travel and he will not use [facility]. Please advised spouse Lisandro. The patient has been identified by name and date of : Yes Caregiver verified no other encounters exist for this prescription request: Yes Caregiver confirmed with patient/requestor that no other refills are due, in the near future, with this provider at this time: Yes The last office visit in the department: 04/11/2024 Does the patient have a future office visit with this provider/department: Yes 10/09/2024 Requested Prescriptions Pending Prescriptions Disp Refills atorvastatin (LIPITOR) 10 mg tablet 45 tablet 3 Sig: Take 0.5 tablets by mouth once daily. levothyroxine (SYNTHROID) 75 mcg tablet 90 tablet 1 Sig: Take 1 tablet by mouth once daily. Take on empty stomach. For Thyroid Teresa Aldana RN April 18, 2024 11:44 AM documented in this encounter [facility] 04-18-2024 Telephone encounter Note The patient has been identified by name and date of : Yes Caregiver verified no other encounters exist for this prescription request: Yes Caregiver confirmed with patient/requestor that no other refills are due, in the near future, with this provider at this time: Yes The last office visit in the department: 04/11/2024 Does the patient have a future office visit with this provider/department: Yes 10/09/2024 Requested Prescriptions Pending Prescriptions Disp Refills atorvastatin (LIPITOR) 10 mg tablet 45 tablet 3 Sig: Take 0.5 tablets by mouth once daily. levothyroxine (SYNTHROID) 75 mcg tablet 90 tablet 1 Sig: Take 1 tablet by mouth once daily. Take on empty stomach. For Thyroid Teresa Aldana RN April 18, 2024 11:44 AM [facility] 04-11-2024 Note HNO ID: [id number] Author: ROX BAIRD APRN.MAKING MACHINE OPERATOR Service: ? Author Type: Nurse Practitioner Type: Progress Notes Filed: 04/12/2024 07:39 Note Text: 04/11/2024 Patient presents with: Establish Care SUBJECTIVE: This is a 89 year old, accompanied by , that is here today for Above Complaints. HTN: Patient is compliant with meds Yes Monitors bp at home: No. Denies side effects: Yes. Chest pain: No. Dyspnea: No. Edema: No. Palpitations: No. Syncope: No. Headache: No. Dizziness: No. HYPERLIPIDEMIA: Patient is taking medications: Yes. Patient is watching diet: Yes. Patient denies myalgias: Yes. Patient denies gi upset: Yes HYPOTHYROIDISM: taking levothyroxine as prescribed without side effects wanting paper work completed stating patient is incompetent so he can get power of personal injury attorney. Patient with hx of cognitive impairment. Was supposed to follow-up with [facility] in 2020 but never did. Patient not wanting to discuss today. Past medical, surgical, family, social hx ,medications, allergies and health maintenance reviewed and updated PAST MEDICAL HISTORY Diagnosis Date Abscess and cellulitis of gluteal region 10/2018 with hematoma also Allergic rhinitis, cause unspecified 09/28/2007 Diverticulosis of colon (without mention of hemorrhage) Hemorrhage of gastrointestinal tract, unspecified Internal hemorrhoids without mention of complication Other chronic allergic conjunctivitis ALLERGIC CONJUNCTIVITIS Personal history of colonic polyps PMH - PAST MEDICAL HISTORY OF ganglian left foot Pure hypercholesterolemia Sjogren's disease (HCC) 2009 Unspecified essential hypertension Unspecified hypothyroidism ALLERGIES Anesthesia [Other], Atorvastatin, Codeine, Irbesartan, Levothroid [Levothyroxine Sodium], and Pravastatin MEDICATIONS Current Outpatient Medications Medication Sig atorvastatin (LIPITOR) 10 mg tablet Take 0.5 tablets by mouth once daily. AVAPRO 300 mg tablet Take 1 tablet by mouth once daily. levothyroxine (SYNTHROID) 75 mcg tablet Take 1 tablet by mouth once daily. Take on empty stomach. For Thyroid levothyroxine (SYNTHROID) 50 mcg tablet Take 1 tablet by mouth every Wednesday. Or as directed. 75 mcg daily the rest of the week ASPIRIN 81 MG TAB Take one (1) tablet daily . No current facility-administered medications for this visit. Medications and allergies reviewed by this provider. SOCIAL HISTORY Social History Tobacco Use Smoking status: Never Smokeless tobacco: Never Substance Use Topics Alcohol use: No Drug use: No REVIEW OF SYSTEMS GENERAL: No weight loss, malaise or fevers RESPIRATORY: Negative for cough, hemoptysis, wheezing, COPD, dyspnea or shortness of breath CARDIOVASCULAR: Negative for chest pain, leg swelling, hypertension, CHF or palpitations GI: No nausea, vomiting, or diarrhea All other reviewed and negative other than HPI. OBJECTIVE: BP 138/70 Pulse 68 Resp 18 Ht 163.5 cm (5' 4.37) Wt 64.2 kg (141 lb 8.6 oz) SpO2 98% BMI 24.02 kg/m? . Vital signs reviewed by this provider. APPEARANCE Well appearing, alert, in no acute distress, well-hydrated, well nourished. EYES conjunctiva and sclera normal. HEART RRR with normal S1 and S2, no murmurs, no gallops, no JVD appreciated LUNG clear to auscultation. No wheezes, rhonchi or rales EXTREMITIES Extremities normal, No deformities, No skin discoloration, and No edema SKIN Skin color, texture, turgor normal, no suspicious rashes or lesions to exposed skin Depression Screening Never done Anxiety Screening Never done DTaP,Tdap,Td Vaccine(1 - Tdap) due on 09/29/2007 RSV Vaccine(1 - 1-dose 75+ series) Never done Shingrix Vaccine(2 of 2) due on 03/19/2020 Diabetes Screening due on 08/20/2023 Advance Directive Discussion Never done Covid-19 Vaccine( season) due on 04/11/2025 Bone Density Screening Completed Influenza Vaccine Completed Pneumococcal Vaccine: 50+ Completed ASSESSMENT/PLAN: 1. Encounter to establish care - ICD9: V65.8, ICD10: Z76.89 (primary diagnosis) - plan as below - will need to get records from previous provider - follow-up in 6 months for routine visit 2. Essential hypertension - ICD9: 401.9, ICD10: I10 - Controlled - Continue current medications - Recommend home blood pressure monitoring, to bring results to next visit - Encouraged sodium restriction, DASH or Mediterranean diet - Recommend regular aerobic exercise - Follow up in 6 months for hypertension visit - COMPREHENSIVE METABOLIC PANEL - COMPLETE BLOOD COUNT AND DIFFERENTIAL 3. Pure hypercholesterolemia - ICD9: 272.0, ICD10: E78.00 - continue current medications, diet and exercise - LIPID PANEL BASIC 4. Acquired hypothyroidism - ICD9: 244.9, ICD10: E03.9 - Instructed patient on importance of taking on an empty stomach either first thing in the morning or at bedtime. - check TSH today - contin (more content not included)... [facility] 04-11-2024 History of Present illness Narrative 04/11/2024 Patient presents with: Establish Care SUBJECTIVE: This is a 89 year old, accompanied by , that is here today for Above Complaints. HTN: Patient is compliant with meds Yes Monitors bp at home: No. Denies side effects: Yes. Chest pain: No. Dyspnea: No. Edema: No. Palpitations: No. Syncope: No. Headache: No. Dizziness: No. HYPERLIPIDEMIA: Patient is taking medications: Yes. Patient is watching diet: Yes. Patient denies myalgias: Yes. Patient denies gi upset: Yes HYPOTHYROIDISM: taking levothyroxine as prescribed without side effects wanting paper work completed stating patient is incompetent so he can get power of personal injury attorney. Patient with hx of cognitive impairment. Was supposed to follow-up with [facility] in 2020 but never did. Patient not wanting to discuss today. Past medical, surgical, family, social hx ,medications, allergies and health maintenance reviewed and updated PAST MEDICAL HISTORY Diagnosis Date Abscess and cellulitis of gluteal region 10/2018 with hematoma also Allergic rhinitis, cause unspecified 09/28/2007 Diverticulosis of colon (without mention of hemorrhage) Hemorrhage of gastrointestinal tract, unspecified Internal hemorrhoids without mention of complication Other chronic allergic conjunctivitis ALLERGIC CONJUNCTIVITIS Personal history of colonic polyps PMH - PAST MEDICAL HISTORY OF ganglian left foot Pure hypercholesterolemia Sjogren's disease (HCC) 2009 Unspecified essential hypertension Unspecified hypothyroidism ALLERGIES Anesthesia [Other], Atorvastatin, Codeine, Irbesartan, Levothroid [Levothyroxine Sodium], and Pravastatin MEDICATIONS Current Outpatient Medications Medication Sig atorvastatin (LIPITOR) 10 mg tablet Take 0.5 tablets by mouth once daily. AVAPRO 300 mg tablet Take 1 tablet by mouth once daily. levothyroxine (SYNTHROID) 75 mcg tablet Take 1 tablet by mouth once daily. Take on empty stomach. For Thyroid levothyroxine (SYNTHROID) 50 mcg tablet Take 1 tablet by mouth every Wednesday. Or as directed. 75 mcg daily the rest of the week ASPIRIN 81 MG TAB Take one (1) tablet daily . No current facility-administered medications for this visit. Medications and allergies reviewed by this provider. SOCIAL HISTORY Social History Tobacco Use Smoking status: Never Smokeless tobacco: Never Substance Use Topics Alcohol use: No Drug use: No REVIEW OF SYSTEMS GENERAL: No weight loss, malaise or fevers RESPIRATORY: Negative for cough, hemoptysis, wheezing, COPD, dyspnea or shortness of breath CARDIOVASCULAR: Negative for chest pain, leg swelling, hypertension, CHF or palpitations GI: No nausea, vomiting, or diarrhea All other reviewed and negative other than HPI. OBJECTIVE: BP 138/70 Pulse 68 Resp 18 Ht 163.5 cm (5' 4.37) Wt 64.2 kg (141 lb 8.6 oz) SpO2 98% BMI 24.02 kg/m . Vital signs reviewed by this provider. APPEARANCE Well appearing, alert, in no acute distress, well-hydrated, well nourished. EYES conjunctiva and sclera normal. HEART RRR with normal S1 and S2, no murmurs, no gallops, no JVD appreciated LUNG clear to auscultation. No wheezes, rhonchi or rales EXTREMITIES Extremities normal, No deformities, No skin discoloration, and No edema SKIN Skin color, texture, turgor normal, no suspicious rashes or lesions to exposed skin Depression Screening Never done Anxiety Screening Never done DTaP,Tdap,Td Vaccine(1 - Tdap) due on 09/29/2007 RSV Vaccine(1 - 1-dose 75+ series) Never done Shingrix Vaccine(2 of 2) due on 03/19/2020 Diabetes Screening due on 08/20/2023 Advance Directive Discussion Never done Covid-19 Vaccine(2023- season) due on 04/11/2025 Bone Density Screening Completed Influenza Vaccine Completed Pneumococcal Vaccine: 50+ Completed ASSESSMENT/PLAN: 1. Encounter to establish care - ICD9: V65.8, ICD10: Z76.89 (primary diagnosis) - plan as below - will need to get records from previous provider - follow-up in 6 months for routine visit 2. Essential hypertension - ICD9: 401.9, ICD10: I10 - Controlled - Continue current medications - Recommend home blood pressure monitoring, to bring results to next visit - Encouraged sodium restriction, DASH or Mediterranean diet - Recommend regular aerobic exercise - Follow up in 6 months for hypertension visit - COMPREHENSIVE METABOLIC PANEL - COMPLETE BLOOD COUNT AND DIFFERENTIAL 3. Pure hypercholesterolemia - ICD9: 272.0, ICD10: E78.00 - continue current medications, diet and exercise - LIPID PANEL BASIC 4. Acquired hypothyroidism - ICD9: 244.9, ICD10: E03.9 - Instructed patient on importance of taking on an empty stomach either first thing in the morning or at bedtime. - check TSH today - continue current dose of Synthroid 50 mcg on Mushtaq and 75 mcg all other days - Follow up in 6 months - THYROID STIMULATING HORMONE 6. Cognitive impairment - ICD9: 294.9, ICD10: R41.89 - was referred in 2020 by internal med to see neurologist [facility], will place referral to call and schedule - CONSULT TO NEUROLOGY Rox Baird APRN.MAKING MACHINE OPERATOR Prescription instructions reviewed with patient as applicable. Patient advised if symptoms do not improve or if symptoms worsen sooner, to contact their primary care physician. Potential red flag symptoms discussed with the patient. Reviewed appropriate action plan to take if red flag symptoms occur. Patient agreeable to treatment plan. documented in this encounter [facility] 03-28-2024 Telephone encounter Note Patient's spouse Lisandro contacted and Establish Care appointment made for patient as requested. Evita Thomas RN [facility] 03-28-2024 Miscellaneous Notes Patient's spouse Lisandro contacted and Establish Care appointment made for patient as requested. Evita Thomas RN Patient's Lisandro calling in with an appointment related question regarding patient. Informed Lisandro that this nurse would get further information for him and call him back. Evita Thomas RN documented in this encounter [facility] 03-28-2024 Telephone encounter Note Patient's Lisandro calling in with an appointment related question regarding patient. Informed Lisandro that this nurse would get further information for him and call him back. Evita Thomas RN [facility] 10-07-2021 History of Present illness Narrative POPULATION HEALTH NAVIGATION OUTREACH Action/ HCC Gaps Outcome: Called and spoke with patient and he states she see a pcp outside [facility]. Patient decline to schedule any appointments at this time. Patient is on HCC list for below gaps and needs appt to address : M35.00 - Sjogren's syndrome (HCC) - [id number] Last Billed 06/04/2018
Annual Wellness/PCP visit/ BP [...] Practice: No Navigation Signature: Population Health Navigator Brigette Rm October 07, 2021 1:53 PM documented in this encounter [facility] 07-17-2021 Miscellaneous Notes Spoke with patient. Patient seemed a little confused about what I was telling her. Patient was given [facility] phone number so can call the lab and schedule a time to come in to do labs. Patient was also informed that she needs to schedule 6 month f/u with Dr. Holliday as instructed. Patient did states she likes both doctor but has decided to have Dr. Holliday as her primary. Appointment in September with Dr. Brennan cancelled and Dr. Brennan was taken off as PCP Noted, should complete any ordered labs in specified time frame and continue with medications as ordered. Dr Holliday note reviewed.She indicated she was establishing care with him. He ordered lab work and notes he did not change any medications. She does have September appointment with Yudy Brennan MD. Check to see if she plans on coming in September or if we should cancel appointment and remove PCP in [facility]. Dr. Holliday's office note was obtained and at nurse's desk for review. Dr. Holliday states that patient and her have transferred care from Dr. Brennan to himself. States that TSH was stable and was not making any medication changes until labs he had ordered have been completed. It doesn't look that those have been completed yet. Is she seeing both Dr Holliday and Yudy Brennan MD for thyroid? We have no recent labs in [facility], should repeat if concerns, no recent labwork noted; last checked 08/2020. follow up lbas not completed in Nov as ordered. Note in med list indicates she was not taking levothyroxine Pt called in and reports she had gone to see Dr Holliday and he had told her she didn't need to take her Synthroid any more. She reports she has been taking it for years. Looked at her last labs and TSH had been low. Pt reports she will keep taking, but wanted PCPs input. Please call and advise. documented in this encounter [facility] Evaluation note Diagnosis Onset Date High cholesterol acute History of hypertension acut e History of hypothyroidism ac vinod [facility] Work Phone: Evaluation noteNo assessment information available [facility] Work Phone: Evaluation note* Diagnosis Encounter to establish care- Primary Other reasons for seeking consultation Essential hypertension Unspecified essential hypertension Pure hypercholesterolemia Acquired hypothyroidism Unspecified hypothyroidism Cognitive impairment Unspecified persistent mental disorders due to conditions classified elsewhere documented in this encounter [facility] Discharge instructionsAmbulatory Orders* Home Health Location: None Selected [facility] Work Phone: Reason for referral (narrative)No reason for referral information [facility] Work Phone: Chief Complaint and Reason for Visit Chief Complaint Amb Documentation 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 EST. CARE - NPP SENT Reason for Visit High cholesterol History of hypertension History of hypothyroidism Chief Complaint Amb Documentation INTERMEDIATE LAB WORK Chief Complaint 6 M FU INT LABS Reason for Visit High cholesterol History of hypertension History of hypothyroidism Chief Complaint Admit Date ALZHEIMERS DISEASE June 19, 2024 1:28 pm Family History Relationship Condition Age at Onset Recorded Date/T bertha Not Specified Myocardial infarction Unknown Malignant neoplasm Unknown Hypertension Unknown Advance Directives Advance Directive Response Recorded Date/ Time Living Will Yes November 08 12:51pm Power of Icebox Man No November 08 12:51pm Advance Directive Response Recorded Date/ Time Living Will Yes November 08 11:51am Power of Icebox Man No November 08 019 11:51am Reason for Referral Specialty Diagnoses / Procedures Referred By Krystyna t Referred To Contact Neurology Diagnoses Cognitive impairment Procedures CONSULT TO NEUROLOGY OFFICE/OUTPATIENT [facility] 60 MINUTES PodlogarRox APRN.MAKING MACHINE OPERATOR [address] [place] [address] Referral ID Status Reason Start Date Expiration Date Visits Requested Visits Authorized [id number] Authorized PCP Requested Referral 04/11/2024 04/11/2025 1 1 Summary Purpose Additional Source Comments Source Comments (unrecognize d section and content) In the event this informatio n is protected by the Federal Confidentiality of Alcohol and Drug Abuse Patient Records regulations: The Federal rules restrict any use of the information to criminally investigate or prosecute any alcohol or drug abuse patient.[facility] the event this information is protected by the Federal Confidentiality of Alcohol and Drug Abuse Patient Records regulations: The Federal rules restrict any use of the information to criminally investigate or prosecute any alcohol or drug abuse patient.[facility] the event this information is protected by the Federal Confidentiality of Alcohol and Drug Abuse Patient Records regulations: The Federal rules restrict any use of the information to criminally investigate or prosecute any alcohol or drug abuse patient.[facility] the event this information is protected by the Federal Confidentiality of Alcohol and Drug Abuse Patient Records regulations: The Federal rules restrict any use of the information to criminally investigate or prosecute any alcohol or drug abuse patient.[facility] the event this information is protected by the Federal Confidentiality of Alcohol and Drug Abuse Patient Records regulations: The Federal rules restrict any use of the information to criminally investigate or prosecute any alcohol or drug abuse patient.[facility] the event this information is protected by the Federal Confidentiality of Alcohol and Drug Abuse Patient Records regulations: The Federal rules restrict any use of the information to criminally investigate or prosecute any alcohol or drug abuse patient.[facility] the event this information is protected by the Federal Confidentiality of Alcohol and Drug Abuse Patient Records regulations: The Federal rules restrict any use of the information to criminally investigate or prosecute any alcohol or drug abuse patient.[facility] Reason for Visit (unrecogniz ed section and content) Reason Comments Patient Question Medication Problem Reason Onset Date Comments Population Health Navigation Outreach 10/07/2021 [facility] Reason Comments Patient Request Reason Comments Establish Care Reason Onset Date Comments Refill Request 04/18/2024 Patient Update 04/18/2024 Reason Comments Release Of Medical Records Reason Comments Appointment left for patient about scheduling center for brain health consult per referral. called [phone] Care Teams (unrecognized sec tion and content) Merchandising Representative Relationship Specialty Start Date End Date Ricardo Holliday MD [address] [facility] [address] [place], [place] [id number] PCP - General Internal Medicine 07/17/21 Merchandising Representative Relationship Specialty Start Date End Date Ricardo Holliday MD [address] [facility] [address] [place] [address] PCP - General Internal Medicine 07/17/21 Team Status: Active Member Role Status Dates Dr. Yudy Brennan MD Family Provider Active Dr. Ricardo Holliday MD Primary Care Provider Active Team Status: Inactive Member Role Status Dates Dr. Ricardo Holliday MD Primary Care Provider, Attendi ng Provider Active Team Status: Active Member Role Status Dates Dr. Ricardo Holliday MD Primary Care Provider, Attendi ng Provider Active Team Status: Inactive Member Role Status Dates Dr. Ricardo Holliday MD Primary Care Pro vider, Attending Provider, Referring Provider Active Merchandising Representative Relationship Specialty Start Date End Date Ricardo Holliday MD [address] [address] PCP - General Internal Medicine 07/17/21 Merchandising Representative Relationship Specialty Start Date End Date Miguelina Combs MD [address] [place] [address] PCP - General Family Medicine 04/11/24 Podlogar, Rox, COMMUNITY WORKER.MAKING MACHINE OPERATOR [address] [place] [address] Family Medicine 04/11/24 Merchandising Representative Relationship Specialty Start Date End Date Miguelina Combs MD [address] [place] [address] PCP - General Family Medicine 04/11/24 Podlogar, Rox, COMMUNITY WORKER.MAKING MACHINE OPERATOR [address] [place] [address] Family Medicine 04/11/24 Merchandising Representative Relationship Specialty Start Date End Date Miguelina Combs MD [address] [place] [address] PCP - General Family Medicine 04/11/24 Podlogar, Rox, COMMUNITY WORKER.MAKING MACHINE OPERATOR [address] [facility], [place] [address] Family Medicine 04/11/24 Team Status: Active Member Role Status Dates Dr. Anil Corley MD Primary Care Provider Active Team Status: Inactive Member Role Status Dates Dr. Anil Corley MD Primary Care Provider Active Start: May 17, 2024 End: May 17, 2024 Dr. Anil Corley MD Attending Provider Active Start: May 17, 2024 End: May 17, 2024 Merchandising Representative Relationship Specialty Start Date End Date Miguelina Combs MD [address] [facility], [place] [address] PCP - General Family Medicine 04/11/24 Podlogar, Rox, COMMUNITY WORKER.MAKING MACHINE OPERATOR [address] [facility], [place] [id number] Family Medicine 04/11/24 PodlogarRox, COMMUNITY WORKER.MAKING MACHINE OPERATOR [address] [facility], [place] [address] Medical Transcription Family Medicine 05/26/24 Mirtha Crabtree, COMMUNITY WORKER.MAKING MACHINE OPERATOR [address] [facility], [place] [address] Medical Transcription Family Medicine 06/05/24 Team Status: Inactive Member Role Status Dates Dr. Anil Corley MD Primary Care Provider Active Start: June 19, 2024 End: June 19, 2024 Dr. Anil Corley MD Attending Provider Active Start: June 19, 2024 End: June 19, 2024 Dr. Anil Corley MD Referring Provider Active Start: June 19, 2024 End: June 19, 2024 Team Status: Inactive Member Role Status Dates Dr. Anil Corley MD Primary Care Provider Active Start: August 17, 2024 End: August 17, 2024 Dr. Anil Corley MD Attending Provider Active Start: August 17, 2024 End: August 17, 2024 Dr. Anil Corley MD Referring Provider Active Start: August 17, 2024 End: August 17, 2024 Team Status: Active Member Role/Relationship Status Dates Dr. Anil Corley MD Primary care physician Active Team Status: Inactive Member Role/Relationship Status Dates Dr. Anil Corley MD Primary care physician Active Start: August 17, 2024 End: August 17, 2024 Dr. Anil Corley MD Attending physician Active Start: August 17, 2024 End: August 17, 2024 Dr. Anil Corley MD Referring Provider Active Start: August 17, 2024 End: August 17, 2024 Team Status: Inactive Member Role/Relationship Status Dates Dr. Anil Corley MD Primary care physician Active Start: November 15, 2024 End: November 15, 2024 Dr. Anil Corley MD Attending physician Active Start: November 15, 2024 End: November 15, 2024 Goals (unrecognized section and content) Goals may be documented in a n alternate sectionGoals may be documented in an alternate sectionGoals may be documented in an alternate sectionGoals may be documented in an alternate sectionGoals may be documented in an alternate sectionGoals may be documented in an alternate sectionGoals may be documented in an alternate sectionGoals may be documented in an alternate section INFORMATION SOURCE (unrecogn ized section and content) DATE CREATED AUTHOR 12/02/2024 [facility] DATE CREATED AUTHOR 'Shell SAVAGE 12/14/2024 [facility] FOR RECORDS PERTAINING TO PATIENTS WHO ARE [...] BE BASED ON THE PRIMARY CLINICAL RECORDS. [employer] provides no warranty or guarantee of the accuracy or completeness of information in this document.
[2025-02-11 23:18] LABS: Hematocrit 31.7 % (37-47); Hemoglobin 10.4 g/dL (12.0-15.0); Immature Granulocytes Count 0.030 X10^3/uL (0.0-0.0); Mean Corp Hgb Conc 32.8 g/dL (32-36); Mean Corpuscular Volume 91.1 fL (81-99); Mean Platelet Vol. 9.5 fl (6.2-12.0); NRBC Flagged by Analyzer 0 % (0-5); Platelet Count 239 K/mm3 (150-450); RBC Distribution Width CV 14.2 % (11.6-14.6); RBC Distribution Width SD 47.6 fl (35.1-43.9); Red Blood Count 3.48 M/mm3 (4.2-5.4); White Blood Count 9.1 K/mm3 (4.4-11.0)
[2025-02-11 23:50] LABS: Lipase 30 U/L (13-75)
[2025-02-12 00:12] LABS: AST(SGOT) 42 U/L (<=31); Alanine Aminotransfer ALT/SGPT 39 U/L (<=34); Albumin, Serum 3.6 g/dL (3.4-4.8); Alkaline Phosphatase 88 U/L (35-104); Anion Gap 10 (5-15); BUN 20 mg/dL (4-19); BUN/Creat Ratio 22.4 RATIO (10-20); Calcium,Total 9.6 mg/dL (7.6-11.0); Carbon Dioxide 22.9 mmol/L (21.0-32.0); Chloride 104 mmol/L (98-108); Estimated Creatinine Clearance 42.16 ml/min (50-250); Globulin 2.7 g/dL (2.2-4.2); Glucose 134 mg/dL (70-99); Potassium 4.4 mmol/L (3.3-5.1)
[2025-02-12 00:19] VITALS: BP 116/78; PULSE 88; RESP 16; TEMP 37.1; O2SAT 98
== END 2025-02-12 00:55 | disposition home or self-care (01) ==
PROVIDERS: Emergency Provider Emergency Medicine; Visit Provider Emergency Medicine
DX: R11.2 Nausea with vomiting, unspecified (principal); B34.9 Viral infection, unspecified; D64.9 Anemia, unspecified; I12.9 Hypertensive chronic kidney disease with stage 1 through stage 4 chronic kidney disease, or unspecified chronic kidney disease; N18.2 Chronic kidney disease, stage 2 (mild); E03.9 Hypothyroidism, unspecified; E78.00 Pure hypercholesterolemia, unspecified; M17.11 Unilateral primary osteoarthritis, right knee; Z79.890 Hormone replacement therapy; Z79.899 Other long term (current) drug therapy
CPT/HCPCS: 80053; 83690; 85025; 96361; 96374; 99285; A4216; J2405

== ENCOUNTER 2025-02-12 01:50 | Emergency (ER) | payer MEDICARE, SELFPAY ==
[2025-02-12 01:50] VITALS: BP 144/60; PULSE 80; RESP 18; TEMP 36.8; O2SAT 97; BMI 22.6
--- OUTSIDE RECORDS SUMMARY | 2025-02-12 02:07 | XMS RPT_ITS | CCD ---
Author Organization [facility] CliniSyid Care Team Providers Care Printing Plate Maker Name Role Phone Ricardo Holliday MD Primary Care Provider Dr. Yudy Brennan Primary Care Provider Cristina Griffin Attending Provider Unavailable Dr. Yudy Brennan Referring Provider Dr. Ricardo Holliday Attending Provider Dr. Ricardo Holliday Primary Care Provider Alexandra Zapata Attending Provider Unavailable Dr. Ricardo Holliday Primary Care Provider Dr. Ricardo Holliday Attending Provider [phone] Ricardo Holliday MD Primary Care Provider Miguelina Combs MD Primary Care Provider Podlogar MISSILE INSPECTOR.Rox BLACK Unavailable Dr. Anil Corley MD, Chi Primary Care Provider Dr. Anil Corley MD, Chi Attending Provider Podlogar MISSILE INSPECTOR.Rox BLACK Unavailable Leyda MISSILE INSPECTOR.Mirtha BLACK Unavailable Dr. Anil Corley MD, Chi [...] MD, Dr. Anil Tompkins Primary Care Physician [phone] Barney HASKINS, Dr. Anil Tompkins Attending Physician [phone] Barney HASKINS, Dr. Anil Tompkins Referring Provider [phone] Allergies Allergy Classification Reported Allergen(s) Allergy Type Date of Onset Reaction(s) Facility (8 sources) atorvastatin; Translations: [ATORVASTATIN] Drug Allergy 0 Intolerance [facility] Work Phone: (8 sources) Codeine; Translations: [CODEINE] Drug Allergy 5 GI Upset [facility] Work Phone: (8 sources) irbesartan; Translations: [IRBESARTAN] Drug Allergy 9 Intolerance [facility] Work Phone: (8 sources) levothyroxine; Translations: [LEVOTHYROXINE SODIUM] Drug Allergy 7 [facility] Work Phone: (8 sources) Pravastatin; Translations: [PRAVASTATIN] Drug Allergy 8 Intolerance [facility] (7 sources) ANESTHESIA [Other] Propensity to adverse reactions 5 GI Upset [facility] Work Phone: (1 source) OTHER; Translations: [OTHER] Propensity to adverse reactions (disorder) 5 [facility] Repository Medications Completed/Discontinued Medications Medication Drug [...] 08, 2018 12:00am August 25, 2023 10:39am [facility] Start: 12-29-2004 ASPIRIN 81 MG TAB [...] Aminoglycoside Antibacterial, Polymyxin-class Antibacterial, Corticosteroid End: 04-11-2024 wtgsbojs-exljdsnypz-ia lymyxin-hydrocortisone (CHANCE-POLYCIN HC) 3.5-400-10,000 mg-unit/g-1% ophthalmic ointment Use in both eyes twice daily. 04/11/2024 Discontinued (Course of therapy completed) neomycin-bacitra jxw-gilqahkna-mecdynorpnckws (CHANCE-POLYCIN HC) 3.5-400-10,000 mg-unit/g-1% ophthalmic ointment Use [...] Comment on above: Take 1 capsule by [facility] once daily. ciprofloxacin 250 mg oral tablet [...] Comment on above: Take 1 tablet by [facility] once daily. Food Supplemt, Lactose-Reduced (4 [...] and deep fold areas (underarms, groin). nystatin 850332 unt/ml topical cream (4 sources) Polyene Antifungal Start: End: nystatin (MYCOSTATIN) cream Apply to affected area twice daily. 30 g 08/20/2020 04/11/2024 Discontinued (Course of therapy completed) Comment on above: Apply to affected ar ea twice daily. polyethylene glycol 3350 92025 mg powder for oral solution (8 sources) [...] 11-15-2024 Neutrophils (Bld) [#/Vol] 3.3 10*3/uL 2.0-7.7 [facility] Anion gap in Serum or Plasma Ordered By: Anil Corley on 11-15-2024 Anion gap [Moles/Vol] 11 mmol/L 5-15 [facility] Automated lymphocyte count a s percentage of total leukocytesOrdered By: Anil Corley on 11-15-2024 Lymphocytes/100 WBC Auto (Unsp spec) 28.4 % 19-41 [facility] BUN/creatinine ratioOrdered By: [facility] 11-15-2024 Urea nitrogen/Creatinine [Mass ratio] 13.1 mg/mg 10- [facility] Basophil percentageOrdered B y: Anil Corley on 11-15-2024 Basophils/100 WBC (Bld) 0.7 % 0-1 [facility] Bilirubin, totalOrdered By: Anil Corley on 11-15-2024 Bilirubin [Mass/Vol] 0.28 mg/dL 0.00-1.30 [facility] CBC W/Diff, Automatedon Absolute Lymph 1.55 X10 3/uL Normal 0.83-4.51 [facility] Comment on above: Performed By: #### L 506.1001, L509.8002, L501.9520, L3890.6301, L506.0200, L500.4050, L100.0100, L503.0106 #### [facility] [address] [place], [address] Absolute Neut 3.3 X10 3/uL Normal 2.0-7.7 [facility] Comment on above: Performed By: #### L 506.1001, L509.8002, L501.9520, L3890.6301, L506.0200, L500.4050, L100.0100, L503.0106 #### [facility] [address] [place], [address] Basophils/100 WBC (Bld) 0.7 % Normal 0-1 [facility] Comment on above: Performed By: #### L 506.1001, L509.8002, L501.9520, L3890.6301, L506.0200, L500.4050, L100.0100, L503.0106 #### [facility] [address] [place], [address] Eosinophils/100 WBC (Bld) 1.8 % Normal 0-5 [facility] Comment on above: Performed By: #### L 506.1001, L509.8002, L501.9520, L3890.6301, L506.0200, L500.4050, L100.0100, L503.0106 #### [facility] [address] [place], [address] Erythrocyte distribution width (RBC) [Ratio] 13.5 % Normal 11.6-14.6 [facility] Comment on above: Performed By: #### L 506.1001, L509.8002, L501.9520, L3890.6301, L506.0200, L500.4050, L100.0100, L503.0106 #### [facility] [address] [place], [address] Hematocrit (Bld) [Volume fraction] 36.7 % Low 37-47 [facility] Comment on above: Performed By: #### L 506.1001, L509.8002, L501.9520, L3890.6301, L506.0200, L500.4050, L100.0100, L503.0106 #### [facility] [address] [place], [address] Hemoglobin (Bld) [Mass/Vol] 11.8 g/dL Low 12.0-15.0 [facility] Comment on above: Performed By: #### L 506.1001, L509.8002, L501.9520, L3890.6301, L506.0200, L500.4050, L100.0100, L503.0106 #### [facility] [address] [place], [address] IG% 0.400 Normal 0.0-0.9 [facility] Comment on above: Result Comment: IG% - Immature Granulocytes (promyelocytes, myelocytes and metamyelocytes) > 1% indicates that a LEFT SHIFT is Present. Performed By: #### L 506.1001, L509.8002, L501.9520, L3890.6301, L506.0200, L500.4050, L100.0100, L503.0106 #### [facility] [address], [address] Lymphocytes/100 WBC (Bld) 28.4 % Normal 19-41 [facility] Comment on above: Performed By: #### L 506.1001, L509.8002, L501.9520, L3890.6301, L506.0200, L500.4050, L100.0100, L503.0106 #### [facility] [address] [place], [address] MCH (RBC) [Entitic mass] 29.5 pg Normal 27.0-32.0 [facility] Comment on above: Performed By: #### L 506.1001, L509.8002, L501.9520, L3890.6301, L506.0200, L500.4050, L100.0100, L503.0106 #### [facility] [address] [place], [address] MCHC (RBC) [Mass/Vol] 32.2 g/dL Normal 32-36 [facility] Comment on above: Performed By: #### L 506.1001, L509.8002, L501.9520, L3890.6301, L506.0200, L500.4050, L100.0100, L503.0106 #### [facility] [address] [place], [address] MCV (RBC) [Entitic vol] 91.8 fL Normal 81-99 [facility] Comment on above: Performed By: #### L 506.1001, L509.8002, L501.9520, L3890.6301, L506.0200, L500.4050, L100.0100, L503.0106 #### [facility] [address] [place], [address] Monocytes/100 WBC (Bld) 8.4 % Normal 0-10 [facility] Comment on above: Performed By: #### L 506.1001, L509.8002, L501.9520, L3890.6301, L506.0200, L500.4050, L100.0100, L503.0106 #### [facility] [address] [place], [address] Neutrophils/100 WBC (Bld) 60.3 % Normal 47-70 [facility] Comment on above: Performed By: #### L 506.1001, L509.8002, L501.9520, L3890.6301, L506.0200, L500.4050, L100.0100, L503.0106 #### [facility] [address] [place], [address] Nucleated RBC (Bld) [#/Vol] 0 10*3/uL Normal 0-5 [facility] Comment on above: Performed By: #### L 506.1001, L509.8002, L501.9520, L3890.6301, L506.0200, L500.4050, L100.0100, L503.0106 #### [facility] [address] [place], [address] Platelet mean volume (Bld) [Entitic vol] 8.9 fL Normal 6.2-12.0 [facility] Comment on above: Performed By: #### L 506.1001, L509.8002, L501.9520, L3890.6301, L506.0200, L500.4050, L100.0100, L503.0106 #### [facility] [address] [place], [address] Platelets (Bld) [#/Vol] 312 10*3/uL Normal 150-450 [facility] Comment on above: Performed By: #### L 506.1001, L509.8002, L501.9520, L3890.6301, L506.0200, L500.4050, L100.0100, L503.0106 #### [facility] [address] [place], [address] RBC (Bld) [#/Vol] 4.00 10*6/uL Low 4.2-5.4 [facility] Comment on above: Performed By: #### L 506.1001, L509.8002, L501.9520, L3890.6301, L506.0200, L500.4050, L100.0100, L503.0106 #### [facility] [address] [place], [address] RDW SD 46.2 fl High 35.1-43.9 [facility] Comment on above: Performed By: #### L 506.1001, L509.8002, L501.9520, L3890.6301, L506.0200, L500.4050, L100.0100, L503.0106 #### [facility] [address] [place], [address] WBC (Bld) [#/Vol] 5.5 10*3/uL Normal 4.4-11.0 [facility] Comment on above: Performed By: #### L 506.1001, L509.8002, L501.9520, L3890.6301, L506.0200, L500.4050, L100.0100, L503.0106 #### [facility] [address] [place], [address] Carbon dioxide, total [Moles /volume] in Central venous bloodOrdered By: Anil Corley on 11-15-2024 CO2 [Moles/Vol] 22.8 mmol/L 21.0-32.0 [facility] Chloride assayOrdered By: Maikel Corley on 11-15-2024 Chloride [Moles/Vol] 104 mmol/L 98-108 [facility] Comprehensive Metabolic Prof ilon 11-15-2024 Albumin [Mass/Vol] 4.1 g/dL Normal 3.4-4.8 [facility] Comment on above: Performed By: #### L 506.1001, L509.8002, L501.9520, L3890.6301, L506.0200, L500.4050, L100.0100, L503.0106 #### [facility] [address] [place], [address] Albumin/Globulin [Mass ratio] 1.2 {ratio} Normal 0.9-2.4 [facility] Comment on above: Performed By: #### L 506.1001, L509.8002, L501.9520, L3890.6301, L506.0200, L500.4050, L100.0100, L503.0106 #### [facility] [address] [place], [address] ALK PHOS 119 U/L High 35-104 [facility] Comment on above: Performed By: #### L 506.1001, L509.8002, L501.9520, L3890.6301, L506.0200, L500.4050, L100.0100, L503.0106 #### [facility] [address] [place], [address] ALT [Catalytic activity/Vol] 12 U/L Normal <=34 [facility] Comment on above: Performed By: #### L 506.1001, L509.8002, L501.9520, L3890.6301, L506.0200, L500.4050, L100.0100, L503.0106 #### [facility] [address] [place], [address] AST [Catalytic activity/Vol] 19 U/L Normal <=31 [facility] Comment on above: Result Comment: Hemo lysis present, Results??could be affected. ?? Performed By: #### L 506.1001, L509.8002, L501.9520, L3890.6301, L506.0200, L500.4050, L100.0100, L503.0106 #### [facility] [address] [place], [address] Bilirubin [Mass/Vol] 0.28 mg/dL Normal 0.00-1.30 [facility] Comment on above: Performed By: #### L 506.1001, L509.8002, L501.9520, L3890.6301, L506.0200, L500.4050, L100.0100, L503.0106 #### [facility] [address] [place], [address] BUN/CRE 13.1 RATIO Normal 10-20 [facility] Comment on above: Performed By: #### L 506.1001, L509.8002, L501.9520, L3890.6301, L506.0200, L500.4050, L100.0100, L503.0106 #### [facility] [address] [place], [address] Calcium [Mass/Vol] 9.8 mg/dL Normal 7.6-11.0 [facility] Comment on above: Performed By: #### L 506.1001, L509.8002, L501.9520, L3890.6301, L506.0200, L500.4050, L100.0100, L503.0106 #### [facility] [address] [place], [address] Chloride [Moles/Vol] 104 mmol/L Normal 98-108 [facility] Comment on above: Performed By: #### L 506.1001, L509.8002, L501.9520, L3890.6301, L506.0200, L500.4050, L100.0100, L503.0106 #### [facility] [address] [place], [address] CO2 [Moles/Vol] 22.8 mmol/L Normal 21.0-32.0 [facility] Comment on above: Performed By: #### L 506.1001, L509.8002, L501.9520, L3890.6301, L506.0200, L500.4050, L100.0100, L503.0106 #### [facility] [address] [place], [address] Creatinine [Mass/Vol] 0.83 mg/dL Normal 0.70-1.20 [facility] Comment on above: Performed By: #### L 506.1001, L509.8002, L501.9520, L3890.6301, L506.0200, L500.4050, L100.0100, L503.0106 #### [facility] [address] [place], [address] GAP 11 Normal 5-15 [facility] Comment on above: Performed By: #### L 506.1001, L509.8002, L501.9520, L3890.6301, L506.0200, L500.4050, L100.0100, L503.0106 #### [facility] [address] [place], [address] GFR/1.73 sq M.predicted among non-blacks MDRD (S/P/Bld) [Vol rate/Area] 68 mL/min/{1.73_m2} Normal >60 [facility] Comment on above: Result Comment: mL/m in/1.73m2 CKD-EPI Creatinine Equation (2020) Performed By: #### L 506.1001, L509.8002, L501.9520, L3890.6301, L506.0200, L500.4050, L100.0100, L503.0106 #### [facility] [address] [place], [address] Globulin (S) [Mass/Vol] 3.3 g/dL Normal 2.2-4.2 [facility] Comment on above: Performed By: #### L 506.1001, L509.8002, L501.9520, L3890.6301, L506.0200, L500.4050, L100.0100, L503.0106 #### [facility] [address] [place], [address] Glucose [Mass/Vol] 100 mg/dL High 70-99 [facility] Comment on above: Performed By: #### L 506.1001, L509.8002, L501.9520, L3890.6301, L506.0200, L500.4050, L100.0100, L503.0106 #### [facility] [address] [place], [address] Potassium [Moles/Vol] 4.4 mmol/L Normal 3.3-5.1 [facility] Comment on above: Result Comment: Hemo lysis present, Results??could be affected. ?? Performed By: #### L 506.1001, L509.8002, L501.9520, L3890.6301, L506.0200, L500.4050, L100.0100, L503.0106 #### [facility] [address] [place], [address] Sodium [Moles/Vol] 138 mmol/L Normal 133-145 [facility] Comment on above: Performed By: #### L 506.1001, L509.8002, L501.9520, L3890.6301, L506.0200, L500.4050, L100.0100, L503.0106 #### [facility] [address] [place], [address] T PROT 7.4 g/dL Normal 5.9-8.4 [facility] Comment on above: Performed By: #### L 506.1001, L509.8002, L501.9520, L3890.6301, L506.0200, L500.4050, L100.0100, L503.0106 #### [facility] [address] [place], [address] Urea nitrogen [Mass/Vol] 11 mg/dL Normal 4-19 [facility] Comment on above: Performed By: #### L 506.1001, L509.8002, L501.9520, L3890.6301, L506.0200, L500.4050, L100.0100, L503.0106 #### [facility] [address] [place], [place], [address] Eosinophil percentageOrdered By: Anil Corley on 11-15-2024 Eosinophils/100 WBC (Bld) 1.8 % 0-5 [facility] Erythrocyte distribution wid th ratioOrdered By: Anil Barney on 11-15-2024 Erythrocyte distribution width (RBC) [Ratio] 13.5 % 11.6-14.6 [facility] Erythrocyte distribution wid th standard deviationOrdered By: Anil Barney on 11-15-2024 Erythrocyte distribution width (RBC) [Ratio] 46.2 fl High 35.1-43.9 [facility] Glomerular filtration rate ( GFR) estimation/1.73 sq m using serum, plasma, or whole bOrdered By: Anil Corley on 11-15-2024 GFR/1.73 sq M.predicted among non-blacks MDRD (S/P/Bld) [Vol rate/Area] 68 mL/min/{1.73_m2} >60 [facility] Comment on above: mL/min/1.73m2 CKD-EP I Creatinine Equation (2020) Hematocrit Auto (Bld) [Volum e fraction]Ordered By: Anil Corley on 11-15-2024 Hematocrit (Bld) [Volume fraction] 36.7 % Low 37-47 [facility] Hemoglobin measurementOrdere d By: Anil Corley 11-15-2024 Hemoglobin (Bld) [Mass/Vol] 11.8 g/dL Low 12.0-15.0 [facility] Immature granulocytes/100 WB C Auto (Bld)Ordered By: Anil Corley 11-15-2024 Immature granulocytes/100 WBC (Bld) 0.400 % 0.0-0.9 [facility] Comment on above: IG% - Immature Granu locytes (promyelocytes, myelocytes and metamyelocytes) > 1% indicates that a LEFT SHIFT is Present. Laboratory - Chemistry and C hemistry - challengeOrdered By: Anil Barney 11-15-2024 AST [Catalytic activity/Vol] 19 U/L <32 [facility] Comment on above: Hemolysis present, R esults could be affected. MCV (mean corpuscular volume ) determinationOrdered By: Anil Corley 11-15-2024 MCV (RBC) [Entitic vol] 91.8 fL 81-99 [facility] Mean corpuscular hemoglobin (MCH) determinationOrdered By: Anil Corley 11-15-2024 MCH (RBC) [Entitic mass] 29.5 pg 27.0-32.0 [facility] Mean corpuscular hemoglobin concentration (MCHC) determinationOrdered By: Anil Barney 11-15-2024 MCHC (RBC) [Mass/Vol] 32.2 g/dL 32-36 [facility] Mean platelet volume determi nationOrdered By: Anil Corley 11-15-2024 Platelet mean volume (Bld) [Entitic vol] 8.9 fL 6.2-12.0 [facility] Monocyte percentageOrdered B y: Anil Corley on 11-15-2024 Monocytes/100 WBC (Bld) 8.4 % 0-10 [facility] Neutrophil percentageOrdered By: Anil Corley on 11-15-2024 Neutrophils/100 WBC (Bld) 60.3 % 47-70 [facility] Nucleated red blood cell per centageOrdered By: Anil Corley on 11-15-2024 Nucleated RBC/100 WBC (Bld) [Ratio] 0 % 0-5 [facility] Platelet countOrdered By: Maikel Corley on 11-15-2024 Platelets (Bld) [#/Vol] 312 10*3/uL 150-450 [facility] Potassium measurement (mass/ volume)Ordered By: Anil Corley on 11-15-2024 Potassium (Unsp spec) [Mass/Vol] 4.4 mmol/L 3.3-5.1 [facility] Comment on above: Hemolysis present, R esults could be affected. RBC Auto (Bld) [#/Vol]Ordere d By: Anil Corley on 11-15-2024 RBC (Bld) [#/Vol] 4.00 10*6/uL Low 4.2-5.4 [facility] Serum creatinine measurement (mass/volume)Ordered By: Anil Corley on 11-15-2024 Creatinine [Mass/Vol] 0.83 mg/dL 0.70-1.20 [facility] Serum globulin measurementOr dered By: Anil Corley 11-15-2024 Globulin (S) [Mass/Vol] 3.3 g/dL 2.2-4.2 [facility] Serum glucose measurement (m ass/volume)Ordered By: Anil Corley on 11-15-2024 Glucose [Mass/Vol] 100 mg/dL High 70-99 [facility] Serum or plasma alanine roy otransferase (ALT) measurementOrdered By: Anil Corley 11-15-2024 ALT [Catalytic activity/Vol] 12 U/L <35 [facility] Serum or plasma albumin tacos urement (mass/volume)Ordered By: Anil Corley 11-15-2024 Albumin [Mass/Vol] 4.1 g/dL 3.4-4.8 [facility] Serum or plasma albumin/glob ulin mass ratioOrdered By: Anil Corley on 11-15-2024 Albumin/Globulin [Mass ratio] 1.2 {ratio} 0.9-2.4 [facility] Serum or plasma alkaline arthur sphatase measurementOrdered By: Anil Corley on 11-15-2024 ALP [Catalytic activity/Vol] 119 U/L High 35-104 [facility] Serum or plasma calcium tacos urement (mass/volume)Ordered By: Anil Corley on 11-15-2024 Calcium [Mass/Vol] 9.8 mg/dL 7.6-11.0 [facility] Serum or plasma urea nitroge n measurement (mass/volume)Ordered By: Anil Corley on 11-15-2024 Urea nitrogen [Mass/Vol] 11 mg/dL 4-19 [facility] Sodium levelOrdered By: Anil Corley 11-15-2024 Sodium [Moles/Vol] 138 mmol/L 133-145 [facility] TSH DL <= 0.005 mIU/L QnOrde red By: Anil Corley on 11-15-2024 TSH Qn 3.860 uIU/mL 0.300-4.200 [facility] Thyroid Stim Hormone (TSH)on 11-15-2024 TSH 3.860 uIU/mL Normal 0.300-4.200 [facility] Comment on above: Performed By: #### L 506.1001, L509.8002, L501.9520, L3890.6301, L506.0200, L500.4050, L100.0100, L503.0106 #### [facility] [address] [place], [address] Total proteinOrdered By: Anil Corley on 11-15-2024 Protein [Mass/Vol] 7.4 g/dL 5.9-8.4 [facility] Vitamin D,25 Hydroxyon 11-15 Vitamin D 25-OH 18.9 ng/mL Low 30-100 [facility] Comment on above: Result Comment: Bertha min D Status Deficiency: <20 ng/mL (50nmol/L) Insufficiency: 20-30 ng/mL (50-75 nmol/L) Sufficiency: 30-100 ng/mL (75-250 nmol/L) Toxicity: >100 ng/mL (>250 nmol/L) Performed By: #### L 506.1001, L509.8002, L501.9520, L3890.6301, L506.0200, L500.4050, L100.0100, L503.0106 #### [facility] [place], [address] White blood cell (WBC) count Ordered By: Anil Corley on 11-15-2024 WBC (Bld) [#/Vol] 5.5 10*3/uL 4.4-11.0 [facility] Absolute lymphocyte countOrd ered By: Anil Corley on 08-17-2024 Lymphocytes Auto (Unsp spec) [#/Vol] 1.62 10*3/uL 0.83-4.51 [facility] Absolute neutrophil countOrd ered By: Anil Corley on 08-17-2024 Neutrophils (Bld) [#/Vol] 3.6 10*3/uL 2.0-7.7 [facility] Anion gap in Serum or Plasma Ordered By: Anil Corley on 08-17-2024 Anion gap [Moles/Vol] 11 mmol/L 5- [facility] Automated lymphocyte count a s percentage of total leukocytesOrdered By: Anil Corley on 08-17-2024 Lymphocytes/100 WBC Auto (Unsp spec) 27.5 % 19-41 [facility] BUN/creatinine ratioOrdered By: Anil Corley on 08-17-2024 Urea nitrogen/Creatinine [Mass ratio] 13.5 mg/mg 10-20 [facility] Basophil percentageOrdered B y: Anil Corley on 08-17-2024 Basophils/100 WBC (Bld) 1.4 % High 0-1 [facility] Bilirubin, totalOrdered By: Anil Corley on 08-17-2024 Bilirubin [Mass/Vol] 0.38 mg/dL 0.00-1.30 [facility] CBC W/Diff, Automatedon Absolute Lymph 1.62 X10 3/uL Normal 0.83-4.51 [facility] Comment on above: Performed By: #### L 500.4050, L501.9520, L100.0100, L506.1001 #### [facility] [address] [place], [address] Absolute Neut 3.6 X10 3/uL Normal 2.0-7.7 [facility] Comment on above: Performed By: #### L 500.4050, L501.9520, L100.0100, L506.1001 #### [facility] [address] [place], [address] Basophils/100 WBC (Bld) 1.4 % High 0-1 [facility] Comment on above: Performed By: #### L 500.4050, L501.9520, L100.0100, L506.1001 #### [facility] [address] [place], [address] Eosinophils/100 WBC (Bld) 1.5 % Normal 0-5 [facility] Comment on above: Performed By: #### L 500.4050, L501.9520, L100.0100, L506.1001 #### [facility] [address] [place], [address] Erythrocyte distribution width (RBC) [Ratio] 13.4 % Normal 11.6-14.6 [facility] Comment on above: Performed By: #### L 500.4050, L501.9520, L100.0100, L506.1001 #### [facility] [address] [place], [address] Hematocrit (Bld) [Volume fraction] 35.7 % Low 37-47 [facility] Comment on above: Performed By: #### L 500.4050, L501.9520, L100.0100, L506.1001 #### [facility] [address] [place], [address] Hemoglobin (Bld) [Mass/Vol] 11.4 g/dL Low 12.0-15.0 [facility] Comment on above: Performed By: #### L 500.4050, L501.9520, L100.0100, L506.1001 #### [facility] [address] [place], [address] IG% 0.200 Normal 0.0-0.9 [facility] Comment on above: Result Comment: IG% - Immature Granulocytes (promyelocytes, myelocytes and metamyelocytes) > 1% indicates that a LEFT SHIFT is Present. Performed By: #### L 500.4050, L501.9520, L100.0100, L506.1001 #### [facility] [address] [place], [address] Lymphocytes/100 WBC (Bld) 27.5 % Normal 19-41 [facility] Comment on above: Performed By: #### L 500.4050, L501.9520, L100.0100, L506.1001 #### [facility] [address] [place], [address] MCH (RBC) [Entitic mass] 29.5 pg Normal 27.0-32.0 [facility] Comment on above: Performed By: #### L 500.4050, L501.9520, L100.0100, L506.1001 #### [facility] [address] [place], [address] MCHC (RBC) [Mass/Vol] 31.9 g/dL Low 32-36 [facility] Comment on above: Performed By: #### L 500.4050, L501.9520, L100.0100, L506.1001 #### [facility] [address] [place], [address] MCV (RBC) [Entitic vol] 92.5 fL Normal 81-99 [facility] Comment on above: Performed By: #### L 500.4050, L501.9520, L100.0100, L506.1001 #### [facility] [address] [place], [address] Monocytes/100 WBC (Bld) 9.3 % Normal 0-10 [facility] Comment on above: Performed By: #### L 500.4050, L501.9520, L100.0100, L506.1001 #### [facility] [address] [place], [address] Neutrophils/100 WBC (Bld) 60.1 % Normal 47-70 [facility] Comment on above: Performed By: #### L 500.4050, L501.9520, L100.0100, L506.1001 #### [facility] [address] [place], [address] Nucleated RBC (Bld) [#/Vol] 0 10*3/uL Normal 0-5 [facility] Comment on above: Performed By: #### L 500.4050, L501.9520, L100.0100, L506.1001 #### [facility] [address] [place], [address] Platelet mean volume (Bld) [Entitic vol] 9.1 fL Normal 6.2-12.0 [facility] Comment on above: Performed By: #### L 500.4050, L501.9520, L100.0100, L506.1001 #### [facility] [address] [place], [address] Platelets (Bld) [#/Vol] 327 10*3/uL Normal 150-450 [facility] Comment on above: Performed By: #### L 500.4050, L501.9520, L100.0100, L506.1001 #### [facility] [address] [place], [address] RBC (Bld) [#/Vol] 3.86 10*6/uL Low 4.2-5.4 [facility] Comment on above: Performed By: #### L 500.4050, L501.9520, L100.0100, L506.1001 #### [facility] [address] [place], [address] RDW SD 45.7 fl High 35.1-43.9 [facility] Comment on above: Performed By: #### L 500.4050, L501.9520, L100.0100, L506.1001 #### [facility] [address] [place], [address] WBC (Bld) [#/Vol] 5.9 10*3/uL Normal 4.4-11.0 [facility] Comment on above: Performed By: #### L 500.4050, L501.9520, L100.0100, L506.1001 #### [facility] [address] [place], [address] Carbon dioxide, total [Moles /volume] in Central venous bloodOrdered By: Anil Corley on 08-17-2024 CO2 [Moles/Vol] 24.1 mmol/L 21.0-32.0 [facility] Chloride assayOrdered By: Maikel Corley on 08-17-2024 Chloride [Moles/Vol] 102 mmol/L 98-108 [facility] Comprehensive Metabolic Prof ilon 08-17-2024 Albumin [Mass/Vol] 4.3 g/dL Normal 3.4-4.8 [facility] Comment on above: Performed By: #### L 506.1001, L509.8002, L501.9520, L3890.6301, L506.0200, L500.4050, L100.0100, L503.0106 #### [facility] [address] [place], [address] Albumin/Globulin [Mass ratio] 1.4 {ratio} Normal 0.9-2.4 [facility] Comment on above: Performed By: #### L 506.1001, L509.8002, L501.9520, L3890.6301, L506.0200, L500.4050, L100.0100, L503.0106 #### [facility] [address] [place], [address] ALK PHOS 120 U/L High 35-104 [facility] Comment on above: Performed By: #### L 506.1001, L509.8002, L501.9520, L3890.6301, L506.0200, L500.4050, L100.0100, L503.0106 #### [facility] [address] [place], [address] ALT [Catalytic activity/Vol] 11 U/L Normal <=34 [facility] Comment on above: Performed By: #### L 506.1001, L509.8002, L501.9520, L3890.6301, L506.0200, L500.4050, L100.0100, L503.0106 #### [facility] [address] [place], [address] AST [Catalytic activity/Vol] 17 U/L Normal <=31 [facility] Comment on above: Performed By: #### L 506.1001, L509.8002, L501.9520, L3890.6301, L506.0200, L500.4050, L100.0100, L503.0106 #### [facility] [address] [place], [address] Bilirubin [Mass/Vol] 0.38 mg/dL Normal 0.00-1.30 [facility] Comment on above: Performed By: #### L 506.1001, L509.8002, L501.9520, L3890.6301, L506.0200, L500.4050, L100.0100, L503.0106 #### [facility] [address] [place], [address] BUN/CRE 13.5 RATIO Normal 10-20 [facility] Comment on above: Performed By: #### L 506.1001, L509.8002, L501.9520, L3890.6301, L506.0200, L500.4050, L100.0100, L503.0106 #### [facility] [address] [place], [address] Calcium [Mass/Vol] 9.5 mg/dL Normal 7.6-11.0 [facility] Comment on above: Performed By: #### L 506.1001, L509.8002, L501.9520, L3890.6301, L506.0200, L500.4050, L100.0100, L503.0106 #### [facility] [address] [place], [address] Chloride [Moles/Vol] 102 mmol/L Normal 98-108 [facility] Comment on above: Performed By: #### L 506.1001, L509.8002, L501.9520, L3890.6301, L506.0200, L500.4050, L100.0100, L503.0106 #### [facility] [address] [place], [address] CO2 [Moles/Vol] 24.1 mmol/L Normal 21.0-32.0 [facility] Comment on above: Performed By: #### L 506.1001, L509.8002, L501.9520, L3890.6301, L506.0200, L500.4050, L100.0100, L503.0106 #### [facility] [address] [place], [address] Creatinine [Mass/Vol] 0.84 mg/dL Normal 0.70-1.20 [facility] Comment on above: Performed By: #### L 506.1001, L509.8002, L501.9520, L3890.6301, L506.0200, L500.4050, L100.0100, L503.0106 #### [facility] [address] [place], [address] GAP 11 Normal 5-15 [facility] Comment on above: Performed By: #### L 506.1001, L509.8002, L501.9520, L3890.6301, L506.0200, L500.4050, L100.0100, L503.0106 #### [facility] [address] [place], [place], [id number] (136) GFR/1.73 sq M.predicted among non-blacks MDRD (S/P/Bld) [Vol rate/Area] 67 mL/min/{1.73_m2} Normal >60 [facility] Comment on above: Result Comment: mL/m in/1.73m2 CKD-EPI Creatinine Equation (2020) Performed By: #### L 506.1001, L509.8002, L501.9520, L3890.6301, L506.0200, L500.4050, L100.0100, L503.0106 #### [facility] [address] [place], [place], [id number] (348) Globulin (S) [Mass/Vol] 3.1 g/dL Normal 2.2-4.2 [facility] Comment on above: Performed By: #### L 506.1001, L509.8002, L501.9520, L3890.6301, L506.0200, L500.4050, L100.0100, L503.0106 #### [facility] [address] [place], [place], [id number] (475) Glucose [Mass/Vol] 90 mg/dL Normal 70-99 [facility] Comment on above: Performed By: #### L 506.1001, L509.8002, L501.9520, L3890.6301, L506.0200, L500.4050, L100.0100, L503.0106 #### [facility] [address] [place], [address] Potassium [Moles/Vol] 4.1 mmol/L Normal 3.3-5.1 [facility] Comment on above: Performed By: #### L 506.1001, L509.8002, L501.9520, L3890.6301, L506.0200, L500.4050, L100.0100, L503.0106 #### [facility] [address] [place], [address] Sodium [Moles/Vol] 137 mmol/L Normal 133-145 [facility] Comment on above: Performed By: #### L 506.1001, L509.8002, L501.9520, L3890.6301, L506.0200, L500.4050, L100.0100, L503.0106 #### [facility] [address] [place], [address] T PROT 7.4 g/dL Normal 5.9-8.4 [facility] Comment on above: Performed By: #### L 506.1001, L509.8002, L501.9520, L3890.6301, L506.0200, L500.4050, L100.0100, L503.0106 #### [facility] [address] [place], [address] Urea nitrogen [Mass/Vol] 11 mg/dL Normal 4-19 [facility] Comment on above: Performed By: #### L 506.1001, L509.8002, L501.9520, L3890.6301, L506.0200, L500.4050, L100.0100, L503.0106 #### [facility] [place], [address] Eosinophil percentageOrdered By: Anil Corley on 08-17-2024 Eosinophils/100 WBC (Bld) 1.5 % 0-5 [facility] Erythrocyte distribution wid th ratioOrdered By: Anil Barney on 08-17-2024 Erythrocyte distribution width (RBC) [Ratio] 13.4 % 11.6-14.6 [facility] Erythrocyte distribution wid th standard deviationOrdered By: Anil Barney on 08-17-2024 Erythrocyte distribution width (RBC) [Ratio] 45.7 fl High 35.1-43.9 [facility] Glomerular filtration rate ( GFR) estimation/1.73 sq m using serum, plasma, or whole bOrdered By: [facility] 08-17-2024 GFR/1.73 sq M.predicted among non-blacks MDRD (S/P/Bld) [Vol rate/Area] 67 mL/min/{1.73_m2} >60 [facility] Comment on above: mL/min/1.73m2 CKD-EP I Creatinine Equation (2020) Hematocrit Auto (Bld) [Volum e fraction]Ordered By: Anil Corley 08-17-2024 Hematocrit (Bld) [Volume fraction] 35.7 % Low 37-47 [facility] Hemoglobin measurementOrdere d By: Anil Corley 08-17-2024 Hemoglobin (Bld) [Mass/Vol] 11.4 g/dL Low 12.0-15.0 [facility] Immature granulocytes/100 WB C Auto (Bld)Ordered By: Anil Corley 08-17-2024 Immature granulocytes/100 WBC (Bld) 0.200 % 0.0-0.9 [facility] Comment on above: IG% - Immature Granu locytes (promyelocytes, myelocytes and metamyelocytes) > 1% indicates that a LEFT SHIFT is Present. Laboratory - Chemistry and C hemistry - challengeOrdered By: Anil Barney 08-17-2024 AST [Catalytic activity/Vol] 17 U/L <32 [facility] MCV (mean corpuscular volume ) determinationOrdered By: Anil Corley 08-17-2024 MCV (RBC) [Entitic vol] 92.5 fL 81-99 [facility] Mean corpuscular hemoglobin (MCH) determinationOrdered By: Anil Corley on 08-17-2024 MCH (RBC) [Entitic mass] 29.5 pg 27.0-32.0 [facility] Mean corpuscular hemoglobin concentration (MCHC) determinationOrdered By: Anil Corley on 08-17-2024 MCHC (RBC) [Mass/Vol] 31.9 g/dL Low 32-36 [facility] Mean platelet volume determi nationOrdered By: Anil Corley on 08-17-2024 Platelet mean volume (Bld) [Entitic vol] 9.1 fL 6.2-12.0 [facility] Monocyte percentageOrdered B y: Anil Corley on 08-17-2024 Monocytes/100 WBC (Bld) 9.3 % 0-10 [facility] Neutrophil percentageOrdered By: Anil Corley on 08-17-2024 Neutrophils/100 WBC (Bld) 60.1 % 47-70 [facility] Nucleated red blood cell per centageOrdered By: Anil Corley on 08-17-2024 Nucleated RBC/100 WBC (Bld) [Ratio] 0 % 0-5 [facility] Platelet countOrdered By: Maikel Corley on 08-17-2024 Platelets (Bld) [#/Vol] 327 10*3/uL 150-450 [facility] Potassium measurement (mass/ volume)Ordered By: Anil Corley on 08-17-2024 Potassium (Unsp spec) [Mass/Vol] 4.1 mmol/L 3.3-5.1 [facility] RBC Auto (Bld) [#/Vol]Ordere d By: Anil Corley on 08-17-2024 RBC (Bld) [#/Vol] 3.86 10*6/uL Low 4.2-5.4 [facility] Serum creatinine measurement (mass/volume)Ordered By: Anil Corley on 08-17-2024 Creatinine [Mass/Vol] 0.84 mg/dL 0.70-1.20 [facility] Serum globulin measurementOr dered By: Anil Corley 08-17-2024 Globulin (S) [Mass/Vol] 3.1 g/dL 2.2-4.2 [facility] Serum glucose measurement (m ass/volume)Ordered By: Anil Corley on 08-17-2024 Glucose [Mass/Vol] 90 mg/dL 70-99 [facility] Serum or plasma alanine roy otransferase (ALT) measurementOrdered By: Anil Corley on 08-17-2024 ALT [Catalytic activity/Vol] 11 U/L <35 [facility] Serum or plasma albumin tacos urement (mass/volume)Ordered By: Anil Corley on 08-17-2024 Albumin [Mass/Vol] 4.3 g/dL 3.4-4.8 [facility] Serum or plasma albumin/glob ulin mass ratioOrdered By: Anil Corley on 08-17-2024 Albumin/Globulin [Mass ratio] 1.4 {ratio} 0.9-2.4 [facility] Serum or plasma alkaline arthur sphatase measurementOrdered By: Anil Corley on 08-17-2024 ALP [Catalytic activity/Vol] 120 U/L High 35-104 [facility] Serum or plasma calcium tacos urement (mass/volume)Ordered By: Anil Corley on 08-17-2024 Calcium [Mass/Vol] 9.5 mg/dL 7.6-11.0 [facility] Serum or plasma urea nitroge n measurement (mass/volume)Ordered By: Anil Corley on 08-17-2024 Urea nitrogen [Mass/Vol] 11 mg/dL 4-19 [facility] Sodium levelOrdered By: Anil Corley on 08-17-2024 Sodium [Moles/Vol] 137 mmol/L 133-145 [facility] TSH DL <= 0.005 mIU/L QnOrde red By: Anil Corley on 08-17-2024 TSH Qn 3.130 uIU/mL 0.300-4.200 [facility] Thyroid Stim Hormone (TSH)on 08-17-2024 TSH 3.130 uIU/mL Normal 0.300-4.200 [facility] Comment on above: Performed By: #### L 506.1001, L509.8002, L501.9520, L3890.6301, L506.0200, L500.4050, L100.0100, L503.0106 #### [facility] [address] [facility] [facility] [place], [place], [id number] Total proteinOrdered By: Anil Corley on 08-17-2024 Protein [Mass/Vol] 7.4 g/dL 5.9-8.4 [facility] Vitamin D,25 Hydroxyon 08-17 Vitamin D 25-OH 23.2 ng/mL Low 30-100 [facility] Comment on above: Result Comment: Bertha min D Status Deficiency: <20 ng/mL (50nmol/L) Insufficiency: 20-30 ng/mL (50-75 nmol/L) Sufficiency: 30-100 ng/mL (75-250 nmol/L) Toxicity: >100 ng/mL (>250 nmol/L) Performed By: #### L 506.1001, L509.8002, L501.9520, L3890.6301, L506.0200, L500.4050, L100.0100, L503.0106 #### [facility] [address] [place], [address] White blood cell (WBC) count Ordered By: Anil Corley on 08-17-2024 WBC (Bld) [#/Vol] 5.9 10*3/uL 4.4-11.0 [facility] 07-06-2024 [facility] Telephone (NIQ) ABDIAZIZ HERNANDEZ ([id number]) 1935 F Date Time Provider Department 07/06/24 NEUROLOGY PROVIDER [facility] During your visit today, we recorded the following information about you: Paulette Maldonado 07/06/2024 1:41 PM Signed LVM for patient / to call back to schedule brain health visit. Called 's cell [phone]. Allergies As of Date: 07/06/2024 Noted Allergy [...] Date Reviewed: 04/11/2024 Reviewed by: PodlogRox wiggins APRN.SOLE LAYER - Fully Assessed Reason for Visit: Appointment [186] Cmt: LVM for patient / to call back to schedule brain health visit. Called 's cell [phone]. Prescriptions as of 07/06/2024 - atorvastatin (LIPITOR) [...] Status:Closed by PAULETTE MALDONADO on 07/06/24 Normal [facility] Magnetic resonance imaging r eportOrdered By: Misael Pastor on 06-20-2024 Study report [facility] Imaging Services [address] [place] [address] [id number] Brain without Contrast MR#: [id number] Acct: [id number] Name: ABDIAZIZ HERNANDEZ Rep #: [id number] : 1935 F 89 From: Diana Pastor MD PCP: Dr. Anil Corley MD Status: JESSICA ABREU Study:Brain without Contrast Date of Exam: 06/19/24 Exam# [id number] Ordering Dr: Anil Corley MD PROCEDURE: BRAIN [...] JOHNNY CC: Dr. 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 Anil Corley MD Status: REG CLI Study: Brain without Contrast Date of Exam: 06/19/24 Exam# [id number] Ordering Dr: Anil Corley MD PROCEDURE: BRAIN [...] Location: [place] CC: Dr. Anil Corley MD 5Th Grade Teacher: Signed Normal [facility] ABDIAZIZ HERNANDEZ ([id number]) 1935 F Date Time Provider Department 06/14/24 [facility] During your visit today, we recorded the following information about you: ArnolyesiXenia 06/14/2024 11:41 AM Signed left for patient about scheduling center for brain health consult per referral. called [phone] Allergies As of Date: 06/14/2024 Noted Allergy [...] Date Reviewed: 04/11/2024 Reviewed by: Rox Baird APRN.SOLE LAYER - Fully Assessed Reason for Visit: Appointment [186] Cmt: left vm for patient about scheduling center for brain health consult per referral. called [phone] Prescriptions as of 06/14/2024 - atorvastatin (LIPITOR) [...] Status:Closed by XENIA LLAMAS on 06/14/24 Normal [facility] [id number] 05-26-2024 [facility] COMMENT Normal . [facility] Comment on above: Order Comment: [id number] 0PLASMA FROZEN Result Comment: Test Ordered: [id number] Test(s) [id number] was developed and its performance characteristics determined by [facility]. It has not been cleared or approved by the Food and Drug Administration. [id number] 0.87 [H ] pg/mL L9 Reference Range: 0.00-0.18 Clinical cutoff value was established using samples from a patient cohort characterized with amyloid PET data. A p-qku013 value of >0.18 is a reported surrogate marker for beta amyloid pathology, and can be used to facilitate biological identification of Alzheimer's disease (1). p-lkn787 has also been used in clinical trials to monitor patients on anti-amyloid therapy (2,3). Test performed by [employer] chemiluminescent enzyme immunoassay (CLEIA). Values obtained with different methods cannot be used interchangeably. The validated limit of quantification is 0.06 pg/mL. Assay detection limit is 0.03 pg/mL. Footnotes Comment L9 Reference Range: . 1. Star Mena, et al. Diagnostic Accuracy of a Plasma Phosphorylated Tau 217 Immunoassay for Alzheimer Disease Pathology. FERNANDO neurology (2023). 2. Star Mena, et al. Differential roles of A42/40, p-twe897 and p-sdh885 for Alzheimer's trial selection and disease monitoring. Nature medicine 28.12 (2021): 7725-5554. 3. Santos MJ, Destiny M, [place], et al. Association of [place] Treatment With Exploratory Plasma Biomarkers in Early Symptomatic Alzheimer Disease: A Secondary Analysis of the TRAILBLAZER-ALZ Randomized Clinical Trial. FERNANDO Neurol. 2021;79(12):3450-7404. Performed at: - [facility] [address] [address], [place] [id number] Financial Analyst Intern: Carin Garcia MD, Phone: [phone] Performed at: - [facility] [place] [id number] [place], [place] [id number] Financial Analyst Intern: Brandon Looney PhD, Phone: [phone] Performed By: #### L 506.1001, L509.7032, L501.6520, L3890.6301, L506.0200, L500.4050, L100.0100, L503.0106 #### [facility] [place], [address] L3410.9998on 05-23-2024 [facility] [place]. COMMENT Normal . [facility] Comment on above: Order Comment: [id number] 0EDTA WHOLE BLOOD ROOM TEMP Result Comment: Test Ordered: [id number] APOE Alzheimer's Risk Methodology: Comment UY Reference Range: . Patient DNA is assayed for the APOE genotype by PCR amplification of a specific region in exon 4 of the APOE gene followed by digestion with restriction enzyme Bale Breaker Operator I and separation of fragments by [...] the APOE4 variant and by approximately 10 [id number] for individuals with two copies of this [...] developed and its performance characteristics determined by [employer]. It has not been cleared or approved by the Food and Drug Administration. The FDA has determined that such clearance or approval is not necessary. REFERENCES Jay Martinez et al. Sex modifies the APOE-related risk of developing Alzheimer disease. Annal Neurol 2014;75(4):563-573 Chris HERNANDEZ. Alzheimer Disease Overview. [facility] ([employer]). Rhonda WILKERSON et al., editors. [place]: [facility], [place]. Last revised 2014. Umberto JS et al. Genetic counseling and testing for Alzheimer disease: Joint practice guidelines of the [employer] [employer] and the National Society of Genetic Counselors. Lay in Med 2011;13(6)597-605. Marlon FERREIRA. Apolipoprotein E: Implications for AD neurobiology, epidemiology and risk assessment. Neurobiology of Aging 2011;32:778-790 Performed at: [facility] [address] [id number] Financial Analyst Intern: Ronaldo Love MD, Phone: [phone] Performed at: [employer] (more content not included)... Performed By: #### L 506.1001, L509.8002, L501.9520, L3890.6301, L506.0200, L500.4050, L100.0100, L503.0106 #### [facility] [address] [place], [address] L3410.9998on 05-22-2024 [facility]. COMMENT Normal . [facility] Comment on above: Order Comment: [id number] PLASMA FROZEN Result Comment: Test Ordered: [id number] Beta Amyloid 42/40 Ratio Test(s) 670218-Ubzm-fctiuhd 42/40 Ratio; 417482- Beta-amyloid 42; 494790-Glnl-brkquue 40 was developed and its performance characteristics determined by [employer]. It has not been cleared or approved [...] methods cannot be used interchangeably. Performed at: [facility] [address] [id number] Financial Analyst Intern: Julia Berumen MD, Phone: [phone] Performed at: [facility] [address] [id number] Financial Analyst Intern: Brandon Looney PhD, Phone: [phone] Performed By: #### L 3410.9998 #### [facility] [address] [place] [address], [id number] Absolute lymphocyte countOrd ered By: Anil Corley on 05-17-2024 Lymphocytes Auto (Unsp spec) [#/Vol] 1.56 10*3/uL 0.83-4.51 [facility] Absolute neutrophil countOrd ered By: Anil Corley on 05-17-2024 Neutrophils (Bld) [#/Vol] 4.8 10*3/uL 2.0-7.7 [facility] Anion gap in Serum or Plasma Ordered By: Anil Corley on 05-17-2024 Anion gap [Moles/Vol] 12 mmol/L 5-15 [facility] Automated lymphocyte count a s percentage of total leukocytesOrdered By: Anil Corley on 05-17-2024 Lymphocytes/100 WBC Auto (Unsp spec) 21.8 % 19-41 [facility] BUN/creatinine ratioOrdered By: Anil Corley 05-17-2024 Urea nitrogen/Creatinine [Mass ratio] 14.8 mg/mg 10-20 [facility] Basophil percentageOrdered B y: Anil Corley on 05-17-2024 Basophils/100 WBC (Bld) 0.8 % 0-1 [facility] Bilirubin, totalOrdered By: Anil Corley on 05-17-2024 Bilirubin [Mass/Vol] 0.34 mg/dL 0.00-1.30 [facility] CBC W/Diff, Automatedon 03-0 5-202 Absolute Lymph 1.56 X10 3/uL Normal 0.83-4.51 [facility] Comment on above: Performed By: #### L 506.1001, L509.8002, L501.9520, L3890.6301, L506.0200, L500.4050, L100.0100, L503.0106 #### [facility] [address] [place], [address] Absolute Neut 4.8 X10 3/uL Normal 2.0-7.7 [facility] Comment on above: Performed By: #### L 506.1001, L509.8002, L501.9520, L3890.6301, L506.0200, L500.4050, L100.0100, L503.0106 #### [facility] [address] [place], [address] Basophils/100 WBC (Bld) 0.8 % Normal 0-1 [facility] Comment on above: Performed By: #### L 506.1001, L509.8002, L501.9520, L3890.6301, L506.0200, L500.4050, L100.0100, L503.0106 #### [facility] [address] [place], [address] Eosinophils/100 WBC (Bld) 1.4 % Normal 0-5 [facility] Comment on above: Performed By: #### L 506.1001, L509.8002, L501.9520, L3890.6301, L506.0200, L500.4050, L100.0100, L503.0106 #### [facility] [address] [place], [address] Erythrocyte distribution width (RBC) [Ratio] 13.4 % Normal 11.6-14.6 [facility] Comment on above: Performed By: #### L 506.1001, L509.8002, L501.9520, L3890.6301, L506.0200, L500.4050, L100.0100, L503.0106 #### [facility] [address] [place], [address] Hematocrit (Bld) [Volume fraction] 37.3 % Normal 37-47 [facility] Comment on above: Performed By: #### L 506.1001, L509.8002, L501.9520, L3890.6301, L506.0200, L500.4050, L100.0100, L503.0106 #### [facility] [address] [facility] [place], [address] Hemoglobin (Bld) [Mass/Vol] 12.2 g/dL Normal 12.0-15.0 [facility] Comment on above: Performed By: #### L 506.1001, L509.8002, L501.9520, L3890.6301, L506.0200, L500.4050, L100.0100, L503.0106 #### [facility] [address] [facility] [place], [address] IG% 0.400 Normal 0.0-0.9 [facility] Comment on above: Result Comment: IG% - Immature Granulocytes (promyelocytes, myelocytes and metamyelocytes) > 1% indicates that a LEFT SHIFT is Present. Performed By: #### L 506.1001, L509.8002, L501.9520, L3890.6301, L506.0200, L500.4050, L100.0100, L503.0106 #### [facility] [address] [place], [address] Lymphocytes/100 WBC (Bld) 21.8 % Normal 19-41 [facility] Comment on above: Performed By: #### L 506.1001, L509.8002, L501.9520, L3890.6301, L506.0200, L500.4050, L100.0100, L503.0106 #### [facility] [address] [place], [address] MCH (RBC) [Entitic mass] 30.3 pg Normal 27.0-32.0 [facility] Comment on above: Performed By: #### L 506.1001, L509.8002, L501.9520, L3890.6301, L506.0200, L500.4050, L100.0100, L503.0106 #### [facility] [address] [place], [address] MCHC (RBC) [Mass/Vol] 32.7 g/dL Normal 32-36 [facility] Comment on above: Performed By: #### L 506.1001, L509.8002, L501.9520, L3890.6301, L506.0200, L500.4050, L100.0100, L503.0106 #### [facility] [address] [place], [address] MCV (RBC) [Entitic vol] 92.8 fL Normal 81-99 [facility] Comment on above: Performed By: #### L 506.1001, L509.8002, L501.9520, L3890.6301, L506.0200, L500.4050, L100.0100, L503.0106 #### [facility] [address] [place], [address] Monocytes/100 WBC (Bld) 8.4 % Normal 0-10 [facility] Comment on above: Performed By: #### L 506.1001, L509.8002, L501.9520, L3890.6301, L506.0200, L500.4050, L100.0100, L503.0106 #### [facility] [address] [place], [address] Neutrophils/100 WBC (Bld) 67.2 % Normal 47-70 [facility] Comment on above: Performed By: #### L 506.1001, L509.8002, L501.9520, L3890.6301, L506.0200, L500.4050, L100.0100, L503.0106 #### [facility] [address] [place], [address] Nucleated RBC (Bld) [#/Vol] 0 10*3/uL Normal 0-5 [facility] Comment on above: Performed By: #### L 506.1001, L509.8002, L501.9520, L3890.6301, L506.0200, L500.4050, L100.0100, L503.0106 #### [facility] [address] [place], [address] Platelet mean volume (Bld) [Entitic vol] 9.1 fL Normal 6.2-12.0 [facility] Comment on above: Performed By: #### L 506.1001, L509.8002, L501.9520, L3890.6301, L506.0200, L500.4050, L100.0100, L503.0106 #### [facility] [address] [place], [address] Platelets (Bld) [#/Vol] 295 10*3/uL Normal 150-450 [facility] Comment on above: Performed By: #### L 506.1001, L509.8002, L501.9520, L3890.6301, L506.0200, L500.4050, L100.0100, L503.0106 #### [facility] [address] [place], [address] RBC (Bld) [#/Vol] 4.02 10*6/uL Low 4.2-5.4 [facility] Comment on above: Performed By: #### L 506.1001, L509.8002, L501.9520, L3890.6301, L506.0200, L500.4050, L100.0100, L503.0106 #### [facility] [address] [place], [address] RDW SD 45.9 fl High 35.1-43.9 [facility] Comment on above: Performed By: #### L 506.1001, L509.8002, L501.9520, L3890.6301, L506.0200, L500.4050, L100.0100, L503.0106 #### [facility] [address] [place], [address] WBC (Bld) [#/Vol] 7.2 10*3/uL Normal 4.4-11.0 [facility] Comment on above: Performed By: #### L 506.1001, L509.8002, L501.9520, L3890.6301, L506.0200, L500.4050, L100.0100, L503.0106 #### [facility] [address] [place], [place], [address] [facility] Telephone (INTMWS) ABDIAZIZ HERNANDEZ ([id number]) 1935 F Date Time Provider Department 05/17/24 MIGUELINA COMBS INTWS During your visit today, we recorded the following information about you: Ann Simms LPN 05/17/2024 4:29 PM Signed Fax rec'd from [facility]. The are asking for completed medical records. This was faxed to [facility] medical records release. Allergies As of [...] Date Reviewed: 04/11/2024 Reviewed by: PodlogRox wiggins APRN.SOLE LAYER - Fully Assessed Reason for Visit: Release [...] Status:Closed by ANN SIMMS on 05/17/24 Normal [facility] Carbon dioxide, total [Moles /volume] in Central venous bloodOrdered By: Anil Corley on 05-17-2024 CO2 [Moles/Vol] 22.4 mmol/L 21.0-32.0 [facility] Chloride assayOrdered By: Maikel Corley on 05-17-2024 Chloride [Moles/Vol] 102 mmol/L 98-108 [facility] Comprehensive Metabolic Prof ilon 05-17-2024 Albumin [Mass/Vol] 4.4 g/dL Normal 3.4-4.8 [facility] Comment on above: Performed By: #### L 506.1001, L509.8002, L501.9520, L3890.6301, L506.0200, L500.4050, L100.0100, L503.0106 #### [facility] [address] [place], [place], [address] Albumin/Globulin [Mass ratio] 1.3 {ratio} Normal 0.9-2.4 [facility] Comment on above: Performed By: #### L 506.1001, L509.8002, L501.9520, L3890.6301, L506.0200, L500.4050, L100.0100, L503.0106 #### [facility] [address] [place], [address] ALK PHOS 120 U/L High 35-104 [facility] Comment on above: Performed By: #### L 506.1001, L509.8002, L501.9520, L3890.6301, L506.0200, L500.4050, L100.0100, L503.0106 #### [facility] [address] [place], [address] ALT [Catalytic activity/Vol] 13 U/L Normal <=34 [facility] Comment on above: Performed By: #### L 506.1001, L509.8002, L501.9520, L3890.6301, L506.0200, L500.4050, L100.0100, L503.0106 #### [facility] [address] [place], [address] AST [Catalytic activity/Vol] 18 U/L Normal <=31 [facility] Comment on above: Performed By: #### L 506.1001, L509.8002, L501.9520, L3890.6301, L506.0200, L500.4050, L100.0100, L503.0106 #### [facility] [address] [place], [address] Bilirubin [Mass/Vol] 0.34 mg/dL Normal 0.00-1.30 [facility] Comment on above: Performed By: #### L 506.1001, L509.8002, L501.9520, L3890.6301, L506.0200, L500.4050, L100.0100, L503.0106 #### [facility] [address] [place], [address] BUN/CRE 14.8 RATIO Normal 10-20 [facility] Comment on above: Performed By: #### L 506.1001, L509.8002, L501.9520, L3890.6301, L506.0200, L500.4050, L100.0100, L503.0106 #### [facility] [address] [place], [address] Calcium [Mass/Vol] 9.8 mg/dL Normal 7.6-11.0 [facility] Comment on above: Performed By: #### L 506.1001, L509.8002, L501.9520, L3890.6301, L506.0200, L500.4050, L100.0100, L503.0106 #### [facility] [address] [place], [address] Chloride [Moles/Vol] 102 mmol/L Normal 98-108 [facility] Comment on above: Performed By: #### L 506.1001, L509.8002, L501.9520, L3890.6301, L506.0200, L500.4050, L100.0100, L503.0106 #### [facility] [address] [place], [address] CO2 [Moles/Vol] 22.4 mmol/L Normal 21.0-32.0 [facility] Comment on above: Performed By: #### L 506.1001, L509.8002, L501.9520, L3890.6301, L506.0200, L500.4050, L100.0100, L503.0106 #### [facility] [address] [place], [address] Creatinine [Mass/Vol] 0.83 mg/dL Normal 0.70-1.20 [facility] Comment on above: Performed By: #### L 506.1001, L509.8002, L501.9520, L3890.6301, L506.0200, L500.4050, L100.0100, L503.0106 #### [facility] [address] [place], [address] GAP 12 Normal 5-15 [facility] Comment on above: Performed By: #### L 506.1001, L509.8002, L501.9520, L3890.6301, L506.0200, L500.4050, L100.0100, L503.0106 #### [facility] [address] [place], [address] GFR/1.73 sq M.predicted among non-blacks MDRD (S/P/Bld) [Vol rate/Area] 68 mL/min/{1.73_m2} Normal >60 [facility] Comment on above: Result Comment: mL/m in/1.73m2 CKD-EPI Creatinine Equation (2020) Performed By: #### L 506.1001, L509.8002, L501.9520, L3890.6301, L506.0200, L500.4050, L100.0100, L503.0106 #### [facility] [address] [place], [address] Globulin (S) [Mass/Vol] 3.3 g/dL Normal 2.2-4.2 [facility] Comment on above: Performed By: #### L 506.1001, L509.8002, L501.9520, L3890.6301, L506.0200, L500.4050, L100.0100, L503.0106 #### [facility] [address] [place], [address] Glucose [Mass/Vol] 97 mg/dL Normal 70-99 [facility] Comment on above: Performed By: #### L 506.1001, L509.8002, L501.9520, L3890.6301, L506.0200, L500.4050, L100.0100, L503.0106 #### [facility] [address] [place], [address] Potassium [Moles/Vol] 4.0 mmol/L Normal 3.3-5.1 [facility] Comment on above: Performed By: #### L 506.1001, L509.8002, L501.9520, L3890.6301, L506.0200, L500.4050, L100.0100, L503.0106 #### [facility] [address] [place], [address] Sodium [Moles/Vol] 137 mmol/L Normal 133-145 [facility] Comment on above: Performed By: #### L 506.1001, L509.8002, L501.9520, L3890.6301, L506.0200, L500.4050, L100.0100, L503.0106 #### [facility] [address] [place], [address] T PROT 7.6 g/dL Normal 5.9-8.4 [facility] Comment on above: Performed By: #### L 506.1001, L509.8002, L501.9520, L3890.6301, L506.0200, L500.4050, L100.0100, L503.0106 #### [facility] [address] [place], [address] Urea nitrogen [Mass/Vol] 12 mg/dL Normal 4-19 [facility] Comment on above: Performed By: #### L 506.1001, L509.8002, L501.9520, L3890.6301, L506.0200, L500.4050, L100.0100, L503.0106 #### [facility] [address] [place], [place], [address] Eosinophil percentageOrdered By: Anil Barnettok on 05-17-2024 Eosinophils/100 WBC (Bld) 1.4 % 0-5 [facility] Erythrocyte distribution wid th ratioOrdered By: [facility] on 05-17-2024 Erythrocyte distribution width (RBC) [Ratio] 13.4 % 11.6-14.6 [facility] Erythrocyte distribution wid th standard deviationOrdered By: Anil Barney on 05-17-2024 Erythrocyte distribution width (RBC) [Entitic vol] 45.9 fL High 35.1-43.9 [facility] Erythrocyte distribution width (RBC) [Ratio] 45.9 fl High 35.1-43.9 [facility] FOLATES,SERUM (FOLIC ACID)on 05-17-2024 FOLATES,SERUM 5.27 ng/mL Normal 4.60-34.80 [facility] Comment on above: Order Comment: N Performed By: #### L 506.1001, L509.8002, L501.9520, L3890.6301, L506.0200, L500.4050, L100.0100, L503.0106 #### [facility] [address] [place], [place], [id number] Folate [Mass/Vol]Ordered By: Anil Corley on 05-17-2024 Folate 5.27 ng/mL 4.60-34.80 [facility] Folate [Mass/volume] in Seru m or PlasmaOrdered By: Anil Corley 05-17-2024 Folate [Mass/Vol] 5.27 ng/mL 4.60-34.80 [facility] GFR/1.73 sq M.predicted satish g non-blacks MDRD (S/P/Bld) [Vol rate/Area]Ordered By: Anil Corley on 05-17-2024 Estimated GFR (MDRD) Non-Af Amer 68 >60 [facility] Comment on above: mL/min/1.73m2 CKD-EP I Creatinine Equation (2020) Glomerular filtration rate ( GFR) estimation/1.73 sq m using serum, plasma, or whole bOrdered By: Anil Corley on 03-05-2025 GFR/1.73 sq M.predicted among non-blacks MDRD (S/P/Bld) [Vol rate/Area] 68 mL/min/{1.73_m2} >60 [facility] Comment on above: mL/min/1.73m2 CKD-EP I Creatinine Equation (2020) Hematocrit Auto (Bld) [Volum e fraction]Ordered By: Anil Corley on 05-17-2024 Hematocrit (Bld) [Volume fraction] 37.3 % 37-47 [facility] Hemoglobin measurementOrdere d By: Anil Corley on 05-17-2024 Hemoglobin (Bld) [Mass/Vol] 12.2 g/dL 12.0-15.0 [facility] Hepatitis C antibodyOrdered By: Anil Corley on 05-17-2024 Hepatitis C Antibody Non-Reactive Nonreactive [facility] Comment on above: Reactive: Presumptiv e evidence of antibodies to HCV. Follow CDC recommendations for supplemental testing.Non-Reactive: Antibodies to HCV were not detected; does not exclude the possibility of exposure to HCVReactive Results are presumptive evidence of antibodies to HCV. Follow CDC recommendations for supplemental testing.Order confirmation testing: HCV Quant by PCR testing - HCVPCR lc#[id number] Non Reactive: < 0.8 Equivocal: >/= 0.8 to < 1.0 Reactive: >/= 1.0The CDC requires that a reactive/equivocal HCV antibody result be sent out for confirmation. HCV Quant by PCR testing. Immature granulocytes/100 WB C Auto (Bld)Ordered By: Anil Corley on 05-17-2024 Immature granulocytes/100 WBC (Bld) 0.400 % 0.0-0.9 [facility] Comment on above: IG% - Immature Granu locytes (promyelocytes, myelocytes and metamyelocytes) > 1% indicates that a LEFT SHIFT is Present. L3890.6301on 05-17-2024 Hepatitis C Ab Non-Reactive Normal Nonreactive [facility] Comment on above: Result Comment: Reac tive: Presumptive evidence of antibodies to HCV. Follow CDC recommendations for supplemental testing. Non-Reactive: Antibodies to HCV were not detected; does not exclude the possibility of exposure to HCV Reactive Results are presumptive evidence of antibodies to HCV. Follow CDC recommendations for supplemental testing. Order confirmation testing: HCV Quant by PCR testing - HCVPCR lc#[id number] Non Reactive: < 0.8 Equivocal: >/= 0.8 to < 1.0 Reactive: >/= 1.0 The CDC requires that a reactive/equivocal HCV antibody result be sent out for confirmation. HCV Quant by PCR testing. Performed By: #### L 506.1001, L509.8002, L501.9520, L3890.6301, L506.0200, L500.4050, L100.0100, L503.0106 #### [facility] [address] [facility] [address] [place], [address] [id number] 05-17-2024 Cobalamin (Vitamin B12) [Mass/Vol] 616 pg/mL Normal 180-914 [facility] Comment on above: Performed By: #### L 506.1001, L509.8002, L501.9520, L3890.6301, L506.0200, L500.4050, L100.0100, L503.0106 #### [facility] [address] [place], [address] L506.1001on 05-17-2024 Vitamin D 25-OH 25.3 ng/mL Low 30-100 [facility] Comment on above: Result Comment: Bertha min D Status Deficiency: <20 ng/mL (50nmol/L) Insufficiency: 20-30 ng/mL (50-75 nmol/L) Sufficiency: 30-100 ng/mL (75-250 nmol/L) Toxicity: >100 ng/mL (>250 nmol/L) Performed By: #### L 506.1001, L509.8002, L501.9520, L3890.6301, L506.0200, L500.4050, L100.0100, L503.0106 #### [facility] [address] [place], [address] L509.8002on 05-17-2024 Syphilis Abs Non-Reactive Normal Nonreactive [facility] Comment on above: Performed By: #### L 506.1001, L509.8002, L501.9520, L3890.6301, L506.0200, L500.4050, L100.0100, L503.0106 #### [facility] [address] [place], [address] Laboratory - Chemistry and C hemistry - challengeOrdered By: Anil Corley on 05-17-2024 AST [Catalytic activity/Vol] 18 U/L <32 [facility] Lymphocytes Auto (Unsp spec) [#/Vol][facility] Lymphocytes (Bld) [#/Vol] 1.56 10*3/uL 0.83-4.51 [facility] Lymphocytes/100 WBC Auto (Un sp spec)Ordered By: Anil Barney on 05-17-2024 Lymphocytes/100 WBC (Bld) 21.8 % 19-41 [facility] MCV (mean corpuscular volume ) determinationOrdered By: Anil Corley on 05-17-2024 MCV (RBC) [Entitic vol] 92.8 fL 81-99 [facility] Mean corpuscular hemoglobin (MCH) determinationOrdered By: [facility] on 05-17-2024 MCH (RBC) [Entitic mass] 30.3 pg 27.0-32.0 [facility] Mean corpuscular hemoglobin concentration (MCHC) determinationOrdered By: [facility] 05-17-2024 MCHC (RBC) [Mass/Vol] 32.7 g/dL 32-36 [facility] Mean platelet volume determi nationOrdered By: Anil Corley on 05-17-2024 Platelet mean volume (Bld) [Entitic vol] 9.1 fL 6.2-12.0 [facility] Monocyte percentageOrdered B y: Anil Corley on 05-17-2024 Monocytes/100 WBC (Bld) 8.4 % 0-10 [facility] Neutrophil percentageOrdered By: Anil Barney on 05-17-2024 Neutrophils/100 WBC (Bld) 67.2 % 47-70 [facility] Nucleated red blood cell per centageOrdered By: Anil Corley on 05-17-2024 Nucleated RBC/100 WBC (Bld) [Ratio] 0 % 0-5 [facility] Platelet countOrdered By: Maikel Corley on 05-17-2024 Platelets (Bld) [#/Vol] 295 10*3/uL 150-450 [facility] Potassium (Unsp spec) [Mass/ Vol]Ordered By: Anil Corley on 05-17-2024 Potassium [Moles/Vol] 4.0 mmol/L 3.3-5.1 [facility] Potassium measurement (mass/ volume)Ordered By: Anil Corley on 05-17-2024 Potassium (Unsp spec) [Mass/Vol] 4.0 mmol/L 3.3-5.1 [facility] RBC Auto (Bld) [#/Vol]Ordere d By: Anil Corley on 05-17-2024 RBC (Bld) [#/Vol] 4.02 10*6/uL Low 4.2-5.4 [facility] Serum creatinine measurement (mass/volume)Ordered By: Anil Corley on 05-17-2024 Creatinine [Mass/Vol] 0.83 mg/dL 0.70-1.20 [facility] Serum globulin measurementOr dered By: Anil Corley on 05-17-2024 Globulin (S) [Mass/Vol] 3.3 g/dL 2.2-4.2 [facility] Serum glucose measurement (m ass/volume)Ordered By: Anil Corley on 05-17-2024 Glucose [Mass/Vol] 97 mg/dL 70-99 [facility] Serum or plasma alanine roy otransferase (ALT) measurementOrdered By: Anil Corley 05-17-2024 ALT [Catalytic activity/Vol] 13 U/L <35 [facility] Serum or plasma albumin tacos urement (mass/volume)Ordered By: Anil Corley 05-17-2024 Albumin [Mass/Vol] 4.4 g/dL 3.4-4.8 [facility] Serum or plasma albumin/glob ulin mass ratioOrdered By: Anil Corley 05-17-2024 Albumin/Globulin [Mass ratio] 1.3 {ratio} 0.9-2.4 [facility] Serum or plasma alkaline arthur sphatase measurementOrdered By: Anil Corley on 03-05-2025 ALP [Catalytic activity/Vol] 120 U/L High 35-104 [facility] Serum or plasma calcium tacos urement (mass/volume)Ordered By: Anil Corley on 05-17-2024 Calcium [Mass/Vol] 9.8 mg/dL 7.6-11.0 [facility] Serum or plasma urea nitroge n measurement (mass/volume)Ordered By: Anil Corley on 05-17-2024 Urea nitrogen [Mass/Vol] 12 mg/dL 4-19 [facility] Sodium levelOrdered By: Anil Corley on 05-17-2024 Sodium [Moles/Vol] 137 mmol/L 133-145 [facility] T. pallidum abOrdered By: Maikel Corley on 05-17-2024 Syphilis Total Antibody Non-Reactive Nonreactiv e [facility] TSH DL <= 0.005 mIU/L QnOrde red By: Anil Corley on 05-17-2024 Thyroid Stimulating Hormone (TSH) 2.940 uIU/mL 0.300-4.200 [facility] TSH Qn 2.940 uIU/mL 0.300-4.200 [facility] Thyroid Stim Hormone (TSH)on 05-17-2024 TSH 2.940 uIU/mL Normal 0.300-4.200 [facility] Comment on above: Performed By: #### L 506.1001, L509.8002, L501.9520, L3890.6301, L506.0200, L500.4050, L100.0100, L503.0106 #### [facility] [place] [place], [address] Total proteinOrdered By: Anil Corley on 05-17-2024 Protein [Mass/Vol] 7.6 g/dL 5.9-8.4 [facility] Vitamin B12 ser/plasOrdered By: Anil Corley on 05-17-2024 Cobalamin (Vitamin B12) [Mass/Vol] 616 pg/mL 180-914 [facility] Vitamin D, 25-hydroxyOrdered By: Anil Corley on 05-17-2024 Vitamin D 25-Hydroxy 25.3 ng/mL Low 30-100 [facility] Comment on above: Vitamin D StatusDefi ciency: <20 ng/mL (50nmol/L)Insufficiency: 20-30 ng/mL (50-75 nmol/L)Sufficiency: 30-100 ng/mL (75-250 nmol/L)Toxicity: >100 ng/mL (>250 nmol/L) White blood cell (WBC) count Ordered By: Anil Corley on 05-17-2024 WBC (Bld) [#/Vol] 7.2 10*3/uL 4.4-11.0 [facility] Nga 05-01-2024 WAYNEN Telephone (Tallyfy) ABDIAZIZ HERNANDEZ ([id number]) 1935 F Date Time Provider Department 05/01/24 [...] Date Reviewed: 04/11/2024 Reviewed by: Rox Baird APRN.SOLE LAYER - Fully Assessed Prescriptions as of 12/07/2024 [...] Status:Closed by EDILIA BUCK on 12/07/24 Normal [facility] CNOVon 04-11-2024 CNOV Office Visit (FAMPWS ) ABDIAZIZ HERNANDEZ ([id number]) 1935 F Date Time Provider Department 04/11/24 2:00 PM ROX BAIRD During your visit today, we recorded the following information about you: Pulse Respiration Blood pressure Weight 68/minute 18/minute 138/70 64.2 kg Height 1.635 m Rox Baird APRN.SOLE LAYER 04/12/2024 7:39 AM Signed 04/11/2024 Patient presents [...] cognitive impairment. Was supposed to follow-up with [facility] brain health in 2020 but never did. [...] 272.0, ICD10: (more content not included)... Normal [facility] CNPNon 03-28-2024 CNPN Telephone (FAMWS) ABDIAZIZ HERNANDEZ ([id number]) 1935 F Date Time Provider Department 03/28/24 RICARDO HOLLIDAY [facility] During your visit today, we recorded [...] Fully Assessed Reason for Visit: Patient Request [[id number]] Prescriptions as of 03/28/2024 - atorvastatin (LIPITOR) [...] (apply daily to dry intact skin). 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 coli [facility] Ketones Test strip Ql (U)Ord ered By: Ricardo Holliday on 04-01-2023 Ketones Ql (U) Negative Negative [facility] Mucus LM Ql (Urine sed)Order ed By: Ricardo Holliday on 04-01-2023 Mucus Ql (Urine sed) 0 SEEN /hpf [facility] Nitrite Test strip Ql (U)Ord ered By: Ricardo Holliday on 04-01-2023 Nitrite Ql (U) Positive Negative [facility] No Panel InformationOrdered By: Ricardo Holliday on 04-01-2023 Urine RBC 0 SEEN /hpf 0-5 [facility] Protein Test strip Ql (U)Ord ered By: Ricardo Holliday on 04-01-2023 Protein Ql (U) 15 mg/dl Negative [facility] Squamous epithelial cells de tection in urine sediment by light microscopyOrdered By: Ricardo Holliday on 04-01-2023 Epithelial cells.squamous LM Ql (Urine sed) 0-5 SEEN /hpf 5-10 [facility] Urine blood detectionOrdered By: Ricardo Holliday on 04-01-2023 RBC Ql (U) 25 /ul Negative [facility] Urine clarityOrdered By: Edith Holliday on 04-01-2023 Clarity (U) Sl. Cloudy Clear [facility] Urine color determinationOrd ered By: Ricardo Holliday on 04-01-2023 Color (U) Yellow Yellow [facility] Urine glucose detectionOrder ed By: Ricardo Holliday on 04-01-2023 Glucose Ql (U) Normal mg/dl Normal [facility] Urine leukocyte esterase det ection by dipstickOrdered By: Ricardo Holliday on 04-01-2023 Leukocyte esterase Test strip Ql (U) 500 /ul Negative [facility] Urine pHOrdered By: Ricardo rhodes on 04-01-2023 pH (U) 6.5 [pH] 5.0 - 8.0 [facility] Urine sediment bacteria coun t by microscopy (number/high power field)Ordered By: Ricardo Holliday on 04-01-2023 Bacteria LM.HPF (Urine sed) [#/Area] 2 /[HPF] None Seen [facility] Urine specific gravity measu rementOrdered By: Ricardo Holliday on 04-01-2023 Specific gravity (U) [Rel density] 1.010 1.002-1.030 [facility] Urine urobilinogen measureme ntOrdered By: Ricardo Holliday on 04-01-2023 Urobilinogen Ql (U) Normal mg/dl Normal [facility] Absolute lymphocyte countOrd ered By: Ricardo Holliday on 02-24-2023 Lymphocytes Auto (Unsp spec) [#/Vol] 1.38 10*3/uL 0.83-4.51 [facility] Basophil percentageOrdered B y: Ricardo Holliday on 02-24-2023 Basophils/100 WBC (Bld) 1.0 % 0-1 [facility] Bilirubin [Mass/Vol] 0.70 mg/dL 0.20-1.00 [facility] Comment on above: For patients on eltr ombopag therapy, use of Dimension Isabella TBIL is not recommended. Chloride [Moles/Vol] 110 mmol/L 98-107 [facility] Cholesterol [Mass/Vol] 208 mg/dL <200 [facility] Comment on above: <200 mg/dL Desirable 200-240 mg/dL Borderline >240 mg/dL High Risk Eosinophils/100 WBC (Bld) 1.3 % 0-5 [facility] Glucose [Mass/Vol] 90 mg/dL 74-106 [facility] Neutrophils (Bld) [#/Vol] 3.9 10*3/uL 2.0-7.7 [facility] Neutrophils/100 WBC (Bld) 65.4 % 47-70 [facility] Potassium [Moles/Vol] 3.8 mmol/L 3.5-5.1 [facility] Protein [Mass/Vol] 7.5 g/dL 6.4-8.2 [facility] Sodium [Moles/Vol] 140 mmol/L 136-145 [facility] Triglyceride [Mass/Vol] 93 mg/dL <199 [facility] Comment on above: The drugs N-Acetylcy steine and Metamizole may falsely depress this assay.Serum Triglycerides Reference Interval Normal <150 mg/dL Borderline high 150 - 199 mg/dL High 200 - 499 mg/dL Very High > or = 500 mg/dL WBC (Bld) [#/Vol] 6.0 10*3/uL 4.4-11.0 [facility] Blood erythrocytes count (nu mber/volume)Ordered By: Ricardo Holliday on 02-24-2023 RBC (Bld) [#/Vol] 3.85 10*6/uL 4.2-5.4 [facility] Blood hemoglobin measurement (mass/volume)Ordered By: Ricardo Holliday on 02-24-2023 Hemoglobin (Bld) [Mass/Vol] 11.7 g/dL 12.0-15.0 [facility] Blood lymphocytes/100 leukoc ytesOrdered By: Ricardo Holliday on 02-24-2023 Lymphocytes/100 WBC (Bld) 23.1 % 19-41 [facility] Blood monocytes/100 leukocyt esOrdered By: Ricardo Holliday on 02-24-2023 Monocytes/100 WBC (Bld) 8.9 % 0-10 [facility] Blood platelet mean volumeOr dered By: Ricardo Holliday on 02-24-2023 Platelet mean volume (Bld) [Entitic vol] 9.3 fL 6.2-12.0 [facility] Determination of erythrocyte mean corpuscular volume (MCV)Ordered By: Ricardo Holliday on 02-24-2023 MCV (RBC) [Entitic vol] 97.7 fL 81-99 [facility] Hematocrit Auto (Bld) [Volum e fraction]Ordered By: Ricardo Holliday on 02-24-2023 Hematocrit (Bld) [Volume fraction] 37.6 % 37-47 [facility] - Chemistry and C hemistry - challengeOrdered By: Ricardo Holliday on 02-24-2023 ALP [Catalytic activity/Vol] 95 U/L 45-117 [facility] ALT [Catalytic activity/Vol] 17 U/L 13-56 [facility] CO2 [Moles/Vol] 25.0 mmol/L 21.0-32.0 [facility] Free T4 [Mass/Vol] 1.21 ng/dL 0.76-1.46 [facility] Globulin (S) [Mass/Vol] 3.8 g/dL 2.2-4.2 [facility] Urea nitrogen/Creatinine [Mass ratio] 11.9 mg/mg 10-20 [facility] - Hematology and Cell countsOrdered By: Ricardo Holliday on 02-24-2023 Erythrocyte distribution width (RBC) [Entitic vol] 49.5 fL 35.1-43.9 [facility] Erythrocyte distribution width (RBC) [Ratio] 13.7 % 11.6-14.6 [facility] Immature granulocytes/100 WBC (Bld) 0.300 % 0.0-0.9 [facility] Comment on above: IG% - Immature Granu locytes (promyelocytes, myelocytes and metamyelocytes) > 1% indicates that a LEFT SHIFT is Present. MCH (RBC) [Entitic mass] 30.4 pg 27.0-32.0 [facility] Nucleated RBC/100 WBC (Bld) [Ratio] 0 % 0-5 [facility] MCHC Auto (RBC) [Mass/Vol]Or dered By: Ricardo Holliday on 02-24-2023 MCHC (RBC) [Mass/Vol] 31.1 g/dL 32-36 [facility] No Panel InformationOrdered By: Ricardo Holliday on 02-24-2023 Estimated GFR (MDRD) Amer 74 mL/min >60 [facility] Comment on above: GFR Calc Estimated GFR (MDRD) Non-Af Amer 61 mL/min >60 [facility] Comment on above: Non- GFR Calc Free Triiodothyronine (T3) pg/dL 2.0 pg/mL 2.18-3.98 [facility] Thyroid Stimulating Hormone (TSH) 3.37 uIU/mL 0.358-3.74 [facility] Platelets bldOrdered By: Edith Holliday on 02-24-2023 Platelets (Bld) [#/Vol] 291 10*3/uL 150-450 [facility] Serum or plasma albumin tacos urement (mass/volume)Ordered By: Ricardo Holliday on 02-24-2023 Albumin [Mass/Vol] 3.7 g/dL 3.2-5.0 [facility] Serum or plasma albumin/glob ulin mass ratioOrdered By: Ricardo Holliday on 02-24-2023 Albumin/Globulin [Mass ratio] 1.0 {ratio} 0.9-2.4 [facility] Serum or plasma calcium tacos urement (mass/volume)Ordered By: Ricardo Holliday on 02-24-2023 Calcium [Mass/Vol] 9.1 mg/dL 8.5-10.1 [facility] Serum or plasma cholesterol in HDL measurement (mass/volume)Ordered By: Ricardo Holliday on 02-24-2023 Cholesterol in HDL [Mass/Vol] 76 mg/dL >40 [facility] Comment on above: The drugs N-Acetylcy steine and Metamizole may falsely depress this assay. Reference Range HDL <40 mg/dL Low HDL Cholesterol HDL >or= 60 mg/dL High HDL Cholesterol Serum or plasma cholesterol in VLDL measurement (mass/volume)Ordered By: Ricardo Holliday on 02-24-2023 Cholesterol in VLDL [Mass/Vol] 19 mg/dL 5-40 [facility] Serum or plasma creatinine m easurement (mass/volume)Ordered By: Ricardo Holliday on 02-24-2023 Creatinine [Mass/Vol] 0.92 mg/dL 0.55-1.02 [facility] Comment on above: The validity of the calculated GFR & GFRAA in patients over 70 years has not been determined. Clinical correlation is essential. Serum or plasma low density lipoprotein (LDL) cholesterol measurement (mass/volume)Ordered By: Ricardo Holliday on 02-24-2023 Cholesterol in LDL [Mass/Vol] 113 mg/dL 0-130 [facility] Serum or plasma urea nitroge n measurement (mass/volume)Ordered By: Ricardo Holliday on 02-24-2023 Urea nitrogen [Mass/Vol] 11 mg/dL 7-18 [facility] Thin prep Papanicolaou smear with manual screeningOrdered By: Ricardo Holliday on 02-24-2023 Thin prep Papanicolaou smear with manual screening 16 U/L 15-37 [facility] Thin prep Papanicolaou smear with manual screening 5 5-15 [facility] Basophil percentageon 2021 Bilirubin [Mass/Vol] 0.60 mg/dL 0.20-1.00 [facility] Work Phone: Comment on above: For patients on eltr ombopag therapy, use of Dimension Isabella TBIL is not recommended. Chloride [Moles/Vol] 108 mmol/L 98-107 [facility]: Glucose [Mass/Vol] 111 mg/dL 74-106 [facility] Work Phone: Comment on above: Fasting Glucose resu lt from 100 to 125 mg/dL suggests IMPAIRED HOMEOSTASIS per A.D.A. criteria. Potassium [Moles/Vol] 4.1 mmol/L 3.5-5.1 [facility] Work Phone: Protein [Mass/Vol] 7.3 g/dL 6[facility]4-8.2 [facility]: Sodium [Moles/Vol] 141 mmol/L 136-145 [facility] Work Phone: WBC (Bld) [#/Vol] 3.9 10*3/uL 4.4-11.0 [facility] Work Phone: Blood erythrocytes count (nu mber/volume)on 12-22-2021 RBC (Bld) [#/Vol] 4.08 10*6/uL 4.2-5.4 [facility]: Blood hemoglobin measurement (mass/volume)on 12-22-2021 Hemoglobin (Bld) [Mass/Vol] 12.4 g/dL 12.0-15.0 [facility] Work Phone: Blood platelet mean volumeon 12-22-2021 Platelet mean volume (Bld) [Entitic vol] 10.1 fL 6.2-12.0 [facility] Work Phone: Determination of erythrocyte mean corpuscular volume (MCV)on 12-22-2021 MCV (RBC) [Entitic vol] 94.4 fL 81-99 [facility] Work Phone: Hematocrit Auto (Bld) [Volum e fraction]on 12-22-2021 Hematocrit (Bld) [Volume fraction] 38.5 % 37-47 [facility] Work Phone: Laboratory - Chemistry and C hemistry - challengeon 12-22-2021 ALP [Catalytic activity/Vol] 109 U/L 45-117 [facility] Work Phone: ALT [Catalytic activity/Vol] 20 U/L 13-56 [facility] Work Phone: CO2 [Moles/Vol] 26.0 mmol/L 21.0-32.0 [facility] Work Phone: Globulin (S) [Mass/Vol] 3.9 g/dL 2.2-4.2 [facility] Work Phone: Urea nitrogen/Creatinine [Mass ratio] 13.9 mg/mg 10-20 [facility] Work Phone: Laboratory - Hematology and Cell countson 12-22-2021 Erythrocyte distribution width (RBC) [Entitic vol] 45.1 fL 35.1-43.9 [facility] Work Phone: Erythrocyte distribution width (RBC) [Ratio] 13.0 % 11.6-14.6 [facility] Work Phone: MCH (RBC) [Entitic mass] 30.4 pg 27.0-32.0 [facility] Work Phone: MCHC Auto (RBC) [Mass/Vol]on 12-22-2021 MCHC (RBC) [Mass/Vol] 32.2 g/dL 32-36 [facility] Work Phone: No Panel Informationon 12-22 Estimated GFR (MDRD) Amer 80 mL/min >60 [facility] Work Phone: Comment on above: GFR Calc Estimated GFR (MDRD) Non-Af Amer 66 mL/min >60 [facility] Work Phone: Comment on above: Non- GFR Calc Platelets bldon 12-22-2021 Platelets (Bld) [#/Vol] 279 10*3/uL 150-450 [facility] Work Phone: Serum or plasma albumin tacos urement (mass/volume)on 12-22-2021 Albumin [Mass/Vol] 3.4 g/dL 3.2-5.0 [facility] Work Phone: Serum or plasma albumin/glob ulin mass ratioon 12-22-2021 Albumin/Globulin [Mass ratio] 0.9 {ratio} 0.9-2.4 [facility] Work Phone: Serum or plasma calcium tacos urement (mass/volume)on 12-22-2021 Calcium [Mass/Vol] 9.3 mg/dL 8.5-10.1 [facility] Work Phone: Serum or plasma creatinine m easurement (mass/volume)on 12-22-2021 Creatinine [Mass/Vol] 0.86 mg/dL 0.55-1.02 [facility] Work Phone: Comment on above: The validity of the calculated GFR & GFRAA in patients over 70 years has not been determined. Clinical correlation is essential. Serum or plasma urea nitroge n measurement (mass/volume)on 12-22-2021 Urea nitrogen [Mass/Vol] 12 mg/dL 7-18 [facility] Work Phone: Thin prep Papanicolaou smear with manual screeningon 12-22-2021 Thin prep Papanicolaou smear with manual screening 16 U/L 15-37 [facility] Work Phone: Thin prep Papanicolaou smear with manual screening 7 5-15 [facility] Work Phone: Absolute lymphocyte counton 07-18-2021 Lymphocytes Auto (Unsp spec) [#/Vol] 1.13 10*3/uL 0.83-4.51 [facility] Work Phone: Basophil percentageon 2021 Basophils/100 WBC (Bld) 0.4 % 0-1 [facility] Work Phone: Bilirubin [Mass/Vol] 0.70 mg/dL 0.20-1.00 [facility] Work Phone: Comment on above: For patients on eltr ombopag therapy, use of Dimension Isabella TBIL is not recommended. Chloride [Moles/Vol] 107 mmol/L 98-107 [facility] Work Phone: Cholesterol [Mass/Vol] 221 mg/dL <[address] [facility] Work Phone: Comment on above: <200 mg/dL Desirable 200-240 mg/dL Borderline >240 mg/dL High Risk Eosinophils/100 WBC (Bld) 1.0 % 0-5 [facility] Work Phone: Glucose [Mass/Vol] 95 mg/dL 74-106 [facility] Work Phone: Neutrophils (Bld) [#/Vol] 3.3 10*3/uL 2.0-7.7 [facility] Work Phone: Neutrophils/100 WBC (Bld) 66.9 % 47-70 [facility] Work Phone: Potassium [Moles/Vol] 3.9 mmol/L 3.5-5.1 [facility] Work Phone: Protein [Mass/Vol] 7.7 g/dL 6.4-8.2 [facility] Work Phone: Sodium [Moles/Vol] 139 mmol/L 136-145 [facility] Work Phone: Triglyceride [Mass/Vol] 66 mg/dL [facility] Work Phone: Comment on above: The drugs N-Acetylcy steine and Metamizole may falsely depress this assay.Serum Triglycerides Reference Interval Normal <150 mg/dL Borderline high 150 - 199 mg/dL High 200 - 499 mg/dL Very High > or = 500 mg/dL WBC (Bld) [#/Vol] 5.0 10*3/uL 4.4-11.0 [facility] Work Phone: Blood erythrocytes count (nu mber/volume)on 07-18-2021 RBC (Bld) [#/Vol] 4.10 10*6/uL 4.2-5.4 [facility] Work Phone: Blood hemoglobin measurement (mass/volume)on 07-18-2021 Hemoglobin (Bld) [Mass/Vol] 12.6 g/dL 12.0-15.0 [facility] Work Phone: Blood lymphocytes/100 leukoc yteson 07-18-2021 Lymphocytes/100 WBC (Bld) 22.8 % 19-41 [facility] Work Phone: Blood monocytes/100 leukocyt eson 07-18-2021 Monocytes/100 WBC (Bld) 8.5 % 0-10 [facility] Work Phone: Blood platelet mean volumeon 07-18-2021 Platelet mean volume (Bld) [Entitic vol] 9.8 fL 6.2-12.0 [facility] Work Phone: Determination of erythrocyte mean corpuscular volume (MCV)on 07-18-2021 MCV (RBC) [Entitic vol] 96.8 fL 81-99 [facility] Work Phone: Hematocrit Auto (Bld) [Volum e fraction]on 07-18-2021 Hematocrit (Bld) [Volume fraction] 39.7 % 37-47 [facility] Work Phone: Laboratory - Chemistry and C hemistry - challengeon 07-18-2021 ALP [Catalytic activity/Vol] 109 U/L 45-117 [facility] Work Phone: ALT [Catalytic activity/Vol] 23 U/L 13-56 [facility] Work Phone: CO2 [Moles/Vol] 27.0 mmol/L 21.0-32.0 [facility] Work Phone: Free T4 [Mass/Vol] 1.33 ng/dL 0.76-1.46 [facility] Work Phone: Globulin (S) [Mass/Vol] 4.0 g/dL 2.2-4.2 [facility] Work Phone: Urea nitrogen/Creatinine [Mass ratio] 16.7 mg/mg 10-20 [facility] Work Phone: Laboratory - Hematology and Cell countson 07-18-2021 Erythrocyte distribution width (RBC) [Entitic vol] 46.7 fL 35.1-43.9 [facility] Work Phone: Erythrocyte distribution width (RBC) [Ratio] 13.1 % 11.6-14.6 [facility] Work Phone: Immature granulocytes/100 WBC (Bld) 0.400 % 0.0-0.9 [facility] Work Phone: Comment on above: IG% - Immature Granu locytes (promyelocytes, myelocytes and metamyelocytes) > 1% indicates that a LEFT SHIFT is Present. MCH (RBC) [Entitic mass] 30.7 pg 27.0-32.0 [facility] Work Phone: Nucleated RBC/100 WBC (Bld) [Ratio] 0 % 0-5 [facility] Work Phone: MCHC Auto (RBC) [Mass/Vol]on 07-18-2021 MCHC (RBC) [Mass/Vol] 31.7 g/dL 32-36 [facility] Work Phone: No Panel Informationon 07-18 Estimated GFR (MDRD) Amer 77 mL/min >60 [facility] Work Phone: Comment on above: GFR Calc Estimated GFR (MDRD) Non-Af Amer 63 mL/min >60 [facility] Work Phone: Comment on above: Non- GFR Calc Free Triiodothyronine (T3) pg/dL 2.5 pg/mL 2.18-3.98 [facility] Work Phone: Thyroid Stimulating Hormone (TSH) 0.72 uIU/mL 0.358-3.74 [facility] Work Phone: Vitamin D 25-Hydroxy 29.2 ng/mL [facility] Work Phone: Comment on above: Vitamin D 25(OH) Sta tus Range Deficiency <20 ng/mL (50nmol/L) Insufficiency 20 - 30 ng/mL (50 - 75 nmol/L) Sufficiency 30 - 100 ng/mL (75 - 250 nmol/L) Toxicity >100 ng/mL (>250 nmol/L) Platelets bldon 07-18-2021 Platelets (Bld) [#/Vol] 308 10*3/uL 150-450 [facility] Work Phone: Serum or plasma albumin tacos urement (mass/volume)on 07-18-2021 Albumin [Mass/Vol] 3.7 g/dL 3.2-5.0 [facility] Work Phone: Serum or plasma albumin/glob ulin mass ratioon 07-18-2021 Albumin/Globulin [Mass ratio] 0.9 {ratio} 0.9-2.4 [facility] Work Phone: Serum or plasma calcium tacos urement (mass/volume)on 07-18-2021 Calcium [Mass/Vol] 9.6 mg/dL 8.5-10.1 [facility] Work Phone: Serum or plasma cholesterol in HDL measurement (mass/volume)on 07-18-2021 Cholesterol in HDL [Mass/Vol] 82 mg/dL [facility] Work Phone: Comment on above: The drugs N-Acetylcy steine and Metamizole may falsely depress this assay. Reference Range HDL <40 mg/dL Low HDL Cholesterol HDL >or= 60 mg/dL High HDL Cholesterol Serum or plasma cholesterol in VLDL measurement (mass/volume)on 07-18-2021 Cholesterol in VLDL [Mass/Vol] 13 mg/dL 5-40 [facility] Work Phone: Serum or plasma creatinine m easurement (mass/volume)on 07-18-2021 Creatinine [Mass/Vol] 0.90 mg/dL 0.55-1.02 [facility] Work Phone: Comment on above: The validity of the calculated GFR & GFRAA in patients over 70 years has not been determined. Clinical correlation is essential. Serum or plasma low density lipoprotein (LDL) cholesterol measurement (mass/volume)on 07-18-2021 Cholesterol in LDL [Mass/Vol] 126 mg/dL 0-130 [facility] Work Phone: Serum or plasma urea nitroge n measurement (mass/volume)on 07-18-2021 Urea nitrogen [Mass/Vol] 15 mg/dL 7-18 [facility] Work Phone: Thin prep Papanicolaou smear with manual screeningon 07-18-2021 Thin prep Papanicolaou smear with manual screening 17 U/L 15-37 [facility] Work Phone: Thin prep Papanicolaou smear with manual screening 5 5-15 [facility] Work Phone: Vital Signs Date Time Vital Sign Value Performing Clinician Arlene weathers 04-11-2024 14:05-0500 Body height 163.5 cm Rox Podlogar MISSILE INSPECTOR.SOLE LAYER Work Phone: [facility] 04-11-2024 14:05-0500 Body mass index (BMI) [Ratio] 24.02 kg/m2 Rox Podlogar MISSILE INSPECTOR.SOLE LAYER Work Phone: [facility] 04-11-2024 14:05-0500 Body weight 64.2 kg Rox Podlogar MISSILE INSPECTOR.SOLE LAYER Work Phone: [facility] 04-11-2024 14:05-0500 Diastolic blood pressure 70 mm[Hg] Rox Podlogar MISSILE INSPECTOR.SOLE LAYER Work Phone: [facility] 04-11-2024 14:05-0500 Heart rate 68 /min Rox Podlogar MISSILE INSPECTOR.SOLE LAYER Work Phone: [facility] 04-11-2024 14:05-0500 Respiratory rate 18 /min Rox Podlogar MISSILE INSPECTOR.SOLE LAYER Work Phone: [facility] 04-11-2024 14:05-0500 SaO2% (BldA) [Mass fraction] 98 % Rox Podlogar MISSILE INSPECTOR.SOLE LAYER Work Phone: [facility] 04-11-2024 14:05-0500 Systolic blood pressure 138 mm[Hg] Rox Podlogar MISSILE INSPECTOR.SOLE LAYER Work Phone: [facility] 02-24-2023 10:22-0500 Body height 167.[address] Ricardo Holliday Work Phone: [facility] 02-24-2023 10:22-0500 Body mass index (BMI) [Ratio] 23.3 kg/m2 Dr. Ricardo Holliday Work Phone: [facility] 02-24-2023 10:22-0500 Body temperature 98.3 [degF] Dr. Ricardo Holliday Work Phone: [facility] 02-24-2023 10:22-0500 Body weight 65.[address] Ricardo Holliday Work Phone: [facility] 02-24-2023 10:22-0500 Diastolic blood pressure 69 mm[Hg] Dr. Ricardo Holliday Work Phone: [facility] 02-24-2023 10:22-0500 Heart rate 92 /min Dr. Ricardo Holliday Work Phone: [facility] 02-24-2023 10:22-0500 SaO2% (BldA) [Mass fraction] 93 % Dr. Ricardo Holliday Work Phone: [facility] 02-24-2023 10:22-0500 Systolic blood pressure 138 mm[Hg] Dr. Ricardo Holliday Work Phone: [facility] 07-16-2021 13:15-0400 Body height 167.[address] Yudy Brennan Work Phone: [facility] Work Phone: 07-16-2021 13:15-0400 Body mass index (BMI) [Ratio] 23.7 kg/m2 Dr. Yudy Brennan Work Phone: [facility] Work Phone: 07-16-2021 13:15-0400 Body temperature 98.1 [degF] Dr. Yudy Brennan Work Phone: [facility] Work Phone: 07-16-2021 13:15-0400 Body weight 66.[address] Yudy Brennan Work Phone: [facility] Work Phone: 07-16-2021 13:15-0400 Diastolic blood pressure 66 mm[Hg] Dr. Yudy Brennan Work Phone: [facility] Work Phone: 07-16-2021 13:15-0400 Heart rate 82 /min Dr. Yudy Brennan Work Phone: [facility] Work Phone: 07-16-2021 13:15-0400 Respiratory rate 14 /min Dr. Yudy Brennan Work Phone: [facility] Work Phone: 07-16-2021 13:15-0400 SaO2% (BldA) [Mass fraction] 97 % Dr. Yudy Brennan Work Phone: [facility] Work Phone: 07-16-2021 13:15-0400 Systolic blood pressure 122 mm[Hg] Dr. Yudy Brennan Work Phone: [facility] Work Phone: Encounters Encounter Date Encounter Type Care Provider Facility Start: 11-15-2024 End: 11-15-[address] Anil Corley MD Work Phone: -Laboratory Phy Office 3rd Flr Start: 11-15-2024 End: 11-15-[address] Anil Corley MD -Laboratory Phy Office 3rd Flr Start: 11-15-2024 End: 11-15-2024 ambulatory Anil Corley Facility:[facility] Start: 08-17-2024 End: 08-17-[address] Anil Corley MD Work Phone: [facility] Work Phone: Start: 08-17-2024 End: 08-17-[address] Anil Corley MD -Laboratory Work Phone: Start: 08-17-2024 End: 08-17-2024 ambulatory [facility] Facility:[facility] Start: 06-19-2024 End: 06-19-[address] Anil Corley MD Work Phone: [facility] Work Phone: Start: 06-19-2024 End: 06-19-[address] Anil Corley MD -MRI - [facility] Work Phone: Start: 06-19-2024 End: 06-19-[facility] Start: 06-14-2024 End: 06-14-2024 Telephone encounter Neur Christa Access Work Phone: Neurology Comment on above: Appointment (left vm for patient about scheduling center for brain health consult per referral. called [phone]) Start: 05-17-2024 End: 05-17-[address] Anil Corley MD Work Phone: [facility] Work Phone: Start: 05-17-2024 End: 05-17-[address] Anil Corley MD -Laboratory, Phy Office 3rd Flr Start: 05-17-2024 End: 05-17-2024 Telephone encounter Miguelina Combs MD Work Phone: [facility] [place] Comment on above: Release Of Medical R ecords Start: 05-17-2024 End: 05-17-2024 ambulatory [facility] Facility:[facility] Start: 04-18-2024 End: 04-18-2024 Refill Miguelina Cmobs MD Work Phone: [facility] Comment on above: Refill Request; Arianne ent Update Start: 04-11-2024 End: 04-11-2024 Patient encounter procedure Rox Baird APRN.CNP Work Phone: [facility] Comment on above: Encounter to [facility] (Primary Dx); Essential hypertension; Pure hypercholesterolemia; Acquired hypothyroidism; Cognitive impairment Start: 04-11-2024 End: 04-11-2024 ambulatory ROX SPENCERLOGMIKAYLA Facility:[facility] Start: 03-28-2024 End: 03-28-2024 Telephone encounter Ricardo Holliday MD Work Phone: [facility] Comment on above: Patient Request Start: 04-01-2023 Non-patient / Non-visit Dr. Yvonne Holliday Work Phone: [facility] Start: 04-01-2023 End: 04-01-[address] Ricardo Holliday Work Phone: [facility] Work Phone: Start: 04-01-2023 End: 04-01-[address] [facility] Start: 02-24-2023 End: 02-24-[address] Ricardo Holliday Work Phone: [facility] Work Phone: Start: 02-24-2023 End: 02-24-[address] Ricardo Holliday Work Phone: [facility] Work Phone: Start: 02-24-2023 End: 02-24-[address] Ricardo Holliday Work Phone: [facility] [place] Work Phone: Start: 12-22-2021 End: 12-22-[address] Ricardo Holliday Work Phone: [facility] Work Phone: Start: 12-22-2021 End: 12-22-[address] Ricardo Holliday Work Phone: [facility] Start: 11-04-2021 Non-patient / Non-visit Dr. Yvonne Holliday Work Phone: [facility] Start: 10-07-2021 ambulatory Brigette Rm [facility] [place] Comment on above: Population Health Na vigation Outreach (hcc) Start: 07-18-2021 End: 07-18-[address] Yudy Brennan Work Phone: [facility], [facility] Start: 07-17-2021 Telephone encounter Yudy saucedo MD Work Phone: [facility] [place] Comment on above: Patient Question; Me dication Problem Start: 07-16-2021 End: 07-16-[address] Yudy Brennan Work Phone: [facility] Start: 07-04-2021 Non-patient / Non-visit Dr. Katie Brennan Work Phone: [facility] Procedures Date Procedure Procedure Detail [...] HCV Quant by PCR testing - HCVPCR #[id number] Non Reactive: < 0.8 Equivocal: >/= 0.8 [...] 04-11-2025 Covid-19 Vaccine () Covid-19 Vaccine () [facility] Comment on above: Postponed from 11/14/2023 (Declined at t his time) Start: 10-09-2024 End: 10-09-2024 Patient encounter procedure 10/09/2024 12:20 PM EDT Office Visit [facility] Misty Carbajal [address] [place] [address] Miguelina Combs MD [address] [place] [id number] 6 month follow up [facility] Misty Carbajal Comment on above: 6 month follow up Start: 04-11-2024 End: 07-11-2024 CBC W Auto Differential panel - Blood COMPLETE BLOOD COUNT AND DIFFERENTIAL Lab Routine Essential hypertension Expected: 04/11/2024, Expires: 07/11/2024 [facility] Comment on above: Expected: 04/11/2024, Expires: Start: 04-11-2024 End: 07-11-2024 Comprehensive metabolic 2000 panel - Serum or Plasma COMPREHENSIVE METABOLIC PANEL Lab Routine Essential hypertension Expected: 04/11/2024, Expires: 07/11/2024 [facility] Comment on above: Expected: 04/11/2024, Expires: Start: 04-11-2024 End: 07-11-2024 Lipid 1996 panel - Serum or Plasma LIPID PANEL BASIC Lab Routine Pure hypercholesterolemia Expected: 04/11/2024, Expires: 07/11/2024 [facility] Work Phone: Comment on above: Expected: 04/11/2024, Expires: Start: 04-11-2024 End: 04-11-2024 Patient encounter procedure 04/11/2024 2:00 PM EST Office Visit [facility] [address] [place], [place] [id number] Podlogar, MONI Gramajo.SOLE LAYER [address] [place], [place] [id number] est care with Dr. Combs, will see R[facility] [place] Comment on above: est care with Dr. Combs, will see Estela jackman Start: 04-11-2024 End: 07-11-2024 Thyrotropin [Units/volume] in Serum or Plasma THYROID STIMULATING HORMONE Lab Routine Acquired hypothyroidism Expected: 04/11/2024, Expires: 07/11/2024 [facility] Comment on above: Expected: 04/11/2024, Expires: Start: 03-15-2024 Advance Directive Discussion Advance Directive Discussion [facility] Start: 11-14-2023 Covid-19 Vaccine () Covid-19 Vaccine () [facility] Start: 11-14-2023 Influenza vaccination Influenza Vaccine (#1) [facility] Start: 08-20-2023 DIABETES SCREEN DIABETES SCREEN [facility] Start: 08-20-2023 Diabetes Screening Diabetes Screening [facility] Start: 04-01-2023 Patient referral [facility] Work Phone: Start: 11-13-2021 Influenza vaccination INFLUENZA (#1) [facility] Start: 08-19-2021 Urine microalbumin profile DTAP,TDAP,TD (1 - Tdap) [facility] Comment on above: Postponed from 09/29/2007 (Declined at t his time) Start: 03-23-2021 COVID-19 VACCINE (3 - Booster for Pfizer series) COVID-19 VACCINE (3 - Booster for Pfizer series) [facility] Start: 03-15-2021 ADVANCE DIRECTIVE DISCUSSION ADVANCE DIRECTIVE DISCUSSION [facility] Start: 03-19-2020 SHINGRIX VACCINE (2 of 2) SHINGRIX VACCINE (2 of 2) [facility] Start: 02-19-2012 RSV Vaccine (1 - 1-dose 75+ series) RSV Vaccine (1 - 1-dose 75+ series) [facility] Start: 09-29-2007 Urine microalbumin profile [facility] Start: 1953 Anxiety Screening Anxiety Screening [facility] Start: 1953 Depression Screening Depression Screening [facility] CBC W Auto Differential panel - Blood [facility] Patient referral [facility] Work Phone: T4 free measurement [facility] Thyroid stimulating hormone measurement [facility] Triiodothyronine, fr ee measurement [facility] Vitamin D, 25-hydrox y measurement [facility] Immunization Date Immunization Notes Care Provider Fa cility 01-18-2021 influenza, high-dose , quadrivalent vaccine (FLUZONE HIGH DOSE QUADRIVALENT) Yudy Brennan MD Work Phone: [facility] 01-18-2021 influenza virus vacc ine, unspecified formulation Ricardo Holliday MD Work Phone: [facility] 10-21-2020 COVID-19 vaccine, ag e 12+ yr ([employer]-Fjuul - PURPLE TOP) Yudy Brennan MD Work Phone: [facility] 08-20-2020 COVID-19 vaccine, ag e 12+ yr ([employer]-F[employer] - PURPLE TOP) Yudy Brennan MD Work Phone: [facility] 01-23-2020 zoster vaccine recombinant Yudy Brennan MD Work Phone: [facility] 01-19-2020 influenza, high dose seasonal, preservative-free Yudy Brennan MD Work Phone: [facility] Work Phone: 01-18-2020 influenza, high-dose , quadrivalent vaccine (FLUZONE HIGH DOSE QUADRIVALENT) Yudy Brennan MD Work Phone: [facility] Work Phone: 01-28-2019 influenza, high dose seasonal, preservative-free Yudy Brennan MD Work Phone: [facility] 01-06-2018 influenza, seasonal, injectable Yudy Brennan MD Work Phone: [facility] 11-01-2015 pneumococcal polysaccharide vaccine, 23 valent Yudy Brennan MD Work Phone: [facility] 11-06-2014 pneumococcal conjuga te vaccine, 13 valent Yudy Brennan MD Work Phone: [facility] 12-17-2012 influenza virus vacc ine, unspecified formulation Yudy Brennan MD Work Phone: [facility] Work Phone: 01-02-2012 influenza virus vacc ine, unspecified formulation Yudy Brennan MD Work Phone: [facility] 01-24-2011 influenza virus vacc ine, unspecified formulation Yudy Brennan MD Work Phone: [facility] Work Phone: 01-18-2010 influenza virus vacc ine, unspecified formulation Yudy Brennan MD Work Phone: [facility] Work Phone: 01-26-2008 influenza virus vacc ine, unspecified formulation Yudy Brennan MD Work Phone: [facility] Work Phone: 09-28-2007 tetanus and diphther ia toxoids, adsorbed, preservative free, for adult use (2 Lf of tetanus toxoid and 2 Lf of diphtheria toxoid) Yudy Brennan MD Work Phone: [facility] 01-18-2007 influenza virus vacc ine, unspecified formulation Yudy Brennan MD Work Phone: [facility] Work Phone: 01-20-2006 influenza virus vacc ine, unspecified formulation Yudy Brennan MD Work Phone: [facility] 01-22-2005 influenza virus vacc ine, unspecified formulation Yudy Brennan MD Work Phone: [facility] Work Phone: 02-21-2001 pneumococcal polysaccharide vaccine, 23 valent Brigette Rm [facility] Payers Date Payer Category Payer Self-pay [id number] 2023 Medicare [employer] MEDICARE A ETNA MEDICARE PPO [id number] 2023- [phone] [address] [place] [address] [facility] [id number] 2023 Medicare (Managed Care) [employer] [place] [id number] 2023 Private Health Insurance [id number] 2012 Unknown MMO MMO TRADITIO NAL [id number] 2012-Present [phone] [address] [place] [address] Indemnity [id number] 2002 Medicare MEDICARE MEDICAR E A AND B [id number] 2002-Present [phone] [address] [address] [place] [address] Medicare [id number] Medicare [id number] Unknown [id number] Unknown [id number] Unknown [id number] Unknown [id number] Unknown [id number] Social History Date Type Detail Facility Start: 06-29-2023 Tobacco smoking stat us NHIS Never smoked tobacco [facility] Start: 11-27-2020 End: 04-11-2024 Alcohol intake Current non-drinker of alcohol (finding) [facility] Start: 1935 Sex Assigned At Not on file [facility] Start: 07-16-2021 End: 02-24-2023 Tobacco smoking status NHIS Unknown if ever smoked [facility] Start: 11-08-2018 None [facility] Start: 11-09-2018 Spouse/ Signif icant Other [facility] [facility] Start: 11-09-2018 Non-smoker [facility] Start: 1935 Sex Assigned At Female W [facility] Start: 10-28-2021 End: 04-09-2022 History of Social function [facility] Start: 10-28-2021 End: 04-09-2022 Tobacco use panel [facility] Adult Depression Screening Assessment 0 [facility] Start: 05-29-2024 End: 06-22-2024 Sex Female (finding) [facility] Functional Status Date Assessment Result Facility 05-09-2014 Are you deaf, or do you have serious difficulty hearing No 05/09/2014 9:35 AM Nita Menendez LPN No [facility] 05-09-2014 Are you blind, or do you have serious difficulty seeing, even when wearing glasses No 05/09/2014 9:35 AM Nita Menendez LPN No [facility] 05-09-2014 Do you have serious difficulty walking or climbing stairs No 05/09/2014 9:35 AM Nita Menendez LPN No [facility] 05-09-2014 Do you have difficul ty dressing or bathing No 05/09/2014 9:35 AM Nita Menendez LPN No [facility] 05-09-2014 Because of a physica l, mental, or emotional condition, do you have difficulty doing errands alone such as visiting a physician's office or shopping No 05/09/2014 9:35 AM Nita Menendez LPN No [facility] Mental Status Date Assessment Result Facility 05-09-2014 Because of a physica l, mental, or emotional condition, do you have serious difficulty concentrating, remembering, or making decisions No 05/09/2014 9:35 AM Nita Menendez LPN No [facility] Clinical Notes 07-17-2021 to 06-14-2024 Telephone Encounter - Xenia Llamas - 06/14/2024 11:41 AM EDTTelephone Encounter - Xenia Llamas - 06/14/2024 11:41 AM EDTTelephone Encounter - Ann Simms LPN - 05/17/2024 4:26 PM EST Note Date & Type Note Facility 06-14-2024 Telephone encounter Note left vm for patient about scheduling center for brain health consult per referral. called [phone] [facility] 06-14-2024 Miscellaneous Notes left vm for patient about scheduling center for brain health consult per referral. called [phone] documented in this encounter [facility] 05-17-2024 Telephone encounter Note Fax rec'd from [facility]. The are asking for completed medical records. This was faxed to [facility] medical records release. [facility] 05-17-2024 Miscellaneous Notes Fax rec'd from [facility]. The are asking for completed medical records. This was faxed to [facility] medical records release. documented in this encounter [facility] 04-18-2024 Telephone encounter Note Tried to schedule consult for dementia and spouse refused to travel and he will not use [facility]. Please advised spouse Lisandro. [facility] 04-18-2024 Miscellaneous Notes Tried to schedule consult for dementia and spouse refused to travel and he will not use [facility]. Please advised spouse Lisandro. The patient [...] 2024 11:44 AM documented in this encounter [facility] 04-18-2024 Telephone encounter Note The patient [...] Aldana RN April 18, 2024 11:44 AM [facility] 04-11-2024 Note HNO ID: [id number] Author: ROX BAIRD APRN.SOLE LAYER Service: ? Author Type: Nurse Practitioner Type: [...] cognitive impairment. Was supposed to follow-up with [facility] in 2020 but never did. Patient not [...] today - contin (more content not included)... [facility] 04-11-2024 History of Present illness Narrative [...] cognitive impairment. Was supposed to follow-up with [facility] in 2020 but never did. Patient [...] by internal med to see neurologist and [place] [facility], will place referral to call and schedule - CONSULT TO NEUROLOGY Rox Baird APRN.SOLE LAYER Prescription instructions reviewed with patient as applicable. Patient advised if symptoms do not improve or if symptoms worsen sooner, to contact their primary care physician. Potential red flag symptoms discussed with the patient. Reviewed appropriate action plan to take if red flag symptoms occur. Patient agreeable to treatment plan. documented in this encounter [facility] 03-28-2024 Telephone encounter Note Patient's spouse Lisandro contacted and Establish Care appointment made for patient as requested. Evita Thomas RN [facility] 03-28-2024 Miscellaneous Notes Patient's spouse Lisandro contacted and Establish Care appointment made for patient as requested. Evita Thomas RN Patient's Lisandro calling in with an appointment related question regarding patient. Informed Lisandro that this nurse would get further information for him and call him back. Evita Thomas RN documented in this encounter [facility] 03-28-2024 Telephone encounter Note Patient's Lisandro calling in with an appointment related question regarding patient. Informed Lisandro that this nurse would get further information for him and call him back. Evita Thomas RN [facility] 10-07-2021 History of Present illness Narrative POPULATION HEALTH NAVIGATION OUTREACH Action/ HCC Gaps Outcome: Called and spoke with patient and he states she see a pcp outside [facility]. Patient decline to schedule any appointments at this time. Patient is on HCC list for below gaps and needs appt to address : M35.00 - Sjogren's syndrome (HCC) - [id number] Last Billed 06/04/2018
Annual Wellness/PCP visit/ BP [...] 2021 1:53 PM documented in this encounter [facility] 07-17-2021 Miscellaneous Notes Spoke with patient. Patient seemed a little confused about what I was telling her. Patient was given [facility] phone number so can call the [...] should cancel appointment and remove PCP in [facility]. Dr. Holliday's office note was obtained [...] call and advise. documented in this encounter [facility] Evaluation note Diagnosis Onset Date High cholesterol acute History of hypertension acut e History of hypothyroidism ac vinod [facility] Work Phone: Evaluation noteNo assessment information available [facility] Work Phone: Evaluation note* Diagnosis Encounter to establish care- Primary Other reasons for seeking consultation Essential hypertension Unspecified essential hypertension Pure hypercholesterolemia Acquired hypothyroidism Unspecified hypothyroidism Cognitive impairment Unspecified persistent mental disorders due to conditions classified elsewhere documented in this encounter [facility] Discharge instructionsAmbulatory Orders* Home Health Location: None Selected [facility] Work Phone: Reason for referral (narrative)No reason for referral information [facility] Work Phone: Chief Complaint and Reason for Visit Chief Complaint 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 Chief Complaint 6 M FU [...] Will Yes November 08 12:51pm Power of Hotel Breakfast Attendant No November 08 12:51pm Advance Directive Response Recorded Date/ Time Living Will Yes November 08 11:51am Power of Hotel Breakfast Attendant No November 08 019 11:51am Reason for Referral Specialty Diagnoses / Procedures Referred By Krystyna t Referred To Contact Neurology Diagnoses Cognitive impairment Procedures CONSULT TO NEUROLOGY OFFICE/OUTPATIENT [facility] 60 MINUTES PodlogarRox APRN.SOLE LAYER [address] [place] [address] Referral ID Status Reason Start Date Expiration Date Visits Requested Visits Authorized [id number] Authorized PCP Requested Referral 04/11/2024 04/11/2025 1 1 Summary Purpose Additional Source Comments Source Comments (unrecognize d section and content) In the event this informatio n is protected by the Federal Confidentiality of Alcohol and Drug Abuse Patient Records regulations: The Federal rules restrict any use of the information to criminally investigate or prosecute any alcohol or drug abuse patient.[facility] the event this information is protected by the Federal Confidentiality of Alcohol and Drug Abuse Patient Records regulations: The Federal rules restrict any use of the information to criminally investigate or prosecute any alcohol or drug abuse patient.[facility] the event this information is protected by the Federal Confidentiality of Alcohol and Drug Abuse Patient Records regulations: The Federal rules restrict any use of the information to criminally investigate or prosecute any alcohol or drug abuse patient.[facility] the event this information is protected by the Federal Confidentiality of Alcohol and Drug Abuse Patient Records regulations: The Federal rules restrict any use of the information to criminally investigate or prosecute any alcohol or drug abuse patient.[facility] the event this information is protected by the Federal Confidentiality of Alcohol and Drug Abuse Patient Records regulations: The Federal rules restrict any use of the information to criminally investigate or prosecute any alcohol or drug abuse patient.[facility] the event this information is protected by the Federal Confidentiality of Alcohol and Drug Abuse Patient Records regulations: The Federal rules restrict any use of the information to criminally investigate or prosecute any alcohol or drug abuse patient.[facility] Hospital[facility] the event this information is protected by the Federal Confidentiality of Alcohol and Drug Abuse Patient Records regulations: The Federal rules restrict any use of the information to criminally investigate or prosecute any alcohol or drug abuse patient.[facility] Reason for Visit (unrecogniz ed section and content) Reason Comments Patient Question Medication Problem Reason Onset Date Comments Population Health Navigation Outreach 10/07/2021 [facility] Reason Comments Patient Request Reason Comments Establish Care Reason Onset Date Comments Refill Request 04/18/2024 Patient Update 04/18/2024 Reason Comments Release Of Medical Records Reason Comments Appointment left for patient about scheduling center for brain health consult per referral. called [phone] Care Teams (unrecognized sec tion and content) Printing Plate Maker Relationship Specialty Start Date End Date Ricardo Holliday MD [address] [facility] [address] [place], [place] [id number] PCP - General Internal Medicine 07/17/21 Printing Plate Maker Relationship Specialty Start Date End Date Ricardo Holliday MD [address] [facility] [address] [place] [address] PCP - General Internal Medicine 07/17/21 Team [...] Pro vider, Attending Provider, Referring Provider Active Printing Plate Maker Relationship Specialty Start Date End Date Ricardo Holliday MD [address] [address] PCP - General Internal Medicine 07/17/21 Printing Plate Maker Relationship Specialty Start Date End Date Miguelina Combs MD [address] [place] [address] PCP - General Family Medicine 04/11/24 Podlogar, Rox, MISSILE INSPECTOR.SOLE LAYER [address] [place] [address] Family Medicine 04/11/24 Printing Plate Maker Relationship Specialty Start Date End Date Miguelina Combs MD [address] [place] [address] PCP - General Family Medicine 04/11/24 Podlogar, Rox, MISSILE INSPECTOR.SOLE LAYER [address] [place] [address] Family Medicine 04/11/24 Printing Plate Maker Relationship Specialty Start Date End Date Miguelina Combs MD [address] [place] [address] PCP - General Family Medicine 04/11/24 Podlogar, Rox, MISSILE INSPECTOR.SOLE LAYER [address] [facility], [place] [id number] Family Medicine 04/11/24 Team Status: Active Member Role Status Dates Dr. Anil Corley MD Primary Care Provider Active Team Status: Inactive Member Role Status Dates Dr. Anil Corley MD Primary Care Provider Active Start: May 17, 2024 End: May 17, 2024 Dr. Anil Corley MD Attending Provider Active Start: May 17, 2024 End: May 17, 2024 Printing Plate Maker Relationship Specialty Start Date End Date Miguelina Combs MD [address] [facility], [place] [address] PCP - General Family Medicine 04/11/24 Podlogar, Rox, MISSILE INSPECTOR.SOLE LAYER [address] [facility], [place] [address] Family Medicine 04/11/24 PodlogarRox, MISSILE INSPECTOR.SOLE LAYER [address] [facility], [place] [address] Process Plant Operator Family Medicine 05/26/24 Mirtha Crabtree, MISSILE INSPECTOR.SOLE LAYER [address] [facility], [place] [address] Process Plant Operator Family Medicine 06/05/24 Team Status: Inactive Member [...] section and content) DATE CREATED AUTHOR 12/02/2024 [facility] DATE CREATED AUTHOR 'Shell SAVAGE 12/14/2024 [facility] FOR RECORDS PERTAINING TO PATIENTS WHO [...] BE BASED ON THE PRIMARY CLINICAL RECORDS. [employer] provides no warranty or guarantee of the accuracy or completeness of information in this document.
--- NOTE | 2025-02-12 02:09 | EKG12_ITS ---
Test Reason : DYSRHYTHMIA Blood Pressure : */* mmHG Vent. Rate : 83 BPM Atrial Rate : 83 BPM P-R Int : 172 ms QRS Dur : 82 ms QT Int : 362 ms P-R-T Axes : 60 50 48 degrees QTcB Int : 425 ms Normal sinus rhythm Normal ECG Confirmed by Pipe Nazario ([id number]), editor managing newspaper CHARLES JOHN ([id number]) on 02/12/2025 10:14:43 AM Referred By: Confirmed By: Pipe Nazario
--- NOTE | 2025-02-12 02:10 | ED.VIS.GI ---
HPI HPI - GI History of Present Illness Chief Complaint: Alt LOC Informant: patient and SNF Abdominal Pain/Flank Pain Onset: Today Context: Gradual Onset Timing: Continuous Nausea/Vomiting/Emesis GI Symptom: Positive for Nausea and Vomiting Onset: Today Severity: Mild Diarrhea/Melena/Hematochezia GI Symptom: Positive for Diarrhea Onset: Today Severity: Mild Associated Symptoms Associated Symptoms: Negative for Dysuria, Frequency, Hematuria or Urgency Narrative Narrative: A 9-year-old female seen earlier tonight for nausea and vomiting felt to be a viral syndrome. Workup was benign. She was discharged back to the [facility]. When she got there she had a hypotensive episode and was sent back to the concert by her who also lives at the facility. Prior similar symptoms: Yes Recent Ill[facility] Medical History Normocytic anemia CKD (chronic kidney disease), stage II Hypertension High cholesterol Hypothyroid Home Medications ?Medication ?Instructions ?Recorded ?Last Taken ?Type atorvastatin 10 mg tablet 5 mg (1/2 x 10 mg) PO DAILY 11/02/23 Unknown Rx cholestrol #45 tabs levothyroxine 50 mcg tablet 50 mcg PO .COMPLEX #12 tabs 11/02/23 Unknown Rx levothyroxine 75 mcg tablet 75 mcg PO .COMPLEX synthroid #72 11/02/23 Unknown Rx tabs irbesartan 300 mg tablet 150 mg (1/2 x 300 mg) PO DAILY 05/08/24 Unknown Rx blood pressure #90 tabs Arthritis Pain Compound 2 click topical BID ##0 02/09/25 Unknown Rx acetaminophen 325 mg tablet 650 mg (2 x 325 mg) PO Q4H PRN PRN 02/09/25 Unknown Rx Fever, pain 1-12/22 #0 tabs aluminum-mag hydroxide-simethicone 30 ml PO Q6H PRN PRN Gastric 02/09/25 Unknown Rx 400 mg-400 mg-40 mg/5 mL oral susp Burning #0 mL (Mag-Al Plus Extra Strength) gabapentin 100 mg capsule 100 mg PO TIDCM #0 caps 02/09/25 Unknown Rx risperidone 0.25 mg tablet 0.25 mg PO DAILY #0 tabs 02/09/25 Unknown Rx risperidone 0.5 mg tablet 0.5 mg PO QHS #0 tabs 02/09/25 Unknown Rx sennosides 8.6 mg-docusate sodium 2 tab PO BID PRN PRN Constipation 02/09/25 Unknown Rx 50 mg tablet (Stimulant Laxative #0 tabs Plus) losartan 50 mg tablet 50 mg PO DAILY 02/11/25 Unknown History donepezil 5 mg tablet 5 mg PO DAILY 02/12/25 Unknown History ondansetron 4 mg disintegrating 4 mg PO Q8H PRN nausea and 02/12/25 Unknown Rx tablet vomiting #7 tabs Allergy/AdvReac Type Severity Reaction Status Date / Time No Known Allergies Allergy Verified 02/12/25 01:51 Family History Mother Hypertension Myocardial infarction Father Hypertension Myocardial infarction Other Cancer Surgical History History of tonsillectomy and adenoidectomy Social History household members: spouse Smoking Status: Never smoker alcohol intake: never substance use type: does not use what type of physical activity do you participate in: walking frequency: 3-4 times per week ROS ROS ED ROS Narrative Nausea vomiting. Now diarrhea. Constitutional Constitutional ED: Denies chills or fever(s) ENT ENT ED: Denies ear pain Cardiovascular Cardiovascular: Denies chest pain Respiratory/Chest Respiratory/Chest: Denies cough or dyspnea Gastrointestinal Gastrointestinal: Reports diarrhea, nausea and vomiting; Denies abdominal pain or constipation Genitourinary Genitourinary ED: Denies dysuria or hematuria Musculoskeletal Musculoskeletal: Denies arthralgias Integumentary Denies abscess Neurologic Neurologic: Denies headache(s) Psychiatric Psychiatric: Denies anxiety or depression Endocrine Endocrinology: Denies polydipsia Hematologic/Lymphatic Hematologic/Lymphatic: Denies easy bleeding Allergic/Immunologic Allergic/Immunologic ED: Denies mouth swelling EXAM Physical Exam Narrative Exam Narrative: 89-year-old female lying in bed vital signs stable afebrile current blood pressure 144/60. Pulse ox 97%. Afebrile 90.3. She does not look septic or toxic. She did have an episode of brown loose diarrhea soon after arrival. H EENT exam pupils round react light. Moist mucous membranes. Neck nontender no JVD. Lungs clear to auscultation. Heart regular rhythm rate about 80. Chest wall ribs nontender. Abdomen soft nondistended normal bowel sounds without peritoneal signs. Nontender. Moving all 4 extremities. Mild effusion right knee. She is awake. She is answering questions. She is following commands. She does have mild confusion. Const Vital Signs: 02/12/25 01:50 02/12/25 02:35 02/12/25 02:45 Temperature 98.3 F Temperature Source Oral Pulse Rate 80 77 76 Respiratory Rate 18 20 H 21 H Blood Pressure 144/60 H 127/56 H Blood Pressure Mean 88 76 Pulse Ox 97 96 98 Oxygen Delivery Method Room Air 02/12/25 06:00 Temperature Temperature Source Pulse Rate 84 Respiratory Rate 20 H Blood Pressure 121/59 H Blood Pressure Mean 79 Pulse Ox 95 Oxygen Delivery Method Room Air MDM MDM MDM Narrative Medical decision making narrative: Patient seen earlier [facility] the [facility] and then returned due to transient episode of hypotension there. She has not been hypotensive here either currently or from her prior visit brennen. She was previously diagnosed as a viral syndrome with nausea and vomiting now she is also having diarrhea. Repeat screening labs will be obtained along with an EKG and a UA. Repeat exam around 3:10 PM. Patient was resting comfortably. No distress. Clinically I think she has got a viral gastroenteritis. He is being given IV fluids. Her vital signs have been stable the entire time here. Repeat exam around 6:27 AM patient is doing well. Resting comfortably. Abdomen is benign. Her repeat labs and urinalysis are unremarkable. I think this is due to a viral gastroenteritis she will be discharged back to the extended[facility]care facility with a prescription for Zofran. Patient's vital signs have been stable. History & Record Review Discussion w/independent historian: Patient Additional record(s) reviewed:: Prior outpatient record, Prior ED visit and Prior labs Lab Data Attestation: I reviewed the patient's lab results. Lab results narrative: CBC showed a white 11.3 H&H 10.4 and 32.9. Platelets 250. Chemistry shows a gap 11. BUN and creatinine and nineteen 0.8. Liver enzymes no significant change. Urinalysis normal. Straight cath UA. No white or red cells. No nitrates nor bacteria. Labs: Laboratory Results - last 24 hr 02/12/25 02/12/25 02:15 02:30 WBC 11.3 H RBC 3.56 L Hgb 10.4 L Hct 32.9 L MCV 92.4 MCH 29.2 MCHC 31.6 L RDW Std Deviation 48.4 H RDW Coeff of Anderson 14.1 Plt Count 250 MPV 9.5 Immature Gran % (Auto) 0.400 Neut % (Auto) 84.7 H Lymph % (Auto) 5.7 L [place] % (Auto) 8.8 Eos % (Auto) 0.1 Baso % (Auto) 0.3 Absolute Neuts (auto) 9.5 H Absolute Lymphs (auto) 0.64 L Nucleated RBC % 0 Sodium 137 Potassium 4.5 Chloride 106 Carbon Dioxide 20.6 L Anion Gap 11 BUN 19 Creatinine 0.84 Estim Creat Clear Calc 44.17 L Est GFR (MDRD) Non-Af 68 BUN/Creatinine Ratio 22.4 H Glucose 141 H Calcium 9.4 Total Bilirubin 0.36 AST 39 H ALT 39 H Alkaline Phosphatase 95 Total Protein 6.2 Albumin 3.6 Globulin 2.7 Albumin/Globulin Ratio 1.4 Urine Color Yellow Urine Clarity Clear Urine pH 6.0 Ur Specific [place] 1.010 Urine Protein 15 H Urine Glucose (UA) Normal Urine Ketones Negative Urine Occult Blood Negative Urine Nitrite Negative Urine Bilirubin Negative Urine Urobilinogen Normal Ur Leukocyte Esterase Negative Urine RBC 0 SEEN Urine WBC 0 SEEN Ur Squamous Epith Cells 0 SEEN Urine Bacteria 0 SEEN Urine Mucus 0 SEEN Rhythm Strip Rhythm Strip: Sinus Rhythm Rate: 83 Ectopy: None EKG Initial EKG: Attestation: I personally reviewed and interpreted this EKG as follows: Interpretation: Sinus Rhythm and No Acute Injury Pattern Comments: Normal sinus rhythm rate of 83. No acute signs of DC nor ischemia. No dysrhythmia. Discharge Plan Triage Chief Complaint: Alt LOC ED Provider: Gigi Rudd Dx/Rx/DC Orders Clinical Impression: Viral gastroenteritis Instructions: ED Viral Syndrome (Adult) Prescriptions: New ondansetron 4 mg tablet,disintegrating 4 mg PO Q8H PRN (Reason: nausea and vomiting) Qty: 7 0RF Rx Instructions: As needed for nausea. She may swallow them or you can let them dissolve under her tongue. No Action Arthritis Pain Compound 2 click topical BID Qty: 0 0RF acetaminophen 325 mg Tablet 650 mg PO Q4H PRN PRN (Reason: Fever, pain 1-10/10) Qty: 0 0RF sennosides-docusate sodium [Stimulant Laxative Plus] 8.6-50 mg Tablet 2 tab PO BID PRN PRN (Reason: Constipation) Qty: 0 0RF risperidone 0.25 mg Tablet 0.25 mg PO DAILY Qty: 0 0RF gabapentin 100 mg Capsule 100 mg PO TIDCM Qty: 0 0RF risperidone 0.5 mg Tablet 0.5 mg PO QHS Qty: 0 0RF alum-mag hydroxide-simeth [Mag-Al Plus Extra Strength] 400-400-40 mg/5 mL Suspension 30 ml PO Q6H PRN PRN (Reason: Gastric Burning) Qty: 0 0RF losartan 50 mg tablet 50 mg PO DAILY donepezil 5 mg tablet 5 mg PO DAILY atorvastatin 10 mg tablet 5 mg PO DAILY Qty: 45 3RF levothyroxine 50 mcg tablet 50 mcg PO .COMPLEX Qty: 12 3RF Rx Instructions: 50 mcg orally sundays; levothyroxine 75 mcg tablet 75 mcg PO .COMPLEX Qty: 72 3RF Rx Instructions: 75 mcg orally Wednesday Thru Wednesday; irbesartan 300 mg tablet 150 mg PO DAILY Qty: 90 3RF Primary Care Provider: Lobo Tavares Referrals: Lobo Tavares, [Primary Care Provider, Medical] - 1-2 Days if not improving Activity Restrictions/Additional Instructions: Plenty of fluids and rest. Zofran as needed for nausea. Labs are no significant difference than they were earlier tonight. I believe she has a viral gastroenteritis. Urinalysis was normal. Print Language: Trinidadian Disposition Disposition: Home, Self Care
[2025-02-12 02:19] LABS: Mucous, Urine 0 SEEN /hpf (<or=2+); Red Blood Cells-Urine 0 SEEN /hpf (0-5); Squamous Epithelial Cells - UA 0 SEEN /hpf (5-10)
[2025-02-12 02:22] LABS: Color, Urine Yellow (Yellow); Glucose, Dipstick Normal (Normal); Ketone-Dipstick Negative (Negative); Leukocyte Esterase-Dipstick Negative /ul (Negative); Nitrite-Dipstick Negative (Negative); Occult Blood-Urine Negative /ul (Negative); Protein-Dipstick 15 mg/dl (Negative); Specific Gravity, Urine 1.010 (1.002-1.030); Urine Bilirubin Dipstick Negative (Negative)
[2025-02-12 02:35] VITALS: PULSE 77; RESP 20; O2SAT 96
[2025-02-12 02:39] LABS: Hematocrit 32.9 % (37-47); Hemoglobin 10.4 g/dL (12.0-15.0); Immature Granulocytes Count 0.050 X10^3/uL (0.0-0.0); Mean Corp Hgb Conc 31.6 g/dL (32-36); Mean Corpuscular Volume 92.4 fL (81-99); Mean Platelet Vol. 9.5 fl (6.2-12.0); NRBC Flagged by Analyzer 0 % (0-5); Platelet Count 250 K/mm3 (150-450); RBC Distribution Width CV 14.1 % (11.6-14.6); RBC Distribution Width SD 48.4 fl (35.1-43.9); Red Blood Count 3.56 M/mm3 (4.2-5.4); White Blood Count 11.3 K/mm3 (4.4-11.0)
[2025-02-12 02:45] VITALS: BP 127/56; PULSE 76; RESP 21; O2SAT 98
[2025-02-12] MEDS: 0.9% Normal Saline (1000mL) 1,000 ML 999 ML IV (03:01)
[2025-02-12 03:16] LABS: AST(SGOT) 39 U/L (<=31); Alanine Aminotransfer ALT/SGPT 39 U/L (<=34); Albumin, Serum 3.6 g/dL (3.4-4.8); Alkaline Phosphatase 95 U/L (35-104); Anion Gap 11 (5-15); BUN 19 mg/dL (4-19); BUN/Creat Ratio 22.4 RATIO (10-20); Calcium,Total 9.4 mg/dL (7.6-11.0); Carbon Dioxide 20.6 mmol/L (21.0-32.0); Chloride 106 mmol/L (98-108); Estimated Creatinine Clearance 44.17 ml/min (50-250); Globulin 2.7 g/dL (2.2-4.2); Glucose 141 mg/dL (70-99); Potassium 4.5 mmol/L (3.3-5.1)
[2025-02-12 06:00] VITALS: BP 121/59; PULSE 84; RESP 20; O2SAT 95
[2025-02-12 06:33] VITALS: BP 131/64; PULSE 86; RESP 16; TEMP 36.6; O2SAT 97
--- NOTE | 2025-02-12 06:39 | ED.RN ---
Nurse from [facility] called and requesting an update. Updated on VS being within normal limits while here and that labs and UA were negative. Informed nurse pt would be coming back to facility around 0830. Nurse in agreement.
== END 2025-02-12 08:46 | disposition home or self-care (01) ==
PROVIDERS: Emergency Provider Emergency Medicine; Visit Provider Emergency Medicine
DX: A08.4 Viral intestinal infection, unspecified (principal); I12.9 Hypertensive chronic kidney disease with stage 1 through stage 4 chronic kidney disease, or unspecified chronic kidney disease; N18.2 Chronic kidney disease, stage 2 (mild); D64.9 Anemia, unspecified; E03.9 Hypothyroidism, unspecified; E78.00 Pure hypercholesterolemia, unspecified; M17.11 Unilateral primary osteoarthritis, right knee; Z79.890 Hormone replacement therapy; Z79.899 Other long term (current) drug therapy
CPT/HCPCS: 80053; 81001; 85025; 93005; 96360; 99285; A4216